=== PATIENT | male | born 1950 | race Caucasian/White ===

== ENCOUNTER 2017-07-02 19:41 | Observation (INO) | payer MEDICARE, BC ==
[~2017-07-02] VITALS: Ht 175.3 cm; Wt 80.0 kg
[~2017-07-02 19:41] MED LIST: ASPI81TA82 PO; METO25 PO; NITR.4 SL; Z.0.WALKERFRONT
[2017-07-02] MEDS ORDERED: SODIUM CHLORIDE 0.9% FLUSH 10 ML FLUSH IVF PRN (20:00)
[2017-07-02 20:12] VITALS: BP 132/70; PULSE 70; RESP 20; TEMP 97.7; O2SAT 97
[2017-07-02 20:20] LABS: AUTOMATED NEUTROPHIL # 3.3 TH/MM3 (1.8-7.7); BASOPHIL # 0.1 TH/MM3 (0-0.2); BASOPHIL % 1.2 % (0.0-2.0); EOSINOPHIL # 0.4 TH/MM3 (0-0.4); EOSINOPHIL % 4.2 % (0.0-4.0); HEMATOCRIT 36.1 % (39.0-51.0); HEMO FLAGS DIFF FINAL; LYMPH % 48.5 % (9.0-44.0); LYMPHOCYTE # 4.1 TH/MM3 (1.0-4.8); MEAN CELL VOLUME 64.1 FL (80.0-100.0); MEAN CORPUSCULAR HEMOGLOBIN 20.7 PG (27.0-34.0); MEAN CORPUSCULAR HGB CONC 32.3 % (32.0-36.0); MONO % 6.8 % (0.0-8.0); NEUT % 39.3 % (16.0-70.0); PLATELET COUNT 135 TH/MM3 (150-450); RED BLOOD COUNT 5.63 MIL/MM3 (4.50-5.90); RED CELL DISTRIBUTION WIDTH 15.5 % (11.6-17.2); WHITE BLOOD COUNT 8.5 TH/MM3 (4.0-11.0)
[2017-07-02 20:35] LABS: APTT (PATIENT) 27.4 SEC (24.3-30.1); INTERNATIONAL NORMALIZED RATIO 0.9 RATIO
[2017-07-02 20:39] LABS: ANION GAP 9 MEQ/L (5-15); BICARBONATE 26.1 MEQ/L (21.0-32.0); BLOOD UREA NITROGEN 13 MG/DL (7-18); CHLORIDE 104 MEQ/L (98-107); GLOMERULAR FILTRATION RATE 56 ML/MIN (>89); MAGNESIUM 2.1 MG/DL (1.5-2.5); SODIUM (NA) 139 MEQ/L (136-145)
[2017-07-02 20:40] LABS: CREATINE KINASE 74 U/L (39-308); POTASSIUM 4.1 MEQ/L (3.5-5.1)
[2017-07-02] MEDS ORDERED: METO50TA PO (20:49)
[2017-07-02] MEDS ORDERED: NITR1SUB3 SL (20:49)
[2017-07-02] MEDS ORDERED: ASPI-516 CHEW (20:49)
[2017-07-02] MEDS ORDERED: PRAV20TA2 PO (20:49)
[2017-07-02] MEDS ORDERED: AMLO5TAB2 PO (20:49)
[2017-07-02 21:00] VITALS: BP 134/66; PULSE 66; RESP 20; O2SAT 99
[2017-07-02 21:02] VITALS: PULSE 66; RESP 20; O2SAT 99
[2017-07-02] MEDS ORDERED: NITROGLYCERIN 0.4 MG SL 25 TABS/BTL SL PRN (21:15)
[2017-07-02] MEDS ORDERED: ONDANSETRON HCL 4 MG/2 ML VIAL IV PUSH PRN (21:15)
[2017-07-02] MEDS ORDERED: SODIUM CHLORIDE 0.9% FLUSH 10 ML FLUSH IV FLUSH PRN (21:15)
--- NOTE | 2017-07-02 21:18 | PD ---
HPI Chief Complaint: Chest Pain Time Seen by Provider: 19:56 Travel History International Travel<30 days: No Contact w/Intl Traveler<30days: No Traveled to known affect area: No History of Present Illness HPI 66-year-old male came to the emergency room brought by EMS with history of sudden onset chest pain to the left side of his chest while he was sitting waiting for his food. Patient took his nitroglycerin 2 which made the pain go away. However when he got up and started to walk the pain started to come back and his called 911. He was given 2 baby aspirin's. 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 He quit smoking one month ago. Patient has never had a stent or bypass surgery in the past. He is on medications for blood pressure. Vital signs were relatively stable. Patient says currently his pain is 1-2 out of 10. When he was having the chest pain he also felt some tingling down his left fingers. He has never had this kind of pain before. This happened at 7 PM today. No associated symptoms like shortness of breath, diaphoresis or syncopal episode. [facility] Past Medical History Narrative Medical List of his past medical, surgical, social and family history is reviewed from the nursing note. Anemia: Yes Heart Rhythm Problems: Yes (UNSURE WHICH, HAD RUN OF SVT IN ED) Cancer: No Cardiac Catheterization: No Cardiovascular Problems: Yes High Cholesterol: Yes Chest Pain: Yes Congestive Heart Failure: No COPD: Yes Diabetes: No Diminished Hearing: No Endocrine: No Gastrointestinal Disorders: Yes (GERD) Glaucoma: No Genitourinary: No Hepatitis: No Hiatal Hernia: No Hypertension: Yes Musculoskeletal: Yes Neurologic: Yes Psychiatric: No Respiratory: No Immunizations Current: Yes Thyroid Disease: No Tetanus Vaccination: < 5 Years Influenza Vaccination: Yes Past Surgical History Coronary Artery Bypass Graft: No Genitourinary Surgery: Yes (LEFT VARICOCELE EXCISION 1980) Other Surgery: Yes (VARIOCELE, BILAT HERNIA REPAIR) Family History Family Myocardial Infarction: Yes Social History Alcohol Use: Yes (2-3 beers week) Tobacco Use: No (quite 1 month ago) Substance Use: No Allergies-Medications (Allergen,Severity, Reaction): Coded Allergies: No Known Allergies (Verified Adverse Reaction, Unknown, 07/02/17) Comments No known drug allergies. Reported Meds & Prescriptions Reported Meds & Active Scripts Active Nitroglycerin Tab 0.4 Mg Sl (Nitroglycerin) 0.4 Mg Subl 0.4 Mg SL DIRECTED Walker Front Wheel (Z.0.walkerfront) Device 1 Unit Metoprolol Tartrate 25 mg (Metoprolol Tartrate) 25 Mg Tab 25 Mg PO BID Reported Nitroglycerin SL (Nitroglycerin) 0.4 Mg Subl 0.4 Mg SL DIRECTED PRN ONE TABLET UNDER THE TONGUE NEEDED FOR CHEST PAIN, MAY REPEAT EVERY FIVE MINUTES FOR A TOTAL OF 3 DOSES OR CALL 911 IF NO RELIEF Amlodipine (Amlodipine Besylate) 5 Mg Tab 5 Mg PO DAILY Pravastatin 20 Mg Tab 20 Mg PO DAILY Metoprolol Tartrate 50 Mg Tab 50 Mg PO BID Aspirin 81 Mg Chew 81 Mg CHEW DAILY Aspir-81 (Aspirin) 81 Mg Tab 81 Mg PO DAILY Narrative Medication List of his home medications reviewed from the nursing note. Review of Systems Except as stated in HPI: all other systems reviewed are Neg Cardiovascular: Positive: Chest Pain or Discomfort Physical Exam Narrative GENERAL: Awake, alert, anxious, no obvious distress SKIN: Focused skin assessment warm/dry. HEAD: Atraumatic. Normocephalic. EYES: Pupils equal and round. No scleral icterus. No injection or drainage. ENT: No nasal bleeding or discharge. Mucous membranes pink and moist. NECK: Trachea midline. No JVD. CARDIOVASCULAR: Regular rate and rhythm. No murmur appreciated. RESPIRATORY: No accessory muscle use. Clear to auscultation. Breath sounds equal bilaterally. GASTROINTESTINAL: Abdomen soft, non-tender, nondistended. Hepatic and splenic margins not palpable. MUSCULOSKELETAL: No obvious deformities. No clubbing. No cyanosis. No edema. NEUROLOGICAL: Awake and alert. No obvious cranial nerve deficits. Motor grossly within normal limits. Normal speech. PSYCHIATRIC: Appropriate mood and affect; insight and judgment normal. Data Data Last Documented VS Vital Signs Date Time Temp Pulse Resp B/P (MAP) Pulse Ox O2 Delivery O2 Flow Rate FiO2 07/02/17 21:02 66 20 99 Nasal Cannula 2.00 07/02/17 20:12 97.7 Orders Orders Electrocardiogram (07/02/17 19:57) Basic Metabolic Panel (Bmp) (07/02/17 19:57) Ckmb (Isoenzyme) Profile (07/02/17 19:57) Complete Blood Count With Diff (07/02/17 19:57) Magnesium (Mg) (07/02/17 19:57) Prothrombin Time / Inr (Pt) (07/02/17 19:57) Act Partial Throm Time (Ptt) (07/02/17 19:57) Troponin I (07/02/17 19:57) Chest, Single Ap (07/02/17 19:57) Ecg Monitoring (07/02/17 19:57) Bilateral Bp Monitoring (07/02/17 19:57) Iv Access Insert/Monitor (07/02/17 19:57) Oximetry (07/02/17 19:57) Oxygen Administration (07/02/17 19:57) Sodium Chloride 0.9% Flush (Ns Flush) (07/02/17 20:00) Admit Order (Ed Use Only) (07/02/17 21:04) Place In Observation (07/02/17 21:04) Activity Bed Rest With Brp (07/02/17 21:04) Vital Signs (Adult) Q4H (07/02/17 21:04) Cardiac Rhythm .As Directed (07/02/17 21:04) Notify Dr: Other .PRN (07/02/17 21:04) Notify Dr. Parameters (07/02/17 21:04) Resp Oxygen Nasal Cannula (07/02/17 ) Diet Heart Healthy (07/03/17 Breakfast) Ckmb (Isoenzyme) Profile (07/02/17 21:04) Ckmb (Isoenzyme) Profile (07/03/17 00:04) Troponin I (07/02/17 21:04) Troponin I (07/03/17 00:04) Electrocardiogram (07/02/17 21:04) Electrocardiogram (07/03/17 00:04) ^ Obtain (07/02/17 21:04) Sodium Chloride 0.9% Flush (Ns Flush) (07/02/17 21:15) Sodium Chloride 0.9% Flush (Ns Flush) (07/03/17 09:00) Acetaminophen (Tylenol) (07/02/17 21:15) Ondansetron Inj (Zofran Inj) (07/02/17 21:15) Nitroglycerin Sl (Nitrostat Sl) (07/02/17 21:15) Cattle Feeder / Telemetry KUSUM.Q8H (07/02/17 21:04) Labs Laboratory Tests Test 07/02/17 20:00 White Blood Count 8.5 TH/MM3 Red Blood Count 5.63 MIL/MM3 Hemoglobin 11.6 GM/DL Hematocrit 36.1 % Mean Corpuscular Volume 64.1 FL Mean Corpuscular Hemoglobin 20.7 PG Mean Corpuscular Hemoglobin Concent 32.3 % Red Cell Distribution Width 15.5 % Platelet Count 135 TH/MM3 Mean Platelet Volume 9.5 FL Neutrophils (%) (Auto) 39.3 % Lymphocytes (%) (Auto) 48.5 % Monocytes (%) (Auto) 6.8 % Eosinophils (%) (Auto) 4.2 % Basophils (%) (Auto) 1.2 % Neutrophils # (Auto) 3.3 TH/MM3 Lymphocytes # (Auto) 4.1 TH/MM3 Monocytes # (Auto) 0.6 TH/MM3 Eosinophils # (Auto) 0.4 TH/MM3 Basophils # (Auto) 0.1 TH/MM3 CBC Comment DIFF FINAL Differential Comment Prothrombin Time 10.0 SEC Prothromb Time International Ratio 0.9 RATIO Activated Partial Thromboplast Time 27.4 SEC Blood Urea Nitrogen 13 MG/DL Creatinine 1.28 MG/DL Random Glucose 121 MG/DL Calcium Level 8.5 MG/DL Magnesium Level 2.1 MG/DL Sodium Level 139 MEQ/L Potassium Level 4.1 MEQ/L Chloride Level 104 MEQ/L Carbon Dioxide Level 26.1 MEQ/L Anion Gap 9 MEQ/L Estimat Glomerular Filtration Rate 56 ML/MIN Total Creatine Kinase 74 U/L Troponin I LESS THAN 0.02 NG/ML MDM Medical Decision Making Medical Screen Exam Complete: Yes Emergency Medical Condition: Yes Medical Record Reviewed: Yes Interpretation(s) Twelve-lead EKG was reviewed by me. Normal sinus rhythm, normal axis, nonspecific ST-T wave changes. Heart rate of 67 bpm. Differential Diagnosis ACS, non-STEMI Narrative Course 9:17 PM blood test results are back and within acceptable limits. My concern is high for acute coronary syndrome given his history and risk factors including smoking although he quit one month ago. I would admit him to the chest pain center. Patient was informed about this plan along with his family. They understand and patient has agreed. Procedures EKG Prior to Arrival: No Diagnosis Primary Impression: chest pain Admitting Information Admitting Physician Requests: Observation Nelly Harper MD Jul 02, 2017 21:18
--- NOTE | 2017-07-02 21:19 | RADRPT ---
EXAM DATE/TIME: 07/02/2017 20:03 [facility] COMPARISON: CHEST SINGLE AP, August 02, 2015, 2:52. INDICATIONS : Chest pain and short of breath. MEDICAL HISTORY : Chronic obstructive pulmonary disease. SURGICAL HISTORY : None. ENCOUNTER: Initial ACUITY: 1 day PAIN SCORE: 8/10 LOCATION: Bilateral chest FINDINGS: A single view of the chest demonstrates the lungs to be symmetrically aerated without evidence of mas s, infiltrate or effusion. The cardiomediastinal contours are unremarkable. Osseous structures are intact. CONCLUSION: Normal examination. Ramiro Hunter MD on July 02, 2017 at 21:18 Board Certified Radiologist. This report was verified electronically.
[2017-07-02 22:29] VITALS: BP 141/65; PULSE 60; RESP 16; TEMP 97.3; O2SAT 97
[2017-07-02 22:32] LABS: CREATINE KINASE 60 U/L (39-308)
[2017-07-02] MEDS: ACETAMINOPHEN 500 MG CPLT PO PRN (23:07)
[2017-07-03 00:47] VITALS: BP 119/57; PULSE 67; RESP 15; TEMP 96.9; O2SAT 97
[2017-07-03 02:59] LABS: CREATINE KINASE 54 U/L (39-308)
[2017-07-03 03:55] VITALS: BP 117/58; PULSE 82; RESP 15; TEMP 96.1; O2SAT 98
[2017-07-03 04:31] VITALS: PULSE 68
[2017-07-03 07:52] VITALS: BP 121/58; PULSE 74; RESP 18; TEMP 97.4; O2SAT 97
[2017-07-03] MEDS ORDERED: RESP: ALBUTEROL 2.5 MG/IPRATROPIUM 0.5 MG NEB (SCH) INH ONE (08:00)
[2017-07-03] MEDS ORDERED: RESP: ALBUTEROL 2.5 MG/IPRATROPIUM 0.5 MG NEB (PRN) INH (08:00)
--- NOTE | 2017-07-03 08:03 | HHI.HP ---
[facility] Primary Care Physician Alfa Garcia MD Chief Complaint Chest pain History of Present Illness This is a 66-year-old male with history of hypertension hyperlipidemia tobacco abuse, reported history of mild CAD via catheter in 2005 while in [place] that presents to ED with complaint of 2 episodes of chest discomfort. Patient states he was walking to the kitchen last evening when he developed a sharp left -sided chest discomfort. Within 1 minute he took a sublingual nitroglycerin which resolve the first episode with then another minute. He sat down. When feeling better he decided to walk back to the kitchen. While walking back to the kitchen the same pain occurred. He took another nitroglycerin but it lasted little longer. Dates it to 2-3 minutes for to go away. Rates as 7 out of 10 pain level. He is chronically short of breath with his COPD but states he felt a little more short of breath. No nausea or diaphoresis. Follows Dr. Fairchild cardiology and believes he has a follow-up appointment recent. Believes his last visit was a year ago. Upon reviewing records he had a Narciso protocol ETT July 2015 that was nonischemic however suboptimal with a 81% achieved rate that was stopped secondary to shortness of breath. No chest pain. He had a Lexiscan in 2013 is nonischemic. Review of Systems General: Patient denies fevers, chills recent, and recent travel HEENT: Patient denies headache, sore throat, difficulty swallowing. Cardiovascular: Has the chest discomfort as mentioned above. Denies sensation of heart beating rapidly or irregularly. No syncope. Denies diaphoresis. Respiratory: He was short of breath. Denies inspirational chest discomfort. Denies coughing wheezing or hemoptysis. GI: Patient denies nausea, vomiting, diarrhea, abdominal pain, bloody stools. Musculoskeletal: Patient denies joint pain or edema. Denies calf pain or edema. Neurovascular: Patient denies numbness, tingling, weakness in extremities. Denies headache. Endocrine: Denies polyuria and polydipsia. Hematologic: Denies easy bruising. Skin: Denies rash or itching. Past Family Social History Allergies: Coded Allergies: No Known Allergies (Verified Adverse Reaction, Unknown, 07/02/17) Past Medical History COPD, hypertension, hyperlipidemia, tobacco abuse but states he quit one month ago. Also states he has mild CAD, states he had a heart catheterization in 2005 revealing some disease but not needing interventions. Episode of SVT in 2014. Denies diabetes. Past Surgical History Inguinal hernia repair. Reported Medications Reported Meds & Active Scripts Active Metoprolol Tartrate 25 mg (Metoprolol Tartrate) 25 Mg Tab 25 Mg PO BID Reported Nitroglycerin SL (Nitroglycerin) 0.4 Mg Subl 0.4 Mg SL DIRECTED PRN ONE TABLET UNDER THE TONGUE NEEDED FOR CHEST PAIN, MAY REPEAT EVERY FIVE MINUTES FOR A TOTAL OF 3 DOSES OR CALL 911 IF NO RELIEF Amlodipine (Amlodipine Besylate) 5 Mg Tab 5 Mg PO DAILY Pravastatin 20 Mg Tab 20 Mg PO DAILY Aspir-81 (Aspirin) 81 Mg Tab 81 Mg PO DAILY Active Ordered Medications Current Medications Medications (Trade) Dose Ordered Sig/Abel Route Start Time Stop Time Status Last Admin (NS Flush) 2 ml UNSCH PRN IVF 07/02/17 20:00 (NS Flush) 2 ml UNSCH PRN IV FLUSH 07/02/17 21:15 (NS Flush) 2 ml BID IV FLUSH 07/03/17 09:00 (Tylenol) 500 mg Q4H PRN PO 07/02/17 21:15 07/02/17 23:07 (Zofran Inj) 4 mg Q6H PRN IV PUSH 07/02/17 21:15 (Nitrostat Sl) 0.4 mg Q5M PRN SL 07/02/17 21:15 (Norvasc) 5 mg DAILY PO 07/03/17 09:00 UNV (Lopressor) 25 mg BID PO 07/03/17 09:00 UNV (Pravachol) 20 mg DAILY PO 07/03/17 09:00 UNV Family History His father late onset CAD. States his father at age 81 of a myocardial infarction. Social History Was smoking 1 pack a day for 50 years but states he quit one month ago. Has on average couple beers per weekend. Denies illicit drugs. 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 Physical Exam Vital Signs Vital Signs Date Time Temp Pulse Resp B/P (MAP) Pulse Ox O2 Delivery O2 Flow Rate FiO2 07/03/17 07:52 97.4 74 18 121/58 (79) 97 07/03/17 04:31 68 07/03/17 03:55 96.1 82 15 117/58 (77) 98 07/03/17 00:47 96.9 67 15 119/57 (77) 97 07/03/17 00:07 18 07/02/17 22:29 97.3 60 16 141/65 (90) 97 07/02/17 21:02 66 20 99 Nasal Cannula 2.00 07/02/17 21:00 66 20 134/66 (88) 99 Nasal Cannula 2.00 07/02/17 20:12 97.7 70 20 132/70 (90) 97 07/02/17 20:11 97 Nasal Cannula 2.00 Physical Exam GENERAL: This is a well-nourished, well-developed patient, in no apparent distress. Patient speaks in clear complete sentences. Patient is pleasant. HEENT: Right carotid bruit. Head is atraumatic and normocephalic. Neck is supple without lymphadenopathy and trachea is midline. No JVD. CARDIOVASCULAR: Regular rate and rhythm without murmurs, gallops, or rubs. RESPIRATORY: Scattered wheezing bilaterally more so in the bases. Breath sounds equal bilaterally. No rales, or rhonchi. Chest wall is nontender. No use of accessory muscles. GASTROINTESTINAL: Abdomen is nontender, nondistended. Abdomen soft. No obvious pulsatile mass or bruit. No CVA tenderness. Strong femoral pulses bilaterally. Normal bowel sounds in all quadrants. MUSCULOSKELETAL: Patient is moving upper and lower extremities freely. No calf tenderness or edema, no Homans sign. Strong pulses in upper and lower extremities. NEUROLOGICAL: Patient is alert and oriented. Cranial nerves 2-12 are grossly intact. No focal deficits and speech is clear. SKIN: No rash and turgor is normal. Laboratory Laboratory Tests Test 07/02/17 20:00 07/02/17 21:47 07/03/17 01:45 White Blood Count 8.5 Red Blood Count 5.63 Hemoglobin 11.6 Hematocrit 36.1 Mean Corpuscular Volume 64.1 Mean Corpuscular Hemoglobin 20.7 Mean Corpuscular Hemoglobin Concent 32.3 Red Cell Distribution Width 15.5 Platelet Count 135 Mean Platelet Volume 9.5 Neutrophils (%) (Auto) 39.3 Lymphocytes (%) (Auto) 48.5 Monocytes (%) (Auto) 6.8 Eosinophils (%) (Auto) 4.2 Basophils (%) (Auto) 1.2 Neutrophils # (Auto) 3.3 Lymphocytes # (Auto) 4.1 Monocytes # (Auto) 0.6 Eosinophils # (Auto) 0.4 Basophils # (Auto) 0.1 CBC Comment DIFF FINAL Differential Comment Prothrombin Time 10.0 Prothromb Time International Ratio 0.9 Activated Partial Thromboplast Time 27.4 Blood Urea Nitrogen 13 Creatinine 1.28 Random Glucose 121 Calcium Level 8.5 Magnesium Level 2.1 Sodium Level 139 Potassium Level 4.1 Chloride Level 104 Carbon Dioxide Level 26.1 Anion Gap 9 Estimat Glomerular Filtration Rate 56 Total Creatine Kinase 74 60 54 Troponin I LESS THAN 0.02 LESS THAN 0.02 LESS THAN 0.02 Result Diagram: 07/02/17199907/02/171999 Imaging Last 24 hours Impressions Chest X-Ray 07/02/171956 Signed Impressions: Service Date/Time: Friday, July 02, 2017 20:03 - CONCLUSION: Normal examination. Ramiro Hunter MD Course EKGs have sinus rhythm without significant ST segment depressions or elevations. Caprini VTE Risk Assessment Caprini VTE Risk Assessment: Mod/High Risk (score >= 2) Caprini Risk Assessment Model Point Value = 1 Point Value = 2 Point Value = 3 Point Value = 5 Age 41-60 Minor surgery BMI > 25 kg/m2 Swollen legs Varicose veins or History of unexplained or recurrent spontaneous Oral contraceptives or hormone replacement Sepsis (< 1 month) Serious lung disease, including pneumonia (< 1 month) Abnormal pulmonary function Acute myocardial infarction Congestive heart failure (< 1 month) History of inflammatory bowel disease Medical patient at bed rest Age 61-74 Arthroscopic surgery Major open surgery (> 45 min) Laparoscopic surgery (> 45 min) Malignancy Confined to bed (> 72 hours) Immobilizing plaster cast Central venous access Age >= 75 History of VTE Family history of VTE Factor V Leiden Prothrombin [id number] Lupus anticoagulant Anticardiolipin antibodies Elevated serum homocysteine Heparin-induced thrombocytopenia Other congenital or acquired thrombophilia Stroke (< 1 month) Elective arthroplasty Hip, pelvis, or leg fracture Acute spinal cord injury (< 1 month) Prophylaxis Regimen Total Risk Factor Score Risk Level Prophylaxis Regimen 0-1 Low Early ambulation 2 Moderate Order ONE of the following: *Sequential Compression Device (SCD) *Heparin 5000 units SQ BID 3-4 Higher Order ONE of the following medications: *Heparin 5000 units SQ TID *Enoxaparin/Lovenox 40 mg SQ daily (WT < 150 kg, CrCl > 30 mL/min) *Enoxaparin/Lovenox 30 mg SQ daily (WT < 150 kg, CrCl > 10-29 mL/min) *Enoxaparin/Lovenox 30 mg SQ BID (WT < 150 kg, CrCl > 30 mL/min) AND/OR *Sequential Compression Device (SCD) 5 or more Highest Order ONE of the following medications: *Heparin 5000 units SQ TID (Preferred with Epidurals) *Enoxaparin/Lovenox 40 mg SQ daily (WT < 150 kg, CrCl > 30 mL/min) *Enoxaparin/Lovenox 30 mg SQ daily (WT < 150 kg, CrCl > 10-29 mL/min) *Enoxaparin/Lovenox 30 mg SQ BID (WT < 150 kg, CrCl > 30 mL/min) AND *Sequential Compression Device (SCD) Assessment and Plan Assessment and Plan * Chest pain: Patient has had serial cardiac enzymes and EKGs for ruling out purposes. He will be seen by Dr. Barahona of cardiology and the chest pain center. I discussed this patient with his plant operations coordinator Dr. Fairchild. At this time he'll have a Lexiscan, he would be discharged if nonischemic with instructions to follow-up with PCP and plant operations coordinator. We will notify Dr. Fairchild the stress test is abnormal. Return to ED for interval issues. * Reported CAD: We'll reassess with stress testing. * Hypertension: Continue current medication. * Hyperlipidemia: Continue current medication. * COPD: We'll have DuoNeb's. Patient is stable at this time. He is agreeable to this plan. Alfa Serrano Jul 03, 2017 08:03
[2017-07-03 08:35] VITALS: O2SAT 98
[2017-07-03] MEDS ORDERED: amLODIPine BESYLATE 5 MG TAB PO SCH (09:00)
[2017-07-03] MEDS ORDERED: METOPROLOL TARTRATE 25 MG TAB PO SCH (09:00)
[2017-07-03] MEDS ORDERED: SODIUM CHLORIDE 0.9% FLUSH 10 ML FLUSH IV FLUSH SCH (09:00)
[2017-07-03] MEDS ORDERED: PRAVASTATIN SOD 20 MG TAB PO SCH (09:00)
[2017-07-03] MEDS ORDERED: REGADENOSON INJ 0.4 MG/5 ML SYR ONE (10:49)
[2017-07-03 11:39] VITALS: BP 121/62; PULSE 67; RESP 21; TEMP 97.7; O2SAT 100
--- NOTE | 2017-07-03 11:56 | RADRPT ---
EXAM DATE/TIME: 07/03/2017 10:12 [facility] COMPARISON: MYOCARDIAL PERF PHARM SPECT, GATED W/EF, June 09, 2014, 9:21. INDICATIONS : Left sided chest pain. Angina. DOSE: 25.7 mCi Tc99m Myoview at stress. 8.1 mCi Tc99m Myoview at rest. 0.4 mg Lexiscan STRESS SYMPTOMS: Chest pressure, shortness of breath, stomach pain. EJECTION FRACTION: 58% MEDICAL HISTORY : Hypertension. Smoking history. SURGICAL HISTORY : None. ENCOUNTER: Initial ACUITY: 1 day PAIN SCALE: 2/10 LOCATION: Left chest TECHNIQUE: The patient underwent pharmacologic stress with infusion of prescribed dose. Continuous ECG tracing was monitored during stress. Gated SPECT imaging was performed after stress and conventional SPECT i maging was performed at rest. The examination was performed on a SPECT/CT scanner, both attenuation and non-corrected datasets were reviewed. FINDINGS: DISTRIBUTION: The maximum perfused segment at stress is in the anterolateral wall. PERFUSION STUDY: The pattern of perfusion at stress shows about 10% redistribution in a very focal area of the inferos eptal wall which would not be considered statistically significant. Some diminished perfusion to the apex is fixed and may represent some apical thinning. GATED STUDY: There is intact wall motion and thickening without hypokinetic or dyskinetic segments. CONCLUSION: 1. No scintigraphic findings of ischemia. Mild apical thinning. 2. Adequate wall motion throughout with estimated ejection fraction of 58%. RISK CATEGORY: Low (<1% Annual Mortality Rate) Kimo Esteban MD on July 03, 2017 at 11:49 Board Certified Radiologist. This report was verified electronically.
[2017-07-03] MEDS: ACETAMINOPHEN 500 MG CPLT PO PRN (12:18)
--- NOTE | 2017-07-03 12:54 | HHI.DCPOC ---
Discharge Care Plan Diagnosis: (1) Chest pain (2) Hypertension (3) Hyperlipidemia (4) GERD (gastroesophageal reflux disease) (5) COPD (chronic obstructive pulmonary disease) Goals to Promote Your Health * To prevent worsening of your condition and complications * To maintain your health at the optimal level Directions to Meet Your Goals Take your medications as prescribed Follow your dietary instruction Follow activity as directed Keep your appointments as scheduled Take your immunizations and boosters as scheduled If your symptoms worsen call your PCP, if no PCP go to Urgent Care Center or Emergency Room Smoking is Dangerous to Your Health. Avoid second hand smoke Call the 24-hour hour crisis hotline for domestic abuse at Alfa Serrano Jul 03, 2017 12:54
--- NOTE | 2017-07-03 13:42 | TR ---
Date Performed: 07/03/2017 Time Performed: 10:42:42 DOCTOR: Vishnu Barahona DRUG LIST: CLINICAL HISTORY: REASON FOR TEST: Angina REASON FOR ENDING: OBSERVATION: CONCLUSION: Lexiscan stress test was performed under standard four minute protocol. Radionuclid e was injected one minute prior to ending the test. No electrocardiographic abormalities were present to suggest ischemia. Nuclear imaging and interpretation are pending. COMMENTS:
--- NOTE | 2017-07-03 14:26 | EKG ---
Date Performed: 07/03/2017 Time Performed: 01:54:53 PTAGE: 66 years EKG: Sinus rhythm WITH FIRST DEGREE AV BLOCK ABNORMAL ECG PREVIOUS TRACING : 07/02/2017 21.52 Since previous tracing, no significant change noted DOCTOR: Vishnu Barahona Interpretating Date/Time 07/03/2017 14:24:30
--- NOTE | 2017-07-03 14:38 | EKG ---
Date Performed: 07/02/2017 Time Performed: 21:52:06 PTAGE: 66 years EKG: Sinus rhythm NORMAL ECG PREVIOUS TRACING : 07/02/2017 19.54 Since previous tracing, no significant change noted DOCTOR: Vishnu Barahona Interpretating Date/Time 07/03/2017 14:37:13
--- NOTE | 2017-07-03 14:41 | EKG ---
Date Performed: 07/02/2017 Time Performed: 19:54:30 PTAGE: 66 years EKG: Sinus rhythm NORMAL ECG NO PREVIOUS TRACING Since previous tracing, no significant change noted DOCTOR: Vishnu Barahona Interpretating Date/Time 07/03/2017 14:39:19
== END 2017-07-03 15:21 | disposition home or self-care (01) ==
LOC: NEPE 19:41 → NEDA 21:06 → NEPHCDU 22:23
PROVIDERS: ADMIT Internal Medicine Interventional Cardiology; ATTEND Internal Medicine Interventional Cardiology
DX: R07.89 Other chest pain (principal); I10 Essential (primary) hypertension; E78.5 Hyperlipidemia, unspecified; J44.9 Chronic obstructive pulmonary disease, unspecified; I20.9 Angina pectoris, unspecified; R20.2 Paresthesia of skin; I44.0 Atrioventricular block, first degree; I25.10 Atherosclerotic heart disease of native coronary artery without angina pectoris; E78.00 Pure hypercholesterolemia, unspecified; K21.9 Gastro-esophageal reflux disease without esophagitis; Z79.899 Other long term (current) drug therapy; Z79.82 Long term (current) use of aspirin; Z87.891 Personal history of nicotine dependence
CPT/HCPCS: 71010; 78452; 80048; 82550; 83735; 84484; 85025; 85610; 85730; 93005; 93017; 94664; 99285; A9502; G0378; J2785

== ENCOUNTER 2018-01-19 17:48 | Inpatient (IN) | payer MEDICARE, BC ==
[2018-01-19] VITALS (10 sets, daily range): BP systolic 142–214; BP diastolic 64–95; PULSE 78–95; RESP 16–18; TEMP 98.4–98.6; O2SAT 98–100
[~2018-01-19] VITALS: Ht 172.7 cm; Wt 92.9 kg
[~2018-01-19 17:48] MED LIST changes: +AMLO5TAB2 PO; -NITR.4 SL; +NITR1SUB3 SL; +PRAV20TA2 PO; -Z.0.WALKERFRONT
[2018-01-19] MEDS ORDERED: SODIUM CHLOR 0.9% 1000 ML INJ 1,000 ML IV ONE (18:02)
[2018-01-19 18:22] LABS: AUTOMATED NEUTROPHIL # 3.6 TH/MM3 (1.8-7.7); BASOPHIL # 0.1 TH/MM3 (0-0.2); BASOPHIL % 1.1 % (0.0-2.0); EOSINOPHIL # 0.4 TH/MM3 (0-0.4); EOSINOPHIL % 3.9 % (0.0-4.0); HEMATOCRIT 34.5 % (39.0-51.0); LYMPH % 49.9 % (9.0-44.0); LYMPHOCYTE # 5.2 TH/MM3 (1.0-4.8); MEAN CELL VOLUME 63.2 FL (80.0-100.0); MEAN CORPUSCULAR HEMOGLOBIN 20.2 PG (27.0-34.0); MEAN CORPUSCULAR HGB CONC 31.9 % (32.0-36.0); MEAN PLATELET VOLUME 10.5 FL (7.0-11.0); MONO % 10.9 % (0.0-8.0); MONOCYTE # 1.1 TH/MM3 (0-0.9); NEUT % 34.2 % (16.0-70.0); PLATELET COUNT 138 TH/MM3 (150-450); RED BLOOD COUNT 5.46 MIL/MM3 (4.50-5.90); RED CELL DISTRIBUTION WIDTH 15.7 % (11.6-17.2); WHITE BLOOD COUNT 10.5 TH/MM3 (4.0-11.0)
--- NOTE | 2018-01-19 18:25 | RADRPT ---
EXAM DATE: 01/19/2018 6:12 PM EDT AGE/SEX: 67 years / Male INDICATIONS: Stroke alert, left sided weakness, slurred speech. CLINICAL DATA: This is the patient's initial encounter. Patient reports that signs and symptoms have been present for 1 day and indicates a pain score of Nonresponsive. MEDICAL/SURGICAL HISTORY: Non-responsive. Non-responsive. RADIATION DOSE: 30.60 CTDI (mGy) COMPARISON: No prior [facility] exams available for comparison. Report was called by [ ] TECHNIQUE: CT of the head without contrast. Using automated exposure control and adjustment of the mA and/or kV according to patient size, radiation dose was kept as low as reasonably achievable to ob tain optimal diagnostic quality images. FINDINGS: There is a 1.1 cm acute hemorrhage in the right terrance. There is no significant mass effect. Supratento rial brain is unremarkable. CONCLUSION: 1. 1.1 cm acute hemorrhage in the right terrance. No acute findings in the supratentorial brain. Electronically signed by: Christiano Duran MD 01/19/2018 6:24 PM EDT
[2018-01-19 18:32] LABS: INTERNATIONAL NORMALIZED RATIO 2.8 RATIO
--- NOTE | 2018-01-19 18:34 | PD ---
HPI Chief Complaint: Stroke Alert Time Seen by Provider: 18:02 Travel History International Travel<30 days: No Contact w/Intl Traveler<30days: No Traveled to known affect area: No History of Present Illness HPI Patient brought in by EMS secondary to acute onset of headache and left extremity weakness. Patient was watching TV when he suddenly developed a headache and left arm and left leg weakness, slurred speech approximately 1 hour prior to ER arrival. Patient is on Coumadin for the past 2 months secondary to A. fib, last dose was last night. Accu-Check by EMS was 102. PFSH Past Medical History Anemia: Yes Heart Rhythm Problems: Yes (atrial fib ) Cancer: No Cardiac Catheterization: Yes (2005) Cardiovascular Problems: Yes High Cholesterol: Yes Chest Pain: Yes Congestive Heart Failure: No COPD: Yes Diabetes: Yes (diet controlled) Diminished Hearing: No Endocrine: No Gastrointestinal Disorders: Yes (GERD) Glaucoma: No Genitourinary: No Hepatitis: No Hiatal Hernia: No Hypertension: Yes Musculoskeletal: Yes Neurologic: Yes Psychiatric: No Respiratory: No Immunizations Current: Yes Thyroid Disease: No Past Surgical History Coronary Artery Bypass Graft: No Genitourinary Surgery: Yes (LEFT VARICOCELE EXCISION 1980) Other Surgery: Yes (VARIOCELE, BILAT HERNIA REPAIR) Social History Alcohol Use: Yes (2-3 beers week) Tobacco Use: No (quite 1 month ago) Substance Use: No Allergies-Medications (Allergen,Severity, Reaction): Coded Allergies: No Known Allergies (Verified Allergy, Unknown, 07/03/17) Reported Meds & Prescriptions Reported Meds & Active Scripts Active Reported Chantix (Varenicline) 1 Mg Tab 1 Mg PO BIDPC Omeprazole 20 Mg Tab 20 Mg PO DAILY Metoprolol Tartrate 50 Mg Tab 50 Mg PO BID Jantoven (Warfarin) 6 Mg Tab 6 Mg PO SUTUWETHSA Take 1 tablet (6mg) daily on Friday,Friday,Friday, and Friday Jantoven (Warfarin) 6 Mg Tab 9 Mg PO MOFR Take 1&1/2 tablets (9mg) daily on Friday and Friday Spectravite Senior (Multivit with Iron-Minerals) 1 Each Tablet 1 Tab PO DAILY Ferrous Sulfate 325 Mg (65 Mg Iron) Tablet 325 Mg PO DAILY Pravastatin 40 Mg Tab 40 Mg PO DAILY Nitroglycerin SL (Nitroglycerin) 0.4 Mg Subl 0.4 Mg SL DIRECTED PRN ONE TABLET UNDER THE TONGUE NEEDED FOR CHEST PAIN, MAY REPEAT EVERY FIVE MINUTES FOR A TOTAL OF 3 DOSES OR CALL 911 IF NO RELIEF Amlodipine (Amlodipine Besylate) 5 Mg Tab 5 Mg PO DAILY Review of Systems Except as stated in HPI: all other systems reviewed are Neg Physical Exam Narrative GENERAL: No acute distress. SKIN: Focused skin assessment warm/dry. HEAD: Atraumatic. Normocephalic. EYES: Pupils equal and round. No scleral icterus. No injection or drainage. ENT: No nasal bleeding or discharge. Mucous membranes pink and moist. Poor assisted. NECK: Trachea midline. No JVD. CARDIOVASCULAR: Regular rate and rhythm. No murmur appreciated. RESPIRATORY: No accessory muscle use. Clear to auscultation. Breath sounds equal bilaterally. GASTROINTESTINAL: Abdomen soft, non-tender, nondistended. Hepatic and splenic margins not palpable. MUSCULOSKELETAL: No obvious deformities. No clubbing. No cyanosis. No edema. NEUROLOGICAL: Awake and alert. Slurred speech. 3 out of 5 strength left upper extremity and left lower extremity. NIH stroke scale score 14. PSYCHIATRIC: Appropriate mood and affect; insight and judgment normal. Data Data Last Documented VS Vital Signs Date Time Temp Pulse Resp B/P (MAP) Pulse Ox O2 Delivery O2 Flow Rate FiO2 01/19/18 18:55 83 16 214/95 (134) 100 01/19/18 18:55 100 01/19/18 18:37 Nasal Cannula 2.00 01/19/18 17:50 98.6 Orders Orders Activity Bed Rest (01/19/18 ) Electrocardiogram (01/19/18 ) I-Stat Profile (01/19/18 18:02) Prothrombin Time / Inr (Pt) (01/19/18 18:02) Act Partial Throm Time (Ptt) (01/19/18 18:02) Complete Blood Count With Diff (01/19/18 18:02) Fibrinogen (01/19/18 18:02) Creatine Kinase (Cpk) (01/19/18 18:02) Troponin I (01/19/18 18:02) Ua Includes Microscopic (01/19/18 18:02) Drug Screen, Random Urine (01/19/18 18:02) Type And Screen (01/19/18 18:02) Ct Brain W/O Iv Contrast(Rout) (01/19/18 ) Consult Neurology (01/19/18 ) Blood Glucose (01/19/18 18:02) Ecg Monitoring (01/19/18 18:02) Neuro Checks Q2HX12,Q4H (01/19/18 18:02) Nursing Bedside Swallow Assess .ONCE (01/19/18 18:02) Iv Access Insert/Monitor (01/19/18 18:02) NPO (01/19/18 18:02) Oximetry (01/19/18 18:02) Resp Oxygen Nc Stroke (01/19/18 ) Sodium Chlor 0.9% 1000 Ml Inj (Ns 1000 M (01/19/18 18:02) Cath For Specimen (01/19/18 18:02) ^ Lab Follow Up (01/19/18 18:34) Prothrombin Complex Conc Inj (Kcentra In (01/19/18 19:15) ^ Lab Follow Up (01/19/18 18:34) Nicardipine Inj (Cardene Inj) (01/19/18 18:45) (Hub Use Only)Inp Phy Cons/Ref (01/19/18 ) Etomidate Inj (Amidate Inj) (01/19/18 18:42) Succinylcholine Inj (Quelicin Inj) (01/19/18 18:43) Midazolam Inj (Versed Inj) (01/19/18 18:44) Phytonadione Inj (Vitamin K Inj) (01/19/18 18:44) Prothrombin Time / Inr (Pt) (01/19/18 20:45) Propofol 500 Mg/50 Ml Inj (Diprivan 500 (01/19/18 18:55) Chest, Single Ap (01/19/18 ) Propofol 1000 Mg/100 Ml Inj (Diprivan 10 (01/19/18 18:45) Admit Order (Ed Use Only) (01/19/18 19:10) Labs Laboratory Tests Test 01/19/18 18:00 White Blood Count 10.5 TH/MM3 Red Blood Count 5.46 MIL/MM3 Hemoglobin 11.0 GM/DL Bedside Hemoglobin 11.9 G/DL Hematocrit 34.5 % Bedside Hematocrit 35.0 % Mean Corpuscular Volume 63.2 FL Mean Corpuscular Hemoglobin 20.2 PG Mean Corpuscular Hemoglobin Concent 31.9 % Red Cell Distribution Width 15.7 % Platelet Count 138 TH/MM3 Mean Platelet Volume 10.5 FL Neutrophils (%) (Auto) 34.2 % Lymphocytes (%) (Auto) 49.9 % Monocytes (%) (Auto) 10.9 % Eosinophils (%) (Auto) 3.9 % Basophils (%) (Auto) 1.1 % Neutrophils # (Auto) 3.6 TH/MM3 Lymphocytes # (Auto) 5.2 TH/MM3 Monocytes # (Auto) 1.1 TH/MM3 Eosinophils # (Auto) 0.4 TH/MM3 Basophils # (Auto) 0.1 TH/MM3 CBC Comment AUTO DIFF Prothrombin Time 28.0 SEC Prothromb Time International Ratio 2.8 RATIO Activated Partial Thromboplast Time 41.9 SEC Fibrinogen 360 mg/dL Bedside Sodium 141 MMOL/L Bedside Potassium 4.0 MMOL/L Bedside Chloride 104 MMOL/L Bedside Blood Urea Nitrogen 16 MG/DL Bedside Creatinine 1.2 MG/DL Bedside Glucose 111 MG/DL Total Creatine Kinase 72 U/L Troponin I LESS THAN 0.02 NG/ML MDM Medical Screen Exam Complete: Yes Emergency Medical Condition: Yes Differential Diagnosis CVA, TIA, intracranial hemorrhage, intracerebral hemorrhage Narrative Course Patient was a stroke alert with acute onset of headache and left upper extremity and left lower extremity weakness with slurred speech. Stroke alert was called. Patient is on Coumadin and last dose of Coumadin was last night. He is afebrile slightly hypertensive at 168/83 remaining vital signs stable. Accu-Check was 115. NIH stroke scale was done, after which patient was sent straight to CT. Spoke to neurology on-call, who advised if the patient's INR is okay to get CTA head and neck. Called by radiology secondary to there being intracranial hemorrhage. CTA head and neck was canceled, patient was returned to the emergency department and neurosurgery was consulted. Labs and x-ray pending. 1830: Neurology attending at bedside. Awaiting neurosurgery call back. 184: Neurosurgery: Keep sys BP <150, reverse coumadin CT head result-> There is a 1.1 cm acute hemorrhage in the right terrance. There is no significant mass effect. Supratentorial brain is unremarkable. CONCLUSION: 1. 1.1 cm acute hemorrhage in the right terrance. No acute findings in the supratentorial brain. ECG: Sinus rhythm, rate 77, normal axis, labs: PLT, Hgb, HCT slightly decreased; basic chem and troponin wnl CXR pending at time of admission, admit team to follow. 1846: Patient became acutely unresponsive in the emergency department. He was subsequently intubated with 20mg of etomidate and 100mg of succinylcholine IV. Tube placement was confirmed with ET CO2 detector and auscultation and CXR. The latter of which is pending at time of admission. Propofol gtt started for postintubation sedation. Patient has been admitted to the ICU. 10 mg IV vitamin K, Cardene drip, and KCentra 25 u/kg. ordered. 1904: Cardene gtt, k centra, vit K, and propofol gtt started. Critical Care Narrative Please see full note. Approximately 30 minutes of critical care time was spent. Stroke Alert NIHSS NIH Stroke Scale Result: 14 NIHSS Time Completed: 17:50 Thrombolytic Contraindications Contraindications: CT Intracranial Bleed Contraindications Comment: Patient is on Coumadin and CT scan showed hemorrhage in the right terrance approximately 1.1 cm Physician Communication Physician Communication Spoke to neurology on-call, who advised to get a CTA head and neck if creatinine is okay. However CT scan shows a bleed in R terrance. Neurosurgery was consulted and CTA head and neck were canceled.Per NSY, keep sys BP <150 and reverse coumadin, admit to surgical ICU. Diagnosis Diagnosis: Primary Impression: Intracerebral hemorrhage Qualified Codes: I61.8 - Other nontraumatic intracerebral hemorrhage Admitting Physician Requests: Admit Condition: Critical Trudy Metzger MD Jan 19, 2018 18:34
--- NOTE | 2018-01-19 18:41 | PD.CONS ---
HPI Service Neurosurgery Consult Requested By Dr Malin Reason for Consult Pontine hemorrhage Primary Care Physician Alfa Garcia MD History of Present Illness This is a 67-year-old man who has a history of atrial fibrillation, anticoagulated on Coumadin. Approximately an hour before admission developed acute onset of left-sided weakness. He states he woke up with this symptom. The patient presented as a stroke-alert when he developed acute onset of headache and left extremity weakness. REPORTDLY he was watching TV when he suddenly developed a headache and left arm and left leg weakness, slurred speech approximately 1 hour prior to ER arrival. The CT of the brain shows 1.1 cm acute hemorrhage in the right terrance. The patient was immediately given KCentra and vitamin K. He was intubated in the emergency department by ED attending for an airway protection, Neurosurgical consultation was requested Review of Systems Unobtainable patient sedated and intubated ROS Limitations: Clinical Condition, Intoxication, Altered Mental Status, Unresponsive Past Family Social History Allergies: Coded Allergies: No Known Allergies (Verified Allergy, Unknown, 07/03/17) Past Medical History COPD, hypertension, hyperlipidemia, tobacco abuse but per chart review he quit one year ago. CAD - he had a heart catheterization in 2005 revealing some disease but not needing interventions. Atrial fibrillation on Coumadin Past Surgical History Unobtainable Reported Medications Chantix (Varenicline) 1 Mg Tab 1 Mg PO BIDPC Omeprazole 20 Mg Tab 20 Mg PO DAILY Metoprolol Tartrate 50 Mg Tab 50 Mg PO BID Jantoven (Warfarin) 6 Mg Tab 6 Mg PO SUTUWETHSA Take 1 tablet (6mg) daily on Friday,Friday,Friday, and Friday Jantoven (Warfarin) 6 Mg Tab 9 Mg PO MOFR Take 1&1/2 tablets (9mg) daily on Friday and Friday Spectravite Senior (Multivit with Iron-Minerals) 1 Each Tablet 1 Tab PO DAILY Ferrous Sulfate 325 Mg (65 Mg Iron) Tablet 325 Mg PO DAILY Pravastatin 40 Mg Tab 40 Mg PO DAILY Nitroglycerin SL (Nitroglycerin) 0.4 Mg Subl 0.4 Mg SL DIRECTED PRN ONE TABLET UNDER THE TONGUE NEEDED FOR CHEST PAIN, MAY REPEAT EVERY FIVE MINUTES FOR A TOTAL OF 3 DOSES OR CALL 911 IF NO RELIEF Amlodipine (Amlodipine Besylate) 5 Mg Tab 5 Mg PO DAILY Active Ordered Medications Current Medications Medications (Trade) Dose Ordered Sig/Abel Route PRN Reason Start Time Stop Time Status Last Admin Dose Admin Sodium Chloride 1,000 ml @ 70 mls/hr [id number] ONCE IV 01/19/18 18:02 01/20/18 08:19 01/19/18 18:02 Nicardipine HCl 25 mg/Sodium Chloride 260 ml @ 52 mls/hr TITRATE PRN IV Blood pressure management 01/19/18 18:45 01/19/18 22:27 Amlodipine Besylate (Norvasc) 5 mg DAILY PO 01/20/18 09:00 Metoprolol Tartrate (Lopressor) 50 mg BID PO 01/19/18 21:00 Pravastatin Sodium (Pravachol) 40 mg DAILY PO 01/20/18 09:00 Sodium Chloride 1,000 ml @ 84 mls/hr [id number] IV 01/19/18 21:00 01/19/18 20:34 Sodium Chloride (NS Flush) 2 ml UNSCH PRN IV FLUSH FLUSH AFTER USING IV ACCESS 01/19/18 20:15 Sodium Chloride (NS Flush) 2 ml BID IV FLUSH 01/19/18 21:00 Acetaminophen (Tylenol) 650 mg Q6H PRN PO PAIN 1-10 AND/OR FEVER >101F 01/19/18 20:15 Famotidine (Pepcid Inj) 20 mg Q12HR IV PUSH 01/19/18 21:00 01/19/18 21:25 Midazolam HCl (Versed Inj) 2 mg Q1H PRN IV PUSH SEDATION 01/19/18 20:15 Albuterol/ Ipratropium (Duoneb Neb) 1 ampule Q2HR NEB PRN INH WHEEZING 01/19/18 20:15 Miscellaneous Information ([facility] Information) 1 [id number] XX 01/19/18 20:15 Chlorhexidine Gluconate (Chlorhexidine 2% Cloth) 3 pack Taper DAILY@04 TOP 01/20/18 04:00 01/16/19 03:59 Chlorhexidine Gluconate (Chlorhexidine 2% Cloth) 3 pack UNSCH PRN TOP HYGIENIC CARE 01/19/18 20:15 Senna/Docusate Sodium (Fadumo-Colace) 1 tab BID PO 01/19/18 21:00 Magnesium Hydroxide (Milk Of Magnesia Liq) 30 ml Q12H PRN PO Mild constipation 01/19/18 20:15 Sennosides (Senokot) 17.2 mg Q12H PRN PO Moderate constipation 01/19/18 20:15 Bisacodyl (Dulcolax Supp) 10 mg DAILY PRN RECTAL SEVERE CONSITIPATION 01/19/18 20:15 Lactulose (Lactulose Liq) 30 ml DAILY PRN PO SEVERE CONSITIPATION 01/19/18 20:15 Chlorhexidine Gluconate (Peridex 0.12% Liq) 15 ml BID@08,20 MT 01/20/18 08:00 Propofol 100 ml @ 2.493 mls/ hr TITRATE PRN IV SEDATION 01/19/18 20:15 01/19/18 22:27 Family History His father late onset CAD. States his father at age 81 of a myocardial infarction. Social History He was smoking 1 pack a day for 50 years but quit one year ago. Has on average couple beers per weekend. Denies illicit drugs. 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 Physical Exam Vital Signs Vital Signs Date Time Temp Pulse Resp B/P (MAP) Pulse Ox O2 Delivery O2 Flow Rate FiO2 01/19/18 18:20 100 Room Air 01/19/18 18:17 98 Room Air 01/19/18 17:50 98.6 84 18 163/80 (107) 100 Physical Exam GENERAL: Well-nourished, well-developed patient. Sedated and intubated SKIN: Warm and dry. HEAD: Normocephalic. EYES: No scleral icterus. No injection or drainage. NECK: Supple, trachea midline. No JVD or lymphadenopathy. CARDIOVASCULAR: Regular rate and rhythm without murmurs, gallops, or rubs. RESPIRATORY: Breath sounds equal bilaterally. No accessory muscle use. GASTROINTESTINAL: Abdomen soft, non-tender, nondistended. MUSCULOSKELETAL: No cyanosis, or edema. BACK: Nontender without obvious deformity. NEURO EXAM: The patient is sedated and intubated. Pupils are equal and reactive. On motor exam, he is weak in the left arm and left leg, rated 3/5, with normal strength on the right.He intermittently decerebrates to pain. Babinsky sign Laboratory Laboratory Tests Test 01/19/18 18:00 White Blood Count 10.5 Red Blood Count 5.46 Hemoglobin 11.0 Bedside Hemoglobin 11.9 Hematocrit 34.5 Bedside Hematocrit 35.0 Mean Corpuscular Volume 63.2 Mean Corpuscular Hemoglobin 20.2 Mean Corpuscular Hemoglobin Concent 31.9 Red Cell Distribution Width 15.7 Platelet Count 138 Mean Platelet Volume 10.5 Neutrophils (%) (Auto) 34.2 Lymphocytes (%) (Auto) 49.9 Monocytes (%) (Auto) 10.9 Eosinophils (%) (Auto) 3.9 Basophils (%) (Auto) 1.1 Neutrophils # (Auto) 3.6 Lymphocytes # (Auto) 5.2 Monocytes # (Auto) 1.1 Eosinophils # (Auto) 0.4 Basophils # (Auto) 0.1 CBC Comment AUTO DIFF Prothrombin Time 28.0 Prothromb Time International Ratio 2.8 Activated Partial Thromboplast Time 41.9 Fibrinogen 360 Bedside Sodium 141 Bedside Potassium 4.0 Bedside Chloride 104 Bedside Blood Urea Nitrogen 16 Bedside Creatinine 1.2 Bedside Glucose 111 Result Diagram: 01/19/18 1800 Attending Statement I reviewed his radiological studies Head CT 01/19/18 0000 Signed Impressions: CONCLUSION: 1. 1.1 cm acute hemorrhage in the right terrance. No acute findings in the suprate ntorial brain. Chest X-Ray 01/19/18 0000 Signed Impressions: CONCLUSION: Endotracheal tube and nasogastric tube in good position. Pontine hemorrhage. This is an acute hemorrhage related to hypertension. Recommend nonoperative treatment. This patient needs to be emergently endotracheally intubated and mechanically ventilated for airway protection. Consultation to critical care intensive disease require. Neuro checks in a serial fashion every 1 hour. Follow-up MRI of the brain is recommended Hypertensive crisis the patient is to be started on Cardene drip Anticoagulation. Related to Coumadin administration. This is critical. Recommend immediate reversal of anticoagulation with K Centra, followed by administration of fresh frozen plasma neuro checks in a serial fashion. Pulmonary. aggressive pulmonary toilette, nasotracheal suction, and breathing treatments with nebulizers. Daily PT and OT Renal. Continue to monitor closely urine output, BUN and creatinine Endocrine. Continue to Monitor serial Acu checks and SSI as needed in detail ID continue to monitor for signs of infection Continue Protonix for stress ulcer prophylaxis Continue Yaw hose and SCD's for DVT prophylaxis Further recommendations will be provided depending on the patient's clinical evaluation and follow up studies. Discussed with Dr Malin in detail Francois Alvarez MD Jan 19, 2018 18:40
[2018-01-19] MEDS ORDERED: ETOMIDATE 40 MG/20 ML VIAL ONE (18:42)
[2018-01-19] MEDS ORDERED: SUCCINYLCHOLINE CHLORIDE 200 MG/10 ML VIAL ONE (18:43)
[2018-01-19] MEDS ORDERED: VARE1 PO (18:44)
[2018-01-19] MEDS ORDERED: PHYTONADIONE INJ 10 MG in DEXTROSE 5% IN WATER INJ 50 ML IV STA ×2 (18:44)
[2018-01-19] MEDS ORDERED: MIDAZOLAM HCL 5 MG/ML VIAL (1 ML) ONE (18:44)
[2018-01-19] MEDS ORDERED: PRAV40TA2 PO (18:44)
[2018-01-19] MEDS ORDERED: FERR325T18 PO (18:44)
[2018-01-19] MEDS ORDERED: METO50TA PO (18:44)
[2018-01-19] MEDS ORDERED: OMEP20TA93 PO (18:44)
[2018-01-19] MEDS ORDERED: JANT6TAB PO ×2 (18:44)
[2018-01-19] MEDS ORDERED: MULT-244 PO (18:44)
[2018-01-19] MEDS ORDERED: PROPOFOL 1000 MG/100 ML INJ 100 ML IV PRN (18:45)
[2018-01-19 18:47] LABS: TROPONIN I LESS THAN 0.02 NG/ML (0.02-0.05)
[2018-01-19] MEDS ORDERED: PROPOFOL 500 MG/50 ML INJ 50 ML ONE (18:55)
[2018-01-19] MEDS ORDERED: PROTHROMBIN COMPLEX CONC INJ 2,000 UNITS in SYRINGE/BAG 1 EA IV ONE (19:15)
[2018-01-19 19:35] LABS: BASOPHILS 2 % (0-2); LYMPHOCYTES 44 % (9-44); MONOCYTES 7 % (0-8); NEUTROPHIL # MANUAL DIFF 4.6 TH/MM3 (1.8-7.7); POLYS (SEG NEUTROPHILS) 44 % (16-70)
[2018-01-19 19:36] LABS: OVALOCYTES 1+ (NORMAL)
[2018-01-19 19:37] LABS: TOXIC GRANULATION 1+ (NORMAL)
--- NOTE | 2018-01-19 19:40 | RADRPT ---
EXAM DATE: 01/19/2018 7:16 PM EDT AGE/SEX: 67 years / Male INDICATIONS: Post intubation. CLINICAL DATA: This is the patient's initial encounter. Patient reports that signs and symptoms have been present for 1 day and indicates a pain score of Nonresponsive. MEDICAL/SURGICAL HISTORY: Non-responsive. Non-responsive. COMPARISON: [facility] [place], 07/02/2017. . FINDINGS: Endotracheal tube in good position. Nasogastric tube in stomach. Mild basilar airspace disease bilate rally. No significant effusion. No pneumothorax. CONCLUSION: Endotracheal tube and nasogastric tube in good position. Electronically signed by: Christiano Duran MD 01/19/2018 7:38 PM EDT
[2018-01-19] MEDS: niCARdipine INJ 25 MG in SODIUM CHLOR 0.9% 250 ML INJ 250 ML IV PRN ×2 (20:04→22:27)
[2018-01-19] MEDS ORDERED: CHLORHEXIDINE GLUCONATE 2 % 1 PACK (2 CLOTHS) TOP PRN (20:15)
[2018-01-19] MEDS ORDERED: SENNOSIDES 8.6 MG TAB PO PRN (20:15)
[2018-01-19] MEDS ORDERED: LACTULOSE SYRUP 20 GM/30 ML CUP PO PRN (20:15)
[2018-01-19] MEDS ORDERED: BISACODYL 10 MG SUPP RECTAL PRN (20:15)
[2018-01-19] MEDS ORDERED: MAGNESIUM HYDROXIDE SUSP 30 ML CUP PO PRN (20:15)
[2018-01-19] MEDS ORDERED: SODIUM CHLORIDE 0.9% FLUSH 10 ML FLUSH IV FLUSH PRN (20:15)
[2018-01-19] MEDS ORDERED: NURSING INFORMATION XX SCH (20:15)
[2018-01-19] MEDS ORDERED: MIDAZOLAM HCL 2 MG/2 ML VIAL IV PUSH PRN (20:15)
--- NOTE | 2018-01-19 20:17 | HHI.HP ---
HPI Service Critical Care Medicine Primary Care Physician Alfa Garcia MD Admission Diagnosis intracerebral bleed-R terrance Diagnosis: Travel History International Travel<30 Days: No Contact w/Intl Traveler <30 Da: No Traveled to Known Affected Are: No History of Present Illness 57-year-old gentleman with a history of hypertension, atrial fibrillation on Coumadin, is admitted secondary to acute onset of headache and left extremity weakness. Patient was watching TV when he suddenly developed a headache and left arm and left leg weakness, slurred speech approximately 1 hour prior to ER arrival. The CT of the brain shows 1.1 cm acute hemorrhage in the right terrance. No acute findings in the supratentorial brain. The patient was immediately intubated in the emergency department by ED attending for an airway protection, received K Centra and vitamin K, and is now admitted to ICU. Review of Systems ROS Unobtainable patient sedated and intubated Past Family Social History Allergies: Coded Allergies: No Known Allergies (Verified Allergy, Unknown, 07/03/17) Past Medical History COPD, hypertension, hyperlipidemia, tobacco abuse but per chart review he quit one year ago. CAD - he had a heart catheterization in 2005 revealing some disease but not needing interventions. Atrial fibrillation on Coumadin Past Surgical History Unobtainable Reported Medications Reported Meds & Active Scripts Active Reported Chantix (Varenicline) 1 Mg Tab 1 Mg PO BIDPC Omeprazole 20 Mg Tab 20 Mg PO DAILY Metoprolol Tartrate 50 Mg Tab 50 Mg PO BID Augtoven (Warfarin) 6 Mg Tab 6 Mg PO SUTUWETHSA Take 1 tablet (6mg) daily on Friday,Friday,Friday, and Fridaytoven (Warfarin) 6 Mg Tab 9 Mg PO MOFR Take 1&1/2 tablets (9mg) daily on Friday and Friday Spectravite Senior (Multivit with Iron-Minerals) 1 Each Tablet 1 Tab PO DAILY Ferrous Sulfate 325 Mg (65 Mg Iron) Tablet 325 Mg PO DAILY Pravastatin 40 Mg Tab 40 Mg PO DAILY Nitroglycerin SL (Nitroglycerin) 0.4 Mg Subl 0.4 Mg SL DIRECTED PRN ONE TABLET UNDER THE TONGUE NEEDED FOR CHEST PAIN, MAY REPEAT EVERY FIVE MINUTES FOR A TOTAL OF 3 DOSES OR CALL 911 IF NO RELIEF Amlodipine (Amlodipine Besylate) 5 Mg Tab 5 Mg PO DAILY Active Ordered Medications Current Medications Medications (Trade) Dose Ordered Sig/Aebl Route PRN Reason Start Time Stop Time Status Last Admin Dose Admin Sodium Chloride 1,000 ml @ 70 mls/hr [id number] ONCE IV 01/19/18 18:02 01/20/18 08:19 01/19/18 18:02 Nicardipine HCl 25 mg/Sodium Chloride 260 ml @ 52 mls/hr TITRATE PRN IV Blood pressure management 01/19/18 18:45 01/19/18 22:27 Amlodipine Besylate (Norvasc) 5 mg DAILY PO 01/20/18 09:00 Metoprolol Tartrate (Lopressor) 50 mg BID PO 01/19/18 21:00 Pravastatin Sodium (Pravachol) 40 mg DAILY PO 01/20/18 09:00 Sodium Chloride 1,000 ml @ 84 mls/hr [id number] IV 01/19/18 21:00 01/19/18 20:34 Sodium Chloride (NS Flush) 2 ml UNSCH PRN IV FLUSH FLUSH AFTER USING IV ACCESS 01/19/18 20:15 Sodium Chloride (NS Flush) 2 ml BID IV FLUSH 01/19/18 21:00 Acetaminophen (Tylenol) 650 mg Q6H PRN PO PAIN 1-10 AND/OR FEVER >101F 01/19/18 20:15 Famotidine (Pepcid Inj) 20 mg Q12HR IV PUSH 01/19/18 21:00 01/19/18 21:25 Midazolam HCl (Versed Inj) 2 mg Q1H PRN IV PUSH SEDATION 01/19/18 20:15 Albuterol/ Ipratropium (Duoneb Neb) 1 ampule Q2HR NEB PRN INH WHEEZING 01/19/18 20:15 Miscellaneous Information ([facility] [place] [facility] Information) 1 [id number] XX 01/19/18 20:15 Chlorhexidine Gluconate (Chlorhexidine 2% Cloth) 3 pack Taper DAILY@04 TOP 01/20/18 04:00 01/16/19 03:59 Chlorhexidine Gluconate (Chlorhexidine 2% Cloth) 3 pack UNSCH PRN TOP HYGIENIC CARE 01/19/18 20:15 Senna/Docusate Sodium (Fadumo-Colace) 1 tab BID PO 01/19/18 21:00 Magnesium Hydroxide (Milk Of Magnesia Liq) 30 ml Q12H PRN PO Mild constipation 01/19/18 20:15 Sennosides (Senokot) 17.2 mg Q12H PRN PO Moderate constipation 01/19/18 20:15 Bisacodyl (Dulcolax Supp) 10 mg DAILY PRN RECTAL SEVERE CONSITIPATION 01/19/18 20:15 Lactulose (Lactulose Liq) 30 ml DAILY PRN PO SEVERE CONSITIPATION 01/19/18 20:15 Chlorhexidine Gluconate (Peridex 0.12% Liq) 15 ml BID@08,20 MT 01/20/18 08:00 Propofol 100 ml @ 2.493 mls/ hr TITRATE PRN IV SEDATION 01/19/18 20:15 01/19/18 22:27 Family History His father late onset CAD. States his father at age 81 of a myocardial infarction. Social History Was smoking 1 pack a day for 50 years but quit one year ago. Has on average couple beers per weekend. Denies illicit drugs. 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 Physical Exam Vital Signs Vital Signs Date Time Temp Pulse Resp B/P (MAP) Pulse Ox O2 Delivery O2 Flow Rate FiO2 01/19/18 20:14 159/70 (99) 01/19/18 20:04 79 170/71 01/19/18 19:33 100 01/19/18 19:32 78 16 180/86 (117) 100 Ventilator 100 01/19/18 18:55 83 16 214/95 (134) 100 01/19/18 18:55 100 100 01/19/18 18:37 80 18 100 Nasal Cannula 2.00 01/19/18 18:20 100 Room Air 01/19/18 18:17 98 Room Air 01/19/18 17:50 98.6 84 18 163/80 (107) 100 Physical Exam GENERAL: Well-nourished, well-developed patient. Sedated and intubated SKIN: Warm and dry. HEAD: Normocephalic. EYES: No scleral icterus. No injection or drainage. NECK: Supple, trachea midline. No JVD or lymphadenopathy. CARDIOVASCULAR: Regular rate and rhythm without murmurs, gallops, or rubs. RESPIRATORY: Breath sounds equal bilaterally. No accessory muscle use. GASTROINTESTINAL: Abdomen soft, non-tender, nondistended. MUSCULOSKELETAL: No cyanosis, or edema. BACK: Nontender without obvious deformity. NEURO EXAM: The patient is sedated and intubated. Pupils are equal and reactive. On motor exam, he is weak in the left arm and left leg, rated 3/5, with normal strength on the right. Laboratory Laboratory Tests Test 01/19/18 18:00 White Blood Count 10.5 Red Blood Count 5.46 Hemoglobin 11.0 Bedside Hemoglobin 11.9 Hematocrit 34.5 Bedside Hematocrit 35.0 Mean Corpuscular Volume 63.2 Mean Corpuscular Hemoglobin 20.2 Mean Corpuscular Hemoglobin Concent 31.9 Red Cell Distribution Width 15.7 Platelet Count 138 Mean Platelet Volume 10.5 Neutrophils (%) (Auto) 34.2 Lymphocytes (%) (Auto) 49.9 Monocytes (%) (Auto) 10.9 Eosinophils (%) (Auto) 3.9 Basophils (%) (Auto) 1.1 Neutrophils # (Auto) 3.6 Lymphocytes # (Auto) 5.2 Monocytes # (Auto) 1.1 Eosinophils # (Auto) 0.4 Basophils # (Auto) 0.1 CBC Comment AUTO DIFF Differential Total Cells Counted 100 Neutrophils % (Manual) 44 Lymphocytes % 44 Monocytes % 7 Eosinophils % 3 Basophils % 2 Neutrophils # (Manual) 4.6 Differential Comment FINAL DIFF MANUAL Toxic Granulation 1+ Platelet Estimate LOW Platelet Morphology Comment NORMAL Basophilic Stippling FAINT Ovalocytes 1+ Prothrombin Time 28.0 Prothromb Time International Ratio 2.8 Activated Partial Thromboplast Time 41.9 Fibrinogen 360 Bedside Sodium 141 Bedside Potassium 4.0 Bedside Chloride 104 Bedside Blood Urea Nitrogen 16 Bedside Creatinine 1.2 Bedside Glucose 111 Total Creatine Kinase 72 Troponin I LESS THAN 0.02 Result Diagram: 01/19/18 1800 Caprini VTE Risk Assessment Caprini VTE Risk Assessment: Mod/High Risk (score >= 2) VTE Pharm Contraindication: Intracranial lesions Caprini Risk Assessment Model Point Value = 1 Point Value = 2 Point Value = 3 Point Value = 5 Age 41-60 Minor surgery BMI > 25 kg/m2 Swollen legs Varicose veins or History of unexplained or recurrent spontaneous Oral contraceptives or hormone replacement Sepsis (< 1 month) Serious lung disease, including pneumonia (< 1 month) Abnormal pulmonary function Acute myocardial infarction Congestive heart failure (< 1 month) History of inflammatory bowel disease Medical patient at bed rest Age 61-74 Arthroscopic surgery Major open surgery (> 45 min) Laparoscopic surgery (> 45 min) Malignancy Confined to bed (> 72 hours) Immobilizing plaster cast Central venous access Age >= 75 History of VTE Family history of VTE Factor V Leiden Prothrombin [id number] Lupus anticoagulant Anticardiolipin antibodies Elevated serum homocysteine Heparin-induced thrombocytopenia Other congenital or acquired thrombophilia Stroke (< 1 month) Elective arthroplasty Hip, pelvis, or leg fracture Acute spinal cord injury (< 1 month) Prophylaxis Regimen Total Risk Factor Score Risk Level Prophylaxis Regimen 0-1 Low Early ambulation 2 Moderate Order ONE of the following: *Sequential Compression Device (SCD) *Heparin 5000 units SQ BID 3-4 Higher Order ONE of the following medications: *Heparin 5000 units SQ TID *Enoxaparin/Lovenox 40 mg SQ daily (WT < 150 kg, CrCl > 30 mL/min) *Enoxaparin/Lovenox 30 mg SQ daily (WT < 150 kg, CrCl > 10-29 mL/min) *Enoxaparin/Lovenox 30 mg SQ BID (WT < 150 kg, CrCl > 30 mL/min) AND/OR *Sequential Compression Device (SCD) 5 or more Highest Order ONE of the following medications: *Heparin 5000 units SQ TID (Preferred with Epidurals) *Enoxaparin/Lovenox 40 mg SQ daily (WT < 150 kg, CrCl > 30 mL/min) *Enoxaparin/Lovenox 30 mg SQ daily (WT < 150 kg, CrCl > 10-29 mL/min) *Enoxaparin/Lovenox 30 mg SQ BID (WT < 150 kg, CrCl > 30 mL/min) AND *Sequential Compression Device (SCD) Assessment and Plan Assessment and Plan Respiratory failure -Intubated for airway protection -DuoNeb scheduled and as needed -Vent bundle -Weaning trials when neurologically improved Pontine hemorrhagic stroke -Reverse coagulopathy with K Centra and vitamin K -SBP goal less than 150 -Neurosurgery/neurology consultation appreciated -Repeat CT a.m. -PT and OT eval and treat as tolerated Hypertension -Nicardipine drip to keep SBP less than 150 -Resume Norvasc and metoprolol p.o. COPD -DuoNeb scheduled and as needed -No steroids indicated Atrial fibrillation -Rate control with metoprolol -No anticoagulation due to active ICH Coagulopathy -DC warfarin -Received K Centra and vitamin K in the ED -Repeat coags profile in a.m. DVT GI prophylaxis -Yaw's and SCDs -No pharmacological DVT prophylaxis due to acute ICH -IV Pepcid Critical Care: The total critical care time was 35 minutes. Time to perform other separately billable procedures was not included in the critical care time. Jose Smith MD Jan 19, 2018 20:17
[2018-01-19] MEDS: DOCUSATE SODIUM 50 MG/SENNA 8.6 MG TAB PO SCH (20:32)
[2018-01-19] MEDS: METOPROLOL TARTRATE 50 MG TAB PO SCH (20:32)
[2018-01-19] MEDS: SODIUM CHLOR 0.9% 1000 ML INJ 1,000 ML IV SCH (20:34)
--- NOTE | 2018-01-19 20:43 | MB ---
cc: Blake Malin MD, PhD DATE: 01/19/2018 REASON FOR CONSULTATION: Stroke-alert. HISTORY OF PRESENT ILLNESS: This is a 67-year-old man who has a history of atrial fibrillation and takes Coumadin, about an hour before admission developed acute onset of left-sided weakness. He states he woke up with this symptom. The patient presented as a stroke-alert. PHYSICAL EXAMINATION: VITAL SIGNS: Blood pressure 160/80, pulse 84, respirations 18, temperature 98 degrees. NEUROLOGIC: Higher cortical function. The patient was lethargic. Follows commands. Speech dysarthric. Cranial nerves, he has got extraocular movements are intact with nystagmus. Pupils are equal and reactive. On motor exam, he is weak in the left arm and left leg, rated 3/5, with normal strength on the right. IMAGING: CT of the brain shows a pontine hemorrhage in the right side of the terrance 1.1 cm in diameter. LABORATORY DATA: The white count is 10,500, hemoglobin 11, hematocrit 34.5%, platelets are 138,000. Sodium is 141, potassium is 4, chloride 104, BUN is 16, creatinine 1.2, glucose 111. PT 28, INR 2.8, APTT 41.9. IMPRESSION: Pontine hemorrhage. The patient is obviously not a candidate for tissue plasminogen activator because of the hemorrhage. RECOMMENDATIONS: Neurosurgical consultation. Would recommend Kcentra stat and vitamin K. Also, control blood pressure, keeping systolic under 150. Blake Malin MD, PhD CLAUDIA/MARISOL , 06:43 PM , 08:42 PM
[2018-01-19] MEDS: SODIUM CHLORIDE 0.9% FLUSH 10 ML FLUSH IV FLUSH SCH (21:00)
[2018-01-19] MEDS: FAMOTIDINE 20 MG/2 ML VIAL IV PUSH SCH (21:25)
[2018-01-19] MEDS: PROPOFOL 1000 MG/100 ML INJ 100 ML IV PRN (22:27)
[2018-01-20] VITALS (18 sets, daily range): BP systolic 120–159; BP diastolic 59–70; PULSE 68–92; RESP 18–19; TEMP 98.1–100.4; O2SAT 95–100
[2018-01-20] MEDS: niCARdipine INJ 25 MG in SODIUM CHLOR 0.9% 250 ML INJ 250 ML IV PRN ×9 (01:05→21:00)
[2018-01-20 02:22] LABS: BACTERIA, URINE RARE /hpf; BILIRUBIN, URINE NEG (NEG); BLOOD, URINE NEG (NEG); GLUCOSE,URINE NEG (NEG); HYALINE CAST, URINE 2 /lpf (RARE); KETONE, URINE NEG (NEG); MUCUS URINE FEW /lpf (OCC); NITRITE,URINE NEG (NEG); RENAL EPITHELIAL CELLS <1 /hpf; URINE COLOR YELLOW (YELLW/STRAW); URINE LEUKOCYTE ESTERASE NEG (NEG)
[2018-01-20] MEDS: CHLORHEXIDINE GLUCONATE 2 % 1 PACK (2 CLOTHS) TOP SCH (03:35)
[2018-01-20] MEDS: PROPOFOL 1000 MG/100 ML INJ 100 ML IV PRN (03:36)
[2018-01-20 03:44] LABS: AUTOMATED NEUTROPHIL # 7.5 TH/MM3 (1.8-7.7); BASOPHIL # 0.1 TH/MM3 (0-0.2); BASOPHIL % 0.6 % (0.0-2.0); EOSINOPHIL # 0.1 TH/MM3 (0-0.4); EOSINOPHIL % 0.8 % (0.0-4.0); HEMATOCRIT 32.3 % (39.0-51.0); HEMOGLOBIN 9.9 GM/DL (13.0-17.0); LYMPH % 36.7 % (9.0-44.0); LYMPHOCYTE # 5.1 TH/MM3 (1.0-4.8); MEAN CORPUSCULAR HEMOGLOBIN 19.7 PG (27.0-34.0); MEAN CORPUSCULAR HGB CONC 30.8 % (32.0-36.0); MONO % 8.3 % (0.0-8.0); MONOCYTE # 1.2 TH/MM3 (0-0.9); NEUT % 53.6 % (16.0-70.0); PLATELET COUNT 135 TH/MM3 (150-450); RED BLOOD COUNT 5.04 MIL/MM3 (4.50-5.90); RED CELL DISTRIBUTION WIDTH 15.3 % (11.6-17.2)
[2018-01-20 03:58] LABS: INTERNATIONAL NORMALIZED RATIO 1.2 RATIO
[2018-01-20 03:59] LABS: ALBUMIN 3.6 GM/DL (3.4-5.0); AST (GOT) 43 U/L (15-37); BICARBONATE 21.7 MEQ/L (21.0-32.0); BLOOD UREA NITROGEN 14 MG/DL (7-18); CALCIUM 8.7 MG/DL (8.5-10.1); CHLORIDE 109 MEQ/L (98-107); GLOMERULAR FILTRATION RATE 67 ML/MIN (>89); GLUCOSE,RANDOM 114 MG/DL (74-106); MAGNESIUM 1.8 MG/DL (1.5-2.5); SODIUM (NA) 141 MEQ/L (136-145)
[2018-01-20 04:00] LABS: ALT (GPT) 50 U/L (12-78)
--- NOTE | 2018-01-20 04:01 | RADRPT ---
EXAM DATE: 01/20/2018 3:49 AM EDT AGE/SEX: 67 years / Male INDICATIONS: Respiratory failure. CLINICAL DATA: This is the patient's subsequent encounter. Patient reports that signs and symptoms h ave been present for 2 days and indicates a pain score of Nonresponsive. MEDICAL/SURGICAL HISTORY: Non-responsive. Non-responsive. COMPARISON: [facility], CHEST SINGLE AP, 01/19/2018. . FINDINGS: The support devices remain in place. There is no pneumothorax. There is some bibasilar atelectasis wh ich is about the same or mildly increased compared to the prior study. No significant pleural effusio ns. Heart size is stable. Bony structures are stable. CONCLUSION: Mild bibasilar atelectasis. Electronically signed by: Nima Beebe MD 01/20/2018 4:00 AM EDT
[2018-01-20 04:03] LABS: ALKALINE PHOSPHATASE 188 U/L (45-117); PHOSPHORUS 2.4 MG/DL (2.5-4.9); TOTAL BILIRUBIN ADULT 0.8 MG/DL (0.2-1.0); TOTAL PROTEIN 7.6 GM/DL (6.4-8.2)
[2018-01-20] MEDS: SODIUM CHLOR 0.9% 1000 ML INJ 1,000 ML IV SCH ×2 (06:54→18:04)
[2018-01-20] MEDS: CHLORHEXIDINE 0.12% (ORAL KIT) 15 ML CUP MT SCH ×2 (08:00→20:07)
[2018-01-20] MEDS: DOCUSATE SODIUM 50 MG/SENNA 8.6 MG TAB PO SCH ×2 (08:51→20:06)
[2018-01-20] MEDS: SODIUM CHLORIDE 0.9% FLUSH 10 ML FLUSH IV FLUSH SCH ×2 (08:51→20:07)
[2018-01-20] MEDS: FAMOTIDINE 20 MG/2 ML VIAL IV PUSH SCH ×2 (08:51→20:06)
[2018-01-20] MEDS: PRAVASTATIN SOD 40 MG TAB PO SCH (08:51)
[2018-01-20] MEDS: METOPROLOL TARTRATE 50 MG TAB PO SCH ×2 (08:51→18:03)
[2018-01-20] MEDS ORDERED: amLODIPine BESYLATE 5 MG TAB PO SCH (09:00)
--- NOTE | 2018-01-20 09:29 | HHI.CCPN ---
Subjective Remarks/Hospital Course Hospital Course: 57-year-old gentleman with a history of hypertension, atrial fibrillation on Coumadin, is admitted secondary to acute onset of headache and left extremity weakness. Patient was watching TV when he suddenly developed a headache and left arm and left leg weakness, slurred speech approximately 1 hour prior to ER arrival. The CT of the brain shows 1.1 cm acute hemorrhage in the right terrance. No acute findings in the supratentorial brain. The patient was immediately intubated in the emergency department by ED attending for an airway protection, received K Centra and vitamin K, and is now admitted to ICU. Subjective: 01/20: persistently poor neurologic exam. extensor posturing in the upper extremities. triple flexion in the lowers. repeat CT brain with extension of the pontine hemorrhage into the brainstem. very grim prognosis. neurosurgery re- evaluated and agrees there is no neurosurgical intervention warranted at this point. Long and multiple discussions with the family regarding prognosis and minimal improvements over time. family is flying in from out of state. palliative met with family. neurology also agrees with grim prognosis. 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 Objective Vital Signs Date Time Temp Pulse Resp B/P (MAP) Pulse Ox O2 Delivery O2 Flow Rate FiO2 01/20/18 08:50 150/67 01/20/18 08:00 95 40 01/20/18 06:00 82 01/20/18 04:00 98.3 18 01/19/18 22:00 Mechanical Ventilator 01/19/18 18:37 2.00 Intake and Output 01/20/18 01/20/18 01/21/18 08:00 16:00 00:00 Intake Total 2065 ml 250 ml Output Total 1000 ml Balance 1065 ml 250 ml Result Diagram: 01/20/18 0230 01/20/18 0230 Other Results Laboratory Tests Test 01/19/18 20:37 Blood Gas Puncture Site RT RADIAL Blood Gas Patient Temperature 98.6 Blood Gas HCO3 24 mmol/L (22-26) Blood Gas Base Excess -0.6 mmol/L (-2-2) Blood Gas Oxygen Saturation 99 % (90-100) Arterial Blood pH 7.34 (7.380-7.420) Arterial Blood Partial Pressure CO2 47 mmHg (38-42) Arterial Blood Partial Pressure O2 373 mmHG (61-120) Arterial Blood Oxygen Content 15.7 Vol % (12.0-20.0) Arterial Blood Carboxyhemoglobin 0.6 % (0-4) Arterial Blood Methemoglobin 0.7 % (0-2) Blood Gas Hemoglobin 10.6 G/DL (12.0-16.0) Oxygen Delivery Device VENTILATOR Blood Gas Ventilator Setting AC/16/500+5 Blood Gas Inspired Oxygen 100 % Objective Remarks GENERAL: middle-aged appearing male, comatose, intubated. SKIN: Warm and dry. HEAD: Normocephalic. EYES: No scleral icterus. No injection or drainage. NECK: Supple, trachea midline. No JVD. CARDIOVASCULAR: normal rate, irregularly irregular rhythm. afib. RESPIRATORY: equal chest rise. prvc. fio2 40%. does breath over the vent intermittently. GASTROINTESTINAL: Abdomen soft, non-tender, nondistended. no guarding. MUSCULOSKELETAL: No cyanosis, or edema. NEURO EXAM: RASS -5. GCS 4. extensor postures in the upper extremities, triple flexion in the lowers. upgoing Babinski. +corneals, +cough. negative gag. intermittently breaths over the vent. pupils 1mm bilaterally equal, sluggishly reactive. 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 Now by repeat head CT is > 5mL total volume, which by multiple studies, this volume of pontine blood with this low GCS score has very poor overall survivability or neurologic improvement. unlikely to have any meaningful neurologic improvement. Family considering how aggressive they wish to be. If our goals remain aggressive, will need long-term trach/PEG and SNF placement. remains critically ill with devastating intracerebral hemorrhage. Pontine intracerebral hemorrhage - expanding - s/p reversal with KCentra and vit K - daily INR - very poor prognosis - neurology: Dr. Malin following - neurosurgery: Dr. 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 - EEG to evaluate for normal cortical sleep/wake pattern - avoid sedation - frequent neuro checks Hypertensive Emergency - cardene prn - restart home anti-hypertensives - prn labetalol, hydralazine - goal sbp < 150 Acute hypoxic and Hypercarbic respiratory failure - wean fio2 for goal spo2 > 90% - no SBT or weaning of mechanical ventilation until neuro exam improves - would be a candidate for early tracheostomy if family wishes to be aggressive - vent bundle - hob elevated - nebs COPD -DuoNeb scheduled and as needed -No steroids indicated Atrial fibrillation -Rate control with metoprolol -No anticoagulation due to active ICH Coagulopathy -DC warfarin -Received K Centra and vitamin K in the ED -Repeat coags profile in a.m. DVT GI prophylaxis -Yaw's and SCDs -No pharmacological DVT prophylaxis due to acute ICH -IV Pepcid will need PEG tube and tube feeds if our goals remain aggressive Appreciate palliative care following. Critical Care: The total critical care time was 77 minutes. Time to perform other separately billable procedures was not included in the critical care time. Tigre Bustamante MD Jan 20, 2018 09:29
[2018-01-20] MEDS ORDERED: GADODIAMIDE PF 287 MG/ML 20 ML VIAL (for RAD MRI) IV PUSH ONE (13:55)
--- NOTE | 2018-01-20 14:05 | PD.CONS ---
Consult Service Palliative Care Consult Requested By Dr. Smith . Primary Care Physician Alfa Garcia MD . Reason for Consultation a. To assist with evaluation and management of symptoms including: Pain, dyspnea b. To assist medical decision maker(s) with: better understanding of current medical conditions; weighing benefits/burdens of medical treatment options; making medical treatment decisions. . HPI History of Present Illness This 67-year-old male, with a past history of hypertension, CAD, COPD, and chronic back pain, presented to the emergency department on 01/19/18 with a 1 hour history of acute onset headache, left-sided weakness, and slurred speech. The patient had been on Coumadin for the past couple months because of atrial fibrillation. In the emergency department, findings included: * Initially alert * Temp 98.6, pulse 83, respirations 16, initial BP 214/95, O2 saturation 100% on 2 L * Sodium 141, creatinine 1.2, albumin 3.6 * White count 10.5, hemoglobin 11.0, platelets 138,000 * INR 2.8 * CT head revealed a 1.1 cm hemorrhage in the right terrance While in the emergency department, the patient became rather acutely unresponsive, and he was INTUBATED for airway protection. He was admitted to [facility], with a focus on blood pressure control; he has also been on propofol. Consultations by both neurosurgery and neurology have been completed, and I have reviewed those records. On 01/20/18, the INR was 1.2, and a repeat chest x-ray revealed basilar atelectasis. He is now taking occasional spontaneous breaths, and he does have some movement of his right side intermittently. He has been off sedation since this morning. A repeat CT of the head and MRI was completed today, revealing a considerable worsening in the size and volume of the hemorrhage. Palliative Care was consulted to assist with symptom management, and to enter into discussions with the patient's spouse/family regarding the extent of the current problems, the prognosis, and the benefits and burdens of the various treatment choices. . Function/Cognitive Trajectory The patient reportedly was functioning fairly independently prior to this hemorrhage. He did have some calf pain when he ambulated, but otherwise had no debilitating conditions. . Review of Systems ROS Limitations: Clinical Condition (Became unresponsive, now sedated; ROS per records and family), Intubated Constitutional: DENIES: Fever Endocrine: DENIES: Polyuria Eyes: DENIES: Eye inflammation Ears, nose, mouth, throat: DENIES: Epistaxis Respiratory: DENIES: Shortness of breath Cardiovascular: DENIES: Chest pain, Dyspnea on Exertion Gastrointestinal: DENIES: Bloody stools, Diarrhea, Vomiting, Vomiting blood Genitourinary: DENIES: Hematuria Musculoskeletal: COMPLAINS OF: Back pain (Chronic) Integumentary: DENIES: Rash Hematologic/Lymphatics: DENIES: Lymphadenopathy Immunologic/Allergic: DENIES: Urticaria Neurologic: COMPLAINS OF: Headache (Abrupt onset), Localized weakness (Left side) Psychiatric: DENIES: Agitation Past Family Social History Coded Allergies: No Known Allergies (Verified Allergy, Unknown, 07/03/17) Past Medical History * Hypertension * Atrial fibrillation, on Coumadin * COPD, long-term smoker * History of CAD on heart cath 2005 * Back pain, chronic * Hyperlipidemia * GERD * Records indicate history of thalassemia * Degenerative arthritis . Past Surgical History * Bilateral laparoscopic inguinal herniorrhaphies 05/11/08 * Left varicocele * Left knee arthroscopy . Reported Medications Reported Meds & Active Scripts Active Reported Chantix (Varenicline) 1 Mg Tab 1 Mg PO BIDPC Omeprazole 20 Mg Tab 20 Mg PO DAILY Metoprolol Tartrate 50 Mg Tab 50 Mg PO BID Augtoven (Warfarin) 6 Mg Tab 6 Mg PO SUTUWETHSA Take 1 tablet (6mg) daily on Friday,Friday,Friday, and Fridaytoven (Warfarin) 6 Mg Tab 9 Mg PO MOFR Take 1&1/2 tablets (9mg) daily on Friday and Friday Spectravite Senior (Multivit with Iron-Minerals) 1 Each Tablet 1 Tab PO DAILY Ferrous Sulfate 325 Mg (65 Mg Iron) Tablet 325 Mg PO DAILY Pravastatin 40 Mg Tab 40 Mg PO DAILY Nitroglycerin SL (Nitroglycerin) 0.4 Mg Subl 0.4 Mg SL DIRECTED PRN ONE TABLET UNDER THE TONGUE NEEDED FOR CHEST PAIN, MAY REPEAT EVERY FIVE MINUTES FOR A TOTAL OF 3 DOSES OR CALL 911 IF NO RELIEF Amlodipine (Amlodipine Besylate) 5 Mg Tab 5 Mg PO DAILY . Current Medications Medications (Trade) Dose Ordered Sig/Abel Route Start Time Stop Time Status Last Admin Nicardipine HCl 25 mg/Sodium Chloride 260 ml @ 52 mls/hr TITRATE PRN IV 01/19/18 18:45 01/20/18 11:35 (Norvasc) 5 mg DAILY PO 01/20/18 09:00 01/20/18 08:51 (Lopressor) 50 mg BID PO 01/19/18 21:00 01/20/18 08:51 (Pravachol) 40 mg DAILY PO 01/20/18 09:00 01/20/18 08:51 Sodium Chloride 1,000 ml @ 84 mls/hr [id number] IV 01/19/18 21:00 01/20/18 06:54 (NS Flush) 2 ml UNSCH PRN IV FLUSH 01/19/18 20:15 (NS Flush) 2 ml BID IV FLUSH 01/19/18 21:00 (Tylenol) 650 mg Q6H PRN PO 01/19/18 20:15 (Pepcid Inj) 20 mg Q12HR IV PUSH 01/19/18 21:00 01/20/18 08:51 (Versed Inj) 2 mg Q1H PRN IV PUSH 01/19/18 20:15 (Duoneb Neb) 1 ampule Q2HR NEB PRN INH 01/19/18 20:15 ([facility] 1 Q361D XX 01/19/18 20:15 (Chlorhexidine 2% Cloth) 3 pack Taper DAILY@04 TOP 01/20/18 04:00 01/16/19 03:59 01/20/18 03:35 (Chlorhexidine 2% Cloth) 3 pack UNSCH PRN TOP 01/19/18 20:15 (Fadumo-Colace) 1 tab BID PO 01/19/18 21:00 01/20/18 08:51 (Milk Of Magnesia Liq) 30 ml Q12H PRN PO 01/19/18 20:15 (Senokot) 17.2 mg Q12H PRN PO 01/19/18 20:15 (Dulcolax Supp) 10 mg DAILY PRN RECTAL 01/19/18 20:15 (Lactulose Liq) 30 ml DAILY PRN PO 01/19/18 20:15 (Peridex 0.12% Liq) 15 ml BID@08,20 MT 01/20/18 08:00 01/20/18 08:00 Propofol 100 ml @ 2.493 mls/ hr TITRATE PRN IV 01/19/18 20:15 01/20/18 03:36 Family History The patient's father of heart disease at age 81, and the patient's mother reportedly had cancer . Substance Use Tobacco: Smoked 1 pack per day for 50 years but quit about a year ago Alcohol: Reportedly 2 or 3 beers per week Prescription med abuse: None reported Illicits: None reported . Psychosocial History Originally from [place], moved to [place] about 10 years ago. Lives with . The patient was reportedly retired from the [employer] Second marriage, currently for 20 years. . Spiritual/Cultural Factors Spiritism background . Living Will: Never completed Health Care Surrogate: Never completed Durable Power of Snack Bar Cashier: Never completed Family/friends goals: The patient's and other family members want to continue the current level of aggressive care for now. Another son is flying into town this evening, and we will have further discussions in the upcoming days. . Ethical and Legal Issues The patient is unable to speak for himself. The patient lacks capacity for decision-making, and he will not regain that capacity. His is the proxy decision-maker. . Physical Exam Vital Signs Date Time Temp Pulse Resp B/P (MAP) Pulse Ox O2 Delivery O2 Flow Rate FiO2 01/20/18 13:43 100 01/20/18 13:41 100 40 01/20/18 12:00 99.1 88 19 151/65 (93) 100 01/20/18 12:00 88 01/20/18 11:35 156/68 01/20/18 10:46 166/70 01/20/18 10:00 68 01/20/18 10:00 139/63 01/20/18 08:50 150/67 01/20/18 08:00 98.5 85 18 159/70 (99) 100 01/20/18 08:00 82 01/20/18 08:00 95 40 01/20/18 06:00 82 01/20/18 05:57 83 134/61 01/20/18 04:00 98.3 77 18 135/62 (86) 100 01/20/18 04:00 81 01/20/18 03:46 100 40 01/20/18 03:36 80 135/60 01/20/18 02:00 85 01/20/18 01:05 79 124/58 01/20/18 00:12 100 40 01/20/18 00:00 98.1 85 18 120/59 (79) 100 01/20/18 00:00 85 01/20/18 00:00 40 01/19/18 22:27 88 142/64 01/19/18 22:00 100 Mechanical Ventilator 50 01/19/18 22:00 88 01/19/18 22:00 98.4 88 18 142/64 (90) 100 01/19/18 21:26 01/19/18 21:15 98.4 95 18 144/65 (91) 99 01/19/18 21:15 50 01/19/18 21:14 100 50 01/19/18 21:05 100 100 01/19/18 20:14 159/70 (99) 01/19/18 20:04 79 170/71 01/19/18 19:33 100 01/19/18 19:32 78 16 180/86 (117) 100 Ventilator 100 01/19/18 18:55 83 16 214/95 (134) 100 01/19/18 18:55 100 100 01/19/18 18:37 80 18 100 Nasal Cannula 2.00 01/19/18 18:20 100 Room Air 01/19/18 18:17 98 Room Air 01/19/18 17:50 98.6 84 18 163/80 (107) 100 01/20/18 01/21/18 19:00 07:00 Intake Total 500 ml Balance 500 ml Intake IV Total 500 ml Exam CONSTITUTIONAL/GENERAL: This is an adequately nourished patient, in no apparent distress. TUBES/LINES/DRAINS: ET tube, IV access, Leger SKIN: No jaundice, rashes, or lesions. Ecchymoses on upper extremities. No wounds seen anteriorly. Skin temperature appropriate. Not diaphoretic. HEAD: Atraumatic. Normocephalic. EYES: Pupils equal and round and reactive. Extraocular motions intact. No scleral icterus. No injection or drainage. Fundi not examined. ENT: Nose without bleeding or purulent drainage. Throat without visible erythema , exudates, masses, or lesions. NECK: Trachea midline. Supple, nontender. No palpable thyroid enlargement or nodularity. CARDIOVASCULAR: Irregular rhythm without murmurs, gallops, or rubs. No JVD. Peripheral pulses symmetric. RESPIRATORY/CHEST: Symmetric, unlabored respirations. Clear to auscultation. Breath sounds equal bilaterally. No wheezes, rales, or rhonchi. GASTROINTESTINAL: Abdomen soft, non-tender, nondistended. No hepato-splenomegaly , or palpable masses. No guarding. Bowel sounds present. GENITOURINARY: Without palpable bladder distension. Leger catheter in place. MUSCULOSKELETAL: Extremities without clubbing, cyanosis, or edema. No joint tenderness or effusion noted. No calf tenderness. No mottling or clubbing. LYMPHATICS: No palpable cervical or supraclavicular adenopathy. NEUROLOGICAL: Unresponsive to voice. He has a brisk withdrawal of the right leg to plantar stimulation. PSYCHIATRIC: Unable to evaluate due to clinical condition Diagnostic Tests Laboratory Laboratory Tests Test 01/19/18 18:00 01/19/18 20:37 01/19/18 20:55 01/20/18 02:30 White Blood Count 10.5 TH/MM3 (4.0-11.0) 14.0 TH/MM3 (4.0-11.0) Red Blood Count 5.46 MIL/MM3 (4.50-5.90) 5.04 MIL/MM3 (4.50-5.90) Hemoglobin 11.0 GM/DL (13.0-17.0) 9.9 GM/DL (13.0-17.0) Bedside Hemoglobin 11.9 G/DL (13.0-17.0) Hematocrit 34.5 % (39.0-51.0) 32.3 % (39.0-51.0) Bedside Hematocrit 35.0 % (39.0-51.0) Mean Corpuscular Volume 63.2 FL (80.0-100.0) 64.0 FL (80.0-100.0) Mean Corpuscular Hemoglobin 20.2 PG (27.0-34.0) 19.7 PG (27.0-34.0) Mean Corpuscular Hemoglobin Concent 31.9 % (32.0-36.0) 30.8 % (32.0-36.0) Red Cell Distribution Width 15.7 % (11.6-17.2) 15.3 % (11.6-17.2) Platelet Count 138 TH/MM3 (150-450) 135 TH/MM3 (150-450) Mean Platelet Volume 10.5 FL (7.0-11.0) 11.0 FL (7.0-11.0) Neutrophils (%) (Auto) 34.2 % (16.0-70.0) 53.6 % (16.0-70.0) Lymphocytes (%) (Auto) 49.9 % (9.0-44.0) 36.7 % (9.0-44.0) Monocytes (%) (Auto) 10.9 % (0.0-8.0) 8.3 % (0.0-8.0) Eosinophils (%) (Auto) 3.9 % (0.0-4.0) 0.8 % (0.0-4.0) Basophils (%) (Auto) 1.1 % (0.0-2.0) 0.6 % (0.0-2.0) Neutrophils # (Auto) 3.6 TH/MM3 (1.8-7.7) 7.5 TH/MM3 (1.8-7.7) Lymphocytes # (Auto) 5.2 TH/MM3 (1.0-4.8) 5.1 TH/MM3 (1.0-4.8) Monocytes # (Auto) 1.1 TH/MM3 (0-0.9) 1.2 TH/MM3 (0-0.9) Eosinophils # (Auto) 0.4 TH/MM3 (0-0.4) 0.1 TH/MM3 (0-0.4) Basophils # (Auto) 0.1 TH/MM3 (0-0.2) 0.1 TH/MM3 (0-0.2) CBC Comment AUTO DIFF DIFF FINAL Differential Total Cells Counted 100 Neutrophils % (Manual) 44 % (16-70) Lymphocytes % 44 % (9-44) Monocytes % 7 % (0-8) Eosinophils % 3 % (0-4) Basophils % 2 % (0-2) Neutrophils # (Manual) 4.6 TH/MM3 (1.8-7.7) Differential Comment FINAL DIFF MANUAL Toxic Granulation 1+ (NORMAL) Platelet Estimate LOW (NORMAL) Platelet Morphology Comment NORMAL (NORMAL) Basophilic Stippling FAINT (NORMAL) Ovalocytes 1+ (NORMAL) Prothrombin Time 28.0 SEC (9.8-11.6) 12.0 SEC (9.8-11.6) Prothromb Time International Ratio 2.8 RATIO 1.2 RATIO Activated Partial Thromboplast Time 41.9 SEC (24.3-30.1) 29.7 SEC (24.3-30.1) Fibrinogen 360 mg/dL (227-377) Bedside Sodium 141 MMOL/L (137-144) Bedside Potassium 4.0 MMOL/L (3.6-5.0) Bedside Chloride 104 MMOL/L (102-111) Bedside Blood Urea Nitrogen 16 MG/DL (5-21) Bedside Creatinine 1.2 MG/DL (0.6-1.3) Bedside Glucose 111 MG/DL (68-110) Total Creatine Kinase 72 U/L (39-308) Troponin I LESS THAN 0.02 NG/ML Blood Gas Puncture Site RT RADIAL Blood Gas Patient Temperature 98.6 Blood Gas HCO3 24 mmol/L (22-26) Blood Gas Base Excess -0.6 mmol/L (-2-2) Blood Gas Oxygen Saturation 99 % (90-100) Arterial Blood pH 7.34 (7.380-7.420) Arterial Blood Partial Pressure CO2 47 mmHg (38-42) Arterial Blood Partial Pressure O2 373 mmHG (61-120) Arterial Blood Oxygen Content 15.7 Vol % (12.0-20.0) Arterial Blood Carboxyhemoglobin 0.6 % (0-4) Arterial Blood Methemoglobin 0.7 % (0-2) Blood Gas Hemoglobin 10.6 G/DL (12.0-16.0) Oxygen Delivery Device VENTILATOR Blood Gas Ventilator Setting /16/500+5 Blood Gas Inspired Oxygen 100 % Urine Color YELLOW (YELLW/STRAW) Urine Turbidity CLEAR (CLEAR) Urine pH 6.0 (5.0-8.5) Urine Specific [place] 1.021 (1.002-1.035) Urine Protein TRACE mg/dL (NEG-TRACE) Urine Glucose (UA) NEG mg/dL (NEG) Urine Ketones NEG mg/dL (NEG) Urine Occult Blood NEG (NEG) Urine Nitrite NEG (NEG) Urine Bilirubin NEG (NEG) Urine Urobilinogen LESS THAN 2.0 MG/DL (LESS Urine Leukocyte Esterase NEG (NEG) Urine RBC 2 /hpf (0-3) Urine WBC LESS THAN 1 /hpf (0-5) Urine Renal Epithelial Cells <1 /hpf (NONE) Urine Bacteria RARE /hpf (NONE) Urine Hyaline Casts 2 /lpf (RARE) Urine Granular Casts 2 /lpf (NONE) Urine Mucus FEW /lpf (OCC) Urine Opiates Screen NEG (NEG) Urine Barbiturates Screen NEG (NEG) Urine Amphetamines Screen NEG (NEG) Urine Benzodiazepines Screen NEG (NEG) Urine Cocaine Screen NEG (NEG) Urine Cannabinoids Screen NEG (NEG) Blood Urea Nitrogen 14 MG/DL (7-18) Creatinine 1.10 MG/DL (0.60-1.30) Random Glucose 114 MG/DL (74-106) Total Protein 7.6 GM/DL (6.4-8.2) Albumin 3.6 GM/DL (3.4-5.0) Calcium Level 8.7 MG/DL (8.5-10.1) Phosphorus Level 2.4 MG/DL (2.5-4.9) Magnesium Level 1.8 MG/DL (1.5-2.5) Alkaline Phosphatase 188 U/L (45-117) Aspartate Amino Transf (AST/SGOT) 43 U/L (15-37) Alanine Aminotransferase (ALT/SGPT) 50 U/L (12-78) Total Bilirubin 0.8 MG/DL (0.2-1.0) Sodium Level 141 MEQ/L (136-145) Potassium Level 3.6 MEQ/L (3.5-5.1) Chloride Level 109 MEQ/L (98-107) Carbon Dioxide Level 21.7 MEQ/L (21.0-32.0) Anion Gap 10 MEQ/L (5-15) Estimat Glomerular Filtration Rate 67 ML/MIN (>89) Result Diagram: 01/20/18 0230 01/20/18 0230 Imaging Last Impressions Head CT 01/20/18 0000 Signed Impressions: CONCLUSION: 1. Significant brainstem hemorrhage, much larger than on the fourth Chest X-Ray 01/20/18 0000 Signed Impressions: CONCLUSION: Mild bibasilar atelectasis. Procedures INTUBATION 01/19/18 . Patient/Family Conference Present at Family Conference: Patient's Beatriz, son Alan, [id number] Chrissy Malloy and her BorisDr. Bustamante. . Family Conference Time (mins): 50 Family Conference Location: Bedside, Consult Room Issues Discussed: * Palliative care role, purpose, approach * Additional medical, psychosocial, and spiritual history * Patients general health, functional status, and cognitive changes in the months leading up to the current hospitalization * Patient/family understanding of the current medical problems * Patient/family understanding of prognosis * Patients goals of care as best understood from advance directives and/or conversations and/or values * Current medical treatment options and benefits/burdens of those options * Likely scenarios comparing ongoing aggressive care with a transition to comfort measures only * Questions answered to the best of my ability * Palliative care contact information provided . Assessment and Plan Disease Oriented Problem List: (1) Hemorrhage, right terrance (2) Respiratory failure, mechanical ventilation (3) Anticoagulation Via Coumadin for atrial fibrillation (4) Chronic atrial fib (5) Hypertension, not controlled at the time of admission (6) COPD, 50 pack years cigarettes (7) History of CAD (8) Chronic back pain (9) Hyperlipidemia (10) GERD (11) History of thalassemia and old records (12) Degenerative arthritis, history of chronic back pain Symptom Scale: (1) Dyspnea 0-10 Scale: Unable to quantify (2) Pain 0-10 Scale: Unable to quantify (He had chronic back pain and 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 now for 20 years, retired. Spiritual: Spiritism background, not spiritual or baptist Legal: Patient lacks capacity for decision-making and will not regain that capacity; his is the decision-making proxy. Ethical issues impacting care: Patient is unable to speak for himself. . Important Contacts : Beatriz Troncoso [phone] . Prognosis The patient's overall prognosis is poor. It is possible he could survive this episode, but his level of debility and disability would be substantial, and he would require 24/7 nursing care. . Code Status: Full Code Plan * CODE STATUS: FULL CODE * DECISION-MAKING: The patient lacks capacity for decision-making and will not regain that capacity. His is the decision-making proxy. * GOALS: Aggressive care until additional family arrives and then further discussions will take place. The and other family members understand the poor prognosis and acknowledge that they face the challenging questions regarding resuscitation status, as well as the choice of withdrawal of care to allow natural versus continued aggressive care. * SYMPTOMS: The patient has had chronic back pain, and now has had head pain with hemorrhage. He currently shows no obvious signs of pain, and is on propofol. I have no further medication recommendations at this time for pain. The patient's dyspnea is being managed by mechanical ventilation. * Palliative Care will continue to follow the patient during this hospitalization. . Time Spent Total Floor Time (mins): 89 Face to Face Time (mins): 19 >50% Counseling/Coord of Care: Yes (d/w RN and w Dr. Bustamante) Thank you for the opportunity to participate in the care of Mr. Troncoso. Attestation To help prompt me to consider important information that might be impacting today's encounter and assessment, information from prior notes written by myself or my colleagues may have been "brought forward" into today's note. My signature on this note, however, is an attestation that I personally performed the exam, history, and/or decision-making noted today, and, unless otherwise indicated, the interactions with patient, family, and staff as well as the review of records all occurred today. I also attest that the listed assessment and stated plan reflect my best clinical judgment today based on the combination of historical information, prior notes, and today's exam/ interactions. When time spent is documented, it refers only to time spent today by the signer, or if indicated, combined time spent today by collaborating physician/nurse practitioner. Renuka Vásquez MD Jan 20, 2018 14:05
--- NOTE | 2018-01-20 14:18 | RADRPT ---
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 CLINICAL DATA: This is the patient's subsequent encounter. Patient reports that signs and symptoms h ave been present for 2 days and indicates a pain score of Nonresponsive. MEDICAL/SURGICAL HISTORY: Cardiovascular disease. Hypertension. Chronic obstructive pulmonary dis ease. Diabetes. None. RADIATION DOSE: 37.31 CTDI (mGy) COMPARISON: [facility] – [place], CT BRAIN W/O CONTRAST, 01/19/2018. . TECHNIQUE: CT of the head without contrast. Using automated exposure control and adjustment of the mA and/or kV according to patient size, radiation dose was kept as low as reasonably achievable to ob tain optimal diagnostic quality images. FINDINGS: Cerebrum: The ventricles are normal for age. No evidence of midline shift, mass lesion, hemorrhage or acute infarction. No extraaxial fluid collections are seen. Posterior Fossa: There is a large area of more hemorrhage in the terrance and brainstem now measuring 3. 3 x 2.5 cm Extracranial: The visualized portion of the orbits is intact. Skull: The calvaria is intact. No evidence of skull fracture. CONCLUSION: 1. Significant brainstem hemorrhage, much larger than on the fourth Electronically signed by: Krystian Elizabeth MD 01/20/2018 2:16 PM EDT
--- NOTE | 2018-01-20 15:47 | HHI.NSPN ---
(Glenda Uribe) Note Status Status: Progress Note (Glenda Uribe) Status: Progress Note (Francois Alvarez MD) Interval History Interval History This is a 67-year-old man who has a history of atrial fibrillation, anticoagulated on Coumadin. Approximately an hour before admission developed acute onset of left-sided weakness. He states he woke up with this symptom. The patient presented as a stroke-alert when he developed acute onset of headache and left extremity weakness. REPORTDLY he was watching TV when he suddenly developed a headache and left arm and left leg weakness, slurred speech approximately 1 hour prior to ER arrival. The CT of the brain shows 1.1 cm acute hemorrhage in the right terrance. The patient was immediately given KCentra and vitamin K. He was intubated in the emergency department by ED attending for an airway protection, Neurosurgical consultation was requested 01/20: patient seen this morning during rounds, patient intubated due to decline in mental status (Glenda Uribe) Diagnosis Pontine hemorrhage Interval History This is a 67-year-old man who has a history of atrial fibrillation, anticoagulated on Coumadin. Approximately an hour before admission developed acute onset of left-sided weakness. He states he woke up with this symptom. The patient presented as a stroke-alert when he developed acute onset of headache and left extremity weakness. REPORTDLY he was watching TV when he suddenly developed a headache and left arm and left leg weakness, slurred speech approximately 1 hour prior to ER arrival. The CT of the brain shows 1.1 cm acute hemorrhage in the right terrance. The patient was immediately given KCentra and vitamin K. He was intubated in the emergency department by ED attending for an airway protection, Neurosurgical consultation was requested 01/20: patient seen this morning during rounds, patient intubated due to decline in mental status 01/21. No clinical improvement (Francois Alvarez MD) Labs, Micro, & Vital Signs Results Date Time Temp Pulse Resp B/P (MAP) Pulse Ox O2 Delivery O2 Flow Rate FiO2 6/5/18 14:00 92 01/20/18 14:00 166/74 01/20/18 13:43 100 01/20/18 13:41 100 40 01/20/18 12:00 99.1 88 19 151/65 (93) 100 01/20/18 12:00 88 01/20/18 11:35 156/68 01/20/18 10:46 166/70 01/20/18 10:00 68 01/20/18 10:00 139/63 01/20/18 08:50 150/67 01/20/18 08:00 98.5 85 18 159/70 (99) 100 01/20/18 08:00 82 01/20/18 08:00 95 40 01/20/18 06:00 82 01/20/18 05:57 83 134/61 01/20/18 04:00 98.3 77 18 135/62 (86) 100 01/20/18 04:00 81 01/20/18 03:46 100 40 01/20/18 03:36 80 135/60 01/20/18 02:00 85 01/20/18 01:05 79 124/58 01/20/18 00:12 100 40 01/20/18 00:00 98.1 85 18 120/59 (79) 100 01/20/18 00:00 85 01/20/18 00:00 40 01/19/18 22:27 88 142/64 01/19/18 22:00 100 Mechanical Ventilator 50 01/19/18 22:00 88 01/19/18 22:00 98.4 88 18 142/64 (90) 100 01/19/18 21:26 01/19/18 21:15 98.4 95 18 144/65 (91) 99 01/19/18 21:15 50 01/19/18 21:14 100 50 01/19/18 21:05 100 100 01/19/18 20:14 159/70 (99) 01/19/18 20:04 79 170/71 01/19/18 19:33 100 01/19/18 19:32 78 16 180/86 (117) 100 Ventilator 100 01/19/18 18:55 83 16 214/95 (134) 100 01/19/18 18:55 100 100 01/19/18 18:37 80 18 100 Nasal Cannula 2.00 01/19/18 18:20 100 Room Air 01/19/18 18:17 98 Room Air 01/19/18 17:50 98.6 84 18 163/80 (107) 100 01/21/18 07:00 Intake Total 830 ml Balance 830 ml Constitutional Vital Signs Date Time Temp Pulse Resp B/P (MAP) Pulse Ox O2 Delivery O2 Flow Rate FiO2 01/20/18 14:00 92 01/20/18 14:00 166/74 01/20/18 13:43 100 01/20/18 13:41 100 40 01/20/18 12:00 99.1 88 19 151/65 (93) 100 01/20/18 12:00 88 01/20/18 11:35 156/68 01/20/18 10:46 166/70 01/20/18 10:00 68 01/20/18 10:00 139/63 01/20/18 08:50 150/67 01/20/18 08:00 98.5 85 18 159/70 (99) 100 01/20/18 08:00 82 01/20/18 08:00 95 40 01/20/18 06:00 82 01/20/18 05:57 83 134/61 01/20/18 04:00 98.3 77 18 135/62 (86) 100 01/20/18 04:00 81 01/20/18 03:46 100 40 01/20/18 03:36 80 135/60 01/20/18 02:00 85 01/20/18 01:05 79 124/58 01/20/18 00:12 100 40 01/20/18 00:00 98.1 85 18 120/59 (79) 100 01/20/18 00:00 85 01/20/18 00:00 40 01/19/18 22:27 88 142/64 01/19/18 22:00 100 Mechanical Ventilator 50 01/19/18 22:00 88 01/19/18 22:00 98.4 88 18 142/64 (90) 100 01/19/18 21:26 01/19/18 21:15 98.4 95 18 144/65 (91) 99 01/19/18 21:15 50 01/19/18 21:14 100 50 01/19/18 21:05 100 100 01/19/18 20:14 159/70 (99) 01/19/18 20:04 79 170/71 01/19/18 19:33 100 01/19/18 19:32 78 16 180/86 (117) 100 Ventilator 100 01/19/18 18:55 83 16 214/95 (134) 100 01/19/18 18:55 100 100 01/19/18 18:37 80 18 100 Nasal Cannula 2.00 01/19/18 18:20 100 Room Air 01/19/18 18:17 98 Room Air 01/19/18 17:50 98.6 84 18 163/80 (107) 100 01/21/18 07:00 Intake Total 830 ml Balance 830 ml (Glenda Uribe) Review of Systems ROS Limitations: Intubated (Glenda Uribe) Physical Exam GENERAL: Sedated and intubated. Well nourished middle aged male. HEENT: Normocephalic. No scleral icterus. No injection or drainage. NECK: soft, supple. No JVD. HEART: Regular rate and rhythm RESPIRATORY: Mechanically ventilated, breath sounds equal ABDOMEN: Abdomen soft, MUSCULOSKELETAL: No deformities, no clubbing. NEURO: Sedated and intubated. No spontaneous eye opening. Pupils are equal. Not following commands for testing. SKIN: Warm and dry. (Glenda Uribe) GENERAL: middle-aged appearing male, comatose, intubated. SKIN: Warm and dry. HEAD: Normocephalic. EYES: No scleral icterus. No injection or drainage. NECK: Supple, trachea midline. No JVD. CARDIOVASCULAR: normal rate, irregularly irregular rhythm. afib. RESPIRATORY: equal chest rise. prvc. fio2 40%. does breath over the vent. GASTROINTESTINAL: Abdomen soft, non-tender, nondistended. no guarding. MUSCULOSKELETAL: No cyanosis, or edema. NEURO EXAM: RASS -5. GCS 4. extensor postures in the upper extremities, triple flexion in the lowers. upgoing Babinski. +corneals, +cough. + gag. breaths over the vent. pupils 1mm bilaterally equal, sluggishly reactive. did not follow any commands with vertical gaze. (Francois Alvarez MD) Medications Current Medications Current Medications Medications (Trade) Dose Ordered Sig/Abel Route PRN Reason Start Time Stop Time Status Last Admin Dose Admin Nicardipine HCl 25 mg/Sodium Chloride 260 ml @ 52 mls/hr TITRATE PRN IV Blood pressure management 01/19/18 18:45 01/20/18 14:00 Amlodipine Besylate (Norvasc) 5 mg DAILY PO 01/20/18 09:00 01/20/18 08:51 Metoprolol Tartrate (Lopressor) 50 mg BID PO 01/19/18 21:00 01/20/18 08:51 Pravastatin Sodium (Pravachol) 40 mg DAILY PO 01/20/18 09:00 01/20/18 08:51 Sodium Chloride 1,000 ml @ 84 mls/hr [id number] IV 01/19/18 21:00 01/20/18 06:54 Sodium Chloride (NS Flush) 2 ml UNSCH PRN IV FLUSH FLUSH AFTER USING IV ACCESS 01/19/18 20:15 Sodium Chloride (NS Flush) 2 ml BID IV FLUSH 01/19/18 21:00 Acetaminophen (Tylenol) 650 mg Q6H PRN PO PAIN 1-10 AND/OR FEVER >101F 01/19/18 20:15 Famotidine (Pepcid Inj) 20 mg Q12HR IV PUSH 01/19/18 21:00 01/20/18 08:51 Midazolam HCl (Versed Inj) 2 mg Q1H PRN IV PUSH SEDATION 01/19/18 20:15 Albuterol/ Ipratropium (Duoneb Neb) 1 ampule Q2HR NEB PRN INH WHEEZING 01/19/18 20:15 Miscellaneous Information ([facility] Information) 1 Q361D XX 01/19/18 20:15 Chlorhexidine Gluconate (Chlorhexidine 2% Cloth) 3 pack Taper DAILY@04 TOP 01/20/18 04:00 01/16/19 03:59 01/20/18 03:35 Chlorhexidine Gluconate (Chlorhexidine 2% Cloth) 3 pack UNSCH PRN TOP HYGIENIC CARE 01/19/18 20:15 Senna/Docusate Sodium (Fadumo-Colace) 1 tab BID PO 01/19/18 21:00 01/20/18 08:51 Magnesium Hydroxide (Milk Of Magnesia Liq) 30 ml Q12H PRN PO Mild constipation 01/19/18 20:15 Sennosides (Senokot) 17.2 mg Q12H PRN PO Moderate constipation 01/19/18 20:15 Bisacodyl (Dulcolax Supp) 10 mg DAILY PRN RECTAL SEVERE CONSITIPATION 01/19/18 20:15 Lactulose (Lactulose Liq) 30 ml DAILY PRN PO SEVERE CONSITIPATION 01/19/18 20:15 Chlorhexidine Gluconate (Peridex 0.12% Liq) 15 ml BID@08,20 MT 01/20/18 08:00 01/20/18 08:00 Propofol 100 ml @ 2.493 mls/ hr TITRATE PRN IV SEDATION 01/19/18 20:15 01/20/18 03:36 (Glenda Uribe) Current Medications Current Medications Sodium Chloride 1,000 ml @ 70 mls/hr [id number] ONCE IV Last administered on 18:02; Start 01/19/18 at 18:02; Stop 01/20/18 at 08:19; Status DC Prothrombin Complex Concent (Human) 2000 units/Syringe / Bag 0 ml @ 500 mls/hr ONCE ONCE IV Last administered on 01/19/18 19:25; Start 01/19/18 at 19:15; Stop 01/19/18 at 19:16; Status DC Nicardipine HCl 25 mg/Sodium Chloride 260 ml @ 52 mls/hr TITRATE PRN IV Blood pressure management Last administered on 01/21/18 13:33; Start 01/19/18 at 18:45 ; Stop 01/21/18 at 15:01; Status DC Etomidate (Amidate Inj) 40 mg STK-MED ONCE .ROUTE Last administered on 18:42; Start 01/19/18 at 18:42; Stop 01/19/18 at 18:43; Status DC Succinylcholine Chloride (Quelicin Inj) 200 mg STK-MED ONCE .ROUTE Last administered on 01/19/18 18:43; Start 01/19/18 at 18:43; Stop 01/19/18 at 18:44; Status DC Midazolam HCl (Versed Inj) 5 mg STK-MED ONCE .ROUTE ; Start 01/19/18 at 18:44; Stop 01/19/18 at 18:45; Status DC Phytonadione 10 mg/Dextrose 51 ml @ 102 mls/hr ONCE STAT IV Last administered on 01/19/18at 19:24; Start 01/19/18 at 18:44; Stop 01/19/18 at 19:13; Status DC Propofol 50 ml @ As Directed STK-MED ONCE .ROUTE Last administered on 01/19/18at 19:25; Start 01/19/18 at 18:55; Stop 01/19/18 at 18:56; Status DC Propofol 100 ml @ 0 mls/hr TITRATE PRN IV SEDATION; Start 01/19/18 at 18:45; Stop 01/19/18 at 20:27; Status DC Amlodipine Besylate (Norvasc) 5 mg DAILY PO Last administered on 01/20/18at 08:51 ; Start 01/20/18 at 09:00; Stop 01/20/18 at 16:45; Status DC Metoprolol Tartrate (Lopressor) 50 mg BID PO Last administered on 01/20/18at 08: 51; Start 01/19/18 at 21:00; Stop 01/20/18 at 16:45; Status DC Pravastatin Sodium (Pravachol) 40 mg DAILY PO Last administered on 01/21/18at 08: 02; Start 01/20/18 at 09:00 Sodium Chloride 1,000 ml @ 84 mls/hr [id number] IV Last administered on 01/21/18at 07:42; Start 01/19/18 at 21:00 Sodium Chloride (NS Flush) 2 ml UNSCH PRN IV FLUSH FLUSH AFTER USING IV ACCESS ; Start 01/19/18 at 20:15 Sodium Chloride (NS Flush) 2 ml BID IV FLUSH Last administered on 01/21/18at 07: 42; Start 01/19/18 at 21:00 Acetaminophen (Tylenol) 650 mg Q6H PRN PO PAIN 1-10 AND/OR FEVER >101F; Start 01/19/18 at 20:15 Famotidine (Pepcid Inj) 20 mg Q12HR IV PUSH Last administered on 01/21/18at 07:59 ; Start 01/19/18 at 21:00; Stop 01/21/18 at 13:58; Status DC Midazolam HCl (Versed Inj) 2 mg Q1H PRN IV PUSH SEDATION; Start 01/19/18 at 20: 15 Albuterol/ Ipratropium (Duoneb Neb) 1 ampule Q2HR NEB PRN INH WHEEZING; Start 01/19/18 at 20:15 Miscellaneous Information ([facility] Information) 1 Q361D XX ; Start 01/19/18 at 20:15 Chlorhexidine Gluconate (Chlorhexidine 2% Cloth) 3 pack Taper DAILY@04 TOP Last administered on 01/20/18at 03:35; Start 01/20/18 at 04:00; Stop 01/16/19 at 03: 59 Chlorhexidine Gluconate (Chlorhexidine 2% Cloth) 3 pack UNSCH PRN TOP HYGIENIC CARE; Start 01/19/18 at 20:15 Senna/Docusate Sodium (Fadumo-Colace) 1 tab BID PO Last administered on 01/21/18at 07:59; Start 01/19/18 at 21:00 Magnesium Hydroxide (Milk Of Magnesia Liq) 30 ml Q12H PRN PO Mild constipation ; Start 01/19/18 at 20:15 Sennosides (Senokot) 17.2 mg Q12H PRN PO Moderate constipation; Start 01/19/18 at 20:15 Bisacodyl (Dulcolax Supp) 10 mg DAILY PRN RECTAL SEVERE CONSITIPATION; Start at 20:15 Lactulose (Lactulose Liq) 30 ml DAILY PRN PO SEVERE CONSITIPATION; Start at 20:15 Chlorhexidine Gluconate (Peridex 0.12% Liq) 15 ml BID@08,20 MT Last administered on 01/21/18at 07:42; Start 01/20/18 at 08:00 Propofol 100 ml @ 2.493 mls/ hr TITRATE PRN IV SEDATION Last administered on at 03:36; Start 01/19/18 at 20:15; Stop 01/20/18 at 16:45; Status DC Gadodiamide (Omniscan Pf Inj) 16 ml STK-MED ONCE IV PUSH Last administered on at 13:55; Start 01/20/18 at 13:55; Stop 01/20/18 at 13:56; Status DC Metoprolol Tartrate (Lopressor) 50 mg Q6HR PO Last administered on 01/21/18at 10: 51; Start 01/20/18 at 18:00 Amlodipine Besylate (Norvasc) 5 mg Q12HR PO Last administered on 01/21/18at 07:59 ; Start 01/20/18 at 21:00 Hydralazine HCl (Apresoline) 100 mg Q8HR PO Last administered on 01/21/18at 13:05 ; Start 01/21/18 at 08:00 Labetalol HCl (Trandate Inj) 20 mg Q15M PRN IV PUSH sbp > 150 Last administered on 01/21/18at 10:51; Start 01/21/18 at 08:00 Hydralazine HCl (Apresoline Inj) 10 mg Q30M PRN IV PUSH sbp > 150; Start at 08:00 Miscellaneous Information ([facility] Information) D/C ICU ELECTROLYTE ORDERS... UNSCH PRN .XX SEE DOSE INSTRUCTIONS; Start 01/21/18 at 14:00 Miscellaneous Information ([facility] Information) ICU - CALL ORDERING PHYSIC... UNSCH PRN .XX SEE DOSE INSTRUCTIONS; Start 01/21/18 at 14:00 Potassium Chloride 100 ml @ 25 mls/hr UNSCH PRN IV ELECTROLYTE REPLACEMENT; Start 01/21/18 at 14:00 Potassium Bicarb/ Potassium Chloride (K-Lyte Cl Eff) 50 meq UNSCH PRN PO ELECTROLYTE REPLACEMENT; Start 01/21/18 at 14:00 Potassium Chloride 100 ml @ 50 mls/hr UNSCH PRN IV ELECTROLYTE REPLACEMENT; Start 01/21/18 at 14:00 Magnesium Sulfate 4 gm/Sodium Chloride 108 ml @ 54 mls/hr UNSCH PRN IV ELECTROLYTE REPLACEMENT; Start 01/21/18 at 14:00 Magnesium Sulfate 2 gm/Sodium Chloride 104 ml @ 52 mls/hr UNSCH PRN IV ELECTROLYTE REPLACEMENT; Start 01/21/18 at 14:00 Magnesium Oxide (Mag-Ox) 800 mg UNSCH PRN PO ELECTROLYTE REPLACEMENT; Start 01/21/18 at 14:00 Sodium Phosphate 30 mmol/Sodium Chloride 260 ml @ 43.333 mls/ hr UNSCH PRN IV ELECTROLYTE REPLACEMENT; Start 01/21/18 at 14:00 Potassium Phosphate (K-Phos) 2,000 mg UNSCH PRN PO ELECTROLYTE REPLACEMENT; Start 01/21/18 at 14:00 Potassium Phosphate 30 mmol/ Sodium Chloride 260 ml @ 43.333 mls/ hr UNSCH PRN IV ELECTROLYTE REPLACEMENT; Start 01/21/18 at 14:00 Famotidine (Pepcid) 20 mg BID PO ; Start 01/21/18 at 21:00 Nicardipine HCl 50 mg/Sodium Chloride 500 ml @ 52 mls/hr TITRATE PRN IV Blood pressure management Last administered on 01/21/18at 16:09; Start 01/21/18 at 15:15 (Francois Alvarez MD) Medical Decision Making MDM Remarks 67 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 Alvarez recommends nonsurgical management of pontine bleed, defer management to Critical Care and Neurologist nonchemical dvt prophylaxis with SCDs and TEDs in view of ICH Protonix for gi prophylaxis Dr. Alvarez dw at bedside and Dr. 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 Continue aggressive pulmonary toilette, nasotracheal suction, and breathing treatments with nebulizers. Nutrition. NPO Renal. monitor closely urine output, BUN and creatinine Endocrine. Monitor serial Acu checks and SSI as needed in detail ID monitor for signs of infection Protonix for stress ulcer prophylaxis Yaw hose and SCD's for DVT prophylaxis. nonchemical dvt prophylaxis Discussed with Dr Awad (Francois Alvarez MD) Glenda Uribe Jan 20, 2018 15:47 Francois Alvarez MD Jan 21, 2018 17:06
--- NOTE | 2018-01-20 16:53 | RADRPT ---
EXAM DATE: 01/20/2018 2:12 PM EDT AGE/SEX: 67 years / Male INDICATIONS: Hematoma. CLINICAL DATA: This is the patient's subsequent encounter. Patient reports that signs and symptoms h ave been present for 2 days and indicates a pain score of 0/10. MEDICAL/SURGICAL HISTORY: Hypertension. . Hernia, Lt knee surgery COMPARISON: [facility] [place], CT BRAIN W/O CONTRAST, 01/19/2018. . TECHNIQUE: Multiplanar, multisequence examination of the brain was performed without and with 16 ml O mniscan (gadodiamide) contrast as a single exam dose. FINDINGS: An evolving hematoma is present in the posterior terrance, slightly asymmetric to the right. Size and ass ociated mass effect have increased considerably since yesterday's CT examination with impending ventr icular obstruction to be of significant concern at this point. There is no significant associated abn ormal parenchymal enhancement to suggest an underlying vascular or neoplastic process. Ventricles are currently grossly stable and symmetric. The supratentorial brain is stable symmetric and benign. Ext racranial structures are stable and benign. CONCLUSION: Pontine hematoma with increasing size and mass effect. Electronically signed by: Ramiro Desouza MD 01/20/2018 4:51 PM EDT
--- NOTE | 2018-01-20 17:01 | EKG ---
Date Performed: 01/19/2018 Time Performed: 18:17:10 PTAGE: 67 years EKG: Sinus rhythm NORMAL ECG Since the PREVIOUS TRACING , no significant change noted PREVIOUS TRACIN07/03/2017@13.54 DOCTOR: Montserrat Burgos Interpretating Date/Time 01/20/2018 17:00:35
[2018-01-20] MEDS: amLODIPine BESYLATE 5 MG TAB PO SCH (20:06)
--- NOTE | 2018-01-20 21:13 | HHI.PR ---
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 Plan continue BP control with sbp<150 Diagnosis/Plan: Subjective Subjective Comments No acute events reported Active Medications Current Medications Medications (Trade) Dose Ordered Sig/Abel Route Start Time Stop Time Status Last Admin Nicardipine HCl 25 mg/Sodium Chloride 260 ml @ 52 mls/hr TITRATE PRN IV 01/19/18 18:45 01/20/18 18:04 (Pravachol) 40 mg DAILY PO 01/20/18 09:00 01/20/18 08:51 Sodium Chloride 1,000 ml @ 84 mls/hr [id number] IV 01/19/18 21:00 01/20/18 18:04 (NS Flush) 2 ml UNSCH PRN IV FLUSH 01/19/18 20:15 (NS Flush) 2 ml BID IV FLUSH 01/19/18 21:00 01/20/18 20:07 (Tylenol) 650 mg Q6H PRN PO 01/19/18 20:15 (Pepcid Inj) 20 mg Q12HR IV PUSH 01/19/18 21:00 01/20/18 20:06 (Versed Inj) 2 mg Q1H PRN IV PUSH 01/19/18 20:15 (Duoneb Neb) 1 ampule Q2HR NEB PRN INH 01/19/18 20:15 ([facility] Information) 1 Q361D XX 01/19/18 20:15 (Chlorhexidine 2% Cloth) 3 pack Taper DAILY@04 TOP 01/20/18 04:00 01/16/19 03:59 01/20/18 03:35 (Chlorhexidine 2% Cloth) 3 pack UNSCH PRN TOP 01/19/18 20:15 (Fadumo-Colace) 1 tab BID PO 01/19/18 21:00 01/20/18 20:06 (Milk Of Magnesia Liq) 30 ml Q12H PRN PO 01/19/18 20:15 (Senokot) 17.2 mg Q12H PRN PO 01/19/18 20:15 (Dulcolax Supp) 10 mg DAILY PRN RECTAL 01/19/18 20:15 (Lactulose Liq) 30 ml DAILY PRN PO 01/19/18 20:15 (Peridex 0.12% Liq) 15 ml BID@08,20 MT 01/20/18 08:00 01/20/18 20:07 (Lopressor) 50 mg Q6HR PO 01/20/18 18:00 01/20/18 18:03 (Norvasc) 5 mg Q12HR PO 01/20/18 21:00 01/20/18 20:06 Allergies Allergies Coded Allergies No Known Allergies (Verified Allergy, Unknown, 07/03/17) Exam I&O / VS 01/20/18 01/20/18 01/21/18 15:00 23:00 07:00 Intake Total 830 ml 1560 ml Output Total 2425 ml Balance 830 ml -865 ml Intake IV Total 830 ml 1500 ml Other 60 ml Output Urine Total 2125 ml Gastric Drainage Total 300 ml # Bowel Movements 0 Vital Signs Date Time Temp Pulse Resp B/P (MAP) Pulse Ox O2 Delivery O2 Flow Rate FiO2 01/20/18 18:40 133/62 01/20/18 18:04 149/66 01/20/18 18:00 87 01/20/18 16:30 152/67 01/20/18 16:21 100 40 01/20/18 16:16 152/67 01/20/18 16:00 100.3 87 18 153/65 (94) 100 01/20/18 16:00 87 01/20/18 14:00 100 100 01/20/18 14:00 92 01/20/18 14:00 166/74 01/20/18 13:43 100 01/20/18 13:41 100 40 01/20/18 12:00 99.1 88 19 151/65 (93) 100 01/20/18 12:00 88 01/20/18 11:35 156/68 01/20/18 10:46 166/70 01/20/18 10:00 68 01/20/18 10:00 139/63 01/20/18 08:50 150/67 01/20/18 08:00 98.5 85 18 159/70 (99) 100 01/20/18 08:00 82 01/20/18 08:00 95 40 01/20/18 06:00 82 01/20/18 05:57 83 134/61 01/20/18 04:00 98.3 77 18 135/62 (86) 100 01/20/18 04:00 81 01/20/18 03:46 100 40 01/20/18 03:36 80 135/60 01/20/18 02:00 85 01/20/18 01:05 79 124/58 01/20/18 00:12 100 40 01/20/18 00:00 98.1 85 18 120/59 (79) 100 01/20/18 00:00 85 01/20/18 00:00 40 01/19/18 22:27 88 142/64 01/19/18 22:00 100 Mechanical Ventilator 50 01/19/18 22:00 88 01/19/18 22:00 98.4 88 18 142/64 (90) 100 01/19/18 21:26 01/19/18 21:15 98.4 95 18 144/65 (91) 99 01/19/18 21:15 50 01/19/18 21:14 100 50 Exam Comments He can follow some verbal commands with vertical gaze CN-pupils 1 mm, He has no horizontal EOM to occulocephalics MOTOR--extensor posturing BUE and BLE, DTR--- 2+ BUE and BLE. Bilateral Babinskis Objective Radiology Results MRI brain--enlarged pontine hematoma. No hydrocephalus Micro and Labs Laboratory Tests Test 01/20/18 02:30 White Blood Count 14.0 Red Blood Count 5.04 Hemoglobin 9.9 Hematocrit 32.3 Mean Corpuscular Volume 64.0 Mean Corpuscular Hemoglobin 19.7 Mean Corpuscular Hemoglobin Concent 30.8 Red Cell Distribution Width 15.3 Platelet Count 135 Mean Platelet Volume 11.0 Neutrophils (%) (Auto) 53.6 Lymphocytes (%) (Auto) 36.7 Monocytes (%) (Auto) 8.3 Eosinophils (%) (Auto) 0.8 Basophils (%) (Auto) 0.6 Neutrophils # (Auto) 7.5 Lymphocytes # (Auto) 5.1 Monocytes # (Auto) 1.2 Eosinophils # (Auto) 0.1 Basophils # (Auto) 0.1 CBC Comment DIFF FINAL Differential Comment Prothrombin Time 12.0 Prothromb Time International Ratio 1.2 Activated Partial Thromboplast Time 29.7 Blood Urea Nitrogen 14 Creatinine 1.10 Random Glucose 114 Total Protein 7.6 Albumin 3.6 Calcium Level 8.7 Phosphorus Level 2.4 Magnesium Level 1.8 Alkaline Phosphatase 188 Aspartate Amino Transf (AST/SGOT) 43 Alanine Aminotransferase (ALT/SGPT) 50 Total Bilirubin 0.8 Sodium Level 141 Potassium Level 3.6 Chloride Level 109 Carbon Dioxide Level 21.7 Anion Gap 10 Estimat Glomerular Filtration Rate 67 Blake Malin MD PhD Jan 20, 2018 21:13
[2018-01-21] VITALS (18 sets, daily range): BP systolic 129–162; BP diastolic 59–70; PULSE 78–108; RESP 18–28; TEMP 98.3–102.7; O2SAT 91–100
[2018-01-21] MEDS: niCARdipine INJ 25 MG in SODIUM CHLOR 0.9% 250 ML INJ 250 ML IV PRN ×5 (00:12→13:33)
[2018-01-21] MEDS: METOPROLOL TARTRATE 50 MG TAB PO SCH ×3 (00:12→10:51)
[2018-01-21 03:46] LABS: HEMATOCRIT 31.6 % (39.0-51.0); HEMOGLOBIN 9.9 GM/DL (13.0-17.0); MEAN CELL VOLUME 63.6 FL (80.0-100.0); MEAN CORPUSCULAR HEMOGLOBIN 19.9 PG (27.0-34.0); MEAN CORPUSCULAR HGB CONC 31.3 % (32.0-36.0); PLATELET COUNT 126 TH/MM3 (150-450); RED BLOOD COUNT 4.96 MIL/MM3 (4.50-5.90); RED CELL DISTRIBUTION WIDTH 15.4 % (11.6-17.2); WHITE BLOOD COUNT 13.6 TH/MM3 (4.0-11.0)
[2018-01-21] MEDS: CHLORHEXIDINE GLUCONATE 2 % 1 PACK (2 CLOTHS) TOP SCH (03:48)
[2018-01-21 03:58] LABS: BICARBONATE 21.4 MEQ/L (21.0-32.0); CALCIUM 8.6 MG/DL (8.5-10.1); CREATININE 0.9 MG/DL (0.60-1.30); INTERNATIONAL NORMALIZED RATIO 1.1 RATIO; PROTHROMBIN TIME - PATIENT 10.7 SEC (9.8-11.6)
[2018-01-21] MEDS: SODIUM CHLOR 0.9% 1000 ML INJ 1,000 ML IV SCH ×2 (07:42→20:26)
[2018-01-21] MEDS: CHLORHEXIDINE 0.12% (ORAL KIT) 15 ML CUP MT SCH ×2 (07:42→19:05)
[2018-01-21] MEDS: SODIUM CHLORIDE 0.9% FLUSH 10 ML FLUSH IV FLUSH SCH ×2 (07:42→20:26)
--- NOTE | 2018-01-21 07:55 | HHI.CCPN ---
Subjective Remarks/Hospital Course Hospital Course: 57-year-old gentleman with a history of hypertension, atrial fibrillation on Coumadin, is admitted secondary to acute onset of headache and left extremity weakness. Patient was watching TV when he suddenly developed a headache and left arm and left leg weakness, slurred speech approximately 1 hour prior to ER arrival. The CT of the brain shows 1.1 cm acute hemorrhage in the right terrance. No acute findings in the supratentorial brain. The patient was immediately intubated in the emergency department by ED attending for an airway protection, received K Centra and vitamin K, and is now admitted to ICU. Subjective: 01/20: persistently poor neurologic exam. extensor posturing in the upper extremities. triple flexion in the lowers. repeat CT brain with extension of the pontine hemorrhage into the brainstem. very grim prognosis. neurosurgery re- evaluated and agrees there is no neurosurgical intervention warranted at this point. Long and multiple discussions with the family regarding prognosis and minimal improvements over time. family is flying in from out of state. palliative met with family. neurology also agrees with grim prognosis. 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 01/21: no changes in mental status. postures in the extremities. per Dr. Malin, patient can follow commands with vertical gaze deviation, increasing concern for locked-in syndrome. today on my evaluation, patient is not following commands with gaze and my exam is unchanged from yesterdays. Objective Vital Signs Date Time Temp Pulse Resp B/P (MAP) Pulse Ox O2 Delivery O2 Flow Rate FiO2 01/21/18 06:00 79 01/21/18 04:14 96 30 01/21/18 04:00 99.1 18 129/60 (83) 01/19/18 22:00 Mechanical Ventilator 01/19/18 18:37 2.00 Intake and Output 01/21/18 01/21/18 01/22/18 08:00 16:00 00:00 Intake Total 60 ml Output Total 2800 ml Balance -2740 ml Result Diagram: 01/21/18 0302 01/21/18 0302 Objective Remarks GENERAL: middle-aged appearing male, comatose, intubated. SKIN: Warm and dry. HEAD: Normocephalic. EYES: No scleral icterus. No injection or drainage. NECK: Supple, trachea midline. No JVD. CARDIOVASCULAR: normal rate, irregularly irregular rhythm. afib. RESPIRATORY: equal chest rise. prvc. fio2 40%. does breath over the vent. GASTROINTESTINAL: Abdomen soft, non-tender, nondistended. no guarding. MUSCULOSKELETAL: No cyanosis, or edema. NEURO EXAM: RASS -5. GCS 4. extensor postures in the upper extremities, triple flexion in the lowers. upgoing Babinski. +corneals, +cough. + gag. breaths over the vent. pupils 1mm bilaterally equal, sluggishly reactive. did not follow any commands for me with vertical gaze. 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 Now by repeat head CT is > 5mL total volume, which by multiple studies, this volume of pontine blood with this low GCS score has very poor overall survivability or neurologic improvement. unlikely to have any meaningful neurologic improvement. Family considering how aggressive they wish to be. If our goals remain aggressive, will need long-term trach/PEG and SNF placement. remains critically ill with devastating intracerebral hemorrhage. Pontine intracerebral hemorrhage - s/p reversal with KCentra and vit K 6/4 - daily INR - very poor prognosis - neurology: Dr. Malin following - neurosurgery: Dr. 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 - EEG to evaluate for normal cortical sleep/wake pattern - avoid sedation - frequent neuro checks Hypertensive Emergency - cardene prn - metoprolol 50mg po q6h - hydralazine 100mg po q8h - prn labetalol, hydralazine - goal sbp < 150 Acute hypoxic and Hypercarbic respiratory failure - wean fio2 for goal spo2 > 90% - no SBT or weaning of mechanical ventilation until neuro exam improves - would be a candidate for early tracheostomy if family wishes to be aggressive - vent bundle - hob elevated - nebs COPD -DuoNeb scheduled and as needed -No steroids indicated Atrial fibrillation -Rate control with metoprolol -No anticoagulation due to active ICH Coagulopathy -DC warfarin -Received K Centra and vitamin K in the ED -INR reversed DVT GI prophylaxis -Yaw's and SCDs -No pharmacological DVT prophylaxis due to acute ICH -IV Pepcid will need PEG tube and tube feeds if our goals remain aggressive Appreciate palliative care following. Critical Care: The total critical care time was 41 minutes. Time to perform other separately billable procedures was not included in the critical care time. Tigre Bustamante MD Jan 21, 2018 07:55
[2018-01-21] MEDS: FAMOTIDINE 20 MG/2 ML VIAL IV PUSH SCH (07:59)
[2018-01-21] MEDS: amLODIPine BESYLATE 5 MG TAB PO SCH ×2 (07:59→20:26)
[2018-01-21] MEDS: DOCUSATE SODIUM 50 MG/SENNA 8.6 MG TAB PO SCH ×2 (07:59→20:26)
[2018-01-21] MEDS ORDERED: hydrALAZINE HCL 20 MG/ML VIAL IV PUSH PRN (08:00)
[2018-01-21] MEDS: PRAVASTATIN SOD 40 MG TAB PO SCH (08:02)
[2018-01-21] MEDS: hydrALAZINE HCL 100 MG TAB PO SCH ×3 (08:05→20:26)
[2018-01-21] MEDS: LABETALOL HCL 100 MG/20 ML VIAL IV PUSH PRN (10:51)
[2018-01-21] MEDS ORDERED: ICU - D/C ICU ELECTROLYTE ORDERS PRN (14:00)
[2018-01-21] MEDS ORDERED: ICU - MAGNESIUM SULFATE 4 GM/NS 100 ML IV PRN ×2 (14:00)
[2018-01-21] MEDS ORDERED: ICU - POTASSIUM PHOSPHATE MONOBASIC 500 MG TAB PO PRN (14:00)
[2018-01-21] MEDS ORDERED: ICU - MAGNESIUM OXIDE 400 MG TAB PO PRN (14:00)
[2018-01-21] MEDS ORDERED: ICU - POTASSIUM CHLORIDE/AQUEOUS SOLN 40 MEQ/100 ML IVPB IV PRN (14:00)
[2018-01-21] MEDS ORDERED: ICU - CALL ORDERING PHYSICIAN PRN (14:00)
[2018-01-21] MEDS ORDERED: POTASSIUM CHLORIDE 25 MEQ EFFERVESCENT TAB PO PRN (14:00)
[2018-01-21] MEDS ORDERED: ICU - MAGNESIUM SULFATE 2 GM/NS 100 ML IV PRN ×2 (14:00)
[2018-01-21] MEDS ORDERED: ICU - POTASSIUM PHOSPHATE 30 MMOL/NS 250 ML IV PRN ×2 (14:00)
[2018-01-21] MEDS ORDERED: ICU - SODIUM PHOSPHATE 30 MMOL/NS 250 ML IV PRN ×2 (14:00)
--- NOTE | 2018-01-21 14:38 | MG ---
cc: Blake Malin MD, PhD TEST NUMBER: [id number]. TECHNIQUE: A 17-channel EEG. DESCRIPTION: The background rhythm reveals evidence of an alpha rhythm at frequency of 8-9 Hz. The amplitude is roughly 20 mV. Later in the tracing, there is mild slowing in the theta range at 6 Hz. No lateralizing features are identified and no epileptiform features are identified. Hyperventilation is not done. Photic stimulation does result in a normal driving response. INTERPRETATION: This is a mildly abnormal electroencephalogram. For the most part, there is a normal alpha rhythm; however, there is some slowing in the theta range, suggesting a mild degree of encephalopathy. Blake Malin MD, PhD CLAUDIA/SB , 02:25 PM , 02:37 PM
[2018-01-21] MEDS: niCARdipine INJ 50 MG in SODIUM CHLORID 0.9% 500 ML INJ 480 ML IV PRN ×2 (16:09→23:22)
--- NOTE | 2018-01-21 17:29 | HHI.HCPN ---
Reason for visit a. To assist with evaluation and management of symptoms including: Pain, dyspnea b. To assist medical decision maker(s) with: better understanding of current medical conditions; weighing benefits/burdens of medical treatment options; making medical treatment decisions. . Subjective/Interval History INTERVAL NOTE: The patient seems to be overall unchanged neurologically. Dr. Malin did report some eye movement on command last evening, but I am not able to see that today on 2 occasions. The patient has temp 102 this afternoon. The EEG is mildly abnormal but still consistent with some level of awakeness. . Family/friend interactions Dr. Bustamante and I met with the patient's , 2 sons, 2 daughters in law, the [id number] and her in the patient's room. We answered their questions. The patient's wants to know about the EEG but had no other questions and did not say anything else. The family is hoping to talk to Dr. Malin. They acknowledged that his long-term outlook remains very poor. They are now awaiting the arrival of other family members coming on Friday. . Advance Directives Living Will: Never completed Health Care Surrogate: Never completed Durable Power of Mounter Sousaphones: Never completed Objective Vital Signs Date Time Temp Pulse Resp B/P (MAP) Pulse Ox O2 Delivery O2 Flow Rate FiO2 01/21/18 16:09 102 138/60 01/21/18 16:06 99 30 01/21/18 16:00 102.7 98 27 138/60 (86) 91 01/21/18 16:00 97 01/21/18 14:24 98 01/21/18 13:33 92 136/63 01/21/18 12:09 99 146/63 01/21/18 12:00 97 01/21/18 12:00 99.8 97 26 146/63 (90) 98 01/21/18 11:42 94 30 01/21/18 10:08 106 152/68 01/21/18 10:00 108 01/21/18 08:56 98 153/65 01/21/18 08:21 98 30 01/21/18 08:00 103 01/21/18 08:00 99.2 103 25 162/70 (100) 100 01/21/18 06:00 79 01/21/18 04:14 96 30 01/21/18 04:00 87 01/21/18 04:00 99.1 81 18 129/60 (83) 100 01/21/18 02:00 79 01/21/18 00:12 74 136/63 01/21/18 00:00 100.7 78 18 136/63 (87) 100 01/21/18 00:00 87 01/20/18 23:46 100 30 01/20/18 22:00 79 01/20/18 21:00 78 136/63 01/20/18 20:00 100.4 69 18 128/68 (88) 100 01/20/18 20:00 87 01/20/18 18:40 133/62 01/20/18 18:04 149/66 01/20/18 18:00 87 Intake & Output 01/21/18 01/21/18 06:59 18:59 Intake Total 60 ml 970 ml Output Total 2800 ml Balance -2740 ml 970 ml Intake IV Total 970 ml Other 60 ml Output Urine Total 2500 ml Gastric Drainage Total 300 ml # Bowel Movements 0 Physical Exam CONSTITUTIONAL/GENERAL: This is an adequately nourished patient, in no apparent distress. EYES: Pupils equal and round and reactive. There is some spontaneous downward gaze, but it is not purposeful and there is no upward gaze at this time. ENT: Nose without bleeding or purulent drainage. NECK: Trachea midline. Supple, nontender. No palpable thyroid enlargement or nodularity. CARDIOVASCULAR: Irregular rhythm without murmurs, gallops, or rubs. No JVD. Peripheral pulses symmetric. RESPIRATORY/CHEST: Symmetric, unlabored respirations. Clear to auscultation. Breath sounds equal bilaterally. No wheezes, rales, or rhonchi. GASTROINTESTINAL: Abdomen soft, non-tender, nondistended. No hepato-splenomegaly , or palpable masses. No guarding. Bowel sounds present. GENITOURINARY: Without palpable bladder distension. Leger catheter in place. MUSCULOSKELETAL: Extremities without clubbing, cyanosis, or edema. No joint tenderness or effusion noted. No calf tenderness. No mottling or clubbing. NEUROLOGICAL: Unresponsive to voice. Does not follow command with eye movement. PSYCHIATRIC: Unable to evaluate due to clinical condition . Diagnostic Tests Laboratory Laboratory Tests Test 01/19/18 18:00 01/19/18 20:37 01/19/18 20:55 01/20/18 02:30 White Blood Count 10.5 TH/MM3 (4.0-11.0) 14.0 TH/MM3 (4.0-11.0) Red Blood Count 5.46 MIL/MM3 (4.50-5.90) 5.04 MIL/MM3 (4.50-5.90) Hemoglobin 11.0 GM/DL (13.0-17.0) 9.9 GM/DL (13.0-17.0) Bedside Hemoglobin 11.9 G/DL (13.0-17.0) Hematocrit 34.5 % (39.0-51.0) 32.3 % (39.0-51.0) Bedside Hematocrit 35.0 % (39.0-51.0) Mean Corpuscular Volume 63.2 FL (80.0-100.0) 64.0 FL (80.0-100.0) Mean Corpuscular Hemoglobin 20.2 PG (27.0-34.0) 19.7 PG (27.0-34.0) Mean Corpuscular Hemoglobin Concent 31.9 % (32.0-36.0) 30.8 % (32.0-36.0) Red Cell Distribution Width 15.7 % (11.6-17.2) 15.3 % (11.6-17.2) Platelet Count 138 TH/MM3 (150-450) 135 TH/MM3 (150-450) Mean Platelet Volume 10.5 FL (7.0-11.0) 11.0 FL (7.0-11.0) Neutrophils (%) (Auto) 34.2 % (16.0-70.0) 53.6 % (16.0-70.0) Lymphocytes (%) (Auto) 49.9 % (9.0-44.0) 36.7 % (9.0-44.0) Monocytes (%) (Auto) 10.9 % (0.0-8.0) 8.3 % (0.0-8.0) Eosinophils (%) (Auto) 3.9 % (0.0-4.0) 0.8 % (0.0-4.0) Basophils (%) (Auto) 1.1 % (0.0-2.0) 0.6 % (0.0-2.0) Neutrophils # (Auto) 3.6 TH/MM3 (1.8-7.7) 7.5 TH/MM3 (1.8-7.7) Lymphocytes # (Auto) 5.2 TH/MM3 (1.0-4.8) 5.1 TH/MM3 (1.0-4.8) Monocytes # (Auto) 1.1 TH/MM3 (0-0.9) 1.2 TH/MM3 (0-0.9) Eosinophils # (Auto) 0.4 TH/MM3 (0-0.4) 0.1 TH/MM3 (0-0.4) Basophils # (Auto) 0.1 TH/MM3 (0-0.2) 0.1 TH/MM3 (0-0.2) CBC Comment AUTO DIFF DIFF FINAL Differential Total Cells Counted 100 Neutrophils % (Manual) 44 % (16-70) Lymphocytes % 44 % (9-44) Monocytes % 7 % (0-8) Eosinophils % 3 % (0-4) Basophils % 2 % (0-2) Neutrophils # (Manual) 4.6 TH/MM3 (1.8-7.7) Differential Comment FINAL DIFF MANUAL Toxic Granulation 1+ (NORMAL) Platelet Estimate LOW (NORMAL) Platelet Morphology Comment NORMAL (NORMAL) Basophilic Stippling FAINT (NORMAL) Ovalocytes 1+ (NORMAL) Prothrombin Time 28.0 SEC (9.8-11.6) 12.0 SEC (9.8-11.6) Prothromb Time International Ratio 2.8 RATIO 1.2 RATIO Activated Partial Thromboplast Time 41.9 SEC (24.3-30.1) 29.7 SEC (24.3-30.1) Fibrinogen 360 mg/dL (227-377) Bedside Sodium 141 MMOL/L (137-144) Bedside Potassium 4.0 MMOL/L (3.6-5.0) Bedside Chloride 104 MMOL/L (102-111) Bedside Blood Urea Nitrogen 16 MG/DL (5-21) Bedside Creatinine 1.2 MG/DL (0.6-1.3) Bedside Glucose 111 MG/DL (68-110) Total Creatine Kinase 72 U/L (39-308) Troponin I LESS THAN 0.02 NG/ML Blood Gas Puncture Site RT RADIAL Blood Gas Patient Temperature 98.6 Blood Gas HCO3 24 mmol/L (22-26) Blood Gas Base Excess -0.6 mmol/L (-2-2) Blood Gas Oxygen Saturation 99 % (90-100) Arterial Blood pH 7.34 (7.380-7.420) Arterial Blood Partial Pressure CO2 47 mmHg (38-42) Arterial Blood Partial Pressure O2 373 mmHG (61-120) Arterial Blood Oxygen Content 15.7 Vol % (12.0-20.0) Arterial Blood Carboxyhemoglobin 0.6 % (0-4) Arterial Blood Methemoglobin 0.7 % (0-2) Blood Gas Hemoglobin 10.6 G/DL (12.0-16.0) Oxygen Delivery Device VENTILATOR Blood Gas Ventilator Setting //500+5 Blood Gas Inspired Oxygen 100 % Urine Color YELLOW (YELLW/STRAW) Urine Turbidity CLEAR (CLEAR) Urine pH 6.0 (5.0-8.5) Urine Specific [place] 1.021 (1.002-1.035) Urine Protein TRACE mg/dL (NEG-TRACE) Urine Glucose (UA) NEG mg/dL (NEG) Urine Ketones NEG mg/dL (NEG) Urine Occult Blood NEG (NEG) Urine Nitrite NEG (NEG) Urine Bilirubin NEG (NEG) Urine Urobilinogen LESS THAN 2.0 MG/DL (LESS Urine Leukocyte Esterase NEG (NEG) Urine RBC 2 /hpf (0-3) Urine WBC LESS THAN 1 /hpf (0-5) Urine Renal Epithelial Cells <1 /hpf (NONE) Urine Bacteria RARE /hpf (NONE) Urine Hyaline Casts 2 /lpf (RARE) Urine Granular Casts 2 /lpf (NONE) Urine Mucus FEW /lpf (OCC) Urine Opiates Screen NEG (NEG) Urine Barbiturates Screen NEG (NEG) Urine Amphetamines Screen NEG (NEG) Urine Benzodiazepines Screen NEG (NEG) Urine Cocaine Screen NEG (NEG) Urine Cannabinoids Screen NEG (NEG) Blood Urea Nitrogen 14 MG/DL (7-18) Creatinine 1.10 MG/DL (0.60-1.30) Random Glucose 114 MG/DL (74-106) Total Protein 7.6 GM/DL (6.4-8.2) Albumin 3.6 GM/DL (3.4-5.0) Calcium Level 8.7 MG/DL (8.5-10.1) Phosphorus Level 2.4 MG/DL (2.5-4.9) Magnesium Level 1.8 MG/DL (1.5-2.5) Alkaline Phosphatase 188 U/L (45-117) Aspartate Amino Transf (AST/SGOT) 43 U/L (15-37) Alanine Aminotransferase (ALT/SGPT) 50 U/L (12-78) Total Bilirubin 0.8 MG/DL (0.2-1.0) Sodium Level 141 MEQ/L (136-145) Potassium Level 3.6 MEQ/L (3.5-5.1) Chloride Level 109 MEQ/L (98-107) Carbon Dioxide Level 21.7 MEQ/L (21.0-32.0) Anion Gap 10 MEQ/L (5-15) Estimat Glomerular Filtration Rate 67 ML/MIN (>89) Test 01/21/18 03:02 01/21/18 08:25 White Blood Count 13.6 TH/MM3 (4.0-11.0) Red Blood Count 4.96 MIL/MM3 (4.50-5.90) Hemoglobin 9.9 GM/DL (13.0-17.0) Hematocrit 31.6 % (39.0-51.0) Mean Corpuscular Volume 63.6 FL (80.0-100.0) Mean Corpuscular Hemoglobin 19.9 PG (27.0-34.0) Mean Corpuscular Hemoglobin Concent 31.3 % (32.0-36.0) Red Cell Distribution Width 15.4 % (11.6-17.2) Platelet Count 126 TH/MM3 (150-450) Mean Platelet Volume 11.0 FL (7.0-11.0) Prothrombin Time 10.7 SEC (9.8-11.6) Prothromb Time International Ratio 1.1 RATIO Activated Partial Thromboplast Time 31.0 SEC (24.3-30.1) Blood Urea Nitrogen 10 MG/DL (7-18) Creatinine 0.90 MG/DL (0.60-1.30) Random Glucose 105 MG/DL (74-106) Calcium Level 8.6 MG/DL (8.5-10.1) Sodium Level 139 MEQ/L (136-145) Potassium Level 3.4 MEQ/L (3.5-5.1) Chloride Level 107 MEQ/L (98-107) Carbon Dioxide Level 21.4 MEQ/L (21.0-32.0) Anion Gap 11 MEQ/L (5-15) Estimat Glomerular Filtration Rate 84 ML/MIN (>89) Blood Gas Puncture Site RT RADIAL Blood Gas Patient Temperature 98.6 Blood Gas HCO3 22 mmol/L (22-26) Blood Gas Base Excess -2.6 mmol/L (-2-2) Blood Gas Oxygen Saturation 94 % (90-100) Arterial Blood pH 7.36 (7.380-7.420) Arterial Blood Partial Pressure CO2 40 mmHg (38-42) Arterial Blood Partial Pressure O2 91 mmHg (61-120) Arterial Blood Oxygen Content 13.0 Vol % (12.0-20.0) Arterial Blood Carboxyhemoglobin 1.3 % (0-4) Arterial Blood Methemoglobin 1.3 % (0-2) Blood Gas Hemoglobin 9.8 G/DL (12.0-16.0) Oxygen Delivery Device VENTILATOR Blood Gas Ventilator Setting PRVC18/500/1.0/+5 Blood Gas Inspired Oxygen 30 % Result Diagram: 01/21/18 0302 01/21/18 0302 Procedures INTUBATION 01/19/18 . Assessment and Plan Disease Oriented Problem List: (1) Hemorrhage, right terrance (2) Respiratory failure, mechanical ventilation (3) Anticoagulation Via Coumadin for atrial fibrillation (4) Chronic atrial fib (5) Hypertension, not controlled at the time of admission (6) COPD, 50 pack years cigarettes (7) History of CAD (8) Chronic back pain (9) Hyperlipidemia (10) GERD (11) History of thalassemia and old records (12) Degenerative arthritis, history of chronic back pain Symptom Scale: (1) Dyspnea 0-10 Scale: Unable to quantify (2) Pain 0-10 Scale: Unable to quantify (He had chronic back pain and now the pontine hemorrhage that was first noted as a headache) Pertinent Non-Medical Issues Psychosocial: Originally from [place], in [place] for 10 years. now for 20 years, retired. Spiritual: Rastafarian background, not spiritual or anglican Legal: Patient lacks capacity for decision-making and will not regain that capacity; his is the decision-making proxy. Ethical issues impacting care: Patient is unable to speak for himself. . Important Contacts : Beatriz Troncoso [phone] . Prognosis The patient's overall prognosis is poor. It is possible he could survive this episode, but his level of debility and disability would be substantial, and he would require 24/7 nursing care. . Code Status: Full Code Plan * CODE STATUS: FULL CODE * DECISION-MAKING: The patient lacks capacity for decision-making and will not regain that capacity. His is the decision-making proxy. * GOALS: Aggressive care for now; they are expecting additional family members to arrive on Friday. The and other family members understand the poor prognosis and acknowledge that they face the challenging questions regarding resuscitation status, as well as the choice of withdrawal of care to allow natural versus continued aggressive care. * SYMPTOMS: The patient has had chronic back pain, and now has had head pain with hemorrhage. He currently shows no obvious signs of pain, and is on propofol. I have no further medication recommendations at this time for pain. The patient's dyspnea is being managed by mechanical ventilation. * Palliative Care will continue to follow the patient during this hospitalization. . Time Spent Total Floor Time (mins): 42 Face to Face Time (mins): 29 >50% Counseling/Coord of Care: Yes (d/w Dr. Bustamante and w RN) Attestation To help prompt me to consider important information that might be impacting today's encounter and assessment, information from prior notes written by myself or my colleagues may have been "brought forward" into today's note. My signature on this note, however, is an attestation that I personally performed the exam, history, and/or decision-making noted today, and, unless otherwise indicated, the interactions with patient, family, and staff as well as the review of records all occurred today. I also attest that the listed assessment and stated plan reflect my best clinical judgment today based on the combination of historical information, prior notes, and today's exam/ interactions. When time spent is documented, it refers only to time spent today by the signer, or if indicated, combined time spent today by collaborating physician/nurse practitioner. Renuka Vásquez MD Jan 21, 2018 17:29
[2018-01-21] MEDS: PROPRANOLOL HCL 20 MG TAB PO SCH ×3 (17:58→23:21)
--- NOTE | 2018-01-21 19:20 | HHI.PR ---
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 Prognosis poor Diagnosis/Plan: Subjective Subjective Comments No acute events reported Active Medications Current Medications Medications (Trade) Dose Ordered Sig/Abel Route Start Time Stop Time Status Last Admin (Pravachol) 40 mg DAILY PO 01/20/18 09:00 01/21/18 08:02 Sodium Chloride 1,000 ml @ 84 mls/hr [id number] IV 01/19/18 21:00 01/21/18 07:42 (NS Flush) 2 ml UNSCH PRN IV FLUSH 01/19/18 20:15 (NS Flush) 2 ml BID IV FLUSH 01/19/18 21:00 01/21/18 07:42 (Tylenol) 650 mg Q6H PRN PO 01/19/18 20:15 (Duoneb Neb) 1 ampule Q2HR NEB PRN INH 01/19/18 20:15 ([facility] Nursing Information) 1 [id number] XX 01/19/18 20:15 (Chlorhexidine 2% Cloth) 3 pack Taper DAILY@04 TOP 01/20/18 04:00 01/16/19 03:59 01/20/18 03:35 (Chlorhexidine 2% Cloth) 3 pack UNSCH PRN TOP 01/19/18 20:15 (Fadumo-Colace) 1 tab BID PO 01/19/18 21:00 01/21/18 07:59 (Milk Of Magnesia Liq) 30 ml Q12H PRN PO 01/19/18 20:15 (Senokot) 17.2 mg Q12H PRN PO 01/19/18 20:15 (Dulcolax Supp) 10 mg DAILY PRN RECTAL 01/19/18 20:15 (Lactulose Liq) 30 ml DAILY PRN PO 01/19/18 20:15 (Peridex 0.12% Liq) 15 ml BID@08,20 MT 01/20/18 08:00 01/21/18 19:05 (Norvasc) 5 mg Q12HR PO 01/20/18 21:00 01/21/18 07:59 (Apresoline) 100 mg Q8HR PO 01/21/18 08:00 01/21/18 13:05 (Trandate Inj) 20 mg Q15M PRN IV PUSH 01/21/18 08:00 01/21/18 10:51 (Apresoline Inj) 10 mg Q30M PRN IV PUSH 01/21/18 08:00 ([facility] Nursing Information) D/C ICU ELECTROLYTE ORDERS... UNSCH PRN .XX 01/21/18 14:00 ([facility] Nursing Information) ICU - CALL ORDERING PHYSIC... UNSCH PRN .XX 01/21/18 14:00 Potassium Chloride 100 ml @ 25 mls/hr UNSCH PRN IV 01/21/18 14:00 (K-Lyte Cl Eff) 50 meq UNSCH PRN PO 01/21/18 14:00 Potassium Chloride 100 ml @ 50 mls/hr UNSCH PRN IV 01/21/18 14:00 Magnesium Sulfate 4 gm/Sodium Chloride 108 ml @ 54 mls/hr UNSCH PRN IV 01/21/18 14:00 Magnesium Sulfate 2 gm/Sodium Chloride 104 ml @ 52 mls/hr UNSCH PRN IV 01/21/18 14:00 (Mag-Ox) 800 mg UNSCH PRN PO 01/21/18 14:00 Sodium Phosphate 30 mmol/Sodium Chloride 260 ml @ 43.333 mls/ hr UNSCH PRN IV 01/21/18 14:00 (K-Phos) 2,000 mg UNSCH PRN PO 01/21/18 14:00 Potassium Phosphate 30 mmol/ Sodium Chloride 260 ml @ 43.333 mls/ hr UNSCH PRN IV 01/21/18 14:00 (Pepcid) 20 mg BID PO 01/21/18 21:00 Nicardipine HCl 50 mg/Sodium Chloride 500 ml @ 52 mls/hr TITRATE PRN IV 01/21/18 15:15 01/21/18 16:09 (Inderal) 40 mg Q6HR PO 01/21/18 17:15 01/21/18 17:58 Allergies Allergies Coded Allergies No Known Allergies (Verified Allergy, Unknown, 07/03/17) Exam I&O / VS 01/21/18 01/21/18 01/22/18 15:00 23:00 07:00 Intake Total 970 ml 200 ml Output Total 925 ml Balance 970 ml -725 ml Intake IV Total 970 ml Other 200 ml Output Urine Total 925 ml # Bowel Movements 0 Vital Signs Date Time Temp Pulse Resp B/P (MAP) Pulse Ox O2 Delivery O2 Flow Rate FiO2 01/21/18 18:00 95 01/21/18 16:09 102 138/60 01/21/18 16:06 99 30 01/21/18 16:00 102.7 98 27 138/60 (86) 91 01/21/18 16:00 97 01/21/18 14:24 98 01/21/18 13:33 92 136/63 01/21/18 12:09 99 146/63 01/21/18 12:00 97 01/21/18 12:00 99.8 97 26 146/63 (90) 98 01/21/18 11:42 94 30 01/21/18 10:08 106 152/68 01/21/18 10:00 108 01/21/18 08:56 98 153/65 01/21/18 08:21 98 30 01/21/18 08:00 103 01/21/18 08:00 99.2 103 25 162/70 (100) 100 01/21/18 06:00 79 01/21/18 04:14 96 30 01/21/18 04:00 87 01/21/18 04:00 99.1 81 18 129/60 (83) 100 01/21/18 02:00 79 01/21/18 00:12 74 136/63 01/21/18 00:00 100.7 78 18 136/63 (87) 100 01/21/18 00:00 87 01/20/18 23:46 100 30 01/20/18 22:00 79 01/20/18 21:00 78 136/63 01/20/18 20:00 100.4 69 18 128/68 (88) 100 01/20/18 20:00 87 Exam Comments does not follow vertical gaze commands today CN-pupils 1 mm, He has no horizontal EOM to occulocephalics MOTOR--extensor posturing BUE and BLE, DTR--- 2+ BUE and BLE. Bilateral Babinskis Objective Micro and Labs Laboratory Tests Test 01/21/18 03:02 01/21/18 08:25 White Blood Count 13.6 Red Blood Count 4.96 Hemoglobin 9.9 Hematocrit 31.6 Mean Corpuscular Volume 63.6 Mean Corpuscular Hemoglobin 19.9 Mean Corpuscular Hemoglobin Concent 31.3 Red Cell Distribution Width 15.4 Platelet Count 126 Mean Platelet Volume 11.0 Prothrombin Time 10.7 Prothromb Time International Ratio 1.1 Activated Partial Thromboplast Time 31.0 Blood Urea Nitrogen 10 Creatinine 0.90 Random Glucose 105 Calcium Level 8.6 Sodium Level 139 Potassium Level 3.4 Chloride Level 107 Carbon Dioxide Level 21.4 Anion Gap 11 Estimat Glomerular Filtration Rate 84 Blood Gas Puncture Site RT RADIAL Blood Gas Patient Temperature 98.6 Blood Gas HCO3 22 Blood Gas Base Excess -2.6 Blood Gas Oxygen Saturation 94 Arterial Blood pH 7.36 Arterial Blood Partial Pressure CO2 40 Arterial Blood Partial Pressure O2 91 Arterial Blood Oxygen Content 13.0 Arterial Blood Carboxyhemoglobin 1.3 Arterial Blood Methemoglobin 1.3 Blood Gas Hemoglobin 9.8 Oxygen Delivery Device VENTILATOR Blood Gas Ventilator Setting PRVC18/500/1.0/+5 Blood Gas Inspired Oxygen 30 Blake Malin MD PhD Jan 21, 2018 19:20
[2018-01-21] MEDS: FAMOTIDINE 20 MG TAB PO SCH (20:26)
[2018-01-22] VITALS (18 sets, daily range): BP systolic 132–142; BP diastolic 60–65; PULSE 72–95; RESP 18–28; TEMP 98.7–100.7; O2SAT 93–100
[2018-01-22] MEDS: RESP: ALBUTEROL 2.5 MG/IPRATROPIUM 0.5 MG NEB (PRN) INH (03:12)
[2018-01-22 03:52] LABS: HEMATOCRIT 29.8 % (39.0-51.0); HEMOGLOBIN 9.6 GM/DL (13.0-17.0); MEAN CELL VOLUME 63.3 FL (80.0-100.0); MEAN CORPUSCULAR HEMOGLOBIN 20.4 PG (27.0-34.0); MEAN CORPUSCULAR HGB CONC 32.3 % (32.0-36.0); MEAN PLATELET VOLUME 10.9 FL (7.0-11.0); PLATELET COUNT 127 TH/MM3 (150-450); RED CELL DISTRIBUTION WIDTH 15.5 % (11.6-17.2); WHITE BLOOD COUNT 15.2 TH/MM3 (4.0-11.0)
[2018-01-22 03:56] LABS: PROTHROMBIN TIME - PATIENT 10.5 SEC (9.8-11.6)
[2018-01-22] MEDS: CHLORHEXIDINE GLUCONATE 2 % 1 PACK (2 CLOTHS) TOP SCH (03:58)
[2018-01-22 04:36] LABS: BICARBONATE 19.3 MEQ/L (21.0-32.0); CREATININE 1.11 MG/DL (0.60-1.30)
[2018-01-22] MEDS: PROPRANOLOL HCL 20 MG TAB PO SCH ×3 (05:12→17:33)
[2018-01-22] MEDS: hydrALAZINE HCL 100 MG TAB PO SCH ×3 (05:12→21:08)
[2018-01-22] MEDS: CHLORHEXIDINE 0.12% (ORAL KIT) 15 ML CUP MT SCH ×2 (08:00→21:10)
[2018-01-22] MEDS: SODIUM CHLOR 0.9% 1000 ML INJ 1,000 ML IV SCH (08:35)
[2018-01-22] MEDS: SODIUM CHLORIDE 0.9% FLUSH 10 ML FLUSH IV FLUSH SCH ×2 (09:00→21:09)
[2018-01-22] MEDS: FAMOTIDINE 20 MG TAB PO SCH ×2 (09:28→21:08)
[2018-01-22] MEDS: amLODIPine BESYLATE 5 MG TAB PO SCH ×2 (09:28→21:08)
[2018-01-22] MEDS: DOCUSATE SODIUM 50 MG/SENNA 8.6 MG TAB PO SCH ×2 (09:28→21:00)
[2018-01-22] MEDS: PRAVASTATIN SOD 40 MG TAB PO SCH (09:28)
[2018-01-22] MEDS: niCARdipine INJ 50 MG in SODIUM CHLORID 0.9% 500 ML INJ 480 ML IV PRN (11:01)
--- NOTE | 2018-01-22 11:44 | HHI.CCPN ---
Subjective Remarks/Hospital Course Hospital Course: 57-year-old gentleman with a history of hypertension, atrial fibrillation on Coumadin, is admitted secondary to acute onset of headache and left extremity weakness. Patient was watching TV when he suddenly developed a headache and left arm and left leg weakness, slurred speech approximately 1 hour prior to ER arrival. The CT of the brain shows 1.1 cm acute hemorrhage in the right terrance. No acute findings in the supratentorial brain. The patient was immediately intubated in the emergency department by ED attending for an airway protection, received K Centra and vitamin K, and is now admitted to ICU. Subjective: 01/20: persistently poor neurologic exam. extensor posturing in the upper extremities. triple flexion in the lowers. repeat CT brain with extension of the pontine hemorrhage into the brainstem. very grim prognosis. neurosurgery re- evaluated and agrees there is no neurosurgical intervention warranted at this point. Long and multiple discussions with the family regarding prognosis and minimal improvements over time. family is flying in from out of state. palliative met with family. neurology also agrees with grim prognosis. 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 01/21: no changes in mental status. postures in the extremities. per Dr. Malin, patient can follow commands with vertical gaze deviation, increasing concern for locked-in syndrome. today on my evaluation, patient is not following commands with gaze and my exam is unchanged from yesterdays. 01/22: no improvements in mental status. not following commands with vertical gaze. still vigorously posturing. more family arriving on friday. Objective Vital Signs Date Time Temp Pulse Resp B/P (MAP) Pulse Ox O2 Delivery O2 Flow Rate FiO2 01/22/18 11:01 78 138/63 01/22/18 08:05 93 50 01/22/18 08:00 98.9 24 01/19/18 22:00 Mechanical Ventilator 01/19/18 18:37 2.00 Intake and Output 01/22/18 01/22/18 01/23/18 08:00 16:00 00:00 Intake Total 225 ml Output Total 950 ml Balance -725 ml Result Diagram: 01/22/1831001/22/18310 Objective Remarks GENERAL: middle-aged appearing male, comatose, intubated. SKIN: Warm and dry. HEAD: Normocephalic. EYES: No scleral icterus. No injection or drainage. NECK: Supple, trachea midline. No JVD. CARDIOVASCULAR: normal rate, irregularly irregular rhythm. afib. RESPIRATORY: equal chest rise. prvc. fio2 40%. does breath over the vent. GASTROINTESTINAL: Abdomen soft, non-tender, nondistended. no guarding. MUSCULOSKELETAL: No cyanosis, or edema. NEURO EXAM: RASS -5. GCS 4. extensor postures in the upper extremities, triple flexion in the lowers. upgoing Babinski. +corneals, +cough. + gag. breaths over the vent. pupils 1mm bilaterally equal, sluggishly reactive. did not follow any commands with vertical gaze. 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 Now by repeat head CT is > 5mL total volume, which by multiple studies, this volume of pontine blood with this low GCS score has very poor overall survivability or neurologic improvement. unlikely to have any meaningful neurologic improvement. Family considering how aggressive they wish to be. If our goals remain aggressive, will need long-term trach/PEG and SNF placement. remains critically ill with devastating intracerebral hemorrhage. Pontine intracerebral hemorrhage - s/p reversal with KCentra and vit K 6/ - daily INR - very poor prognosis - neurology: Dr. Malin following - neurosurgery: Dr. Alvarez following - Per Dr. Malin, repeat MRI next week. 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 alpha and theta waves which could be consistent with a diagnosis of LIS. - avoid sedation - frequent neuro checks Hypertensive Emergency - cardene prn - change metoprolol to propranolol 40mg po q6h. - hydralazine 100mg po q8h - prn labetalol, hydralazine - goal sbp < 150 Acute hypoxic and Hypercarbic respiratory failure - wean fio2 for goal spo2 > 90% - no SBT or weaning of mechanical ventilation until neuro exam improves - would be a candidate for early tracheostomy if family wishes to be aggressive - vent bundle - hob elevated - nebs COPD -DuoNeb scheduled and as needed -No steroids indicated Atrial fibrillation -Rate control with beta blockade -No anticoagulation due to active ICH Coagulopathy -DC warfarin -Received K Centra and vitamin K in the ED -INR reversed DVT GI prophylaxis -Yaw's and SCDs -No pharmacological DVT prophylaxis due to acute ICH -IV Pepcid tube feeds at goal. Appreciate palliative care following. Critical Care: The total critical care time was 36 minutes. Time to perform other separately billable procedures was not included in the critical care time. Tigre Bustamante MD Jan 22, 2018 11:44
--- NOTE | 2018-01-22 14:49 | HHI.NSPN ---
(Glenda Uribe) Note Status Status: Progress Note (Glenda Uribe) Status: Progress Note (Francois Alvarez MD) Interval History Interval History This is a 67-year-old man who has a history of atrial fibrillation, anticoagulated on Coumadin. Approximately an hour before admission developed acute onset of left-sided weakness. He states he woke up with this symptom. The patient presented as a stroke-alert when he developed acute onset of headache and left extremity weakness. REPORTDLY he was watching TV when he suddenly developed a headache and left arm and left leg weakness, slurred speech approximately 1 hour prior to ER arrival. The CT of the brain shows 1.1 cm acute hemorrhage in the right terrance. The patient was immediately given KCentra and vitamin K. He was intubated in the emergency department by ED attending for an airway protection, Neurosurgical consultation was requested 01/20: patient seen this morning during rounds, patient intubated due to decline in mental status 01/22: comatose, no sedation currently, decerebrating. (Glenda Uribe) Diagnosis THIS NOTE REPRESENTS MY ENCOUNTER ON 01/21/18 DURING ROUNDS Interval History THIS NOTE REPRESENTS MY ENCOUNTER ON 01/21/18 DURING ROUNDS (Francois Alvarez MD) Labs, Micro, & Vital Signs Results Date Time Temp Pulse Resp B/P (MAP) Pulse Ox O2 Delivery O2 Flow Rate FiO2 01/22/18 14:00 77 01/22/18 12:00 80 01/22/18 12:00 99.5 80 23 138/65 (89) 96 01/22/18 11:37 95 50 01/22/18 11:01 78 138/63 01/22/18 10:00 83 01/22/18 08:05 93 50 01/22/18 08:00 98.9 74 24 136/63 (87) 94 01/22/18 08:00 74 01/22/18 06:00 95 01/22/18 05:06 96 50 01/22/18 04:00 99.3 83 28 141/65 (90) 100 01/22/18 04:00 87 01/22/18 02:00 95 01/22/18 01:11 98 60 01/22/18 00:00 99.1 81 28 139/62 (87) 100 01/22/18 00:00 83 01/21/18 23:22 92 146/67 01/21/18 22:00 95 01/21/18 20:19 93 50 01/21/18 20:00 98.3 78 28 132/59 (83) 100 01/21/18 20:00 83 01/21/18 18:00 95 01/21/18 16:09 102 138/60 01/21/18 16:06 99 30 01/21/18 16:00 102.7 98 27 138/60 (86) 91 01/21/18 16:00 97 Constitutional Vital Signs Date Time Temp Pulse Resp B/P (MAP) Pulse Ox O2 Delivery O2 Flow Rate FiO2 01/22/18 14:00 77 01/22/18 12:00 80 01/22/18 12:00 99.5 80 23 138/65 (89) 96 01/22/18 11:37 95 50 01/22/18 11:01 78 138/63 01/22/18 10:00 83 01/22/18 08:05 93 50 01/22/18 08:00 98.9 74 24 136/63 (87) 94 01/22/18 08:00 74 01/22/18 06:00 95 01/22/18 05:06 96 50 01/22/18 04:00 99.3 83 28 141/65 (90) 100 01/22/18 04:00 87 01/22/18 02:00 95 01/22/18 01:11 98 60 01/22/18 00:00 99.1 81 28 139/62 (87) 100 01/22/18 00:00 83 01/21/18 23:22 92 146/67 01/21/18 22:00 95 01/21/18 20:19 93 50 01/21/18 20:00 98.3 78 28 132/59 (83) 100 01/21/18 20:00 83 01/21/18 18:00 95 01/21/18 16:09 102 138/60 01/21/18 16:06 99 30 01/21/18 16:00 102.7 98 27 138/60 (86) 91 01/21/18 16:00 97 (Glenda Uribe) Results THIS NOTE REPRESENTS MY ENCOUNTER ON 01/21/18 DURING ROUNDS (Francois Alvarez MD) Review of Systems ROS Limitations: Clinical Condition (Glenda Uribe) Physical Exam GENERAL: Well nourished middle aged male, in no apparent distress or discomfort. HEENT: Normocephalic. No scleral icterus. No injection or drainage. NECK: soft, supple. No JVD. HEART: Regular rate and rhythm RESPIRATORY: breath sounds equal ABDOMEN: Abdomen soft, MUSCULOSKELETAL: No deformities, no clubbing. NEURO: Comatose, no sedation currently. No spontaneous eye opening. Does not follow commands. Pupils are equal. Decerebrate to pain stimuli. Plantars flexor bilaterally. SKIN: Warm and dry. (Glenda Uribe) THIS NOTE REPRESENTS MY ENCOUNTER ON 01/21/18 DURING ROUNDS GENERAL: middle-aged appearing male, comatose, intubated. SKIN: Warm and dry. HEAD: Normocephalic. EYES: No scleral icterus. No injection or drainage. NECK: Supple, trachea midline. No JVD. CARDIOVASCULAR: normal rate, irregularly irregular rhythm. afib. RESPIRATORY: equal chest rise. prvc. fio2 40%. does breath over the vent. GASTROINTESTINAL: Abdomen soft, non-tender, nondistended. no guarding. MUSCULOSKELETAL: No cyanosis, or edema. NEURO EXAM: RASS -5. GCS 4. extensor postures in the upper extremities, triple flexion in the lowers. upgoing Babinski. +corneals, +cough. + gag. breaths over the vent. pupils 1mm bilaterally equal, sluggishly reactive. did not follow any commands with vertical gaze. (Francois Alvarez MD) Medications Current Medications Current Medications Medications (Trade) Dose Ordered Sig/Abel Route PRN Reason Start Time Stop Time Status Last Admin Dose Admin Pravastatin Sodium (Pravachol) 40 mg DAILY PO 01/20/18 09:00 01/22/18 09:28 Sodium Chloride 1,000 ml @ 84 mls/hr [id number] IV 01/19/18 21:00 01/22/18 08:35 Sodium Chloride (NS Flush) 2 ml UNSCH PRN IV FLUSH FLUSH AFTER USING IV ACCESS 01/19/18 20:15 Sodium Chloride (NS Flush) 2 ml BID IV FLUSH 01/19/18 21:00 01/22/18 09:00 Acetaminophen (Tylenol) 650 mg Q6H PRN PO PAIN 1-10 AND/OR FEVER >101F 01/19/18 20:15 Albuterol/ Ipratropium (Duoneb Neb) 1 ampule Q2HR NEB PRN INH WHEEZING 01/19/18 20:15 01/22/18 03:12 Miscellaneous Information ([facility] [place] [facility]) 1 Q361D XX 01/19/18 20:15 Chlorhexidine Gluconate (Chlorhexidine 2% Cloth) 3 pack Taper DAILY@04 TOP 01/20/18 04:00 01/16/19 03:59 01/20/18 03:35 Chlorhexidine Gluconate (Chlorhexidine 2% Cloth) 3 pack UNSCH PRN TOP HYGIENIC CARE 01/19/18 20:15 Senna/Docusate Sodium (Fadumo-Colace) 1 tab BID PO 01/19/18 21:00 01/22/18 09:28 Magnesium Hydroxide (Milk Of Magnesia Liq) 30 ml Q12H PRN PO Mild constipation 01/19/18 20:15 01/22/18 09:28 Sennosides (Senokot) 17.2 mg Q12H PRN PO Moderate constipation 01/19/18 20:15 Bisacodyl (Dulcolax Supp) 10 mg DAILY PRN RECTAL SEVERE CONSITIPATION 01/19/18 20:15 Lactulose (Lactulose Liq) 30 ml DAILY PRN PO SEVERE CONSITIPATION 01/19/18 20:15 01/22/18 09:28 Chlorhexidine Gluconate (Peridex 0.12% Liq) 15 ml BID@08,20 MT 01/20/18 08:00 01/22/18 08:00 Amlodipine Besylate (Norvasc) 5 mg Q12HR PO 01/20/18 21:00 01/22/18 09:28 Hydralazine HCl (Apresoline) 100 mg Q8HR PO 01/21/18 08:00 01/22/18 13:31 Labetalol HCl (Trandate Inj) 20 mg Q15M PRN IV PUSH sbp > 150 01/21/18 08:00 01/21/18 10:51 Hydralazine HCl (Apresoline Inj) 10 mg Q30M PRN IV PUSH sbp > 150 01/21/18 08:00 Miscellaneous Information ([facility] [place] [facility]) D/C ICU ELECTROLYTE ORDERS... UNSCH PRN .XX SEE DOSE INSTRUCTIONS 01/21/18 14:00 Miscellaneous Information ([facility] [place] [facility]) ICU - CALL ORDERING PHYSIC... UNSCH PRN .XX SEE DOSE INSTRUCTIONS 01/21/18 14:00 Potassium Chloride 100 ml @ 25 mls/hr UNSCH PRN IV ELECTROLYTE REPLACEMENT 01/21/18 14:00 Potassium Bicarb/ Potassium Chloride (K-Lyte Cl Eff) 50 meq UNSCH PRN PO ELECTROLYTE REPLACEMENT 01/21/18 14:00 Potassium Chloride 100 ml @ 50 mls/hr UNSCH PRN IV ELECTROLYTE REPLACEMENT 01/21/18 14:00 Magnesium Sulfate 4 gm/Sodium Chloride 108 ml @ 54 mls/hr UNSCH PRN IV ELECTROLYTE REPLACEMENT 01/21/18 14:00 Magnesium Sulfate 2 gm/Sodium Chloride 104 ml @ 52 mls/hr UNSCH PRN IV ELECTROLYTE REPLACEMENT 01/21/18 14:00 Magnesium Oxide (Mag-Ox) 800 mg UNSCH PRN PO ELECTROLYTE REPLACEMENT 01/21/18 14:00 Sodium Phosphate 30 mmol/Sodium Chloride 260 ml @ 43.333 mls/ hr UNSCH PRN IV ELECTROLYTE REPLACEMENT 01/21/18 14:00 Potassium Phosphate (K-Phos) 2,000 mg UNSCH PRN PO ELECTROLYTE REPLACEMENT 01/21/18 14:00 Potassium Phosphate 30 mmol/ Sodium Chloride 260 ml @ 43.333 mls/ hr UNSCH PRN IV ELECTROLYTE REPLACEMENT 01/21/18 14:00 Famotidine (Pepcid) 20 mg BID PO 01/21/18 21:00 01/22/18 09:28 Nicardipine HCl 50 mg/Sodium Chloride 500 ml @ 52 mls/hr TITRATE PRN IV Blood pressure management 01/21/18 15:15 01/22/18 11:01 Propranolol HCl (Inderal) 60 mg Q6HR PO 01/22/18 13:00 01/22/18 13:31 (Glenda Uribe) Current Medications THIS NOTE REPRESENTS MY ENCOUNTER ON 01/21/18 DURING ROUNDS Current Medications Sodium Chloride 1,000 ml @ 70 mls/hr [id number] ONCE IV Last administered on 18:02; Start 01/19/18 at 18:02; Stop 01/20/18 at 08:19; Status DC Prothrombin Complex Concent (Human) 2000 units/Syringe / Bag 0 ml @ 500 mls/hr ONCE ONCE IV Last administered on 01/19/18 19:25; Start 01/19/18 at 19:15; Stop 01/19/18 at 19:16; Status DC Nicardipine HCl 25 mg/Sodium Chloride 260 ml @ 52 mls/hr TITRATE PRN IV Blood pressure management Last administered on 01/21/18 13:33; Start 01/19/18 at 18:45 ; Stop 01/21/18 at 15:01; Status DC Etomidate (Amidate Inj) 40 mg STK-MED ONCE .ROUTE Last administered on 18:42; Start 01/19/18 at 18:42; Stop 01/19/18 at 18:43; Status DC Succinylcholine Chloride (Quelicin Inj) 200 mg STK-MED ONCE .ROUTE Last administered on 01/19/18 18:43; Start 01/19/18 at 18:43; Stop 01/19/18 at 18:44; Status DC Midazolam HCl (Versed Inj) 5 mg STK-MED ONCE .ROUTE ; Start 01/19/18 at 18:44; Stop 01/19/18 at 18:45; Status DC Phytonadione 10 mg/Dextrose 51 ml @ 102 mls/hr ONCE STAT IV Last administered on 01/19/18 19:24; Start 01/19/18 at 18:44; Stop 01/19/18 at 19:13; Status DC Propofol 50 ml @ As Directed STK-MED ONCE .ROUTE Last administered on 01/19/18 19:25; Start 01/19/18 at 18:55; Stop 01/19/18 at 18:56; Status DC Propofol 100 ml @ 0 mls/hr TITRATE PRN IV SEDATION; Start 01/19/18 at 18:45; Stop 01/19/18 at 20:27; Status DC Amlodipine Besylate (Norvasc) 5 mg DAILY PO Last administered on 01/20/18 08:51 ; Start 01/20/18 at 09:00; Stop 01/20/18 at 16:45; Status DC Metoprolol Tartrate (Lopressor) 50 mg BID PO Last administered on 01/20/18 08: 51; Start 01/19/18 at 21:00; Stop 01/20/18 at 16:45; Status DC Pravastatin Sodium (Pravachol) 40 mg DAILY PO Last administered on 01/22/18 09: 28; Start 01/20/18 at 09:00 Sodium Chloride 1,000 ml @ 84 mls/hr [id number] IV Last administered on 01/22/18 08:35; Start 01/19/18 at 21:00; Stop 01/22/18 at 15:54; Status DC Sodium Chloride (NS Flush) 2 ml UNSCH PRN IV FLUSH FLUSH AFTER USING IV ACCESS ; Start 01/19/18 at 20:15 Sodium Chloride (NS Flush) 2 ml BID IV FLUSH Last administered on 01/22/18at 09: 00; Start 01/19/18 at 21:00 Acetaminophen (Tylenol) 650 mg Q6H PRN PO PAIN 1-10 AND/OR FEVER >101F Last administered on 01/22/18at 17:33; Start 01/19/18 at 20:15 Famotidine (Pepcid Inj) 20 mg Q12HR IV PUSH Last administered on 01/21/18 07:59 ; Start 01/19/18 at 21:00; Stop 01/21/18 at 13:58; Status DC Midazolam HCl (Versed Inj) 2 mg Q1H PRN IV PUSH SEDATION; Start 01/19/18 at 20: 15; Stop 01/21/18 at 17:11; Status DC Albuterol/ Ipratropium (Duoneb Neb) 1 ampule Q2HR NEB PRN INH WHEEZING Last administered on 01/22/18 03:12; Start 01/19/18 at 20:15 Miscellaneous Information ([facility] [place] [facility]) 1 Q361D XX ; Start 01/19/18 at 20:15 Chlorhexidine Gluconate (Chlorhexidine 2% Cloth) 3 pack Taper DAILY@04 TOP Last administered on 01/20/18 03:35; Start 01/20/18 at 04:00; Stop 01/16/19 at 03: 59 Chlorhexidine Gluconate (Chlorhexidine 2% Cloth) 3 pack UNSCH PRN TOP HYGIENIC CARE; Start 01/19/18 at 20:15 Senna/Docusate Sodium (Fadumo-Colace) 1 tab BID PO Last administered on 01/22/18 09:28; Start 01/19/18 at 21:00; Stop 01/22/18 at 15:54; Status DC Magnesium Hydroxide (Milk Of Magnesia Liq) 30 ml Q12H PRN PO Mild constipation Last administered on 01/22/18 09:28; Start 01/19/18 at 20:15; Stop 01/22/18 at 15: 54; Status DC Sennosides (Senokot) 17.2 mg Q12H PRN PO Moderate constipation; Start 01/19/18 at 20:15 Bisacodyl (Dulcolax Supp) 10 mg DAILY PRN RECTAL SEVERE CONSITIPATION; Start at 20:15; Stop 01/22/18 at 15:54; Status DC Lactulose (Lactulose Liq) 30 ml DAILY PRN PO SEVERE CONSITIPATION Last administered on 01/22/18 09:28; Start 01/19/18 at 20:15; Stop 01/22/18 at 15:54; Status DC Chlorhexidine Gluconate (Peridex 0.12% Liq) 15 ml BID@08,20 MT Last administered on 01/22/18at 08:00; Start 01/20/18 at 08:00 Propofol 100 ml @ 2.493 mls/ hr TITRATE PRN IV SEDATION Last administered on at 03:36; Start 01/19/18 at 20:15; Stop 01/20/18 at 16:45; Status DC Gadodiamide (Omniscan Pf Inj) 16 ml STK-MED ONCE IV PUSH Last administered on at 13:55; Start 01/20/18 at 13:55; Stop 01/20/18 at 13:56; Status DC Metoprolol Tartrate (Lopressor) 50 mg Q6HR PO Last administered on 01/21/18at 10: 51; Start 01/20/18 at 18:00; Stop 01/21/18 at 17:11; Status DC Amlodipine Besylate (Norvasc) 5 mg Q12HR PO Last administered on 01/22/18at 09:28 ; Start 01/20/18 at 21:00 Hydralazine HCl (Apresoline) 100 mg Q8HR PO Last administered on 01/22/18at 13:31 ; Start 01/21/18 at 08:00 Labetalol HCl (Trandate Inj) 20 mg Q15M PRN IV PUSH sbp > 150 Last administered on 01/21/18at 10:51; Start 01/21/18 at 08:00 Hydralazine HCl (Apresoline Inj) 10 mg Q30M PRN IV PUSH sbp > 150; Start at 08:00 Miscellaneous Information ([facility] [place] [facility]) D/C ICU ELECTROLYTE ORDERS... UNSCH PRN .XX SEE DOSE INSTRUCTIONS; Start 01/21/18 at 14:00 Miscellaneous Information ([facility] [place] [facility]) ICU - CALL ORDERING PHYSIC... UNSCH PRN .XX SEE DOSE INSTRUCTIONS; Start 01/21/18 at 14:00 Potassium Chloride 100 ml @ 25 mls/hr UNSCH PRN IV ELECTROLYTE REPLACEMENT; Start 01/21/18 at 14:00 Potassium Bicarb/ Potassium Chloride (K-Lyte Cl Eff) 50 meq UNSCH PRN PO ELECTROLYTE REPLACEMENT; Start 01/21/18 at 14:00 Potassium Chloride 100 ml @ 50 mls/hr UNSCH PRN IV ELECTROLYTE REPLACEMENT; Start 01/21/18 at 14:00 Magnesium Sulfate 4 gm/Sodium Chloride 108 ml @ 54 mls/hr UNSCH PRN IV ELECTROLYTE REPLACEMENT; Start 01/21/18 at 14:00 Magnesium Sulfate 2 gm/Sodium Chloride 104 ml @ 52 mls/hr UNSCH PRN IV ELECTROLYTE REPLACEMENT; Start 01/21/18 at 14:00 Magnesium Oxide (Mag-Ox) 800 mg UNSCH PRN PO ELECTROLYTE REPLACEMENT; Start 01/21/18 at 14:00 Sodium Phosphate 30 mmol/Sodium Chloride 260 ml @ 43.333 mls/ hr UNSCH PRN IV ELECTROLYTE REPLACEMENT; Start 01/21/18 at 14:00 Potassium Phosphate (K-Phos) 2,000 mg UNSCH PRN PO ELECTROLYTE REPLACEMENT; Start 01/21/18 at 14:00 Potassium Phosphate 30 mmol/ Sodium Chloride 260 ml @ 43.333 mls/ hr UNSCH PRN IV ELECTROLYTE REPLACEMENT; Start 01/21/18 at 14:00 Famotidine (Pepcid) 20 mg BID PO Last administered on 01/22/18at 09:28; Start 01/21/18 at 21:00 Nicardipine HCl 50 mg/Sodium Chloride 500 ml @ 52 mls/hr TITRATE PRN IV Blood pressure management Last administered on 01/22/18at 11:01; Start 01/21/18 at 15:15 Propranolol HCl (Inderal) 40 mg Q6HR PO Last administered on 01/22/18at 05:12; Start 01/21/18 at 17:15; Stop 01/22/18 at 11:44; Status DC Propranolol HCl (Inderal) 60 mg Q6HR PO Last administered on 01/22/18at 17:33; Start 01/22/18 at 13:00 Bisacodyl (Dulcolax Supp) 10 mg DAILY RECTAL ; Start 01/23/18 at 09:00 Polyethylene Glycol (Miralax) 17 gm BID PO ; Start 01/22/18 at 21:00 Lactulose (Lactulose Liq) 30 ml BID PO ; Start 01/22/18 at 21:00 Senna/Docusate Sodium (Fadumo-Colace) 1 tab BID PO ; Start 01/22/18 at 21:00 Magnesium Citrate (Citroma Liq) 300 ml ONCE ONCE PO Last administered on at 16:00; Start 01/22/18 at 16:00; Stop 01/22/18 at 16:21; Status DC (Francois Alvarez MD) Medical Decision Making MDM Remarks 67 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 (Glenda Uribe) Plan Plan Remarks cont nonsurgical management of pontine bleed, defer management to Critical Care and Neurologist nonchemical dvt prophylaxis with SCDs and TEDs in view of ICH Protonix for gi prophylaxis (Glenda Uribe) Attending Statement THIS NOTE REPRESENTS MY ENCOUNTER ON 01/21/18 DURING ROUNDS 67 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 Continue aggressive pulmonary toilette, nasotracheal suction, and breathing treatments with nebulizers. Nutrition. NPO Renal. monitor closely urine output, BUN and creatinine Endocrine. Monitor serial Acu checks and SSI as needed in detail ID monitor for signs of infection Protonix for stress ulcer prophylaxis Yaw hose and SCD's for DVT prophylaxis. nonchemical dvt prophylaxis Discussed with Dr Awad The exam, history, and the medical decision-making described in the above note were completed with the assistance of the mid-level provider. I reviewed and agree with the findings presented. I attest that I had a [id number] encounter with the patient on the same day, and personally performed and documented my assessment and findings in the medical record. (Francois Alvarez MD) Glenda Uribe Jan 22, 2018 14:49 Francois Alvarez MD Jan 22, 2018 20:38
[2018-01-22] MEDS ORDERED: MAGNESIUM CITRATE SOLN 300 ML BTL PO ONE (16:00)
[2018-01-22] MEDS: ACETAMINOPHEN 325 MG TAB PO PRN (17:33)
--- NOTE | 2018-01-22 20:37 | HHI.NSPN ---
Note Status Status: Progress Note Interval History Diagnosis Pontine hemorrhage Interval History This is a 67-year-old man who has a history of atrial fibrillation, anticoagulated on Coumadin. Approximately an hour before admission developed acute onset of left-sided weakness. He states he woke up with this symptom. The patient presented as a stroke-alert when he developed acute onset of headache and left extremity weakness. REPORTDLY he was watching TV when he suddenly developed a headache and left arm and left leg weakness, slurred speech approximately 1 hour prior to ER arrival. The CT of the brain shows 1.1 cm acute hemorrhage in the right terrance. The patient was immediately given KCentra and vitamin K. He was intubated in the emergency department by ED attending for an airway protection, Neurosurgical consultation was requested 01/20: patient seen this morning during rounds, patient intubated due to decline in mental status 01/22. remains intubated and sedated. No much response to pain Labs, Micro, & Vital Signs Results Date Time Temp Pulse Resp B/P (MAP) Pulse Ox O2 Delivery O2 Flow Rate FiO2 01/22/18 18:00 80 01/22/18 16:00 81 01/22/18 16:00 100.7 84 20 132/60 (84) 94 01/22/18 15:46 95 50 01/22/18 14:00 77 01/22/18 12:00 80 01/22/18 12:00 99.5 80 23 138/65 (89) 96 01/22/18 11:37 95 50 01/22/18 11:01 78 138/63 01/22/18 10:00 83 01/22/18 08:05 93 50 01/22/18 08:00 98.9 74 24 136/63 (87) 94 01/22/18 08:00 74 01/22/18 06:00 95 01/22/18 05:06 96 50 01/22/18 04:00 99.3 83 28 141/65 (90) 100 01/22/18 04:00 87 01/22/18 02:00 95 01/22/18 01:11 98 60 01/22/18 00:00 99.1 81 28 139/62 (87) 100 01/22/18 00:00 83 01/21/18 23:22 92 146/67 01/21/18 22:00 95 01/23/18 07:00 Intake Total 1525 ml Output Total 750 ml Balance 775 ml Constitutional Vital Signs Date Time Temp Pulse Resp B/P (MAP) Pulse Ox O2 Delivery O2 Flow Rate FiO2 01/22/18 18:00 80 01/22/18 16:00 81 01/22/18 16:00 100.7 84 20 132/60 (84) 94 01/22/18 15:46 95 50 01/22/18 14:00 77 01/22/18 12:00 80 01/22/18 12:00 99.5 80 23 138/65 (89) 96 01/22/18 11:37 95 50 01/22/18 11:01 78 138/63 01/22/18 10:00 83 01/22/18 08:05 93 50 01/22/18 08:00 98.9 74 24 136/63 (87) 94 01/22/18 08:00 74 01/22/18 06:00 95 01/22/18 05:06 96 50 01/22/18 04:00 99.3 83 28 141/65 (90) 100 01/22/18 04:00 87 01/22/18 02:00 95 01/22/18 01:11 98 60 01/22/18 00:00 99.1 81 28 139/62 (87) 100 01/22/18 00:00 83 01/21/18 23:22 92 146/67 01/21/18 22:00 95 01/23/18 07:00 Intake Total 1525 ml Output Total 750 ml Balance 775 ml Physical Exam GENERAL: middle-aged appearing male, comatose, intubated. SKIN: Warm and dry. HEAD: Normocephalic. EYES: No scleral icterus. No injection or drainage. NECK: Supple, trachea midline. No JVD. CARDIOVASCULAR: normal rate, irregularly irregular rhythm. afib. RESPIRATORY: equal chest rise. prvc. fio2 40%. does breath over the vent. GASTROINTESTINAL: Abdomen soft, non-tender, nondistended. no guarding. MUSCULOSKELETAL: No cyanosis, or edema. NEURO EXAM: RASS -5. GCS 4. extensor postures in the upper extremities, triple flexion in the lowers. upgoing Babinski. +corneals, +cough. + gag. breaths over the vent. pupils 1mm bilaterally equal, sluggishly reactive. did not follow any commands with vertical gaze. Medications Current Medications Current Medications Sodium Chloride 1,000 ml @ 70 mls/hr [id number] ONCE IV Last administered on 18:02; Start 01/19/18 at 18:02; Stop 01/20/18 at 08:19; Status DC Prothrombin Complex Concent (Human) 2000 units/Syringe / Bag 0 ml @ 500 mls/hr ONCE ONCE IV Last administered on 01/19/18 19:25; Start 01/19/18 at 19:15; Stop 01/19/18 at 19:16; Status DC Nicardipine HCl 25 mg/Sodium Chloride 260 ml @ 52 mls/hr TITRATE PRN IV Blood pressure management Last administered on 01/21/18 13:33; Start 01/19/18 at 18:45 ; Stop 01/21/18 at 15:01; Status DC Etomidate (Amidate Inj) 40 mg STK-MED ONCE .ROUTE Last administered on 18:42; Start 01/19/18 at 18:42; Stop 01/19/18 at 18:43; Status DC Succinylcholine Chloride (Quelicin Inj) 200 mg STK-MED ONCE .ROUTE Last administered on 01/19/18 18:43; Start 01/19/18 at 18:43; Stop 01/19/18 at 18:44; Status DC Midazolam HCl (Versed Inj) 5 mg STK-MED ONCE .ROUTE ; Start 01/19/18 at 18:44; Stop 01/19/18 at 18:45; Status DC Phytonadione 10 mg/Dextrose 51 ml @ 102 mls/hr ONCE STAT IV Last administered on 01/19/18 19:24; Start 01/19/18 at 18:44; Stop 01/19/18 at 19:13; Status DC Propofol 50 ml @ As Directed STK-MED ONCE .ROUTE Last administered on 01/19/18 19:25; Start 01/19/18 at 18:55; Stop 01/19/18 at 18:56; Status DC Propofol 100 ml @ 0 mls/hr TITRATE PRN IV SEDATION; Start 01/19/18 at 18:45; Stop 01/19/18 at 20:27; Status DC Amlodipine Besylate (Norvasc) 5 mg DAILY PO Last administered on 01/20/18at 08:51 ; Start 01/20/18 at 09:00; Stop 01/20/18 at 16:45; Status DC Metoprolol Tartrate (Lopressor) 50 mg BID PO Last administered on 01/20/18at 08: 51; Start 01/19/18 at 21:00; Stop 01/20/18 at 16:45; Status DC Pravastatin Sodium (Pravachol) 40 mg DAILY PO Last administered on 01/22/18at 09: 28; Start 01/20/18 at 09:00 Sodium Chloride 1,000 ml @ 84 mls/hr [id number] IV Last administered on 01/22/18at 08:35; Start 01/19/18 at 21:00; Stop 01/22/18 at 15:54; Status DC Sodium Chloride (NS Flush) 2 ml UNSCH PRN IV FLUSH FLUSH AFTER USING IV ACCESS ; Start 01/19/18 at 20:15 Sodium Chloride (NS Flush) 2 ml BID IV FLUSH Last administered on 01/22/18at 09: 00; Start 01/19/18 at 21:00 Acetaminophen (Tylenol) 650 mg Q6H PRN PO PAIN 1-10 AND/OR FEVER >101F Last administered on 01/22/18at 17:33; Start 01/19/18 at 20:15 Famotidine (Pepcid Inj) 20 mg Q12HR IV PUSH Last administered on 01/21/18at 07:59 ; Start 01/19/18 at 21:00; Stop 01/21/18 at 13:58; Status DC Midazolam HCl (Versed Inj) 2 mg Q1H PRN IV PUSH SEDATION; Start 01/19/18 at 20: 15; Stop 01/21/18 at 17:11; Status DC Albuterol/ Ipratropium (Duoneb Neb) 1 ampule Q2HR NEB PRN INH WHEEZING Last administered on 01/22/18at 03:12; Start 01/19/18 at 20:15 Miscellaneous Information ([facility]) 1 Q361D XX ; Start 01/19/18 at 20:15 Chlorhexidine Gluconate (Chlorhexidine 2% Cloth) 3 pack Taper DAILY@04 TOP Last administered on 01/20/18at 03:35; Start 01/20/18 at 04:00; Stop 01/16/19 at 03: 59 Chlorhexidine Gluconate (Chlorhexidine 2% Cloth) 3 pack UNSCH PRN TOP HYGIENIC CARE; Start 01/19/18 at 20:15 Senna/Docusate Sodium (Fadumo-Colace) 1 tab BID PO Last administered on 01/22/18 09:28; Start 01/19/18 at 21:00; Stop 01/22/18 at 15:54; Status DC Magnesium Hydroxide (Milk Of Magnesia Liq) 30 ml Q12H PRN PO Mild constipation Last administered on 01/22/18at 09:28; Start 01/19/18 at 20:15; Stop 01/22/18 at 15: 54; Status DC Sennosides (Senokot) 17.2 mg Q12H PRN PO Moderate constipation; Start 01/19/18 at 20:15 Bisacodyl (Dulcolax Supp) 10 mg DAILY PRN RECTAL SEVERE CONSITIPATION; Start at 20:15; Stop 01/22/18 at 15:54; Status DC Lactulose (Lactulose Liq) 30 ml DAILY PRN PO SEVERE CONSITIPATION Last administered on 01/22/18at 09:28; Start 01/19/18 at 20:15; Stop 01/22/18 at 15:54; Status DC Chlorhexidine Gluconate (Peridex 0.12% Liq) 15 ml BID@08,20 MT Last administered on 01/22/18at 08:00; Start 01/20/18 at 08:00 Propofol 100 ml @ 2.493 mls/ hr TITRATE PRN IV SEDATION Last administered on at 03:36; Start 01/19/18 at 20:15; Stop 01/20/18 at 16:45; Status DC Gadodiamide (Omniscan Pf Inj) 16 ml STK-MED ONCE IV PUSH Last administered on at 13:55; Start 01/20/18 at 13:55; Stop 01/20/18 at 13:56; Status DC Metoprolol Tartrate (Lopressor) 50 mg Q6HR PO Last administered on 01/21/18at 10: 51; Start 01/20/18 at 18:00; Stop 01/21/18 at 17:11; Status DC Amlodipine Besylate (Norvasc) 5 mg Q12HR PO Last administered on 01/22/18at 09:28 ; Start 01/20/18 at 21:00 Hydralazine HCl (Apresoline) 100 mg Q8HR PO Last administered on 01/22/18at 13:31 ; Start 01/21/18 at 08:00 Labetalol HCl (Trandate Inj) 20 mg Q15M PRN IV PUSH sbp > 150 Last administered on 01/21/18at 10:51; Start 01/21/18 at 08:00 Hydralazine HCl (Apresoline Inj) 10 mg Q30M PRN IV PUSH sbp > 150; Start at 08:00 Miscellaneous Information ([facility]) D/C ICU ELECTROLYTE ORDERS... UNSCH PRN .XX SEE DOSE INSTRUCTIONS; Start 01/21/18 at 14:00 Miscellaneous Information ([facility]) ICU - CALL ORDERING PHYSIC... UNSCH PRN .XX SEE DOSE INSTRUCTIONS; Start 01/21/18 at 14:00 Potassium Chloride 100 ml @ 25 mls/hr UNSCH PRN IV ELECTROLYTE REPLACEMENT; Start 01/21/18 at 14:00 Potassium Bicarb/ Potassium Chloride (K-Lyte Cl Eff) 50 meq UNSCH PRN PO ELECTROLYTE REPLACEMENT; Start 01/21/18 at 14:00 Potassium Chloride 100 ml @ 50 mls/hr UNSCH PRN IV ELECTROLYTE REPLACEMENT; Start 01/21/18 at 14:00 Magnesium Sulfate 4 gm/Sodium Chloride 108 ml @ 54 mls/hr UNSCH PRN IV ELECTROLYTE REPLACEMENT; Start 01/21/18 at 14:00 Magnesium Sulfate 2 gm/Sodium Chloride 104 ml @ 52 mls/hr UNSCH PRN IV ELECTROLYTE REPLACEMENT; Start 01/21/18 at 14:00 Magnesium Oxide (Mag-Ox) 800 mg UNSCH PRN PO ELECTROLYTE REPLACEMENT; Start 01/21/18 at 14:00 Sodium Phosphate 30 mmol/Sodium Chloride 260 ml @ 43.333 mls/ hr UNSCH PRN IV ELECTROLYTE REPLACEMENT; Start 01/21/18 at 14:00 Potassium Phosphate (K-Phos) 2,000 mg UNSCH PRN PO ELECTROLYTE REPLACEMENT; Start 01/21/18 at 14:00 Potassium Phosphate 30 mmol/ Sodium Chloride 260 ml @ 43.333 mls/ hr UNSCH PRN IV ELECTROLYTE REPLACEMENT; Start 01/21/18 at 14:00 Famotidine (Pepcid) 20 mg BID PO Last administered on 01/22/18at 09:28; Start 01/21/18 at 21:00 Nicardipine HCl 50 mg/Sodium Chloride 500 ml @ 52 mls/hr TITRATE PRN IV Blood pressure management Last administered on 01/22/18at 11:01; Start 01/21/18 at 15:15 Propranolol HCl (Inderal) 40 mg Q6HR PO Last administered on 01/22/18at 05:12; Start 01/21/18 at 17:15; Stop 01/22/18 at 11:44; Status DC Propranolol HCl (Inderal) 60 mg Q6HR PO Last administered on 01/22/18at 17:33; Start 01/22/18 at 13:00 Bisacodyl (Dulcolax Supp) 10 mg DAILY RECTAL ; Start 01/23/18 at 09:00 Polyethylene Glycol (Miralax) 17 gm BID PO ; Start 01/22/18 at 21:00 Lactulose (Lactulose Liq) 30 ml BID PO ; Start 01/22/18 at 21:00 Senna/Docusate Sodium (Fadumo-Colace) 1 tab BID PO ; Start 01/22/18 at 21:00 Magnesium Citrate (Citroma Liq) 300 ml ONCE ONCE PO Last administered on at 16:00; Start 01/22/18 at 16:00; Stop 01/22/18 at 16:21; Status DC Attending Statement 67 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 Continue aggressive pulmonary toilette, nasotracheal suction, and breathing treatments with nebulizers. Nutrition. NPO Renal. monitor closely urine output, BUN and creatinine Endocrine. Monitor serial Acu checks and SSI as needed in detail ID monitor for signs of infection Protonix for stress ulcer prophylaxis Yaw hose and SCD's for DVT prophylaxis. nonchemical dvt prophylaxis Discussed with Dr Awad The exam, history, and the medical decision-making described in the above note were completed with the assistance of the mid-level provider. I reviewed and agree with the findings presented. I attest that I had a [id number] encounter with the patient on the same day, and personally performed and documented my assessment and findings in the medical record. Francois Alvarez MD Jan 22, 2018 20:37
[2018-01-22] MEDS: LACTULOSE SYRUP 20 GM/30 ML CUP PO SCH (21:00)
[2018-01-22] MEDS: POLYETHYLENE GLYCOL 17 GM PKG PO SCH (21:00)
[2018-01-23] VITALS (19 sets, daily range): BP systolic 128–134; BP diastolic 50–62; PULSE 72–100; RESP 18–22; TEMP 97.6–101.6; O2SAT 95–100
[2018-01-23] MEDS: PROPRANOLOL HCL 20 MG TAB PO SCH ×4 (00:44→16:58)
[2018-01-23] MEDS: CHLORHEXIDINE GLUCONATE 2 % 1 PACK (2 CLOTHS) TOP SCH (04:00)
[2018-01-23] MEDS: hydrALAZINE HCL 100 MG TAB PO SCH ×3 (05:07→22:45)
[2018-01-23 05:25] LABS: HEMOGLOBIN 8.5 GM/DL (13.0-17.0); MEAN CELL VOLUME 64.1 FL (80.0-100.0); MEAN CORPUSCULAR HEMOGLOBIN 20.2 PG (27.0-34.0); MEAN CORPUSCULAR HGB CONC 31.6 % (32.0-36.0); MEAN PLATELET VOLUME 9.8 FL (7.0-11.0); PLATELET COUNT 99 TH/MM3 (150-450); RED BLOOD COUNT 4.21 MIL/MM3 (4.50-5.90); RED CELL DISTRIBUTION WIDTH 15.4 % (11.6-17.2); WHITE BLOOD COUNT 14.1 TH/MM3 (4.0-11.0)
[2018-01-23 05:33] LABS: INTERNATIONAL NORMALIZED RATIO 1.1 RATIO; PROTHROMBIN TIME - PATIENT 10.8 SEC (9.8-11.6)
[2018-01-23 05:54] LABS: BICARBONATE 20.2 MEQ/L (21.0-32.0); CALCIUM 8.7 MG/DL (8.5-10.1); CREATININE 1.12 MG/DL (0.60-1.30)
[2018-01-23] MEDS: ICU - POTASSIUM CHLORIDE/AQUEOUS SOLN 20 MEQ/100 ML IVPB IV PRN ×2 (06:14→09:00)
--- NOTE | 2018-01-23 07:06 | HHI.CCPN ---
Subjective Remarks/Hospital Course Hospital Course: 57-year-old gentleman with a history of hypertension, atrial fibrillation on Coumadin, is admitted secondary to acute onset of headache and left extremity weakness. Patient was watching TV when he suddenly developed a headache and left arm and left leg weakness, slurred speech approximately 1 hour prior to ER arrival. The CT of the brain shows 1.1 cm acute hemorrhage in the right terrance. No acute findings in the supratentorial brain. The patient was immediately intubated in the emergency department by ED attending for an airway protection, received K Centra and vitamin K, and is now admitted to ICU. Subjective: 01/20: persistently poor neurologic exam. extensor posturing in the upper extremities. triple flexion in the lowers. repeat CT brain with extension of the pontine hemorrhage into the brainstem. very grim prognosis. neurosurgery re- evaluated and agrees there is no neurosurgical intervention warranted at this point. Long and multiple discussions with the family regarding prognosis and minimal improvements over time. family is [place] from out of state. palliative met with family. neurology also agrees with grim prognosis. 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 01/21: no changes in mental status. postures in the extremities. per Dr. Malin, patient can follow commands with vertical gaze deviation, increasing concern for locked-in syndrome. today on my evaluation, patient is not following commands with gaze and my exam is unchanged from yesterdays. 01/22: no improvements in mental status. not following commands with vertical gaze. still vigorously posturing. more family arriving on friday. 01/23: asystolic cardiac arrest this AM. pupils still equal, conjugate reactive. ROSC after 2 rounds of epi and compressions. STAT head CT ordered. I notified his who is on her way up. very poor prognosis. Objective Vital Signs Date Time Temp Pulse Resp B/P (MAP) Pulse Ox O2 Delivery O2 Flow Rate FiO2 01/23/18 04:15 95 50 01/23/18 04:00 99.5 78 19 128/60 (82) 01/19/18 22:00 Mechanical Ventilator 01/19/18 18:37 2.00 Result Diagram: 01/23/18 0432 01/23/18 043 Objective Remarks GENERAL: middle-aged appearing male, comatose, intubated. SKIN: Warm and dry. HEAD: Normocephalic. EYES: No scleral icterus. No injection or drainage. NECK: Supple, trachea midline. No JVD. CARDIOVASCULAR: normal rate, irregularly irregular rhythm. afib. RESPIRATORY: equal chest rise. prvc. fio2 40%. does breath over the vent. GASTROINTESTINAL: Abdomen soft, non-tender, nondistended. no guarding. MUSCULOSKELETAL: No cyanosis, or edema. NEURO EXAM: RASS -5. GCS 4. extensor postures in the upper extremities, triple flexion in the lowers. upgoing Babinski. +corneals, +cough. + gag. breaths over the vent. pupils 1mm bilaterally equal, sluggishly reactive. did not follow any commands with vertical gaze. 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 Now by repeat head CT is > 5mL total volume, which by multiple studies, this volume of pontine blood with this low GCS score has very poor overall survivability or neurologic improvement. unlikely to have any meaningful neurologic improvement. now s/p cardiac arrest. From retrospective data, patients who have cardiac arrest after devastating primary neurologic insult have almost a 100% in- hospital mortality. Certainly given the patient's already grim prognosis, at this point it is unlikely he will survive this hospitalization or make any meaningful neurologic recovery. Family still appears optimistic, although we will re-address overall goals of care. remains critically ill, and more critical today than yesterday. s/p PEA cardiac arrest - most likely secondary to ICH in the brainstem - repeat stat head CT - continue in ICU - updated . Pontine intracerebral hemorrhage - s/p reversal with KCentra and vit K 01/19 - daily INR - very poor prognosis - neurology: Dr. Malin following - neurosurgery: Dr. Alvarez following - Per Dr. Malin, repeat MRI next week. 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 alpha and theta waves which could be consistent with a diagnosis of LIS. - avoid sedation - frequent neuro checks Hypertensive Emergency - cardene prn - change metoprolol to propranolol 40mg po q6h: no other episodes of bradycardia. will re-evaluate before re-dosing, however his propranolol has helped with tachycardia, afib, and his thermoregulation over the last 48h, so would prefer to continue this therapy if at all possible. it does not appear by looking at telemetry strips that his PEA arrest was due to iatrogenic bradycardia. We may be forced to hold this therapy if bradycardia becomes a problem, but will cautiously continue for now. - hydralazine 100mg po q8h - prn labetalol, hydralazine - goal sbp < 150 Acute hypoxic and Hypercarbic respiratory failure - wean fio2 for goal spo2 > 90% - no SBT or weaning of mechanical ventilation until neuro exam improves - would be a candidate for early tracheostomy if family wishes to be aggressive - vent bundle - hob elevated - nebs COPD -DuoNeb scheduled and as needed -No steroids indicated Atrial fibrillation -Rate control with beta blockade -No anticoagulation due to active ICH Coagulopathy -DC warfarin -Received K Centra and vitamin K in the ED -INR reversed DVT GI prophylaxis -Yaw's and SCDs -No pharmacological DVT prophylaxis due to acute ICH -IV Pepcid tube feeds at goal. Appreciate palliative care following. Critical Care: The total critical care time was 67 minutes. Time to perform other separately billable procedures was not included in the critical care time. This time includes time during active resuscitation and that time was not billed separately. Tigre Bustamante MD Jan 23, 2018 07:06
[2018-01-23] MEDS: CHLORHEXIDINE 0.12% (ORAL KIT) 15 ML CUP MT SCH ×2 (08:00→20:49)
--- NOTE | 2018-01-23 08:02 | RADRPT ---
EXAM DATE: 01/23/2018 7:56 AM EDT AGE/SEX: 67 years / Male INDICATIONS: F/U intracerebral hemorrhage. CLINICAL DATA: This is the patient's subsequent encounter. Patient reports that signs and symptoms h ave been present for 4 - 6 days and indicates a pain score of Nonresponsive. MEDICAL/SURGICAL HISTORY: Cardiovascular disease. Hypertension. Diabetes mellitus type I. COPD . bilateral hernia repair RADIATION DOSE: 35.86 CTDI (mGy) COMPARISON: [facility] [place], CT BRAIN W/O CONTRAST, 01/20/2018. . TECHNIQUE: CT of the head without contrast. Using automated exposure control and adjustment of the mA and/or kV according to patient size, radiation dose was kept as low as reasonably achievable to ob tain optimal diagnostic quality images. FINDINGS: There is been slight interval resorption of pontine hemorrhage. No new acute findings identified. Sup ratentorial brain is stable and unremarkable. There is no evidence of mass or acute infarction. Extra cranial structures are stable and benign. CONCLUSION: Slight interval resorption of brainstem hemorrhage. Electronically signed by: Ramiro Desouza MD 01/23/2018 8:01 AM EDT
[2018-01-23] MEDS: RESP: ALBUTEROL 2.5 MG/IPRATROPIUM 0.5 MG NEB (PRN) INH (08:24)
[2018-01-23] MEDS: POLYETHYLENE GLYCOL 17 GM PKG PO SCH ×2 (09:00→20:50)
[2018-01-23] MEDS: DOCUSATE SODIUM 50 MG/SENNA 8.6 MG TAB PO SCH ×2 (09:00→20:51)
[2018-01-23] MEDS: LACTULOSE SYRUP 20 GM/30 ML CUP PO SCH ×2 (09:00→20:50)
[2018-01-23] MEDS: BISACODYL 10 MG SUPP RECTAL SCH (09:00)
[2018-01-23] MEDS: SODIUM CHLORIDE 0.9% FLUSH 10 ML FLUSH IV FLUSH SCH ×2 (09:27→20:50)
[2018-01-23] MEDS: FAMOTIDINE 20 MG TAB PO SCH ×2 (09:27→20:51)
[2018-01-23] MEDS: PRAVASTATIN SOD 40 MG TAB PO SCH (09:27)
[2018-01-23] MEDS: amLODIPine BESYLATE 5 MG TAB PO SCH ×2 (09:27→21:00)
--- NOTE | 2018-01-23 11:40 | HHI.HCPN ---
Reason for visit a. To assist with evaluation and management of symptoms including: Pain, dyspnea b. To assist medical decision maker(s) with: better understanding of current medical conditions; weighing benefits/burdens of medical treatment options; making medical treatment decisions. . Subjective/Interval History INTERVAL NOTE: The patient seems to be overall unchanged neurologically. He had an asystolic cardiac arrest this morning, and had ROSC after about 4 minutes of resuscitation. He is now on FiO2 80%. Repeat CT this morning is unchanged. Dr. Malin did report some eye movement on command one evening, but not since then, and I have been unable to get any response on command since then. The patient has temp 100.8 this morning; his temperature seems to be more normalized since the addition of propranolol. . Family/friend interactions Dr. Bustamante and I had discussion again in the room with the patient's , [id number], and cousin. They seem to understand the very poor prognosis. There is additional family arriving this morning and then more late afternoon, and the wants us to continue aggressive care including resuscitation "so they can all see him alive." . Advance Directives Living Will: Never completed Health Care Surrogate: Never completed Durable Power of Ship'S Electronic Warfare Officer: Never completed Objective Vital Signs Date Time Temp Pulse Resp B/P (MAP) Pulse Ox O2 Delivery O2 Flow Rate FiO2 01/23/18 10:00 81 01/23/18 08:19 100 80 01/23/18 08:00 100.8 100 20 134/50 (78) 100 01/23/18 08:00 91 01/23/18 07:40 100 100 01/23/18 06:00 75 01/23/18 04:15 95 50 01/23/18 04:00 99.5 78 19 128/60 (82) 96 01/23/18 04:00 80 01/23/18 02:00 80 01/23/18 01:40 97 50 01/23/18 00:00 97.6 80 20 130/59 (82) 97 01/23/18 00:00 86 01/22/18 22:00 82 01/22/18 20:35 97 50 01/22/18 20:00 98.7 76 18 142/64 (90) 95 01/22/18 20:00 72 01/22/18 18:00 80 01/22/18 16:00 81 01/22/18 16:00 100.7 84 20 132/60 (84) 94 01/22/18 15:46 95 50 01/22/18 14:00 77 01/22/18 12:00 80 01/22/18 12:00 99.5 80 23 138/65 (89) 96 01/22/18 11:37 95 50 Intake & Output 01/23/18 01/23/18 07:00 19:00 Intake Total 454 ml Output Total 635 ml Balance -181 ml Tube Feeding 454 ml Output Urine Total 635 ml Bladder Scan Volume Amount 300 ml # Bowel Movements 3 Physical Exam CONSTITUTIONAL/GENERAL: This is an adequately nourished patient, in no apparent distress. EYES: Pupils equal and round and reactive. There is some spontaneous downward gaze, but it is not purposeful and there is no upward gaze at this time. NECK: Trachea midline. Supple, nontender. No palpable thyroid enlargement or nodularity. CARDIOVASCULAR: regular rhythm without murmurs, gallops, or rubs. No JVD. Peripheral pulses symmetric. RESPIRATORY/CHEST: Symmetric, unlabored respirations. Clear to auscultation. Breath sounds equal bilaterally. No wheezes, rales, or rhonchi. GASTROINTESTINAL: Abdomen soft, non-tender, nondistended. No hepato-splenomegaly , or palpable masses. No guarding. Bowel sounds present. GENITOURINARY: Without palpable bladder distension. MUSCULOSKELETAL: Extremities without clubbing, cyanosis, or edema. No joint tenderness or effusion noted. No calf tenderness. No mottling or clubbing. NEUROLOGICAL: Unresponsive to voice. Does not follow command with eye movement. Decerebrates. PSYCHIATRIC: Unable to evaluate due to clinical condition . Diagnostic Tests Laboratory Laboratory Tests Test 01/21/18 03:02 01/21/18 08:25 01/22/18 03:11 01/23/18 04:32 White Blood Count 13.6 TH/MM3 (4.0-11.0) 15.2 TH/MM3 (4.0-11.0) 14.1 TH/MM3 (4.0-11.0) Red Blood Count 4.96 MIL/MM3 (4.50-5.90) 4.70 MIL/MM3 (4.50-5.90) 4.21 MIL/MM3 (4.50-5.90) Hemoglobin 9.9 GM/DL (13.0-17.0) 9.6 GM/DL (13.0-17.0) 8.5 GM/DL (13.0-17.0) Hematocrit 31.6 % (39.0-51.0) 29.8 % (39.0-51.0) 27.0 % (39.0-51.0) Mean Corpuscular Volume 63.6 FL (80.0-100.0) 63.3 FL (80.0-100.0) 64.1 FL (80.0-100.0) Mean Corpuscular Hemoglobin 19.9 PG (27.0-34.0) 20.4 PG (27.0-34.0) 20.2 PG (27.0-34.0) Mean Corpuscular Hemoglobin Concent 31.3 % (32.0-36.0) 32.3 % (32.0-36.0) 31.6 % (32.0-36.0) Red Cell Distribution Width 15.4 % (11.6-17.2) 15.5 % (11.6-17.2) 15.4 % (11.6-17.2) Platelet Count 126 TH/MM3 (150-450) 127 TH/MM3 (150-450) 99 TH/MM3 (150-450) Mean Platelet Volume 11.0 FL (7.0-11.0) 10.9 FL (7.0-11.0) 9.8 FL (7.0-11.0) Prothrombin Time 10.7 SEC (9.8-11.6) 10.5 SEC (9.8-11.6) 10.8 SEC (9.8-11.6) Prothromb Time International Ratio 1.1 RATIO 1.0 RATIO 1.1 RATIO Activated Partial Thromboplast Time 31.0 SEC (24.3-30.1) 29.9 SEC (24.3-30.1) 29.7 SEC (24.3-30.1) Blood Urea Nitrogen 10 MG/DL (7-18) 21 MG/DL (7-18) 27 MG/DL (7-18) Creatinine 0.90 MG/DL (0.60-1.30) 1.11 MG/DL (0.60-1.30) 1.12 MG/DL (0.60-1.30) Random Glucose 105 MG/DL (74-106) 133 MG/DL (74-106) 155 MG/DL (74-106) Calcium Level 8.6 MG/DL (8.5-10.1) 8.0 MG/DL (8.5-10.1) 8.7 MG/DL (8.5-10.1) Sodium Level 139 MEQ/L (136-145) 138 MEQ/L (136-145) 142 MEQ/L (136-145) Potassium Level 3.4 MEQ/L (3.5-5.1) 3.8 MEQ/L (3.5-5.1) 3.5 MEQ/L (3.5-5.1) Chloride Level 107 MEQ/L (98-107) 107 MEQ/L (98-107) 110 MEQ/L (98-107) Carbon Dioxide Level 21.4 MEQ/L (21.0-32.0) 19.3 MEQ/L (21.0-32.0) 20.2 MEQ/L (21.0-32.0) Anion Gap 11 MEQ/L (5-15) 12 MEQ/L (5-15) 12 MEQ/L (5-15) Estimat Glomerular Filtration Rate 84 ML/MIN (>89) 66 ML/MIN (>89) 66 ML/MIN (>89) Blood Gas Puncture Site RT RADIAL Blood Gas Patient Temperature 98.6 Blood Gas HCO3 22 mmol/L (22-26) Blood Gas Base Excess -2.6 mmol/L (-2-2) Blood Gas Oxygen Saturation 94 % (90-100) Arterial Blood pH 7.36 (7.380-7.420) Arterial Blood Partial Pressure CO2 40 mmHg (38-42) Arterial Blood Partial Pressure O2 91 mmHg (61-120) Arterial Blood Oxygen Content 13.0 Vol % (12.0-20.0) Arterial Blood Carboxyhemoglobin 1.3 % (0-4) Arterial Blood Methemoglobin 1.3 % (0-2) Blood Gas Hemoglobin 9.8 G/DL (12.0-16.0) Oxygen Delivery Device VENTILATOR Blood Gas Ventilator Setting PRVC18/500/1.0/+5 Blood Gas Inspired Oxygen 30 % Result Diagram: 01/23/1843101/23/18431 Imaging Last Impressions Head CT 01/23/18 0000 Signed Impressions: CONCLUSION: Slight interval resorption of brainstem hemorrhage. Chest X-Ray 01/20/18 0000 Signed Impressions: CONCLUSION: Mild bibasilar atelectasis. 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 Procedures INTUBATION 01/19/18 Resuscitation /cardiac arrest 01/23/18 . 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 (2) Asystolic cardiac arrest 01/23/18 (3) Respiratory failure, mechanical ventilation (4) Anticoagulation Via Coumadin for atrial fibrillation (5) Chronic atrial fib (6) Hypertension, not controlled at the time of admission (7) COPD, 50 pack years cigarettes (8) History of CAD (9) Chronic back pain (10) Hyperlipidemia (11) GERD (12) History of thalassemia and old records (13) Degenerative arthritis, history of chronic back pain Symptom Scale: (1) Dyspnea 0-10 Scale: Unable to quantify (2) Pain 0-10 Scale: Unable to quantify (He had chronic back pain and now the pontine hemorrhage that was first noted as a headache) Pertinent Non-Medical Issues Psychosocial: Originally from [place], in [place] for 10 years. now for 20 years, retired. Spiritual: Nondenominational background, not spiritual or jewish Legal: Patient lacks capacity for decision-making and will not regain that capacity; his is the decision-making proxy. Ethical issues impacting care: Patient is unable to speak for himself. . Important Contacts : Beatriz Troncoso [phone] . Prognosis The patient's overall prognosis is poor. It is possible he could survive this episode, but his level of debility and disability would be substantial, and he would require 24/7 nursing care. . Code Status: Full Code Plan * CODE STATUS: FULL CODE * DECISION-MAKING: The patient lacks capacity for decision-making and will not regain that capacity. His is the decision-making proxy. * GOALS: Aggressive care for now; they are expecting additional family members to arrive this afternoon. The and other family members understand the poor prognosis and acknowledge that they still face the challenging questions regarding resuscitation status, as well as the choice of withdrawal of care to allow natural versus continued aggressive care (which would be trach/PEG and long-term facility). * SYMPTOMS: The patient has had chronic back pain, and now has had head pain with hemorrhage. He currently shows no obvious signs of pain. I have no further medication recommendations at this time for pain. The patient's dyspnea is being managed by mechanical ventilation. * Palliative Care will continue to follow the patient during this hospitalization. . Time Spent Total Floor Time (mins): 39 Face to Face Time (mins): 18 >50% Counseling/Coord of Care: Yes Attestation To help prompt me to consider important information that might be impacting today's encounter and assessment, information from prior notes written by myself or my colleagues may have been "brought forward" into today's note. My signature on this note, however, is an attestation that I personally performed the exam, history, and/or decision-making noted today, and, unless otherwise indicated, the interactions with patient, family, and staff as well as the review of records all occurred today. I also attest that the listed assessment and stated plan reflect my best clinical judgment today based on the combination of historical information, prior notes, and today's exam/ interactions. When time spent is documented, it refers only to time spent today by the signer, or if indicated, combined time spent today by collaborating physician/nurse practitioner. Renuka Vásquez MD Jan 23, 2018 11:40
--- NOTE | 2018-01-23 15:53 | HHI.NSPN ---
Note Status Status: Progress Note Interval History Diagnosis pontine hemorrhage Interval History This is a 67-year-old man who has a history of atrial fibrillation, anticoagulated on Coumadin. Approximately an hour before admission developed acute onset of left-sided weakness. He states he woke up with this symptom. The patient presented as a stroke-alert when he developed acute onset of headache and left extremity weakness. REPORTDLY he was watching TV when he suddenly developed a headache and left arm and left leg weakness, slurred speech approximately 1 hour prior to ER arrival. The CT of the brain shows 1.1 cm acute hemorrhage in the right terrance. The patient was immediately given KCentra and vitamin K. He was intubated in the emergency department by ED attending for an airway protection, Neurosurgical consultation was requested 01/20: patient seen this morning during rounds, patient intubated due to decline in mental status 01/22. remains intubated and sedated. No much response to pain 01/23. Suffered a cardiac arrest this morning. Regained BP after ACLS. Remains comatose Labs, Micro, & Vital Signs Results Date Time Temp Pulse Resp B/P (MAP) Pulse Ox O2 Delivery O2 Flow Rate FiO2 01/23/18 14:00 73 01/23/18 12:00 76 01/23/18 12:00 100.8 77 18 131/60 (83) 100 01/23/18 11:49 98 50 01/23/18 10:00 81 01/23/18 08:19 100 80 01/23/18 08:00 100.8 100 20 134/50 (78) 100 01/23/18 08:00 91 01/23/18 07:40 100 100 01/23/18 06:00 75 01/23/18 04:15 95 50 01/23/18 04:00 99.5 78 19 128/60 (82) 96 01/23/18 04:00 80 01/23/18 02:00 80 01/23/18 01:40 97 50 01/23/18 00:00 97.6 80 20 130/59 (82) 97 01/23/18 00:00 86 01/22/18 22:00 82 01/22/18 20:35 97 50 01/22/18 20:00 98.7 76 18 142/64 (90) 95 01/22/18 20:00 72 01/22/18 18:00 80 01/22/18 16:00 81 01/22/18 16:00 100.7 84 20 132/60 (84) 94 01/24/18 06:59 Output Total 660 ml Balance -660 ml Constitutional Vital Signs Date Time Temp Pulse Resp B/P (MAP) Pulse Ox O2 Delivery O2 Flow Rate FiO2 01/23/18 14:00 73 01/23/18 12:00 76 01/23/18 12:00 100.8 77 18 131/60 (83) 100 01/23/18 11:49 98 50 01/23/18 10:00 81 01/23/18 08:19 100 80 01/23/18 08:00 100.8 100 20 134/50 (78) 100 01/23/18 08:00 91 01/23/18 07:40 100 100 01/23/18 06:00 75 01/23/18 04:15 95 50 01/23/18 04:00 99.5 78 19 128/60 (82) 96 01/23/18 04:00 80 01/23/18 02:00 80 01/23/18 01:40 97 50 01/23/18 00:00 97.6 80 20 130/59 (82) 97 01/23/18 00:00 86 01/22/18 22:00 82 01/22/18 20:35 97 50 01/22/18 20:00 98.7 76 18 142/64 (90) 95 01/22/18 20:00 72 01/22/18 18:00 80 01/22/18 16:00 81 01/22/18 16:00 100.7 84 20 132/60 (84) 94 01/24/18 06:59 Output Total 660 ml Balance -660 ml Physical Exam GENERAL: middle-aged appearing male, comatose, intubated. SKIN: Warm and dry. HEAD: Normocephalic. EYES: No scleral icterus. No injection or drainage. NECK: Supple, trachea midline. No JVD. CARDIOVASCULAR: normal rate, irregularly irregular rhythm. afib. RESPIRATORY: equal chest rise. prvc. fio2 40%. does breath over the vent. GASTROINTESTINAL: Abdomen soft, non-tender, nondistended. no guarding. MUSCULOSKELETAL: No cyanosis, or edema. NEURO EXAM: RASS -5. GCS 4. extensor postures in the upper extremities, triple flexion in the lowers. upgoing Babinski. +corneals, +cough. + gag. breaths over the vent. pupils 1mm bilaterally equal, sluggishly reactive. did not follow any commands with vertical gaze. Medications Current Medications Current Medications Sodium Chloride 1,000 ml @ 70 mls/hr [id number] ONCE IV Last administered on 18:02; Start 01/19/18 at 18:02; Stop 01/20/18 at 08:19; Status DC Prothrombin Complex Concent (Human) 2000 units/Syringe / Bag 0 ml @ 500 mls/hr ONCE ONCE IV Last administered on 01/19/18 19:25; Start 01/19/18 at 19:15; Stop 01/19/18 at 19:16; Status DC Nicardipine HCl 25 mg/Sodium Chloride 260 ml @ 52 mls/hr TITRATE PRN IV Blood pressure management Last administered on 01/21/18at 13:33; Start 01/19/18 at 18:45 ; Stop 01/21/18 at 15:01; Status DC Etomidate (Amidate Inj) 40 mg STK-MED ONCE .ROUTE Last administered on 18:42; Start 01/19/18 at 18:42; Stop 01/19/18 at 18:43; Status DC Succinylcholine Chloride (Quelicin Inj) 200 mg STK-MED ONCE .ROUTE Last administered on 01/19/18at 18:43; Start 01/19/18 at 18:43; Stop 01/19/18 at 18:44; Status DC Midazolam HCl (Versed Inj) 5 mg STK-MED ONCE .ROUTE ; Start 01/19/18 at 18:44; Stop 01/19/18 at 18:45; Status DC Phytonadione 10 mg/Dextrose 51 ml @ 102 mls/hr ONCE STAT IV Last administered on 01/19/18 19:24; Start 01/19/18 at 18:44; Stop 01/19/18 at 19:13; Status DC Propofol 50 ml @ As Directed STK-MED ONCE .ROUTE Last administered on 01/19/18at 19:25; Start 01/19/18 at 18:55; Stop 01/19/18 at 18:56; Status DC Propofol 100 ml @ 0 mls/hr TITRATE PRN IV SEDATION; Start 01/19/18 at 18:45; Stop 01/19/18 at 20:27; Status DC Amlodipine Besylate (Norvasc) 5 mg DAILY PO Last administered on 01/20/18at 08:51 ; Start 01/20/18 at 09:00; Stop 01/20/18 at 16:45; Status DC Metoprolol Tartrate (Lopressor) 50 mg BID PO Last administered on 01/20/18at 08: 51; Start 01/19/18 at 21:00; Stop 01/20/18 at 16:45; Status DC Pravastatin Sodium (Pravachol) 40 mg DAILY PO Last administered on 01/23/18at 09: 27; Start 01/20/18 at 09:00 Sodium Chloride 1,000 ml @ 84 mls/hr [id number] IV Last administered on 01/22/18at 08:35; Start 01/19/18 at 21:00; Stop 01/22/18 at 15:54; Status DC Sodium Chloride (NS Flush) 2 ml UNSCH PRN IV FLUSH FLUSH AFTER USING IV ACCESS ; Start 01/19/18 at 20:15 Sodium Chloride (NS Flush) 2 ml BID IV FLUSH Last administered on 01/23/18at 09: 27; Start 01/19/18 at 21:00 Acetaminophen (Tylenol) 650 mg Q6H PRN PO PAIN 1-10 AND/OR FEVER >101F Last administered on 01/22/18at 17:33; Start 01/19/18 at 20:15 Famotidine (Pepcid Inj) 20 mg Q12HR IV PUSH Last administered on 01/21/18at 07:59 ; Start 01/19/18 at 21:00; Stop 01/21/18 at 13:58; Status DC Midazolam HCl (Versed Inj) 2 mg Q1H PRN IV PUSH SEDATION; Start 01/19/18 at 20: 15; Stop 01/21/18 at 17:11; Status DC Albuterol/ Ipratropium (Duoneb Neb) 1 ampule Q2HR NEB PRN INH WHEEZING Last administered on 01/23/18 08:24; Start 01/19/18 at 20:15 Miscellaneous Information ([facility] Nursing Information) 1 [id number] XX ; Start 01/19/18 at 20:15 Chlorhexidine Gluconate (Chlorhexidine 2% Cloth) 3 pack Taper DAILY@04 TOP Last administered on 01/20/18at 03:35; Start 01/20/18 at 04:00; Stop 01/16/19 at 03: 59 Chlorhexidine Gluconate (Chlorhexidine 2% Cloth) 3 pack UNSCH PRN TOP HYGIENIC CARE; Start 01/19/18 at 20:15 Senna/Docusate Sodium (Fadumo-Colace) 1 tab BID PO Last administered on 01/22/18 09:28; Start 01/19/18 at 21:00; Stop 01/22/18 at 15:54; Status DC Magnesium Hydroxide (Milk Of Magnesia Liq) 30 ml Q12H PRN PO Mild constipation Last administered on 01/22/18 09:28; Start 01/19/18 at 20:15; Stop 01/22/18 at 15: 54; Status DC Sennosides (Senokot) 17.2 mg Q12H PRN PO Moderate constipation; Start 01/19/18 at 20:15 Bisacodyl (Dulcolax Supp) 10 mg DAILY PRN RECTAL SEVERE CONSITIPATION; Start at 20:15; Stop 01/22/18 at 15:54; Status DC Lactulose (Lactulose Liq) 30 ml DAILY PRN PO SEVERE CONSITIPATION Last administered on 01/22/18at 09:28; Start 01/19/18 at 20:15; Stop 01/22/18 at 15:54; Status DC Chlorhexidine Gluconate (Peridex 0.12% Liq) 15 ml BID@08,20 MT Last administered on 01/23/18at 08:00; Start 01/20/18 at 08:00 Propofol 100 ml @ 2.493 mls/ hr TITRATE PRN IV SEDATION Last administered on at 03:36; Start 01/19/18 at 20:15; Stop 01/20/18 at 16:45; Status DC Gadodiamide (Omniscan Pf Inj) 16 ml STK-MED ONCE IV PUSH Last administered on at 13:55; Start 01/20/18 at 13:55; Stop 01/20/18 at 13:56; Status DC Metoprolol Tartrate (Lopressor) 50 mg Q6HR PO Last administered on 01/21/18at 10: 51; Start 01/20/18 at 18:00; Stop 01/21/18 at 17:11; Status DC Amlodipine Besylate (Norvasc) 5 mg Q12HR PO Last administered on 01/23/18at 09:27 ; Start 01/20/18 at 21:00 Hydralazine HCl (Apresoline) 100 mg Q8HR PO Last administered on 01/23/18at 05:07 ; Start 01/21/18 at 08:00 Labetalol HCl (Trandate Inj) 20 mg Q15M PRN IV PUSH sbp > 150 Last administered on 01/21/18at 10:51; Start 01/21/18 at 08:00 Hydralazine HCl (Apresoline Inj) 10 mg Q30M PRN IV PUSH sbp > 150; Start at 08:00 Miscellaneous Information ([facility] Nursing Information) D/C ICU ELECTROLYTE ORDERS... UNSCH PRN .XX SEE DOSE INSTRUCTIONS; Start 01/21/18 at 14:00 Miscellaneous Information ([facility] Nursing Information) ICU - CALL ORDERING PHYSIC... UNSCH PRN .XX SEE DOSE INSTRUCTIONS; Start 01/21/18 at 14:00 Potassium Chloride 100 ml @ 25 mls/hr UNSCH PRN IV ELECTROLYTE REPLACEMENT; Start 01/21/18 at 14:00 Potassium Bicarb/ Potassium Chloride (K-Lyte Cl Eff) 50 meq UNSCH PRN PO ELECTROLYTE REPLACEMENT; Start 01/21/18 at 14:00 Potassium Chloride 100 ml @ 50 mls/hr UNSCH PRN IV ELECTROLYTE REPLACEMENT Last administered on 01/23/18at 09:00; Start 01/21/18 at 14:00 Magnesium Sulfate 4 gm/Sodium Chloride 108 ml @ 54 mls/hr UNSCH PRN IV ELECTROLYTE REPLACEMENT; Start 01/21/18 at 14:00 Magnesium Sulfate 2 gm/Sodium Chloride 104 ml @ 52 mls/hr UNSCH PRN IV ELECTROLYTE REPLACEMENT; Start 01/21/18 at 14:00 Magnesium Oxide (Mag-Ox) 800 mg UNSCH PRN PO ELECTROLYTE REPLACEMENT; Start 01/21/18 at 14:00 Sodium Phosphate 30 mmol/Sodium Chloride 260 ml @ 43.333 mls/ hr UNSCH PRN IV ELECTROLYTE REPLACEMENT; Start 01/21/18 at 14:00 Potassium Phosphate (K-Phos) 2,000 mg UNSCH PRN PO ELECTROLYTE REPLACEMENT; Start 01/21/18 at 14:00 Potassium Phosphate 30 mmol/ Sodium Chloride 260 ml @ 43.333 mls/ hr UNSCH PRN IV ELECTROLYTE REPLACEMENT; Start 01/21/18 at 14:00 Famotidine (Pepcid) 20 mg BID PO Last administered on 01/23/18at 09:27; Start 01/21/18 at 21:00 Nicardipine HCl 50 mg/Sodium Chloride 500 ml @ 52 mls/hr TITRATE PRN IV Blood pressure management Last administered on 01/22/18at 11:01; Start 01/21/18 at 15:15 Propranolol HCl (Inderal) 40 mg Q6HR PO Last administered on 01/22/18at 05:12; Start 01/21/18 at 17:15; Stop 01/22/18 at 11:44; Status DC Propranolol HCl (Inderal) 60 mg Q6HR PO Last administered on 01/23/18at 05:08; Start 01/22/18 at 13:00 Bisacodyl (Dulcolax Supp) 10 mg DAILY RECTAL ; Start 01/23/18 at 09:00 Polyethylene Glycol (Miralax) 17 gm BID PO ; Start 01/22/18 at 21:00 Lactulose (Lactulose Liq) 30 ml BID PO ; Start 01/22/18 at 21:00 Senna/Docusate Sodium (Fadumo-Colace) 1 tab BID PO ; Start 01/22/18 at 21:00 Magnesium Citrate (Citroma Liq) 300 ml ONCE ONCE PO Last administered on at 16:00; Start 01/22/18 at 16:00; Stop 01/22/18 at 16:21; Status DC Attending Statement 67 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 Continue nonsurgical management of pontine hemorrhage. Status post cardiac arrest. Poor prognosis I will defer further management to Critical Care and Neurologist Pulmonary.. Continue aggressive pulmonary toilette, nasotracheal suction, and breathing treatments with nebulizers. Nutrition. Tube feedings Renal. monitor closely urine output, BUN and creatinine Endocrine. Monitor serial Acu checks and SSI as needed in detail ID monitor for signs of infection Protonix for stress ulcer prophylaxis Yaw hose and SCD's for DVT prophylaxis. nonchemical dvt prophylaxis Francois Alvarez MD Jan 23, 2018 15:53
--- NOTE | 2018-01-23 16:13 | HHI.PR ---
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 Diagnosis/Plan: Subjective Subjective Comments No acute events reported Active Medications Current Medications Medications (Trade) Dose Ordered Sig/Abel Route Start Time Stop Time Status Last Admin (Pravachol) 40 mg DAILY PO 01/20/18 09:00 01/23/18 09:27 (NS Flush) 2 ml UNSCH PRN IV FLUSH 01/19/18 20:15 (NS Flush) 2 ml BID IV FLUSH 01/19/18 21:00 01/23/18 09:27 (Tylenol) 650 mg Q6H PRN PO 01/19/18 20:15 01/22/18 17:33 (Duoneb Neb) 1 ampule Q2HR NEB PRN INH 01/19/18 20:15 01/23/18 08:24 ([facility] [place] [facility] Information) 1 Q361D XX 01/19/18 20:15 (Chlorhexidine 2% Cloth) 3 pack Taper DAILY@04 TOP 01/20/18 04:00 01/16/19 03:59 01/20/18 03:35 (Chlorhexidine 2% Cloth) 3 pack UNSCH PRN TOP 01/19/18 20:15 (Senokot) 17.2 mg Q12H PRN PO 01/19/18 20:15 (Peridex 0.12% Liq) 15 ml BID@08,20 MT 01/20/18 08:00 01/23/18 08:00 (Norvasc) 5 mg Q12HR PO 01/20/18 21:00 01/23/18 09:27 (Apresoline) 100 mg Q8HR PO 01/21/18 08:00 01/23/18 05:07 (Trandate Inj) 20 mg Q15M PRN IV PUSH 01/21/18 08:00 01/21/18 10:51 (Apresoline Inj) 10 mg Q30M PRN IV PUSH 01/21/18 08:00 ([facility] [place] Nursing Information) D/C ICU ELECTROLYTE ORDERS... UNSCH PRN .XX 01/21/18 14:00 ([facility] [place] Nursing Information) ICU - CALL ORDERING PHYSIC... UNSCH PRN .XX 01/21/18 14:00 Potassium Chloride 100 ml @ 25 mls/hr UNSCH PRN IV 01/21/18 14:00 (K-Lyte Cl Eff) 50 meq UNSCH PRN PO 01/21/18 14:00 Potassium Chloride 100 ml @ 50 mls/hr UNSCH PRN IV 01/21/18 14:00 01/23/18 09:00 Magnesium Sulfate 4 gm/Sodium Chloride 108 ml @ 54 mls/hr UNSCH PRN IV 01/21/18 14:00 Magnesium Sulfate 2 gm/Sodium Chloride 104 ml @ 52 mls/hr UNSCH PRN IV 01/21/18 14:00 (Mag-Ox) 800 mg UNSCH PRN PO 01/21/18 14:00 Sodium Phosphate 30 mmol/Sodium Chloride 260 ml @ 43.333 mls/ hr UNSCH PRN IV 01/21/18 14:00 (K-Phos) 2,000 mg UNSCH PRN PO 01/21/18 14:00 Potassium Phosphate 30 mmol/ Sodium Chloride 260 ml @ 43.333 mls/ hr UNSCH PRN IV 01/21/18 14:00 (Pepcid) 20 mg BID PO 01/21/18 21:00 01/23/18 09:27 Nicardipine HCl 50 mg/Sodium Chloride 500 ml @ 52 mls/hr TITRATE PRN IV 01/21/18 15:15 01/22/18 11:01 (Inderal) 60 mg Q6HR PO 01/22/18 13:00 01/23/18 05:08 (Dulcolax Supp) 10 mg DAILY RECTAL 01/23/18 09:00 (Miralax) 17 gm BID PO 01/22/18 21:00 (Lactulose Liq) 30 ml BID PO 01/22/18 21:00 (Fadumo-Colace) 1 tab BID PO 01/22/18 21:00 Allergies Allergies Coded Allergies No Known Allergies (Verified Allergy, Unknown, 07/03/17) Exam I&O / VS 01/23/18 01/23/18 01/24/18 15:00 23:00 07:00 Output Total 660 ml Balance -660 ml Output Urine Total 660 ml Bladder Scan Volume Amount 416 ml 416 ml Vital Signs Date Time Temp Pulse Resp B/P (MAP) Pulse Ox O2 Delivery O2 Flow Rate FiO2 01/23/18 14:00 73 01/23/18 12:00 76 01/23/18 12:00 100.8 77 18 131/60 (83) 100 01/23/18 11:49 98 50 01/23/18 10:00 81 01/23/18 08:19 100 80 01/23/18 08:00 100.8 100 20 134/50 (78) 100 01/23/18 08:00 91 01/23/18 07:40 100 100 01/23/18 06:00 75 01/23/18 04:15 95 50 01/23/18 04:00 99.5 78 19 128/60 (82) 96 01/23/18 04:00 80 01/23/18 02:00 80 01/23/18 01:40 97 50 01/23/18 00:00 97.6 80 20 130/59 (82) 97 01/23/18 00:00 86 01/22/18 22:00 82 01/22/18 20:35 97 50 01/22/18 20:00 98.7 76 18 142/64 (90) 95 01/22/18 20:00 72 01/22/18 18:00 80 Exam Comments He does follow commands today with vertical eye movements CN-pupils 1 mm, He has no horizontal EOM to occulocephalics MOTOR--extensor posturing BUE and BLE, DTR--- 2+ BUE and BLE. Bilateral Babinskis Objective Micro and Labs Laboratory Tests Test 01/23/18 04:32 White Blood Count 14.1 Red Blood Count 4.21 Hemoglobin 8.5 Hematocrit 27.0 Mean Corpuscular Volume 64.1 Mean Corpuscular Hemoglobin 20.2 Mean Corpuscular Hemoglobin Concent 31.6 Red Cell Distribution Width 15.4 Platelet Count 99 Mean Platelet Volume 9.8 Prothrombin Time 10.8 Prothromb Time International Ratio 1.1 Activated Partial Thromboplast Time 29.7 Blood Urea Nitrogen 27 Creatinine 1.12 Random Glucose 155 Calcium Level 8.7 Sodium Level 142 Potassium Level 3.5 Chloride Level 110 Carbon Dioxide Level 20.2 Anion Gap 12 Estimat Glomerular Filtration Rate 66 Blake Malin MD PhD Jan 23, 2018 16:13
[2018-01-23] MEDS: ACETAMINOPHEN 325 MG TAB PO PRN (17:24)
[2018-01-24] VITALS (19 sets, daily range): BP systolic 142–162; BP diastolic 63–72; PULSE 75–92; RESP 18–22; TEMP 99–103.4; O2SAT 93–100
[2018-01-24] MEDS: LABETALOL HCL 100 MG/20 ML VIAL IV PUSH PRN ×2 (03:07→04:15)
[2018-01-24 03:56] LABS: HEMATOCRIT 27.8 % (39.0-51.0); HEMOGLOBIN 8.9 GM/DL (13.0-17.0); MEAN CELL VOLUME 63.1 FL (80.0-100.0); MEAN CORPUSCULAR HEMOGLOBIN 20.2 PG (27.0-34.0); MEAN PLATELET VOLUME 11.1 FL (7.0-11.0); PLATELET COUNT 126 TH/MM3 (150-450); RED BLOOD COUNT 4.41 MIL/MM3 (4.50-5.90); RED CELL DISTRIBUTION WIDTH 15.2 % (11.6-17.2)
[2018-01-24] MEDS: CHLORHEXIDINE GLUCONATE 2 % 1 PACK (2 CLOTHS) TOP SCH (04:00)
[2018-01-24 04:05] LABS: PROTHROMBIN TIME - PATIENT 10.2 SEC (9.8-11.6)
[2018-01-24 04:18] LABS: BICARBONATE 20.6 MEQ/L (21.0-32.0); CALCIUM 8.6 MG/DL (8.5-10.1); CREATININE 1.03 MG/DL (0.60-1.30)
[2018-01-24] MEDS: PROPRANOLOL HCL 20 MG TAB PO SCH ×4 (05:29→18:26)
[2018-01-24] MEDS: hydrALAZINE HCL 100 MG TAB PO SCH ×3 (06:55→22:40)
[2018-01-24] MEDS: LACTULOSE SYRUP 20 GM/30 ML CUP PO SCH ×2 (09:00→21:00)
[2018-01-24] MEDS: POLYETHYLENE GLYCOL 17 GM PKG PO SCH ×2 (09:00→21:00)
[2018-01-24] MEDS: BISACODYL 10 MG SUPP RECTAL SCH (09:00)
[2018-01-24] MEDS: FAMOTIDINE 20 MG TAB PO SCH ×2 (09:17→22:46)
[2018-01-24] MEDS: SODIUM CHLORIDE 0.9% FLUSH 10 ML FLUSH IV FLUSH SCH ×2 (09:17→21:00)
[2018-01-24] MEDS: CHLORHEXIDINE 0.12% (ORAL KIT) 15 ML CUP MT SCH ×2 (09:17→22:38)
[2018-01-24] MEDS: amLODIPine BESYLATE 5 MG TAB PO SCH ×2 (09:17→22:39)
[2018-01-24] MEDS: PRAVASTATIN SOD 40 MG TAB PO SCH (09:17)
[2018-01-24] MEDS: DOCUSATE SODIUM 50 MG/SENNA 8.6 MG TAB PO SCH ×2 (09:17→22:39)
[2018-01-24] MEDS: ACETAMINOPHEN 325 MG TAB PO PRN (15:42)
[2018-01-24] MEDS: RESP: ALBUTEROL 2.5 MG/IPRATROPIUM 0.5 MG NEB (PRN) INH (16:55)
[2018-01-24] MEDS ORDERED: VANCOMYCIN INJ 1,250 MG in SODIUM CHLOR 0.9% 250 ML INJ 250 ML IV ONE (21:15)
[2018-01-24] MEDS ORDERED: Vancomycin Consult Pharmacy 1 EA OTHER SCH (21:15)
--- NOTE | 2018-01-24 21:18 | HHI.CCPN ---
Subjective Remarks/Hospital Course Hospital Course: 57-year-old gentleman with a history of hypertension, atrial fibrillation on Coumadin, is admitted secondary to acute onset of headache and left extremity weakness. Patient was watching TV when he suddenly developed a headache and left arm and left leg weakness, slurred speech approximately 1 hour prior to ER arrival. The CT of the brain shows 1.1 cm acute hemorrhage in the right terrance. No acute findings in the supratentorial brain. The patient was immediately intubated in the emergency department by ED attending for an airway protection, received K Centra and vitamin K, and is now admitted to ICU. Subjective: 01/20: persistently poor neurologic exam. extensor posturing in the upper extremities. triple flexion in the lowers. repeat CT brain with extension of the pontine hemorrhage into the brainstem. very grim prognosis. neurosurgery re- evaluated and agrees there is no neurosurgical intervention warranted at this point. Long and multiple discussions with the family regarding prognosis and minimal improvements over time. family is [place] in from out of state. palliative met with family. neurology also agrees with grim prognosis. 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 01/21: no changes in mental status. postures in the extremities. per Dr. Malin, patient can follow commands with vertical gaze deviation, increasing concern for locked-in syndrome. today on my evaluation, patient is not following commands with gaze and my exam is unchanged from yesterdays. 01/22: no improvements in mental status. not following commands with vertical gaze. still vigorously posturing. more family arriving on friday. 01/23: asystolic cardiac arrest this AM. pupils still equal, conjugate reactive. ROSC after 2 rounds of epi and compressions. STAT head CT ordered. I notified his who is on her way up. very poor prognosis. 01/24: febrile to 103 despite tylenol. sputum with significant secretions. no change in poor mental status. fio2 increasing and more hypoxic today. Objective Vital Signs Date Time Temp Pulse Resp B/P (MAP) Pulse Ox O2 Delivery O2 Flow Rate FiO2 01/24/18 18:00 84 01/24/18 18:00 102.4 21 150/65 (93) 100 01/24/18 16:58 90 Intake and Output 6/9/18 6/9/18 6/10/18 08:00 16:00 00:00 Intake Total 636 ml 525 ml Output Total 1400 ml 1075 ml Balance -764 ml -550 ml Result Diagram: 01/24/18 0333 01/24/18 033 Objective Remarks GENERAL: middle-aged appearing male, comatose, intubated. SKIN: Warm and dry. HEAD: Normocephalic. EYES: No scleral icterus. No injection or drainage. NECK: Supple, trachea midline. No JVD. CARDIOVASCULAR: normal rate, irregularly irregular rhythm. afib. RESPIRATORY: equal chest rise. prvc. fio2 90%. does breath over the vent. coarse breath sounds. thick tenacious secretions. GASTROINTESTINAL: Abdomen soft, non-tender, nondistended. no guarding. MUSCULOSKELETAL: No cyanosis, or edema. NEURO EXAM: RASS -5. GCS 4. extensor postures in the upper extremities, triple flexion in the lowers. upgoing Babinski. +corneals, +cough. + gag. breaths over the vent. pupils 1mm bilaterally equal, sluggishly reactive. did not follow any commands with vertical gaze. 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 Now by repeat head CT is > 5mL total volume, which by multiple studies, this volume of pontine blood with this low GCS score has very poor overall survivability or neurologic improvement. unlikely to have any meaningful neurologic improvement. now s/p cardiac arrest. From retrospective data, patients who have cardiac arrest after devastating primary neurologic insult have almost a 100% in- hospital mortality. Certainly given the patient's already grim prognosis, at this point it is unlikely he will survive this hospitalization or make any meaningful neurologic recovery. Family still appears optimistic, although we will re-address overall goals of care. remains critically ill, and more critical today than yesterday. new hypoxia and fever concerning for aspiration vs. VAP. will culture and start empiric antibiotics. no improvements over days and continues to worsen with new hypoxemia. s/p PEA cardiac arrest 01/23 - most likely secondary to ICH in the brainstem - continue in ICU Pontine intracerebral hemorrhage - s/p reversal with KCentra and vit K 6/4 - daily INR - very poor prognosis - neurology: Dr. Malin following - neurosurgery: Dr. Alvarez following - Per Dr. Malin, repeat MRI next week. 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 alpha and theta waves which could be consistent with a diagnosis of LIS. - avoid sedation - frequent neuro checks Hypertensive Emergency - propranolol 40mg po q6h - hydralazine 100mg po q8h - prn labetalol, hydralazine - goal sbp < 150 Acute hypoxic and Hypercarbic respiratory failure - wean fio2 for goal spo2 > 90% - no SBT or weaning of mechanical ventilation until neuro exam improves - would be a candidate for early tracheostomy if family wishes to be aggressive - vent bundle - hob elevated - nebs Fever, Leukocytosis Possible HCAP pneumonia - buck culture - start vancomycin - start zosyn - tylenol for fever - cooling blanket COPD -DuoNeb scheduled and as needed -No steroids indicated Atrial fibrillation -Rate control with beta blockade -No anticoagulation due to active ICH Coagulopathy -DC warfarin -Received K Centra and vitamin K in the ED -INR reversed DVT GI prophylaxis -Yaw's and SCDs -No pharmacological DVT prophylaxis due to acute ICH -IV Pepcid tube feeds at goal. Appreciate palliative care following. Critical Care: The total critical care time was 34 minutes. Time to perform other separately billable procedures was not included in the critical care time. This time includes time during active resuscitation and that time was not billed separately. Tigre Bustamante MD Jan 24, 2018 21:18
[2018-01-24] MEDS ORDERED: FUROSEMIDE 40 MG/4 ML VIAL IV PUSH ONE (21:30)
[2018-01-24] MEDS: PIPERACIL-TAZO 4.5 GM PREMIX 100 ML IV SCH (22:47)
[2018-01-24] MEDS ORDERED: VANCOMYCIN INJ 2,000 MG in SODIUM CHLORID 0.9% 500 ML INJ 500 ML IV ONE (23:00)
[2018-01-25] VITALS (20 sets, daily range): BP systolic 113–159; BP diastolic 57–72; PULSE 70–86; RESP 20–23; TEMP 98.9–103; O2SAT 97–100
[2018-01-25 00:30] LABS: AMORPHOUS SEDIMENT, URINE RARE; BACTERIA, URINE FEW /hpf; BILIRUBIN, URINE NEG (NEG); BLOOD, URINE NEG (NEG); GLUCOSE,URINE NEG (NEG); KETONE, URINE NEG (NEG); MUCUS URINE FEW /lpf (OCC); NITRITE,URINE NEG (NEG); PH, URINE 6.5 (5.0-8.5); URINE COLOR YELLOW (YELLW/STRAW); URINE LEUKOCYTE ESTERASE LARGE (NEG)
[2018-01-25] MEDS: PROPRANOLOL HCL 20 MG TAB PO SCH ×4 (01:08→17:50)
[2018-01-25] MEDS: ACETAMINOPHEN 325 MG TAB PO PRN ×2 (03:13→16:04)
[2018-01-25] MEDS: PIPERACIL-TAZO 4.5 GM PREMIX 100 ML IV SCH (03:13)
[2018-01-25] MEDS: CHLORHEXIDINE GLUCONATE 2 % 1 PACK (2 CLOTHS) TOP SCH (03:15)
[2018-01-25 05:06] LABS: HEMATOCRIT 28.9 % (39.0-51.0); HEMOGLOBIN 9.2 GM/DL (13.0-17.0); INTERNATIONAL NORMALIZED RATIO 1.1 RATIO; MEAN CORPUSCULAR HGB CONC 31.8 % (32.0-36.0); PLATELET COUNT 144 TH/MM3 (150-450); PROTHROMBIN TIME - PATIENT 10.9 SEC (9.8-11.6); RED BLOOD COUNT 4.59 MIL/MM3 (4.50-5.90); RED CELL DISTRIBUTION WIDTH 14.6 % (11.6-17.2); WHITE BLOOD COUNT 14.6 TH/MM3 (4.0-11.0)
[2018-01-25 05:29] LABS: BICARBONATE 21.2 MEQ/L (21.0-32.0); CALCIUM 8.8 MG/DL (8.5-10.1); CREATININE 1.88 MG/DL (0.60-1.30)
[2018-01-25] MEDS: hydrALAZINE HCL 100 MG TAB PO SCH ×3 (06:36→20:23)
--- NOTE | 2018-01-25 07:22 | RADRPT ---
EXAM DATE: 01/25/2018 7:18 AM EDT AGE/SEX: 67 years / Male INDICATIONS: Respiratory failure CLINICAL DATA: This is the patient's subsequent encounter. Patient reports that signs and symptoms h ave been present for 4 - 6 days and indicates a pain score of Nonresponsive. MEDICAL/SURGICAL HISTORY: . Cardiovascular disease. Hypertension. Diabetes mellitus type I. 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 . bilateral hernia repair [place] [facility] [place]. . FINDINGS: The right lung is clear. Endotracheal tube tip at the inferior margin of the clavicles. Enteric tube courses beneath the diaphragm. EKG leads overlie the chest. There is patchy airspace disease suspecte d at the left lung base versus mild atelectasis. Degenerative changes of the spine are noted. CONCLUSION: Right lung is now clear. Electronically signed by: Pollo Bass MD 01/25/2018 7:21 AM EDT
[2018-01-25] MEDS: CHLORHEXIDINE 0.12% (ORAL KIT) 15 ML CUP MT SCH ×2 (08:00→20:24)
[2018-01-25] MEDS: FAMOTIDINE 20 MG TAB PO SCH (09:20)
[2018-01-25] MEDS: POLYETHYLENE GLYCOL 17 GM PKG PO SCH ×2 (09:20→20:24)
[2018-01-25] MEDS: amLODIPine BESYLATE 5 MG TAB PO SCH ×2 (09:20→20:23)
[2018-01-25] MEDS: BISACODYL 10 MG SUPP RECTAL SCH (09:20)
[2018-01-25] MEDS: PRAVASTATIN SOD 40 MG TAB PO SCH (09:20)
[2018-01-25] MEDS: LACTULOSE SYRUP 20 GM/30 ML CUP PO SCH ×2 (09:20→20:23)
[2018-01-25] MEDS: DOCUSATE SODIUM 50 MG/SENNA 8.6 MG TAB PO SCH ×2 (09:20→20:25)
[2018-01-25] MEDS: SODIUM CHLORIDE 0.9% FLUSH 10 ML FLUSH IV FLUSH SCH ×2 (09:21→20:24)
[2018-01-25] MEDS: PIPERACIL-TAZO 3.375 GM PREMIX 50 ML IV SCH ×3 (09:31→20:24)
[2018-01-25] MEDS ORDERED: VANCOMYCIN 1,000 MG/NS 250 ML IV SCH ×2 (11:00)
--- NOTE | 2018-01-25 12:52 | HHI.CCPN ---
Subjective Remarks/Hospital Course Hospital Course: 57-year-old gentleman with a history of hypertension, atrial fibrillation on Coumadin, is admitted secondary to acute onset of headache and left extremity weakness. Patient was watching TV when he suddenly developed a headache and left arm and left leg weakness, slurred speech approximately 1 hour prior to ER arrival. The CT of the brain shows 1.1 cm acute hemorrhage in the right terrance. No acute findings in the supratentorial brain. The patient was immediately intubated in the emergency department by ED attending for an airway protection, received K Centra and vitamin K, and is now admitted to ICU. Subjective: 01/20: persistently poor neurologic exam. extensor posturing in the upper extremities. triple flexion in the lowers. repeat CT brain with extension of the pontine hemorrhage into the brainstem. very grim prognosis. neurosurgery re- evaluated and agrees there is no neurosurgical intervention warranted at this point. Long and multiple discussions with the family regarding prognosis and minimal improvements over time. family is flying in from out of state. palliative met with family. neurology also agrees with grim prognosis. 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 01/21: no changes in mental status. postures in the extremities. per Dr. Malin, patient can follow commands with vertical gaze deviation, increasing concern for locked-in syndrome. today on my evaluation, patient is not following commands with gaze and my exam is unchanged from yesterdays. 01/22: no improvements in mental status. not following commands with vertical gaze. still vigorously posturing. more family arriving on friday. 01/23: asystolic cardiac arrest this AM. pupils still equal, conjugate reactive. ROSC after 2 rounds of epi and compressions. STAT head CT ordered. I notified his who is on her way up. very poor prognosis. 01/24: febrile to 103 despite tylenol. sputum with significant secretions. no change in poor mental status. fio2 increasing and more hypoxic today. 01/25: fever persists, although somewhat lower. wbc remains elevated. fio2 down to 40%. no changes at all in poor neurologic exam. Objective Vital Signs Date Time Temp Pulse Resp B/P (MAP) Pulse Ox O2 Delivery O2 Flow Rate FiO2 01/25/18 11:18 99 40 01/25/18 06:00 75 01/25/18 04:00 103.0 21 153/67 (95) Intake and Output 01/25/18 01/25/18 01/26/18 08:00 16:00 00:00 Intake Total 976 ml Output Total 1250 ml Balance -274 ml Result Diagram: 01/25/1842201/25/18422 Objective Remarks GENERAL: middle-aged appearing male, comatose, intubated. SKIN: Warm and dry. HEAD: Normocephalic. EYES: No scleral icterus. No injection or drainage. NECK: Supple, trachea midline. No JVD. CARDIOVASCULAR: normal rate, irregularly irregular rhythm. afib. RESPIRATORY: equal chest rise. prvc. fio2 40% PEEP 12. does breath over the vent. coarse breath sounds. thick tenacious secretions. GASTROINTESTINAL: Abdomen soft, non-tender, nondistended. no guarding. MUSCULOSKELETAL: No cyanosis, or edema. NEURO EXAM: RASS -5. GCS 4. extensor postures in the upper extremities, triple flexion in the lowers. upgoing Babinski. +corneals, +cough. + gag. breaths over the vent. pupils 1mm bilaterally equal, sluggishly reactive. did not follow any commands with vertical gaze. 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 Now by repeat head CT is > 5mL total volume, which by multiple studies, this volume of pontine blood with this low GCS score has very poor overall survivability or neurologic improvement. unlikely to have any meaningful neurologic improvement. now s/p cardiac arrest. From retrospective data, patients who have cardiac arrest after devastating primary neurologic insult have almost a 100% in- hospital mortality. Certainly given the patient's already grim prognosis, at this point it is unlikely he will survive this hospitalization or make any meaningful neurologic recovery. Family still appears optimistic, although we will re-address overall goals of care. no improvements over days. unlikely to survive and no real hope for meaningful neurologic recovery. Will again discuss overall goals with family, although they have been resistant to any long-term discussions at this time. s/p PEA cardiac arrest 01/23 - most likely secondary to ICH in the brainstem - continue in ICU Pontine intracerebral hemorrhage - s/p reversal with KCentra and vit K /4 - daily INR - very poor prognosis - neurology: Dr. Malin following - neurosurgery: Dr. Alvarez following - Per Dr. Malin, repeat MRI next week. 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 alpha and theta waves which could be consistent with a diagnosis of LIS. - avoid sedation - frequent neuro checks Hypertensive Emergency - propranolol 60mg po q6h - hydralazine 100mg po q8h - prn labetalol, hydralazine - goal sbp < 150 Acute hypoxic and Hypercarbic respiratory failure - wean fio2 for goal spo2 > 90% - no SBT or weaning of mechanical ventilation until neuro exam improves - would be a candidate for early tracheostomy if family wishes to be aggressive - vent bundle - hob elevated - nebs Fever, Leukocytosis Possible HCAP pneumonia - buck cultures: pending. - vancomycin - zosyn - tylenol for fever - cooling blanket COPD -DuoNeb scheduled and as needed -No steroids indicated Atrial fibrillation -Rate control with beta blockade -No anticoagulation due to active ICH Coagulopathy -DC warfarin -Received K Centra and vitamin K in the ED -INR reversed DVT GI prophylaxis -Yaw's and SCDs -No pharmacological DVT prophylaxis due to acute ICH -IV Pepcid tube feeds at goal. Appreciate palliative care following. Critical Care: The total critical care time was 32 minutes. Time to perform other separately billable procedures was not included in the critical care time. This time includes time during active resuscitation and that time was not billed separately. Tigre Bustamante MD Jan 25, 2018 12:52
[2018-01-25] MEDS: SODIUM CHLOR 0.9% 1000 ML INJ 1,000 ML IV SCH ×2 (17:03→18:55)
[2018-01-26] VITALS (18 sets, daily range): BP systolic 113–149; BP diastolic 53–73; PULSE 68–86; RESP 20–23; TEMP 99.3–100.9; O2SAT 99–100
[2018-01-26] MEDS: ACETAMINOPHEN 325 MG TAB PO PRN ×2 (03:04→21:28)
[2018-01-26] MEDS: PIPERACIL-TAZO 3.375 GM PREMIX 50 ML IV SCH ×2 (03:04→08:09)
[2018-01-26] MEDS: CHLORHEXIDINE GLUCONATE 2 % 1 PACK (2 CLOTHS) TOP SCH (04:00)
[2018-01-26 05:26] LABS: HEMATOCRIT 25.9 % (39.0-51.0); HEMOGLOBIN 8.2 GM/DL (13.0-17.0); MEAN CELL VOLUME 62.9 FL (80.0-100.0); MEAN CORPUSCULAR HEMOGLOBIN 19.8 PG (27.0-34.0); MEAN CORPUSCULAR HGB CONC 31.5 % (32.0-36.0); PLATELET COUNT 130 TH/MM3 (150-450); RED BLOOD COUNT 4.12 MIL/MM3 (4.50-5.90); RED CELL DISTRIBUTION WIDTH 14.9 % (11.6-17.2); WHITE BLOOD COUNT 12.9 TH/MM3 (4.0-11.0)
[2018-01-26 05:59] LABS: BICARBONATE 18.9 MEQ/L (21.0-32.0); CALCIUM 8.5 MG/DL (8.5-10.1); CREATININE 1.9 MG/DL (0.60-1.30)
[2018-01-26] MEDS: hydrALAZINE HCL 100 MG TAB PO SCH ×3 (06:03→20:57)
[2018-01-26] MEDS: PROPRANOLOL HCL 20 MG TAB PO SCH ×4 (06:03→18:06)
[2018-01-26] MEDS: SODIUM CHLOR 0.9% 1000 ML INJ 1,000 ML IV SCH ×2 (06:15→20:57)
[2018-01-26] MEDS: PRAVASTATIN SOD 40 MG TAB PO SCH (08:09)
[2018-01-26] MEDS: SODIUM CHLORIDE 0.9% FLUSH 10 ML FLUSH IV FLUSH SCH ×2 (08:09→20:58)
[2018-01-26] MEDS: amLODIPine BESYLATE 5 MG TAB PO SCH ×2 (08:09→20:57)
[2018-01-26] MEDS: LACTULOSE SYRUP 20 GM/30 ML CUP PO SCH ×2 (08:09→20:57)
[2018-01-26] MEDS: FAMOTIDINE 20 MG TAB PO SCH ×2 (08:09→20:57)
[2018-01-26] MEDS: BISACODYL 10 MG SUPP RECTAL SCH (08:10)
[2018-01-26] MEDS: DOCUSATE SODIUM 50 MG/SENNA 8.6 MG TAB PO SCH ×2 (08:10→20:56)
[2018-01-26] MEDS: POLYETHYLENE GLYCOL 17 GM PKG PO SCH ×2 (08:10→20:58)
[2018-01-26] MEDS: CHLORHEXIDINE 0.12% (ORAL KIT) 15 ML CUP MT SCH ×2 (08:11→20:57)
[2018-01-26] MEDS ORDERED: POTASSIUM CHLORIDE 20 MEQ PWD PACKET PO ONE (09:45)
[2018-01-26] MEDS: POTASSIUM CHLOR 10 MEQ PREMIX 100 ML IV SCH ×3 (09:45→11:45)
[2018-01-26] MEDS ORDERED: PHARMACY ORDERED LAB ONE (10:45)
[2018-01-26] MEDS ORDERED: VANCOMYCIN INJ 1,500 MG in SODIUM CHLORID 0.9% 500 ML INJ 500 ML IV ONE (13:00)
[2018-01-26] MEDS: guaiFENesin SOLUTION 200 MG/10 ML CUP NG SCH ×2 (14:05→20:56)
[2018-01-26] MEDS: PIPERACIL-TAZO 2.25 GM PREMIX 50 ML IV SCH ×2 (14:09→20:58)
[2018-01-26] MEDS: RESP: ALBUTEROL 2.5 MG/IPRATROPIUM 0.5 MG NEB (SCH) NEB ×3 (16:00→20:33)
[2018-01-26] MEDS: RESP: SODIUM CHLORIDE 3% 4 ML NEB NEB SCH ×2 (16:11→20:32)
--- NOTE | 2018-01-26 17:45 | HHI.CCPN ---
Subjective Remarks/Hospital Course 57-year-old gentleman with a history of hypertension, atrial fibrillation on Coumadin, is admitted secondary to acute onset of headache and left extremity weakness. Patient was watching TV when he suddenly developed a headache and left arm and left leg weakness, slurred speech approximately 1 hour prior to ER arrival. The CT of the brain shows 1.1 cm acute hemorrhage in the right terrance. No acute findings in the supratentorial brain. The patient was immediately intubated in the emergency department by ED attending for an airway protection, received K Centra and vitamin K, and is now admitted to ICU. 01/20: persistently poor neurologic exam. extensor posturing in the upper extremities. triple flexion in the lowers. repeat CT brain with extension of the pontine hemorrhage into the brainstem. very grim prognosis. neurosurgery re- evaluated and agrees there is no neurosurgical intervention warranted at this point. Long and multiple discussions with the family regarding prognosis and minimal improvements over time. family is flying in from out of state. palliative met with family. neurology also agrees with grim prognosis. 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 01/21: no changes in mental status. postures in the extremities. per Dr. Malin, patient can follow commands with vertical gaze deviation, increasing concern for locked-in syndrome. today on my evaluation, patient is not following commands with gaze and my exam is unchanged from yesterdays. 01/22: no improvements in mental status. not following commands with vertical gaze. still vigorously posturing. more family arriving on friday. 01/23: asystolic cardiac arrest this AM. pupils still equal, conjugate reactive. ROSC after 2 rounds of epi and compressions. STAT head CT ordered. I notified his who is on her way up. very poor prognosis. 01/24: febrile to 103 despite tylenol. sputum with significant secretions. no change in poor mental status. fio2 increasing and more hypoxic today. 01/25: fever persists, although somewhat lower. wbc remains elevated. fio2 down to 40%. no changes at all in poor neurologic exam. Subjective: 01/26: T-max 100.6. Currently 99.5. Very poor neurological examination. Continues with leukocytosis. Objective Vital Signs Date Time Temp Pulse Resp B/P (MAP) Pulse Ox O2 Delivery O2 Flow Rate FiO2 01/26/18 16:09 100 40 6/11/18 16:00 99.5 79 23 148/73 (98) Intake and Output 01/26/18 01/26/18 01/27/18 08:00 16:00 00:00 Output Total 650 ml Balance -650 ml Result Diagram: 01/26/18 0511 01/26/18 0511 Other Results Microbiology Date/Time Source Procedure Growth Status 01/24/18 22:10 Blood Peripheral Aerobic Blood Culture - Preliminary NO GROWTH IN 2 DAYS Resulted 01/24/18 22:10 Blood Peripheral Anaerobic Blood Culture - Preliminary NO GROWTH IN 2 DAYS Resulted 01/24/18 23:59 Sputum Endotracheal Gram Stain - Final Resulted 01/24/18 23:59 Sputum Endotracheal Sputum Culture - Preliminary HEAVY GROWTH NORMAL RESPIRATORY KIAN... Resulted 01/24/18 23:59 Urine Catheterized Urine Urine Culture - Preliminary Staph Sp Coagulase Negative Resulted Imaging Last Impressions Chest X-Ray 01/25/18 0000 Signed Impressions: CONCLUSION: Right lung is now clear. Head CT 01/23/18 0000 Signed Impressions: CONCLUSION: Slight interval resorption of brainstem hemorrhage. 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 Objective Remarks GENERAL: 67-year-old middle-aged appearing male, comatose, intubated. SKIN: Warm and dry. Large tattoo in left upper extremity HEAD: Normocephalic. EYES: No scleral icterus. No injection or drainage. NECK: Supple, trachea midline. No JVD. CARDIOVASCULAR: Irregularly irregular. S1, S2 no S4 RESPIRATORY: equal chest rise. prvc. fio2 40% PEEP 12. does breath over the vent. coarse breath sounds. thick tenacious secretions. GASTROINTESTINAL: Abdomen soft, non-tender, nondistended. no guarding. MUSCULOSKELETAL: No cyanosis, or edema. NEURO EXAM: RASS -5. GCS 4. extensor postures in the upper extremities, pgoing Babinski. +corneal, +cough. + gag. breaths over the vent. pupils 1mm bilaterally equal, sluggishly reactive. did not follow any commands with vertical gaze. Vascular Central Line Catheter: No Assessment to: Continue A/P Assessment and Plan Assessment: 67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 Now by repeat head CT is > 5mL total volume, which by multiple studies, this volume of pontine blood with this low GCS score has very poor overall survivability or neurologic improvement. unlikely to have any meaningful neurologic improvement. now s/p cardiac arrest. From retrospective data, patients who have cardiac arrest after devastating primary neurologic insult have almost a 100% in- hospital mortality. Certainly given the patient's already grim prognosis, at this point it is unlikely he will survive this hospitalization or make any meaningful neurologic recovery. Family still appears optimistic, although we will re-address overall goals of care. no improvements over days. unlikely to survive and no real hope for meaningful neurologic recovery. Will again discuss overall goals with family, although they have been resistant to any long-term discussions at this time. s/p PEA cardiac arrest 01/23 - most likely secondary to ICH in the brainstem - continue in ICU Pontine intracerebral hemorrhage - s/p reversal with KCentra and vit K 01/19 - daily INR - very poor prognosis - neurology: Dr. Malin following - neurosurgery: Dr. Alvarez following - Per Dr. Malin, repeat MRI next week. 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 alpha and theta waves which could be consistent with a diagnosis of LIS. - avoid sedation - frequent neuro checks Hypertensive Emergency - propranolol 60mg po q6h -Amlodipine 5 mg twice daily - hydralazine 100mg po q8h - prn labetalol, hydralazine - goal sbp < 150 Acute hypoxic and Hypercarbic respiratory failure - wean fio2 for goal spo2 > 90% - no SBT or weaning of mechanical ventilation until neuro exam improves - would be a candidate for early tracheostomy if family wishes to be aggressive - vent bundle - hob elevated - nebs Fever, Leukocytosis Possible HCAP pneumonia - buck cultures: pending. - vancomycin - tylenol for fever - cooling blanket COPD -Albuterol/ipratropium aerosols every 6 hours with albuterol aerosols every 2 hours as needed dyspnea -No steroids indicated Atrial fibrillation -Rate control with beta blockade -No anticoagulation due to active ICH Coagulopathy/chronic warfarin use secondary to atrial fibrillation -DC warfarin -Received K Centra and vitamin K in the ED -INR reversed Microcytic anemia/thrombocytopenia Monitor CBC daily. Follow trends Dyslipidemia Currently on pravastatin 40 mg daily DVT GI prophylaxis -Yaw's and SCDs -No pharmacological DVT prophylaxis due to acute ICH -Famotidine tube feeds on hold Jevity 1.5 at 60 cc an hour. Check KUB. NS 84 cc/hr currently. Appreciate palliative care following. Critical Care: The total critical care time was 32 minutes. Time to perform other separately billable procedures was not included in the critical care time. This time includes time during active resuscitation and that time was not billed separately. Jacob Winter MD Jan 26, 2018 17:45
--- NOTE | 2018-01-26 20:54 | RADRPT ---
EXAM DATE: 01/26/2018 8:27 PM EDT AGE/SEX: 67 years / Male INDICATIONS: Abdominal distention. CLINICAL DATA: This is the patient's subsequent encounter. Patient reports that signs and symptoms h ave been present for 1 week and indicates a pain score of Nonresponsive. MEDICAL/SURGICAL HISTORY: . Cardiovascular disease. Hypertension. Diabetes mellitus type I. 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 . bilateral hernia repair. COMPARISON: No prior exams available for comparison. FINDINGS: The bowel gas is nonspecific. There are no signs of obstruction or free air for technique. No defin ite calcified stones are identified for technique. NG tube is present with tip in the stomach. CONCLUSION: Unremarkable study. Electronically signed by: Gaston Jacob MD 01/26/2018 8:53 PM EDT
[2018-01-26] MEDS: ARTIFICIAL TEARS OPTH OINT 3.5 APPLIC/3.5 GM TUBO EACH EYE SCH (20:57)
[2018-01-26] MEDS: PROPOFOL 1000 MG/100 ML INJ 100 ML IV PRN (22:13)
[2018-01-27] VITALS (18 sets, daily range): BP systolic 113–130; BP diastolic 56–61; PULSE 57–72; RESP 19–28; TEMP 97.5–99.9; O2SAT 98–99
[2018-01-27] MEDS: PIPERACIL-TAZO 2.25 GM PREMIX 50 ML IV SCH ×4 (02:18→22:39)
[2018-01-27] MEDS: RESP: ALBUTEROL 2.5 MG/IPRATROPIUM 0.5 MG NEB (SCH) NEB ×4 (03:17→20:19)
[2018-01-27] MEDS: RESP: SODIUM CHLORIDE 3% 4 ML NEB NEB SCH ×3 (03:17→16:00)
[2018-01-27] MEDS: CHLORHEXIDINE GLUCONATE 2 % 1 PACK (2 CLOTHS) TOP SCH ×2 (03:23→20:46)
[2018-01-27] MEDS: PROPOFOL 1000 MG/100 ML INJ 100 ML IV PRN (04:25)
[2018-01-27 05:45] LABS: BICARBONATE 14.9 MEQ/L (21.0-32.0); CALCIUM 8.5 MG/DL (8.5-10.1); CREATININE 2.84 MG/DL (0.60-1.30)
[2018-01-27 05:47] LABS: RANDOM VANCOMYCIN 22.6 COMMENT
[2018-01-27] MEDS: guaiFENesin SOLUTION 200 MG/10 ML CUP NG SCH ×3 (05:54→22:42)
[2018-01-27] MEDS: PROPRANOLOL HCL 20 MG TAB PO SCH ×4 (05:54→17:33)
[2018-01-27] MEDS: hydrALAZINE HCL 100 MG TAB PO SCH ×4 (05:54→22:42)
[2018-01-27 07:07] LABS: HEMATOCRIT 23.5 % (39.0-51.0); HEMOGLOBIN 7.9 GM/DL (13.0-17.0); MEAN CELL VOLUME 62.9 FL (80.0-100.0); MEAN CORPUSCULAR HEMOGLOBIN 21.3 PG (27.0-34.0); MEAN CORPUSCULAR HGB CONC 33.8 % (32.0-36.0); MEAN PLATELET VOLUME 11.3 FL (7.0-11.0); PLATELET COUNT 129 TH/MM3 (150-450); RED BLOOD COUNT 3.73 MIL/MM3 (4.50-5.90); RED CELL DISTRIBUTION WIDTH 14.8 % (11.6-17.2); WHITE BLOOD COUNT 9.2 TH/MM3 (4.0-11.0)
[2018-01-27] MEDS: CHLORHEXIDINE 0.12% (ORAL KIT) 15 ML CUP MT SCH ×2 (08:17→20:00)
[2018-01-27] MEDS: SODIUM CHLOR 0.9% 1000 ML INJ 1,000 ML IV SCH ×2 (08:31→17:32)
--- NOTE | 2018-01-27 08:31 | HHI.PR ---
Review/Management Diagnosis Pontine hemorrhage prognosis poor Diagnosis/Plan: Subjective Subjective Comments No acute events reported Active Medications Current Medications Medications (Trade) Dose Ordered Sig/Abel Route Start Time Stop Time Status Last Admin (Pravachol) 40 mg DAILY PO 01/20/18 09:00 01/26/18 08:09 (NS Flush) 2 ml UNSCH PRN IV FLUSH 01/19/18 20:15 (NS Flush) 2 ml BID IV FLUSH 01/19/18 21:00 01/26/18 20:58 (Tylenol) 650 mg Q6H PRN PO 01/19/18 20:15 01/26/18 21:28 ([facility]) 1 [id number] XX 01/19/18 20:15 (Chlorhexidine 2% Cloth) Taper DAILY@04 TOP 01/20/18 04:00 01/16/19 03:59 01/27/18 03:23 (Chlorhexidine 2% Cloth) 3 pack UNSCH PRN TOP 01/19/18 20:15 (Senokot) 17.2 mg Q12H PRN PO 01/19/18 20:15 (Peridex 0.12% Liq) 15 ml BID@08,20 MT 01/20/18 08:00 01/27/18 08:17 (Norvasc) 5 mg Q12HR PO 01/20/18 21:00 01/26/18 20:57 (Apresoline) 100 mg Q8HR PO 01/21/18 08:00 01/27/18 05:54 (Trandate Inj) 20 mg Q15M PRN IV PUSH 01/21/18 08:00 01/24/18 04:15 (Apresoline Inj) 10 mg Q30M PRN IV PUSH 01/21/18 08:00 ([facility]) D/C ICU ELECTROLYTE ORDERS... UNSCH PRN .XX 01/21/18 14:00 ([facility]) ICU - CALL ORDERING PHYSIC... UNSCH PRN .XX 01/21/18 14:00 Potassium Chloride 100 ml @ 25 mls/hr UNSCH PRN IV 01/21/18 14:00 (K-Lyte Cl Eff) 50 meq UNSCH PRN PO 01/21/18 14:00 01/26/18 06:15 Potassium Chloride 100 ml @ 50 mls/hr UNSCH PRN IV 01/21/18 14:00 01/23/18 09:00 Magnesium Sulfate 4 gm/Sodium Chloride 108 ml @ 54 mls/hr UNSCH PRN IV 01/21/18 14:00 Magnesium Sulfate 2 gm/Sodium Chloride 104 ml @ 52 mls/hr UNSCH PRN IV 01/21/18 14:00 (Mag-Ox) 800 mg UNSCH PRN PO 01/21/18 14:00 Sodium Phosphate 30 mmol/Sodium Chloride 260 ml @ 43.333 mls/ hr UNSCH PRN IV 01/21/18 14:00 (K-Phos) 2,000 mg UNSCH PRN PO 01/21/18 14:00 Potassium Phosphate 30 mmol/ Sodium Chloride 260 ml @ 43.333 mls/ hr UNSCH PRN IV 01/21/18 14:00 (Inderal) 60 mg Q6HR PO 01/22/18 13:00 01/27/18 05:54 (Dulcolax Supp) 10 mg DAILY RECTAL 01/23/18 09:00 01/25/18 09:20 (Miralax) 17 gm BID PO 01/22/18 21:00 01/25/18 20:24 (Lactulose Liq) 30 ml BID PO 01/22/18 21:00 01/25/18 20:23 (Fadumo-Colace) 1 tab BID PO 01/22/18 21:00 01/25/18 20:25 Pharmacy Profile Note 0 ml @ 0 mls/hr UNSCH OTHER 01/24/18 21:15 Sodium Chloride 1,000 ml @ 84 mls/hr [id number] IV 01/25/18 07:00 01/26/18 20:57 (Pepcid) 10 mg BID PO 01/25/18 21:00 01/26/18 20:57 Piperacillin Sod/ Tazobactam Sod 50 ml @ 100 mls/hr Q6H IV 01/26/18 14:00 01/27/18 08:16 (Duoneb Neb) 1 ampule Q6HR NEB NEB 01/26/18 10:00 01/27/18 08:15 (Albuterol Neb) 2.5 mg Q2HR NEB PRN NEB 01/26/18 09:45 (Sodium Chloride 3% Neb) 2 ml Q6HR NEB NEB 01/26/18 10:00 01/31/18 09:59 01/27/18 08:15 (Robitussin Liq) 400 mg Q8HR NG 01/26/18 14:00 01/27/18 05:54 (Lacrilube Opht Oint) 1 applic Q12HR EACH EYE 01/26/18 21:00 01/26/18 20:57 Propofol 100 ml @ 2.529 mls/ hr TITRATE PRN IV 01/26/18 22:15 01/27/18 04:25 Allergies Allergies Coded Allergies No Known Allergies (Verified Allergy, Unknown, 07/03/17) Exam I&O / VS Vital Signs Date Time Temp Pulse Resp B/P (MAP) Pulse Ox O2 Delivery O2 Flow Rate FiO2 01/27/18 08:18 99 30 01/27/18 06:00 57 01/27/18 04:00 63 01/27/18 04:00 55 01/27/18 04:00 99.7 58 28 116/56 (76) 99 01/27/18 03:17 98 30 01/27/18 02:00 60 01/27/18 00:14 99 30 01/27/18 00:00 99.9 60 22 130/58 (82) 99 01/27/18 00:00 55 01/27/18 00:00 60 01/26/18 22:00 72 01/26/18 20:33 100 30 01/26/18 20:00 100.9 68 20 149/66 (93) 100 01/26/18 20:00 55 01/26/18 20:00 70 01/26/18 18:00 72 01/26/18 16:09 100 40 01/26/18 16:00 55 01/26/18 16:00 99.5 79 23 148/73 (98) 100 01/26/18 16:00 79 01/26/18 14:00 74 01/26/18 12:00 100.6 77 21 113/55 (74) 99 01/26/18 12:00 55 01/26/18 12:00 77 01/26/18 11:25 100 40 01/26/18 10:00 80 01/26/18 09:00 100 40 Exam Comments not following commands CN-pupils 1 mm, He has no horizontal EOM to occulocephalics MOTOR--extensor posturing BUE and BLE, DTR--- 2+ BUE and BLE. Bilateral Babinskis Objective Micro and Labs Laboratory Tests Test 01/27/18 05:16 01/27/18 06:19 Blood Urea Nitrogen 53 Creatinine 2.84 Random Glucose 98 Calcium Level 8.5 Sodium Level 144 Potassium Level 3.3 Chloride Level 113 Carbon Dioxide Level 14.9 Anion Gap 16 Estimat Glomerular Filtration Rate 22 Random Vancomycin Level 22.6 White Blood Count 9.2 Red Blood Count 3.73 Hemoglobin 7.9 Hematocrit 23.5 Mean Corpuscular Volume 62.9 Mean Corpuscular Hemoglobin 21.3 Mean Corpuscular Hemoglobin Concent 33.8 Red Cell Distribution Width 14.8 Platelet Count 129 Mean Platelet Volume 11.3 Date/Time Source Procedure Growth Status 01/24/18 22:10 Blood Peripheral Aerobic Blood Culture - Preliminary NO GROWTH IN 2 DAYS Resulted 01/24/18 22:10 Blood Peripheral Anaerobic Blood Culture - Preliminary NO GROWTH IN 2 DAYS Resulted 01/24/18 23:59 Sputum Endotracheal Gram Stain - Final Resulted 01/24/18 23:59 Sputum Endotracheal Sputum Culture - Preliminary HEAVY GROWTH NORMAL RESPIRATORY KIAN... Resulted 01/24/18 23:59 Urine Catheterized Urine Urine Culture - Preliminary Staph Sp Coagulase Negative Resulted Blake Malin MD PhD Jan 27, 2018 08:31
[2018-01-27] MEDS: SODIUM CHLORIDE 0.9% FLUSH 10 ML FLUSH IV FLUSH SCH ×2 (08:51→21:00)
[2018-01-27] MEDS: FAMOTIDINE 20 MG TAB PO SCH ×2 (08:51→22:41)
[2018-01-27] MEDS: DOCUSATE SODIUM 50 MG/SENNA 8.6 MG TAB PO SCH ×2 (08:51→22:41)
[2018-01-27] MEDS: amLODIPine BESYLATE 5 MG TAB PO SCH ×2 (08:51→22:41)
[2018-01-27] MEDS: POLYETHYLENE GLYCOL 17 GM PKG PO SCH ×2 (08:51→22:40)
[2018-01-27] MEDS: PRAVASTATIN SOD 40 MG TAB PO SCH (08:52)
[2018-01-27] MEDS: ARTIFICIAL TEARS OPTH OINT 3.5 APPLIC/3.5 GM TUBO EACH EYE SCH ×2 (08:52→21:00)
[2018-01-27] MEDS: LACTULOSE SYRUP 20 GM/30 ML CUP PO SCH ×2 (08:52→22:40)
[2018-01-27] MEDS: BISACODYL 10 MG SUPP RECTAL SCH (08:53)
--- NOTE | 2018-01-27 10:34 | HHI.CCPN ---
Subjective Remarks/Hospital Course 57-year-old gentleman with a history of hypertension, atrial fibrillation on Coumadin, is admitted secondary to acute onset of headache and left extremity weakness. Patient was watching TV when he suddenly developed a headache and left arm and left leg weakness, slurred speech approximately 1 hour prior to ER arrival. The CT of the brain shows 1.1 cm acute hemorrhage in the right terrance. No acute findings in the supratentorial brain. The patient was immediately intubated in the emergency department by ED attending for an airway protection, received K Centra and vitamin K, and is now admitted to ICU. 01/20: persistently poor neurologic exam. extensor posturing in the upper extremities. triple flexion in the lowers. repeat CT brain with extension of the pontine hemorrhage into the brainstem. very grim prognosis. neurosurgery re- evaluated and agrees there is no neurosurgical intervention warranted at this point. Long and multiple discussions with the family regarding prognosis and minimal improvements over time. family is flying in from out of state. palliative met with family. neurology also agrees with grim prognosis. 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 01/21: no changes in mental status. postures in the extremities. per Dr. Malin, patient can follow commands with vertical gaze deviation, increasing concern for locked-in syndrome. today on my evaluation, patient is not following commands with gaze and my exam is unchanged from yesterdays. 01/22: no improvements in mental status. not following commands with vertical gaze. still vigorously posturing. more family arriving on friday. 01/23: asystolic cardiac arrest this AM. pupils still equal, conjugate reactive. ROSC after 2 rounds of epi and compressions. STAT head CT ordered. I notified his who is on her way up. very poor prognosis. 01/24: febrile to 103 despite tylenol. sputum with significant secretions. no change in poor mental status. fio2 increasing and more hypoxic today. 01/25: fever persists, although somewhat lower. wbc remains elevated. fio2 down to 40%. no changes at all in poor neurologic exam. Subjective: 01/26: T-max 100.6. Currently 99.5. Very poor neurological examination. Continues with leukocytosis. 01/27: Afebrile today. Renal function deteriorating. We will stop vancomycin. Chest x-ray remains clear. Urine is probably contaminant. Pontine hemorrhage involves wide area and significant neurologic recovery is highly unlikely. Objective Vital Signs Date Time Temp Pulse Resp B/P (MAP) Pulse Ox O2 Delivery O2 Flow Rate FiO2 01/27/18 08:18 99 30 01/27/18 08:00 97.5 63 22 118/56 (76) Intake and Output 01/27/18 01/27/18 01/27/18 07:59 15:59 23:59 Intake Total 1213 ml Output Total 200 ml Balance 1013 ml Result Diagram: 01/27/18 0619 01/27/18 0516 Imaging Last Impressions Chest X-Ray 01/25/18 0000 Signed Impressions: CONCLUSION: Right lung is now clear. Head CT 01/23/18 0000 Signed Impressions: CONCLUSION: Slight interval resorption of brainstem hemorrhage. 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 Objective Remarks GENERAL: 67-year-old middle-aged appearing male, comatose, intubated. SKIN: Warm and dry. Large tattoo in left upper extremity HEAD: Normocephalic. EYES: No scleral icterus. No injection or drainage. NECK: Supple, trachea midline. Orally intubated. CARDIOVASCULAR: Irregularly irregular. S1, S2 no S4, neck veins flat. RESPIRATORY: equal chest rise. prvc. fio2 40% PEEP 12. does breath over the vent but hiccups persist. Coarse breath sounds. thick tenacious secretions. GASTROINTESTINAL: Abdomen soft, non-tender, nondistended. no guarding. Bowel sounds active. MUSCULOSKELETAL: No cyanosis, or edema. Warm well perfused. NEURO EXAM: RASS -5. GCS 4. extensor postures in the upper extremities, upgoing Babinski. +corneal, +cough. + gag. breaths over the vent. pupils 1mm bilaterally equal, sluggishly reactive. did not follow any commands with vertical gaze. 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 Now by repeat head CT is > 5mL total volume, which by multiple studies, this volume of pontine blood with this low GCS score has very poor overall survivability or neurologic improvement. unlikely to have any meaningful neurologic improvement. now s/p cardiac arrest. From retrospective data, patients who have cardiac arrest after devastating primary neurologic insult have almost a 100% in- hospital mortality. Certainly given the patient's already grim prognosis, at this point it is unlikely he will survive this hospitalization or make any meaningful neurologic recovery. Family still appears optimistic, although we will re-address overall goals of care. no improvements over days. unlikely to survive and no real hope for meaningful neurologic recovery. Will again discuss overall goals with family, although they have been resistant to any long-term discussions at this time. s/p PEA cardiac arrest 01/23 - most likely secondary to ICH in the brainstem - continue in ICU Pontine intracerebral hemorrhage - s/p reversal with KCentra and vit K 01/19 - daily INR - very poor prognosis - neurology: Dr. Malin following - neurosurgery: Dr. Alvarez following - Per Dr. Malin, repeat MRI next week. 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 alpha and theta waves which could be consistent with a diagnosis of LIS. - avoid sedation - frequent neuro checks Hypertensive Emergency - propranolol 60mg po q6h -Amlodipine 5 mg twice daily - hydralazine 100mg po q8h - prn labetalol, hydralazine - goal sbp < 150 Acute hypoxic and Hypercarbic respiratory failure - wean fio2 for goal spo2 > 90% - no SBT or weaning of mechanical ventilation until neuro exam improves - would be a candidate for early tracheostomy if family wishes to be aggressive - vent bundle - hob elevated - nebs Fever, Leukocytosis Possible HCAP pneumonia - buck cultures: pending. - vancomycin - tylenol for fever - cooling blanket COPD -Albuterol/ipratropium aerosols every 6 hours with albuterol aerosols every 2 hours as needed dyspnea -No steroids indicated Atrial fibrillation -Rate control with beta blockade -No anticoagulation due to active ICH Coagulopathy/chronic warfarin use secondary to atrial fibrillation -DC warfarin -Received K Centra and vitamin K in the ED -INR reversed Microcytic anemia/thrombocytopenia Monitor CBC daily. Follow trends Dyslipidemia Currently on pravastatin 40 mg daily DVT GI prophylaxis -Yaw's and SCDs -No pharmacological DVT prophylaxis due to acute ICH -Famotidine tube feeds on hold Jevity 1.5 at 60 cc an hour. Check KUB. NS 84 cc/hr currently. Appreciate palliative care following. Overall impression: Patient remains critically ill with a devastating neurologic injury. Location and size of pontine bleed make significant recovery unlikely. Patient is potentially locked in. Presently ventilator dependent and we are unable to wean. Critical care time 45 minutes aside from procedures. Nick Leggett MD Jan 27, 2018 10:34
--- NOTE | 2018-01-27 15:44 | HHI.NSPN ---
(Glenda Uribe) Note Status Status: Progress Note (Glenda Uribe) Interval History Interval History THIS NOTE IS FOR 01/26/18 WHEN PATIENT WAS SEEN AND EXAMINED This is a 67-year-old man who has a history of atrial fibrillation, anticoagulated on Coumadin. Approximately an hour before admission developed acute onset of left-sided weakness. He states he woke up with this symptom. The patient presented as a stroke-alert when he developed acute onset of headache and left extremity weakness. REPORTDLY he was watching TV when he suddenly developed a headache and left arm and left leg weakness, slurred speech approximately 1 hour prior to ER arrival. The CT of the brain shows 1.1 cm acute hemorrhage in the right terrance. The patient was immediately given KCentra and vitamin K. He was intubated in the emergency department by ED attending for an airway protection, Neurosurgical consultation was requested 01/20: patient seen this morning during rounds, patient intubated due to decline in mental status 01/22: comatose, no sedation currently, decerebrating. 01/26: no changes to exam. (Glenda Uribe) Labs, Micro, & Vital Signs Results Date Time Temp Pulse Resp B/P (MAP) Pulse Ox O2 Delivery O2 Flow Rate FiO2 01/27/18 12:05 98 30 01/27/18 12:00 98.1 61 21 113/57 (75) 98 01/27/18 12:00 30 01/27/18 10:00 30 01/27/18 10:00 61 01/27/18 08:18 99 30 01/27/18 08:00 30 01/27/18 08:00 63 01/27/18 08:00 97.5 63 22 118/56 (76) 99 01/27/18 06:00 57 01/27/18 04:00 63 01/27/18 04:00 55 01/27/18 04:00 99.7 58 28 116/56 (76) 99 01/27/18 03:17 98 30 01/27/18 02:00 60 01/27/18 00:14 99 30 01/27/18 00:00 99.9 60 22 130/58 (82) 99 01/27/18 00:00 55 01/27/18 00:00 60 01/26/18 22:00 72 01/26/18 20:33 100 30 01/26/18 20:00 100.9 68 20 149/66 (93) 100 01/26/18 20:00 55 01/26/18 20:00 70 01/26/18 18:00 72 01/26/18 16:09 100 40 01/26/18 16:00 55 01/26/18 16:00 99.5 79 23 148/73 (98) 100 01/26/18 16:00 79 01/28/18 06:59 Intake Total 450 ml Balance 450 ml Constitutional Vital Signs Date Time Temp Pulse Resp B/P (MAP) Pulse Ox O2 Delivery O2 Flow Rate FiO2 01/27/18 12:05 98 30 01/27/18 12:00 98.1 61 21 113/57 (75) 98 01/27/18 12:00 30 01/27/18 10:00 30 01/27/18 10:00 61 01/27/18 08:18 99 30 01/27/18 08:00 30 01/27/18 08:00 63 01/27/18 08:00 97.5 63 22 118/56 (76) 99 01/27/18 06:00 57 01/27/18 04:00 63 01/27/18 04:00 55 01/27/18 04:00 99.7 58 28 116/56 (76) 99 01/27/18 03:17 98 30 01/27/18 02:00 60 01/27/18 00:14 99 30 01/27/18 00:00 99.9 60 22 130/58 (82) 99 01/27/18 00:00 55 01/27/18 00:00 60 01/26/18 22:00 72 01/26/18 20:33 100 30 01/26/18 20:00 100.9 68 20 149/66 (93) 100 01/26/18 20:00 55 01/26/18 20:00 70 01/26/18 18:00 72 01/26/18 16:09 100 40 01/26/18 16:00 55 01/26/18 16:00 99.5 79 23 148/73 (98) 100 01/26/18 16:00 79 01/28/18 06:59 Intake Total 450 ml Balance 450 ml (Glenda Uribe) Review of Systems ROS Limitations: Intubated (Glenda Uribe) Physical Exam THIS NOTE IS FOR 01/26/18 WHEN PATIENT WAS SEEN AND EXAMINED GENERAL: middle-aged appearing male, comatose SKIN: Warm and dry. HEAD: Normocephalic. EYES: No scleral icterus. No injection or drainage. NECK: Supple, trachea midline. No JVD. CARDIOVASCULAR: irregularly irregular rhythm. afib. RESPIRATORY: intubated, mechanically ventilated GASTROINTESTINAL: Abdomen soft, non-tender MUSCULOSKELETAL: No deformities. No cyanosis, or edema. NEURO EXAM: Comatose, no eye opening, not following commands. extensor postures in the extremities. pupils 3 mm bilaterally equal, sluggishly reactive. did not follow any commands with downward gaze. (Glenda Uribe) GENERAL: middle-aged appearing male, comatose, intubated. SKIN: Warm and dry. HEAD: Normocephalic. EYES: No scleral icterus. No injection or drainage. NECK: Supple, trachea midline. No JVD. CARDIOVASCULAR: normal rate, irregularly irregular rhythm. afib. RESPIRATORY: equal chest rise. prvc. fio2 40%. does breath over the vent. GASTROINTESTINAL: Abdomen soft, non-tender, nondistended. no guarding. MUSCULOSKELETAL: No cyanosis, or edema. NEURO EXAM: RASS -5. GCS 4. extensor postures in the upper extremities, triple flexion in the lowers. upgoing Babinski. +corneals, +cough. + gag. breaths over the vent. pupils 1mm bilaterally equal, sluggishly reactive. did not follow any commands with vertical gaze. (Francois Alvarez MD) Medications Current Medications (Glenda Uribe) Current Medications Current Medications Sodium Chloride 1,000 ml @ 70 mls/hr [id number] ONCE IV Last administered on at 18:02; Start 01/19/18 at 18:02; Stop 01/20/18 at 08:19; Status DC Prothrombin Complex Concent (Human) 2000 units/Syringe / Bag 0 ml @ 500 mls/hr ONCE ONCE IV Last administered on 01/19/18 19:25; Start 01/19/18 at 19:15; Stop 01/19/18 at 19:16; Status DC Nicardipine HCl 25 mg/Sodium Chloride 260 ml @ 52 mls/hr TITRATE PRN IV Blood pressure management Last administered on 01/21/18 13:33; Start 01/19/18 at 18:45 ; Stop 01/21/18 at 15:01; Status DC Etomidate (Amidate Inj) 40 mg STK-MED ONCE .ROUTE Last administered on 18:42; Start 01/19/18 at 18:42; Stop 01/19/18 at 18:43; Status DC Succinylcholine Chloride (Quelicin Inj) 200 mg STK-MED ONCE .ROUTE Last administered on 01/19/18 18:43; Start 01/19/18 at 18:43; Stop 01/19/18 at 18:44; Status DC Midazolam HCl (Versed Inj) 5 mg STK-MED ONCE .ROUTE ; Start 01/19/18 at 18:44; Stop 01/19/18 at 18:45; Status DC Phytonadione 10 mg/Dextrose 51 ml @ 102 mls/hr ONCE STAT IV Last administered on 01/19/18 19:24; Start 01/19/18 at 18:44; Stop 01/19/18 at 19:13; Status DC Propofol 50 ml @ As Directed STK-MED ONCE .ROUTE Last administered on 01/19/18 19:25; Start 01/19/18 at 18:55; Stop 01/19/18 at 18:56; Status DC Propofol 100 ml @ 0 mls/hr TITRATE PRN IV SEDATION; Start 01/19/18 at 18:45; Stop 01/19/18 at 20:27; Status DC Amlodipine Besylate (Norvasc) 5 mg DAILY PO Last administered on 01/20/18 08:51 ; Start 01/20/18 at 09:00; Stop 01/20/18 at 16:45; Status DC Metoprolol Tartrate (Lopressor) 50 mg BID PO Last administered on 01/20/18 08: 51; Start 01/19/18 at 21:00; Stop 01/20/18 at 16:45; Status DC Pravastatin Sodium (Pravachol) 40 mg DAILY PO Last administered on 01/28/18 09 :34; Start 01/20/18 at 09:00 Sodium Chloride 1,000 ml @ 84 mls/hr [id number] IV Last administered on 01/22/18at 08:35; Start 01/19/18 at 21:00; Stop 01/22/18 at 15:54; Status DC Sodium Chloride (NS Flush) 2 ml UNSCH PRN IV FLUSH FLUSH AFTER USING IV ACCESS ; Start 01/19/18 at 20:15 Sodium Chloride (NS Flush) 2 ml BID IV FLUSH Last administered on 01/28/18at 09: 31; Start 01/19/18 at 21:00 Acetaminophen (Tylenol) 650 mg Q6H PRN PO PAIN 1-10 AND/OR FEVER >101F Last administered on 01/26/18 21:28; Start 01/19/18 at 20:15 Famotidine (Pepcid Inj) 20 mg Q12HR IV PUSH Last administered on 01/21/18at 07:59 ; Start 01/19/18 at 21:00; Stop 01/21/18 at 13:58; Status DC Midazolam HCl (Versed Inj) 2 mg Q1H PRN IV PUSH SEDATION; Start 01/19/18 at 20: 15; Stop 01/21/18 at 17:11; Status DC Albuterol/ Ipratropium (Duoneb Neb) 1 ampule Q2HR NEB PRN INH WHEEZING Last administered on 01/24/18 16:55; Start 01/19/18 at 20:15; Stop 01/26/18 at 09:35; Status DC Miscellaneous Information ([facility]) 1 [id number] XX ; Start 01/19/18 at 20:15 Chlorhexidine Gluconate (Chlorhexidine 2% Cloth) Taper DAILY@04 TOP Last administered on 01/27/18 03:23; Start 01/20/18 at 04:00; Stop 01/16/19 at 03:59 Chlorhexidine Gluconate (Chlorhexidine 2% Cloth) 3 pack UNSCH PRN TOP HYGIENIC CARE; Start 01/19/18 at 20:15 Senna/Docusate Sodium (Fadumo-Colace) 1 tab BID PO Last administered on 01/22/18 09:28; Start 01/19/18 at 21:00; Stop 01/22/18 at 15:54; Status DC Magnesium Hydroxide (Milk Of Magnesia Liq) 30 ml Q12H PRN PO Mild constipation Last administered on 01/22/18 09:28; Start 01/19/18 at 20:15; Stop 01/22/18 at 15: 54; Status DC Sennosides (Senokot) 17.2 mg Q12H PRN PO Moderate constipation; Start 01/19/18 at 20:15 Bisacodyl (Dulcolax Supp) 10 mg DAILY PRN RECTAL SEVERE CONSITIPATION; Start at 20:15; Stop 01/22/18 at 15:54; Status DC Lactulose (Lactulose Liq) 30 ml DAILY PRN PO SEVERE CONSITIPATION Last administered on 01/22/18 09:28; Start 01/19/18 at 20:15; Stop 01/22/18 at 15:54; Status DC Chlorhexidine Gluconate (Peridex 0.12% Liq) 15 ml BID@08,20 MT Last administered on 01/28/18 08:05; Start 01/20/18 at 08:00 Propofol 100 ml @ 2.493 mls/ hr TITRATE PRN IV SEDATION Last administered on 03:36; Start 01/19/18 at 20:15; Stop 01/20/18 at 16:45; Status DC Gadodiamide (Omniscan Pf Inj) 16 ml STK-MED ONCE IV PUSH Last administered on at 13:55; Start 01/20/18 at 13:55; Stop 01/20/18 at 13:56; Status DC Metoprolol Tartrate (Lopressor) 50 mg Q6HR PO Last administered on 01/21/18at 10: 51; Start 01/20/18 at 18:00; Stop 01/21/18 at 17:11; Status DC Amlodipine Besylate (Norvasc) 5 mg Q12HR PO Last administered on 01/28/18 09: 30; Start 01/20/18 at 21:00 Hydralazine HCl (Apresoline) 100 mg Q8HR PO Last administered on 01/28/18 06: 22; Start 01/21/18 at 08:00 Labetalol HCl (Trandate Inj) 20 mg Q15M PRN IV PUSH sbp > 150 Last administered on 01/24/18at 04:15; Start 01/21/18 at 08:00 Hydralazine HCl (Apresoline Inj) 10 mg Q30M PRN IV PUSH sbp > 150; Start at 08:00 Miscellaneous Information ([facility] [place] [facility]) D/C ICU ELECTROLYTE ORDERS... UNSCH PRN .XX SEE DOSE INSTRUCTIONS; Start 01/21/18 at 14:00; Stop 08/04 at 14:35; Status DC Miscellaneous Information ([facility]) ICU - CALL ORDERING PHYSIC... UNSCH PRN .XX SEE DOSE INSTRUCTIONS; Start 01/21/18 at 14:00; Stop 08/04 at 14:35; Status DC Potassium Chloride 100 ml @ 25 mls/hr UNSCH PRN IV ELECTROLYTE REPLACEMENT; Start 01/21/18 at 14:00; Stop 01/27/18 at 14:35; Status DC Potassium Bicarb/ Potassium Chloride (K-Lyte Cl Eff) 50 meq UNSCH PRN PO ELECTROLYTE REPLACEMENT Last administered on 01/26/18at 06:15; Start 01/21/18 at 14:00; Stop 01/27/18 at 14:35; Status DC Potassium Chloride 100 ml @ 50 mls/hr UNSCH PRN IV ELECTROLYTE REPLACEMENT Last administered on 01/23/18at 09:00; Start 01/21/18 at 14:00; Stop 01/27/18 at 14 :35; Status DC Magnesium Sulfate 4 gm/Sodium Chloride 108 ml @ 54 mls/hr UNSCH PRN IV ELECTROLYTE REPLACEMENT; Start 01/21/18 at 14:00; Stop 01/27/18 at 14:35; Status DC Magnesium Sulfate 2 gm/Sodium Chloride 104 ml @ 52 mls/hr UNSCH PRN IV ELECTROLYTE REPLACEMENT; Start 01/21/18 at 14:00; Stop 01/27/18 at 14:35; Status DC Magnesium Oxide (Mag-Ox) 800 mg UNSCH PRN PO ELECTROLYTE REPLACEMENT; Start 01/21/18 at 14:00; Stop 01/27/18 at 14:35; Status DC Sodium Phosphate 30 mmol/Sodium Chloride 260 ml @ 43.333 mls/ hr UNSCH PRN IV ELECTROLYTE REPLACEMENT; Start 01/21/18 at 14:00; Stop 01/27/18 at 14:35; Status DC Potassium Phosphate (K-Phos) 2,000 mg UNSCH PRN PO ELECTROLYTE REPLACEMENT; Start 01/21/18 at 14:00; Stop 01/27/18 at 14:35; Status DC Potassium Phosphate 30 mmol/ Sodium Chloride 260 ml @ 43.333 mls/ hr UNSCH PRN IV ELECTROLYTE REPLACEMENT; Start 01/21/18 at 14:00; Stop 01/27/18 at 14:35; Status DC Famotidine (Pepcid) 20 mg BID PO Last administered on 01/24/18at 22:46; Start 01/21/18 at 21:00; Stop 01/25/18 at 09:14; Status DC Nicardipine HCl 50 mg/Sodium Chloride 500 ml @ 52 mls/hr TITRATE PRN IV Blood pressure management Last administered on 01/22/18at 11:01; Start 01/21/18 at 15:15 ; Stop 01/24/18 at 21:13; Status DC Propranolol HCl (Inderal) 40 mg Q6HR PO Last administered on 01/22/18at 05:12; Start 01/21/18 at 17:15; Stop 01/22/18 at 11:44; Status DC Propranolol HCl (Inderal) 60 mg Q6HR PO Last administered on 01/28/18at 12:01; Start 01/22/18 at 13:00 Bisacodyl (Dulcolax Supp) 10 mg DAILY RECTAL Last administered on 01/25/18at 09: 20; Start 01/23/18 at 09:00 Polyethylene Glycol (Miralax) 17 gm BID PO Last administered on 01/27/18at 22:40 ; Start 01/22/18 at 21:00 Lactulose (Lactulose Liq) 30 ml BID PO Last administered on 01/28/18at 09:30; Start 01/22/18 at 21:00 Senna/Docusate Sodium (Fadumo-Colace) 1 tab BID PO Last administered on at 09:30; Start 01/22/18 at 21:00 Magnesium Citrate (Citroma Liq) 300 ml ONCE ONCE PO Last administered on at 16:00; Start 01/22/18 at 16:00; Stop 01/22/18 at 16:21; Status DC Pharmacy Profile Note 0 ml @ 0 mls/hr UNSCH OTHER ; Start 01/24/18 at 21:15; Stop 01/27/18 at 10:29; Status DC Vancomycin HCl 1250 mg/Sodium Chloride 262.5 ml @ 250 mls/hr ONCE ONCE IV ; Start 01/24/18 at 21:15; Stop 01/24/18 at 21:40; Status DC Piperacillin Sod/ Tazobactam Sod 100 ml @ 200 mls/hr Q6H IV Last administered on 01/25/18at 03:13; Start 01/24/18 at 22:00; Stop 01/25/18 at 08:53; Status DC Furosemide (Lasix Inj) 40 mg ONCE ONCE IV PUSH Last administered on 01/24/18at 22:40; Start 01/24/18 at 21:30; Stop 01/24/18 at 21:35; Status DC Vancomycin HCl 2000 mg/Sodium Chloride 520 ml @ 250 mls/hr ONCE ONCE IV Last administered on 01/24/18at 23:53; Start 01/24/18 at 23:00; Stop 01/25/18 at 01:04; Status DC Vancomycin HCl 1000 mg/Sodium Chloride 250 ml @ 250 mls/hr Q12H IV ; Start 06/04 at 11:00; Status Cancel Miscellaneous Information ([facility] Ordered Lab Info) SPECIFIC LAB TO BE DRAWN:VANCO TROUGH DATE TO BE DR... ONCE ONCE .XX ; Start 01/26/18 at 10:45; Stop 01/26/18 at 10:46; Status Cancel Sodium Chloride 1,000 ml @ 150 mls/hr Q6H40M IV Last administered on at 14:04; Start 01/25/18 at 07:00 Piperacillin Sod/ Tazobactam Sod 50 ml @ 200 mls/hr Q6H IV Last administered on 01/26/18at 08:09; Start 01/25/18 at 09:00; Stop 01/26/18 at 09:31; Status DC Famotidine (Pepcid) 10 mg BID PO Last administered on 01/28/18at 09:31; Start at 21:00 Piperacillin Sod/ Tazobactam Sod 50 ml @ 100 mls/hr Q6H IV Last administered on 01/28/18at 08:04; Start 01/26/18 at 14:00; Stop 01/28/18 at 13:35; Status DC Potassium Chloride 100 ml @ 100 mls/hr Q1H IV ; Start 01/26/18 at 09:45; Stop 01/26/18 at 12:44; Status DC Potassium Chloride (KCl Powder) 20 meq ONCE ONCE PO ; Start 01/26/18 at 09:45; Stop 01/26/18 at 09:47; Status DC Albuterol/ Ipratropium (Duoneb Neb) 1 ampule Q6HR NEB NEB Last administered on 01/28/18at 08:24; Start 01/26/18 at 10:00 Albuterol Sulfate (Albuterol Neb) 2.5 mg Q2HR NEB PRN NEB dyspnea; Start at 09:45 Sodium Chloride (Sodium Chloride 3% Neb) 2 ml Q6HR NEB NEB Last administered on 01/28/18at 08:24; Start 01/26/18 at 10:00; Stop 01/31/18 at 09:59 Guaifenesin (Robitussin Liq) 400 mg Q8HR NG Last administered on 01/27/18at 22: 42; Start 01/26/18 at 14:00 Vancomycin HCl 1500 mg/Sodium Chloride 515 ml @ 257.5 mls/ hr ONCE ONCE IV Last administered on 01/26/18at 12:41; Start 01/26/18 at 13:00; Stop 01/26/18 at 14:59; Status DC Artificial Tears (Lacrilube Opht Oint) 1 applic Q12HR EACH EYE Last administered on 01/28/18at 09:31; Start 01/26/18 at 21:00 Propofol 100 ml @ 2.529 mls/ hr TITRATE PRN IV SEDATION Last administered on at 04:25; Start 01/26/18 at 22:15 Vancomycin HCl 1000 mg/Sodium Chloride 250 ml @ 250 mls/hr Q24H IV ; Start at 13:45; Status UNV Sodium Chloride 1,000 ml @ 999 mls/hr BOLUS ONCE IV Last administered on 01/28at 14:04; Start 01/28/18 at 13:45; Stop 01/28/18 at 14:45 (Francois Alvarez MD) Medical Decision Making MDM Remarks THIS NOTE IS FOR 01/26/18 WHEN PATIENT WAS SEEN AND EXAMINED 67 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, poor examination (Glenda Uribe) Plan Plan Remarks THIS NOTE IS FOR 01/26/18 WHEN PATIENT WAS SEEN AND EXAMINED cont nonsurgical management of pontine bleed, cont management to Critical Care and Neurologist nonchemical dvt prophylaxis with SCDs and TEDs in view of ICH Protonix for gi prophylaxis (Glenda Uribe) Attending Statement Assessment: 67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 s/p PEA cardiac arrest 01/23 - most likely secondary to ICH in the brainstem - continue in ICU Pontine intracerebral hemorrhage - s/p reversal with KCentra and vit K 01/19 - daily INR - very poor prognosis - neurology: Dr. Malin following - neurosurgery: Dr. Alvarez following - Per Dr. Malin, repeat MRI next week. 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 alpha and theta waves which could be consistent with a diagnosis of LIS. - avoid sedation - frequent neuro checks Hypertensive Emergency - propranolol 60mg po q6h -Amlodipine 5 mg twice daily - hydralazine 100mg po q8h - prn labetalol, hydralazine - goal sbp < 150 Acute hypoxic and Hypercarbic respiratory failure - wean fio2 for goal spo2 > 90% - no SBT or weaning of mechanical ventilation until neuro exam improves - would be a candidate for early tracheostomy if family wishes to be aggressive - vent bundle - hob elevated - nebs Fever, Leukocytosis Possible HCAP pneumonia - buck cultures: pending. - vancomycin - tylenol for fever - cooling blanket COPD -Albuterol/ipratropium aerosols every 6 hours with albuterol aerosols every 2 hours as needed dyspnea -No steroids indicated Atrial fibrillation -Rate control with beta blockade -No anticoagulation due to active ICH Coagulopathy/chronic warfarin use secondary to atrial fibrillation -DC warfarin -Received K Centra and vitamin K in the ED -INR reversed Microcytic anemia/thrombocytopenia Monitor CBC daily. Follow trends Dyslipidemia Currently on pravastatin 40 mg daily DVT GI prophylaxis -Yaw's and SCDs -No pharmacological DVT prophylaxis due to acute ICH -Famotidine Continue tube feeds on hold Jevity 1.5 at 60 cc an hour. Check KUB. NS 84 cc/ hr currently. Palliative care following. Overall impression: Patient remains critically ill with a devastating neurologic injury. Location and size of pontine bleed make significant recovery unlikely. Patient is potentially locked in Syndrome The exam, history, and the medical decision-making described in the above note were completed with the assistance of the mid-level provider. I reviewed and agree with the findings presented. I attest that I had a [id number] encounter with the patient on the same day, and personally performed and documented my assessment and findings in the medical record.. (Francois Alvarez MD) Glenda Uribe Jan 27, 2018 15:44 Francois Alvarez MD Jan 28, 2018 14:44
--- NOTE | 2018-01-27 15:46 | HHI.NSPN ---
(Glenda Uribe) Note Status Status: Progress Note (Glenda Uribe) Interval History Interval History This is a 67-year-old man who has a history of atrial fibrillation, anticoagulated on Coumadin. Approximately an hour before admission developed acute onset of left-sided weakness. He states he woke up with this symptom. The patient presented as a stroke-alert when he developed acute onset of headache and left extremity weakness. REPORTDLY he was watching TV when he suddenly developed a headache and left arm and left leg weakness, slurred speech approximately 1 hour prior to ER arrival. The CT of the brain shows 1.1 cm acute hemorrhage in the right terrance. The patient was immediately given KCentra and vitamin K. He was intubated in the emergency department by ED attending for an airway protection, Neurosurgical consultation was requested 01/20: patient seen this morning during rounds, patient intubated due to decline in mental status 01/22: comatose, no sedation currently, decerebrating. 01/26: no changes to exam. 01/27: mildly sedated for vent synchrony, postures, patient made a DNR (Glenda Uribe) Labs, Micro, & Vital Signs Results Date Time Temp Pulse Resp B/P (MAP) Pulse Ox O2 Delivery O2 Flow Rate FiO2 01/27/18 12:05 98 30 01/27/18 12:00 98.1 61 21 113/57 (75) 98 01/27/18 12:00 30 01/27/18 10:00 30 01/27/18 10:00 61 01/27/18 08:18 99 30 01/27/18 08:00 30 01/27/18 08:00 63 01/27/18 08:00 97.5 63 22 118/56 (76) 99 01/27/18 06:00 57 01/27/18 04:00 63 01/27/18 04:00 55 01/27/18 04:00 99.7 58 28 116/56 (76) 99 01/27/18 03:17 98 30 01/27/18 02:00 60 01/27/18 00:14 99 30 01/27/18 00:00 99.9 60 22 130/58 (82) 99 01/27/18 00:00 55 01/27/18 00:00 60 01/26/18 22:00 72 01/26/18 20:33 100 30 01/26/18 20:00 100.9 68 20 149/66 (93) 100 01/26/18 20:00 55 01/26/18 20:00 70 01/26/18 18:00 72 01/26/18 16:09 100 40 01/26/18 16:00 55 01/26/18 16:00 99.5 79 23 148/73 (98) 100 01/26/18 16:00 79 01/28/18 06:59 Intake Total 450 ml Balance 450 ml Constitutional Vital Signs Date Time Temp Pulse Resp B/P (MAP) Pulse Ox O2 Delivery O2 Flow Rate FiO2 01/27/18 12:05 98 30 01/27/18 12:00 98.1 61 21 113/57 (75) 98 01/27/18 12:00 30 01/27/18 10:00 30 01/27/18 10:00 61 01/27/18 08:18 99 30 01/27/18 08:00 30 01/27/18 08:00 63 01/27/18 08:00 97.5 63 22 118/56 (76) 99 01/27/18 06:00 57 01/27/18 04:00 63 01/27/18 04:00 55 01/27/18 04:00 99.7 58 28 116/56 (76) 99 01/27/18 03:17 98 30 01/27/18 02:00 60 01/27/18 00:14 99 30 01/27/18 00:00 99.9 60 22 130/58 (82) 99 01/27/18 00:00 55 01/27/18 00:00 60 01/26/18 22:00 72 01/26/18 20:33 100 30 01/26/18 20:00 100.9 68 20 149/66 (93) 100 01/26/18 20:00 55 01/26/18 20:00 70 01/26/18 18:00 72 01/26/18 16:09 100 40 01/26/18 16:00 55 01/26/18 16:00 99.5 79 23 148/73 (98) 100 01/26/18 16:00 79 01/28/18 06:59 Intake Total 450 ml Balance 450 ml (Glenda Uribe) Review of Systems ROS Limitations: Intubated (Glenda Uribe) Physical Exam GENERAL: middle-aged appearing male, comatose SKIN: Warm and dry. HEAD: Normocephalic. EYES: No scleral icterus. No injection or drainage. NECK: Supple, trachea midline. No JVD. CARDIOVASCULAR: irregularly irregular rhythm. afib. RESPIRATORY: intubated, mechanically ventilated GASTROINTESTINAL: Abdomen soft, non-tender MUSCULOSKELETAL: No deformities. No cyanosis, or edema. NEURO EXAM: Comatose, extensor postures in the extremities. pupils 3 mm bilaterally equal, sluggishly reactive. did not follow any commands with downward gaze. (Glenda Uribe) GENERAL: middle-aged appearing male, comatose, intubated. SKIN: Warm and dry. HEAD: Normocephalic. EYES: No scleral icterus. No injection or drainage. NECK: Supple, trachea midline. No JVD. CARDIOVASCULAR: normal rate, irregularly irregular rhythm. afib. RESPIRATORY: equal chest rise. prvc. fio2 40%. does breath over the vent. GASTROINTESTINAL: Abdomen soft, non-tender, nondistended. no guarding. MUSCULOSKELETAL: No cyanosis, or edema. NEURO EXAM: RASS -5. GCS 4. extensor postures in the upper extremities, triple flexion in the lowers. upgoing Babinski. +corneals, +cough. + gag. breaths over the vent. pupils 1mm bilaterally equal, sluggishly reactive. did not follow any commands with vertical gaze. (Francois Alvarez MD) Medications Current Medications Current Medications Medications (Trade) Dose Ordered Sig/Abel Route PRN Reason Start Time Stop Time Status Last Admin Dose Admin Pravastatin Sodium (Pravachol) 40 mg DAILY PO 01/20/18 09:00 01/27/18 08:52 Sodium Chloride (NS Flush) 2 ml UNSCH PRN IV FLUSH FLUSH AFTER USING IV ACCESS 01/19/18 20:15 Sodium Chloride (NS Flush) 2 ml BID IV FLUSH 01/19/18 21:00 01/27/18 08:51 Acetaminophen (Tylenol) 650 mg Q6H PRN PO PAIN 1-10 AND/OR FEVER >101F 01/19/18 20:15 01/26/18 21:28 Miscellaneous Information ([facility] [place] Nursing Information) 1 Q361D XX 01/19/18 20:15 Chlorhexidine Gluconate (Chlorhexidine 2% Cloth) Taper DAILY@04 TOP 01/20/18 04:00 01/16/19 03:59 01/27/18 03:23 Chlorhexidine Gluconate (Chlorhexidine 2% Cloth) 3 pack UNSCH PRN TOP HYGIENIC CARE 01/19/18 20:15 Sennosides (Senokot) 17.2 mg Q12H PRN PO Moderate constipation 01/19/18 20:15 Chlorhexidine Gluconate (Peridex 0.12% Liq) 15 ml BID@08,20 MT 01/20/18 08:00 01/27/18 08:17 Amlodipine Besylate (Norvasc) 5 mg Q12HR PO 01/20/18 21:00 01/27/18 08:51 Hydralazine HCl (Apresoline) 100 mg Q8HR PO 01/21/18 08:00 01/27/18 05:54 Labetalol HCl (Trandate Inj) 20 mg Q15M PRN IV PUSH sbp > 150 01/21/18 08:00 01/24/18 04:15 Hydralazine HCl (Apresoline Inj) 10 mg Q30M PRN IV PUSH sbp > 150 01/21/18 08:00 Propranolol HCl (Inderal) 60 mg Q6HR PO 01/22/18 13:00 01/27/18 12:57 Bisacodyl (Dulcolax Supp) 10 mg DAILY RECTAL 01/23/18 09:00 01/25/18 09:20 Polyethylene Glycol (Miralax) 17 gm BID PO 01/22/18 21:00 01/25/18 20:24 Lactulose (Lactulose Liq) 30 ml BID PO 01/22/18 21:00 01/25/18 20:23 Senna/Docusate Sodium (Fadumo-Colace) 1 tab BID PO 01/22/18 21:00 01/27/18 08:51 Sodium Chloride 1,000 ml @ 100 mls/hr Q10H IV 01/25/18 07:00 01/27/18 08:31 Famotidine (Pepcid) 10 mg BID PO 01/25/18 21:00 01/27/18 08:51 Piperacillin Sod/ Tazobactam Sod 50 ml @ 100 mls/hr Q6H IV 01/26/18 14:00 01/27/18 15:01 Albuterol/ Ipratropium (Duoneb Neb) 1 ampule Q6HR NEB NEB 01/26/18 10:00 01/27/18 08:15 Albuterol Sulfate (Albuterol Neb) 2.5 mg Q2HR NEB PRN NEB dyspnea 01/26/18 09:45 Sodium Chloride (Sodium Chloride 3% Neb) 2 ml Q6HR NEB NEB 01/26/18 10:00 01/31/18 09:59 01/27/18 08:15 Guaifenesin (Robitussin Liq) 400 mg Q8HR NG 01/26/18 14:00 01/27/18 15:01 Artificial Tears (Lacrilube Opht Oint) 1 applic Q12HR EACH EYE 01/26/18 21:00 01/27/18 08:52 Propofol 100 ml @ 2.529 mls/ hr TITRATE PRN IV SEDATION 01/26/18 22:15 01/27/18 04:25 (Glenda Uribe) Current Medications Current Medications Sodium Chloride 1,000 ml @ 70 mls/hr [id number] ONCE IV Last administered on at 18:02; Start 01/19/18 at 18:02; Stop 01/20/18 at 08:19; Status DC Prothrombin Complex Concent (Human) 2000 units/Syringe / Bag 0 ml @ 500 mls/hr ONCE ONCE IV Last administered on 01/19/18at 19:25; Start 01/19/18 at 19:15; Stop 01/19/18 at 19:16; Status DC Nicardipine HCl 25 mg/Sodium Chloride 260 ml @ 52 mls/hr TITRATE PRN IV Blood pressure management Last administered on 01/21/18at 13:33; Start 01/19/18 at 18:45 ; Stop 01/21/18 at 15:01; Status DC Etomidate (Amidate Inj) 40 mg STK-MED ONCE .ROUTE Last administered on 18:42; Start 01/19/18 at 18:42; Stop 01/19/18 at 18:43; Status DC Succinylcholine Chloride (Quelicin Inj) 200 mg STK-MED ONCE .ROUTE Last administered on 01/19/18 18:43; Start 01/19/18 at 18:43; Stop 01/19/18 at 18:44; Status DC Midazolam HCl (Versed Inj) 5 mg STK-MED ONCE .ROUTE ; Start 01/19/18 at 18:44; Stop 01/19/18 at 18:45; Status DC Phytonadione 10 mg/Dextrose 51 ml @ 102 mls/hr ONCE STAT IV Last administered on 01/19/18 19:24; Start 01/19/18 at 18:44; Stop 01/19/18 at 19:13; Status DC Propofol 50 ml @ As Directed STK-MED ONCE .ROUTE Last administered on 01/19/18 19:25; Start 01/19/18 at 18:55; Stop 01/19/18 at 18:56; Status DC Propofol 100 ml @ 0 mls/hr TITRATE PRN IV SEDATION; Start 01/19/18 at 18:45; Stop 01/19/18 at 20:27; Status DC Amlodipine Besylate (Norvasc) 5 mg DAILY PO Last administered on 01/20/18 08:51 ; Start 01/20/18 at 09:00; Stop 01/20/18 at 16:45; Status DC Metoprolol Tartrate (Lopressor) 50 mg BID PO Last administered on 01/20/18 08: 51; Start 01/19/18 at 21:00; Stop 01/20/18 at 16:45; Status DC Pravastatin Sodium (Pravachol) 40 mg DAILY PO Last administered on 01/28/18at 09 :34; Start 01/20/18 at 09:00 Sodium Chloride 1,000 ml @ 84 mls/hr [id number] IV Last administered on 01/22/18at 08:35; Start 01/19/18 at 21:00; Stop 01/22/18 at 15:54; Status DC Sodium Chloride (NS Flush) 2 ml UNSCH PRN IV FLUSH FLUSH AFTER USING IV ACCESS ; Start 01/19/18 at 20:15 Sodium Chloride (NS Flush) 2 ml BID IV FLUSH Last administered on 01/28/18at 09: 31; Start 01/19/18 at 21:00 Acetaminophen (Tylenol) 650 mg Q6H PRN PO PAIN 1-10 AND/OR FEVER >101F Last administered on 01/26/18at 21:28; Start 01/19/18 at 20:15 Famotidine (Pepcid Inj) 20 mg Q12HR IV PUSH Last administered on 01/21/18at 07:59 ; Start 01/19/18 at 21:00; Stop 01/21/18 at 13:58; Status DC Midazolam HCl (Versed Inj) 2 mg Q1H PRN IV PUSH SEDATION; Start 01/19/18 at 20: 15; Stop 01/21/18 at 17:11; Status DC Albuterol/ Ipratropium (Duoneb Neb) 1 ampule Q2HR NEB PRN INH WHEEZING Last administered on 01/24/18at 16:55; Start 01/19/18 at 20:15; Stop 01/26/18 at 09:35; Status DC Miscellaneous Information ([facility] [place] Nursing Information) 1 Q361D XX ; Start 01/19/18 at 20:15 Chlorhexidine Gluconate (Chlorhexidine 2% Cloth) Taper DAILY@04 TOP Last administered on 01/27/18at 03:23; Start 01/20/18 at 04:00; Stop 01/16/19 at 03:59 Chlorhexidine Gluconate (Chlorhexidine 2% Cloth) 3 pack UNSCH PRN TOP HYGIENIC CARE; Start 01/19/18 at 20:15 Senna/Docusate Sodium (Fadumo-Colace) 1 tab BID PO Last administered on 01/22/18 09:28; Start 01/19/18 at 21:00; Stop 01/22/18 at 15:54; Status DC Magnesium Hydroxide (Milk Of Magnesia Liq) 30 ml Q12H PRN PO Mild constipation Last administered on 01/22/18 09:28; Start 01/19/18 at 20:15; Stop 01/22/18 at 15: 54; Status DC Sennosides (Senokot) 17.2 mg Q12H PRN PO Moderate constipation; Start 01/19/18 at 20:15 Bisacodyl (Dulcolax Supp) 10 mg DAILY PRN RECTAL SEVERE CONSITIPATION; Start at 20:15; Stop 01/22/18 at 15:54; Status DC Lactulose (Lactulose Liq) 30 ml DAILY PRN PO SEVERE CONSITIPATION Last administered on 01/22/18 09:28; Start 01/19/18 at 20:15; Stop 01/22/18 at 15:54; Status DC Chlorhexidine Gluconate (Peridex 0.12% Liq) 15 ml BID@08,20 MT Last administered on 01/28/18at 08:05; Start 01/20/18 at 08:00 Propofol 100 ml @ 2.493 mls/ hr TITRATE PRN IV SEDATION Last administered on at 03:36; Start 01/19/18 at 20:15; Stop 01/20/18 at 16:45; Status DC Gadodiamide (Omniscan Pf Inj) 16 ml STK-MED ONCE IV PUSH Last administered on at 13:55; Start 01/20/18 at 13:55; Stop 01/20/18 at 13:56; Status DC Metoprolol Tartrate (Lopressor) 50 mg Q6HR PO Last administered on 01/21/18at 10: 51; Start 01/20/18 at 18:00; Stop 01/21/18 at 17:11; Status DC Amlodipine Besylate (Norvasc) 5 mg Q12HR PO Last administered on 01/28/18at 09: 30; Start 01/20/18 at 21:00 Hydralazine HCl (Apresoline) 100 mg Q8HR PO Last administered on 01/28/18at 06: 22; Start 01/21/18 at 08:00 Labetalol HCl (Trandate Inj) 20 mg Q15M PRN IV PUSH sbp > 150 Last administered on 01/24/18at 04:15; Start 01/21/18 at 08:00 Hydralazine HCl (Apresoline Inj) 10 mg Q30M PRN IV PUSH sbp > 150; Start at 08:00 Miscellaneous Information ([facility] [place] Nursing Information) D/C ICU ELECTROLYTE ORDERS... UNSCH PRN .XX SEE DOSE INSTRUCTIONS; Start 01/21/18 at 14:00; Stop 08/04 at 14:35; Status DC Miscellaneous Information ([facility] [place] Nursing Information) ICU - CALL ORDERING PHYSIC... UNSCH PRN .XX SEE DOSE INSTRUCTIONS; Start 01/21/18 at 14:00; Stop 08/04 at 14:35; Status DC Potassium Chloride 100 ml @ 25 mls/hr UNSCH PRN IV ELECTROLYTE REPLACEMENT; Start 01/21/18 at 14:00; Stop 01/27/18 at 14:35; Status DC Potassium Bicarb/ Potassium Chloride (K-Lyte Cl Eff) 50 meq UNSCH PRN PO ELECTROLYTE REPLACEMENT Last administered on 01/26/18at 06:15; Start 01/21/18 at 14:00; Stop 01/27/18 at 14:35; Status DC Potassium Chloride 100 ml @ 50 mls/hr UNSCH PRN IV ELECTROLYTE REPLACEMENT Last administered on 01/23/18at 09:00; Start 01/21/18 at 14:00; Stop 01/27/18 at 14 :35; Status DC Magnesium Sulfate 4 gm/Sodium Chloride 108 ml @ 54 mls/hr UNSCH PRN IV ELECTROLYTE REPLACEMENT; Start 01/21/18 at 14:00; Stop 01/27/18 at 14:35; Status DC Magnesium Sulfate 2 gm/Sodium Chloride 104 ml @ 52 mls/hr UNSCH PRN IV ELECTROLYTE REPLACEMENT; Start 01/21/18 at 14:00; Stop 01/27/18 at 14:35; Status DC Magnesium Oxide (Mag-Ox) 800 mg UNSCH PRN PO ELECTROLYTE REPLACEMENT; Start 01/21/18 at 14:00; Stop 01/27/18 at 14:35; Status DC Sodium Phosphate 30 mmol/Sodium Chloride 260 ml @ 43.333 mls/ hr UNSCH PRN IV ELECTROLYTE REPLACEMENT; Start 01/21/18 at 14:00; Stop 01/27/18 at 14:35; Status DC Potassium Phosphate (K-Phos) 2,000 mg UNSCH PRN PO ELECTROLYTE REPLACEMENT; Start 01/21/18 at 14:00; Stop 01/27/18 at 14:35; Status DC Potassium Phosphate 30 mmol/ Sodium Chloride 260 ml @ 43.333 mls/ hr UNSCH PRN IV ELECTROLYTE REPLACEMENT; Start 01/21/18 at 14:00; Stop 01/27/18 at 14:35; Status DC Famotidine (Pepcid) 20 mg BID PO Last administered on 01/24/18at 22:46; Start 01/21/18 at 21:00; Stop 01/25/18 at 09:14; Status DC Nicardipine HCl 50 mg/Sodium Chloride 500 ml @ 52 mls/hr TITRATE PRN IV Blood pressure management Last administered on 01/22/18at 11:01; Start 01/21/18 at 15:15 ; Stop 01/24/18 at 21:13; Status DC Propranolol HCl (Inderal) 40 mg Q6HR PO Last administered on 01/22/18at 05:12; Start 01/21/18 at 17:15; Stop 01/22/18 at 11:44; Status DC Propranolol HCl (Inderal) 60 mg Q6HR PO Last administered on 01/28/18at 12:01; Start 01/22/18 at 13:00 Bisacodyl (Dulcolax Supp) 10 mg DAILY RECTAL Last administered on 01/25/18at 09: 20; Start 01/23/18 at 09:00 Polyethylene Glycol (Miralax) 17 gm BID PO Last administered on 01/27/18at 22:40 ; Start 01/22/18 at 21:00 Lactulose (Lactulose Liq) 30 ml BID PO Last administered on 01/28/18at 09:30; Start 01/22/18 at 21:00 Senna/Docusate Sodium (Fadumo-Colace) 1 tab BID PO Last administered on at 09:30; Start 01/22/18 at 21:00 Magnesium Citrate (Citroma Liq) 300 ml ONCE ONCE PO Last administered on at 16:00; Start 01/22/18 at 16:00; Stop 01/22/18 at 16:21; Status DC Pharmacy Profile Note 0 ml @ 0 mls/hr UNSCH OTHER ; Start 01/24/18 at 21:15; Stop 01/27/18 at 10:29; Status DC Vancomycin HCl 1250 mg/Sodium Chloride 262.5 ml @ 250 mls/hr ONCE ONCE IV ; Start 01/24/18 at 21:15; Stop 01/24/18 at 21:40; Status DC Piperacillin Sod/ Tazobactam Sod 100 ml @ 200 mls/hr Q6H IV Last administered on 01/25/18at 03:13; Start 01/24/18 at 22:00; Stop 01/25/18 at 08:53; Status DC Furosemide (Lasix Inj) 40 mg ONCE ONCE IV PUSH Last administered on 01/24/18at 22:40; Start 01/24/18 at 21:30; Stop 01/24/18 at 21:35; Status DC Vancomycin HCl 2000 mg/Sodium Chloride 520 ml @ 250 mls/hr ONCE ONCE IV Last administered on 01/24/18at 23:53; Start 01/24/18 at 23:00; Stop 01/25/18 at 01:04; Status DC Vancomycin HCl 1000 mg/Sodium Chloride 250 ml @ 250 mls/hr Q12H IV ; Start 06/04 at 11:00; Status Cancel Miscellaneous Information ([facility] [place] [facility] Ordered Lab Info) SPECIFIC LAB TO BE DRAWN:VANCO TROUGH DATE TO BE DR... ONCE ONCE .XX ; Start 01/26/18 at 10:45; Stop 01/26/18 at 10:46; Status Cancel Sodium Chloride 1,000 ml @ 150 mls/hr Q6H40M IV Last administered on at 14:04; Start 01/25/18 at 07:00 Piperacillin Sod/ Tazobactam Sod 50 ml @ 200 mls/hr Q6H IV Last administered on 01/26/18at 08:09; Start 01/25/18 at 09:00; Stop 01/26/18 at 09:31; Status DC Famotidine (Pepcid) 10 mg BID PO Last administered on 01/28/18at 09:31; Start at 21:00 Piperacillin Sod/ Tazobactam Sod 50 ml @ 100 mls/hr Q6H IV Last administered on 01/28/18at 08:04; Start 01/26/18 at 14:00; Stop 01/28/18 at 13:35; Status DC Potassium Chloride 100 ml @ 100 mls/hr Q1H IV ; Start 01/26/18 at 09:45; Stop 01/26/18 at 12:44; Status DC Potassium Chloride (KCl Powder) 20 meq ONCE ONCE PO ; Start 01/26/18 at 09:45; Stop 01/26/18 at 09:47; Status DC Albuterol/ Ipratropium (Duoneb Neb) 1 ampule Q6HR NEB NEB Last administered on 01/28/18at 08:24; Start 01/26/18 at 10:00 Albuterol Sulfate (Albuterol Neb) 2.5 mg Q2HR NEB PRN NEB dyspnea; Start at 09:45 Sodium Chloride (Sodium Chloride 3% Neb) 2 ml Q6HR NEB NEB Last administered on 01/28/18at 08:24; Start 01/26/18 at 10:00; Stop 01/31/18 at 09:59 Guaifenesin (Robitussin Liq) 400 mg Q8HR NG Last administered on 01/27/18at 22: 42; Start 01/26/18 at 14:00 Vancomycin HCl 1500 mg/Sodium Chloride 515 ml @ 257.5 mls/ hr ONCE ONCE IV Last administered on 01/26/18at 12:41; Start 01/26/18 at 13:00; Stop 01/26/18 at 14:59; Status DC Artificial Tears (Lacrilube Opht Oint) 1 applic Q12HR EACH EYE Last administered on 01/28/18at 09:31; Start 01/26/18 at 21:00 Propofol 100 ml @ 2.529 mls/ hr TITRATE PRN IV SEDATION Last administered on at 04:25; Start 01/26/18 at 22:15 Vancomycin HCl 1000 mg/Sodium Chloride 250 ml @ 250 mls/hr Q24H IV ; Start at 13:45; Status UNV Sodium Chloride 1,000 ml @ 999 mls/hr BOLUS ONCE IV Last administered on 01/28at 14:04; Start 01/28/18 at 13:45; Stop 01/28/18 at 14:45 (Francois Alvarez MD) Medical Decision Making MDM Remarks 67 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, poor examination (Glenda Uribe) Plan Plan Remarks cont nonsurgical management of pontine bleed, cont management to Critical Care and Neurologist palliative care following (Glenda Uribe) Attending Statement Assessment: 67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 s/p PEA cardiac arrest 01/23 - most likely secondary to ICH in the brainstem - continue in ICU Pontine intracerebral hemorrhage - s/p reversal with KCentra and vit K 01/19 - daily INR - very poor prognosis - neurology: Dr. Malin following - neurosurgery: Dr. Alvarez following - Per Dr. Malin, repeat MRI next week. 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 alpha and theta waves which could be consistent with a diagnosis of LIS. - avoid sedation - frequent neuro checks Hypertensive Emergency - propranolol 60mg po q6h -Amlodipine 5 mg twice daily - hydralazine 100mg po q8h - prn labetalol, hydralazine - goal sbp < 150 Acute hypoxic and Hypercarbic respiratory failure - wean fio2 for goal spo2 > 90% - no SBT or weaning of mechanical ventilation until neuro exam improves - would be a candidate for early tracheostomy if family wishes to be aggressive - vent bundle - hob elevated - nebs Fever, Leukocytosis Possible HCAP pneumonia - buck cultures: pending. - vancomycin - tylenol for fever - cooling blanket COPD -Albuterol/ipratropium aerosols every 6 hours with albuterol aerosols every 2 hours as needed dyspnea -No steroids indicated Atrial fibrillation -Rate control with beta blockade -No anticoagulation due to active ICH Coagulopathy/chronic warfarin use secondary to atrial fibrillation -DC warfarin -Received K Centra and vitamin K in the ED -INR reversed Microcytic anemia/thrombocytopenia Monitor CBC daily. Follow trends Dyslipidemia Currently on pravastatin 40 mg daily DVT GI prophylaxis -Yaw's and SCDs -No pharmacological DVT prophylaxis due to acute ICH -Famotidine Continue tube feeds on hold Jevity 1.5 at 60 cc an hour. Check KUB. NS 84 cc/ hr currently. Palliative care following. Overall impression: Patient remains critically ill with a devastating neurologic injury. Location and size of pontine bleed make significant recovery unlikely. Patient is potentially locked in Syndrome The exam, history, and the medical decision-making described in the above note were completed with the assistance of the mid-level provider. I reviewed and agree with the findings presented. I attest that I had a [id number] encounter with the patient on the same day, and personally performed (Francois Alvarez MD) Glenda Uribe Jan 27, 2018 15:46 Francois Alvarez MD Jan 28, 2018 14:45
[2018-01-28] VITALS (18 sets, daily range): BP systolic 123–141; BP diastolic 59–65; PULSE 57–76; RESP 18–24; TEMP 98.3–100.5; O2SAT 97–99
[2018-01-28] MEDS: PROPRANOLOL HCL 20 MG TAB PO SCH ×5 (00:24→23:06)
[2018-01-28] MEDS: RESP: ALBUTEROL 2.5 MG/IPRATROPIUM 0.5 MG NEB (SCH) NEB ×4 (03:40→20:07)
[2018-01-28] MEDS: RESP: SODIUM CHLORIDE 3% 4 ML NEB NEB SCH ×5 (03:40→20:07)
[2018-01-28] MEDS: PIPERACIL-TAZO 2.25 GM PREMIX 50 ML IV SCH ×2 (05:02→08:04)
[2018-01-28] MEDS: SODIUM CHLOR 0.9% 1000 ML INJ 1,000 ML IV SCH ×4 (05:03→21:34)
[2018-01-28] MEDS: guaiFENesin SOLUTION 200 MG/10 ML CUP NG SCH ×3 (06:00→21:38)
[2018-01-28] MEDS: hydrALAZINE HCL 100 MG TAB PO SCH ×3 (06:22→21:38)
[2018-01-28] MEDS: CHLORHEXIDINE 0.12% (ORAL KIT) 15 ML CUP MT SCH ×2 (08:05→19:39)
[2018-01-28] MEDS: BISACODYL 10 MG SUPP RECTAL SCH (09:00)
[2018-01-28] MEDS: POLYETHYLENE GLYCOL 17 GM PKG PO SCH ×2 (09:00→21:00)
[2018-01-28] MEDS: LACTULOSE SYRUP 20 GM/30 ML CUP PO SCH ×2 (09:30→21:00)
[2018-01-28] MEDS: amLODIPine BESYLATE 5 MG TAB PO SCH ×2 (09:30→21:38)
[2018-01-28] MEDS: DOCUSATE SODIUM 50 MG/SENNA 8.6 MG TAB PO SCH ×2 (09:30→21:00)
[2018-01-28] MEDS: ARTIFICIAL TEARS OPTH OINT 3.5 APPLIC/3.5 GM TUBO EACH EYE SCH ×2 (09:31→21:39)
[2018-01-28] MEDS: FAMOTIDINE 20 MG TAB PO SCH ×2 (09:31→21:39)
[2018-01-28] MEDS: SODIUM CHLORIDE 0.9% FLUSH 10 ML FLUSH IV FLUSH SCH ×2 (09:31→21:39)
[2018-01-28] MEDS: PRAVASTATIN SOD 40 MG TAB PO SCH (09:34)
--- NOTE | 2018-01-28 13:40 | HHI.CCPN ---
Subjective Remarks/Hospital Course 57-year-old gentleman with a history of hypertension, atrial fibrillation on Coumadin, is admitted secondary to acute onset of headache and left extremity weakness. Patient was watching TV when he suddenly developed a headache and left arm and left leg weakness, slurred speech approximately 1 hour prior to ER arrival. The CT of the brain shows 1.1 cm acute hemorrhage in the right terrance. No acute findings in the supratentorial brain. The patient was immediately intubated in the emergency department by ED attending for an airway protection, received K Centra and vitamin K, and is now admitted to ICU. 01/20: persistently poor neurologic exam. extensor posturing in the upper extremities. triple flexion in the lowers. repeat CT brain with extension of the pontine hemorrhage into the brainstem. very grim prognosis. neurosurgery re- evaluated and agrees there is no neurosurgical intervention warranted at this point. Long and multiple discussions with the family regarding prognosis and minimal improvements over time. family is flying in from out of state. palliative met with family. neurology also agrees with grim prognosis. 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 01/21: no changes in mental status. postures in the extremities. per Dr. Malin, patient can follow commands with vertical gaze deviation, increasing concern for locked-in syndrome. today on my evaluation, patient is not following commands with gaze and my exam is unchanged from yesterdays. 01/22: no improvements in mental status. not following commands with vertical gaze. still vigorously posturing. more family arriving on friday. 01/23: asystolic cardiac arrest this AM. pupils still equal, conjugate reactive. ROSC after 2 rounds of epi and compressions. STAT head CT ordered. I notified his who is on her way up. very poor prognosis. 01/24: febrile to 103 despite tylenol. sputum with significant secretions. no change in poor mental status. fio2 increasing and more hypoxic today. 01/25: fever persists, although somewhat lower. wbc remains elevated. fio2 down to 40%. no changes at all in poor neurologic exam. Subjective: 01/26: T-max 100.6. Currently 99.5. Very poor neurological examination. Continues with leukocytosis. 01/27: Afebrile today. Renal function deteriorating. We will stop vancomycin. Chest x-ray remains clear. Urine is probably contaminant. Pontine hemorrhage involves wide area and significant neurologic recovery is highly unlikely. 01/28: Unable to perform sustained ventilatory effort. No change in neuro status. Pre-renal azotemia is worsening. Objective Vital Signs Date Time Temp Pulse Resp B/P (MAP) Pulse Ox O2 Delivery O2 Flow Rate FiO2 01/28/18 12:00 30 01/28/18 12:00 74 01/28/18 12:00 100.5 24 135/63 (87) 98 Intake and Output 01/28/18 01/28/18 01/29/18 08:00 16:00 00:00 Intake Total 750 ml 50 ml Output Total 101 ml Balance 649 ml 50 ml Result Diagram: 01/27/18 0619 01/27/18 0516 Imaging Last Impressions Chest X-Ray 01/25/18 0000 Signed Impressions: CONCLUSION: Right lung is now clear. Head CT 01/23/18 0000 Signed Impressions: CONCLUSION: Slight interval resorption of brainstem hemorrhage. 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 Objective Remarks GENERAL: 67-year-old middle-aged appearing male, comatose, intubated. SKIN: Warm and dry. Large tattoo in left upper extremity HEAD: Normocephalic. EYES: No scleral icterus. No injection or drainage. NECK: Supple, trachea midline. Orally intubated. CARDIOVASCULAR: Irregularly irregular. S1, S2 no S4, neck veins flat. RESPIRATORY: equal chest rise. prvc. fio2 40% PEEP 12. does breath over the vent but hiccups persist. Coarse breath sounds. thick tenacious secretions. GASTROINTESTINAL: Abdomen soft, non-tender, nondistended. no guarding. Bowel sounds active. MUSCULOSKELETAL: No cyanosis, or edema. Warm well perfused. NEURO EXAM: RASS -5. GCS 4. extensor postures in the upper extremities, upgoing Babinski. +corneal, +cough. + gag. breaths over the vent. pupils 1mm bilaterally equal, sluggishly reactive. did not follow any commands with vertical gaze. 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 Now by repeat head CT is > 5mL total volume, which by multiple studies, this volume of pontine blood with this low GCS score has very poor overall survivability or neurologic improvement. unlikely to have any meaningful neurologic improvement. now s/p cardiac arrest. From retrospective data, patients who have cardiac arrest after devastating primary neurologic insult have almost a 100% in- hospital mortality. Certainly given the patient's already grim prognosis, at this point it is unlikely he will survive this hospitalization or make any meaningful neurologic recovery. Family still appears optimistic, although we will re-address overall goals of care. no improvements over days. unlikely to survive and no real hope for meaningful neurologic recovery. Will again discuss overall goals with family, although they have been resistant to any long-term discussions at this time. s/p PEA cardiac arrest 01/23 - most likely secondary to ICH in the brainstem - continue in ICU Pontine intracerebral hemorrhage - s/p reversal with KCentra and vit K 01/19 - daily INR - very poor prognosis - neurology: Dr. Malin following - neurosurgery: Dr. Alvarez following - Per Dr. Malin, repeat MRI next week. 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 alpha and theta waves which could be consistent with a diagnosis of LIS. - avoid sedation - frequent neuro checks Hypertensive Emergency - propranolol 60mg po q6h -Amlodipine 5 mg twice daily - hydralazine 100mg po q8h - prn labetalol, hydralazine - goal sbp < 150 Acute hypoxic and Hypercarbic respiratory failure - wean fio2 for goal spo2 > 90% - no SBT or weaning of mechanical ventilation until neuro exam improves - would be a candidate for early tracheostomy if family wishes to be aggressive - vent bundle - hob elevated - nebs Fever, Leukocytosis Possible HCAP pneumonia - buck cultures: pending. - vancomycin - tylenol for fever - cooling blanket COPD -Albuterol/ipratropium aerosols every 6 hours with albuterol aerosols every 2 hours as needed dyspnea -No steroids indicated Atrial fibrillation -Rate control with beta blockade -No anticoagulation due to active ICH Coagulopathy/chronic warfarin use secondary to atrial fibrillation -DC warfarin -Received K Centra and vitamin K in the ED -INR reversed Microcytic anemia/thrombocytopenia Monitor CBC daily. Follow trends Dyslipidemia Currently on pravastatin 40 mg daily DVT GI prophylaxis -Yaw's and SCDs -No pharmacological DVT prophylaxis due to acute ICH -Famotidine tube feeds on hold Jevity 1.5 at 60 cc an hour. Check KUB. NS 84 cc/hr currently. Appreciate palliative care following. Overall impression: Patient remains critically ill with a devastating neurologic injury. Location and size of pontine bleed make significant recovery unlikely. Patient is potentially locked in but sympathetic responses are not typical of that. Presently ventilator dependent and we are unable to wean. Critical care time 40 mins Nick Leggett MD Jan 28, 2018 13:40
[2018-01-28] MEDS ORDERED: SODIUM CHLOR 0.9% 1000 ML INJ 1,000 ML IV ONE ×2 (13:45→19:00)
[2018-01-28] MEDS ORDERED: VANCOMYCIN INJ 1,000 MG in SODIUM CHLOR 0.9% 250 ML INJ 250 ML IV SCH (13:45)
[2018-01-28] MEDS ORDERED: Vancomycin Consult Pharmacy 1 EA OTHER SCH (16:30)
[2018-01-28] MEDS ORDERED: VANCOMYCIN 1,500 MG/NS 500 ML IV ONE ×2 (18:00)
[2018-01-28] MEDS ORDERED: VANCOMYCIN 1,000 MG/NS 250 ML IV ONE ×2 (18:00)
[2018-01-29] VITALS (18 sets, daily range): BP systolic 129–157; BP diastolic 61–70; PULSE 64–73; RESP 18–19; TEMP 98.8–99.5; O2SAT 95–100
[2018-01-29] MEDS: RESP: SODIUM CHLORIDE 3% 4 ML NEB NEB SCH ×4 (03:28→20:21)
[2018-01-29] MEDS: RESP: ALBUTEROL 2.5 MG/IPRATROPIUM 0.5 MG NEB (SCH) NEB ×4 (03:28→20:21)
[2018-01-29] MEDS: CHLORHEXIDINE GLUCONATE 2 % 1 PACK (2 CLOTHS) TOP SCH (04:00)
[2018-01-29] MEDS: SODIUM CHLOR 0.9% 1000 ML INJ 1,000 ML IV SCH ×4 (04:12→18:48)
[2018-01-29 05:26] LABS: BICARBONATE 13.4 MEQ/L (21.0-32.0); CALCIUM 8.1 MG/DL (8.5-10.1); CREATININE 7.13 MG/DL (0.60-1.30)
[2018-01-29 05:27] LABS: RANDOM VANCOMYCIN 31.8 COMMENT
[2018-01-29] MEDS: PROPRANOLOL HCL 20 MG TAB PO SCH ×4 (05:53→23:21)
[2018-01-29] MEDS: guaiFENesin SOLUTION 200 MG/10 ML CUP NG SCH ×3 (05:53→20:50)
[2018-01-29] MEDS: hydrALAZINE HCL 100 MG TAB PO SCH ×3 (05:53→20:49)
[2018-01-29] MEDS: CHLORHEXIDINE 0.12% (ORAL KIT) 15 ML CUP MT SCH ×2 (08:00→19:43)
[2018-01-29] MEDS: LACTULOSE SYRUP 20 GM/30 ML CUP PO SCH ×2 (08:33→20:40)
[2018-01-29] MEDS: POLYETHYLENE GLYCOL 17 GM PKG PO SCH ×2 (08:33→20:40)
[2018-01-29] MEDS: ARTIFICIAL TEARS OPTH OINT 3.5 APPLIC/3.5 GM TUBO EACH EYE SCH ×2 (08:33→20:49)
[2018-01-29] MEDS: BISACODYL 10 MG SUPP RECTAL SCH (08:33)
[2018-01-29] MEDS: SODIUM CHLORIDE 0.9% FLUSH 10 ML FLUSH IV FLUSH SCH ×2 (08:33→20:49)
[2018-01-29] MEDS: PRAVASTATIN SOD 40 MG TAB PO SCH (09:10)
[2018-01-29] MEDS: DOCUSATE SODIUM 50 MG/SENNA 8.6 MG TAB PO SCH ×2 (09:10→20:41)
[2018-01-29] MEDS: amLODIPine BESYLATE 5 MG TAB PO SCH ×2 (09:10→20:49)
[2018-01-29] MEDS: FAMOTIDINE 20 MG TAB PO SCH ×2 (09:10→20:49)
--- NOTE | 2018-01-29 10:21 | HHI.HCPN ---
Attempted to see for emotional support and palliative care follow-up. and family has not been receptive to palliative care visits. Spoke with RN, no family present so far today. Left contact information with RN to contact palliative care when family arrives. Palliative care will continue to follow throughout hospitalization. Naomy Riggs, EXPLORATION MANAGER Jan 29, 2018 10:21
--- NOTE | 2018-01-29 11:16 | HHI.CCPN ---
Subjective Remarks/Hospital Course 57-year-old gentleman with a history of hypertension, atrial fibrillation on Coumadin, is admitted secondary to acute onset of headache and left extremity weakness. Patient was watching TV when he suddenly developed a headache and left arm and left leg weakness, slurred speech approximately 1 hour prior to ER arrival. The CT of the brain shows 1.1 cm acute hemorrhage in the right terrance. No acute findings in the supratentorial brain. The patient was immediately intubated in the emergency department by ED attending for an airway protection, received K Centra and vitamin K, and is now admitted to ICU. 01/20: persistently poor neurologic exam. extensor posturing in the upper extremities. triple flexion in the lowers. repeat CT brain with extension of the pontine hemorrhage into the brainstem. very grim prognosis. neurosurgery re- evaluated and agrees there is no neurosurgical intervention warranted at this point. Long and multiple discussions with the family regarding prognosis and minimal improvements over time. family is flying in from out of state. palliative met with family. neurology also agrees with grim prognosis. 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 01/21: no changes in mental status. postures in the extremities. per Dr. Mlain, patient can follow commands with vertical gaze deviation, increasing concern for locked-in syndrome. today on my evaluation, patient is not following commands with gaze and my exam is unchanged from yesterdays. 01/22: no improvements in mental status. not following commands with vertical gaze. still vigorously posturing. more family arriving on friday. 01/23: asystolic cardiac arrest this AM. pupils still equal, conjugate reactive. ROSC after 2 rounds of epi and compressions. STAT head CT ordered. I notified his who is on her way up. very poor prognosis. 01/24: febrile to 103 despite tylenol. sputum with significant secretions. no change in poor mental status. fio2 increasing and more hypoxic today. 01/25: fever persists, although somewhat lower. wbc remains elevated. fio2 down to 40%. no changes at all in poor neurologic exam. Subjective: 01/26: T-max 100.6. Currently 99.5. Very poor neurological examination. Continues with leukocytosis. 01/27: Afebrile today. Renal function deteriorating. We will stop vancomycin. Chest x-ray remains clear. Urine is probably contaminant. Pontine hemorrhage involves wide area and significant neurologic recovery is highly unlikely. 01/28: Unable to perform sustained ventilatory effort. No change in neuro status. Pre-renal azotemia is worsening. 01/29: Patient has developed ATN and is oliguric. He now has a spontaneous tachypnea with acceptable air movement. No change in neurologic function. Objective Vital Signs Date Time Temp Pulse Resp B/P (MAP) Pulse Ox O2 Delivery O2 Flow Rate FiO2 01/29/18 10:00 68 01/29/18 08:15 30 01/29/18 08:15 95 01/29/18 08:00 99.2 18 129/62 (84) Intake and Output 01/29/18 01/29/18 01/30/18 08:00 16:00 00:00 Intake Total 970 ml Output Total 150 ml Balance 820 ml Result Diagram: 01/27/18 0619 01/29/18 0419 Imaging Last Impressions Chest X-Ray 01/25/18 0000 Signed Impressions: CONCLUSION: Right lung is now clear. Head CT 01/23/18 0000 Signed Impressions: CONCLUSION: Slight interval resorption of brainstem hemorrhage. 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 Objective Remarks GENERAL: 67-year-old middle-aged appearing male, comatose, intubated. SKIN: Warm and dry. Large tattoo in left upper extremity. HEAD: Normocephalic. EYES: No scleral icterus. No injection or drainage. NECK: Supple, trachea midline. Orally intubated. CARDIOVASCULAR: Irregularly irregular. S1, S2 no S4, neck veins flat. RESPIRATORY: equal chest rise. prvc. fio2 40% PEEP 12. does breath over the vent but hiccups persist. Coarse breath sounds. thick tenacious secretions. GASTROINTESTINAL: Abdomen soft, non-tender, nondistended. no guarding. Bowel sounds active. MUSCULOSKELETAL: No cyanosis, or edema. Warm well perfused. NEURO EXAM: RASS -4. GCS 4. To stimulation extensor postures in the upper extremities, upgoing Babinski. Tachypnea breaths. pupils 1mm bilaterally equal , sluggishly reactive. did not follow any commands with vertical gaze. 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 Now by repeat head CT is > 5mL total volume, which by multiple studies, this volume of pontine blood with this low GCS score has very poor overall survivability or neurologic improvement. unlikely to have any meaningful neurologic improvement. now s/p cardiac arrest. From retrospective data, patients who have cardiac arrest after devastating primary neurologic insult have almost a 100% in- hospital mortality. Certainly given the patient's already grim prognosis, at this point it is unlikely he will survive this hospitalization or make any meaningful neurologic recovery. . Will again discuss overall goals with family, although they have been resistant to any long-term discussions at this time. s/p PEA cardiac arrest 01/23 - most likely secondary to ICH in the brainstem - continue in ICU Pontine intracerebral hemorrhage - s/p reversal with KCentra and vit K 01/19 - daily INR - very poor prognosis - neurology: Dr. Malin following - neurosurgery: Dr. Alvarez following - Per Dr. Malin, repeat MRI next week. 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 alpha and theta waves which could be consistent with a diagnosis of LIS. - avoid sedation - frequent neuro checks Hypertensive Emergency - propranolol 60mg po q6h -Amlodipine 5 mg twice daily - hydralazine 100mg po q8h - prn labetalol, hydralazine - goal sbp < 150 Acute hypoxic and Hypercarbic respiratory failure - wean fio2 for goal spo2 > 90% - no SBT or weaning of mechanical ventilation until neuro exam improves - would be a candidate for early tracheostomy if family wishes to be aggressive - vent bundle - hob elevated - nebs Fever, Leukocytosis Possible HCAP pneumonia - buck cultures: pending. - vancomycin - tylenol for fever - cooling blanket COPD -Albuterol/ipratropium aerosols every 6 hours with albuterol aerosols every 2 hours as needed dyspnea -No steroids indicated Atrial fibrillation -Rate control with beta blockade -No anticoagulation due to active ICH Coagulopathy/chronic warfarin use secondary to atrial fibrillation -DC warfarin -Received K Centra and vitamin K in the ED -INR reversed Microcytic anemia/thrombocytopenia Monitor CBC daily. Follow trends Dyslipidemia Currently on pravastatin 40 mg daily DVT GI prophylaxis -Ywa's and SCDs -No pharmacological DVT prophylaxis due to acute ICH -Famotidine tube feeds on hold Jevity 1.5 at 60 cc an hour. Check KUB. NS 84 cc/hr currently. Appreciate palliative care following. Overall impression: Patient remains critically ill with a devastating neurologic injury. Location and size of pontine bleed make significant recovery unlikely. Remains ventilator dependent and we are unable to wean. Serum levels of vancomycin will suffice for urine coverage. ATN has developed despite aggressive hydration, likely owing to inadequate perfusion during the time of his cardiac arrest. Prognosis is poor and he continues to deteriorate. Critical care time 45 mins Nick Leggett MD Jan 29, 2018 11:16
--- NOTE | 2018-01-29 14:35 | HHI.HCPN ---
Reason for visit a. To assist with evaluation and management of symptoms including: Pain, dyspnea b. To assist medical decision maker(s) with: better understanding of current medical conditions; weighing benefits/burdens of medical treatment options; making medical treatment decisions. . Subjective/Interval History Discussed with Dr. Leggett. Patient seen and examined in ICU. No family at bedside. No evidence of neurologic recovery. Vital signs stable. Remains on mech vent, FiO2 30%. Renal function has worsened with increase creatinine from 7.13 to 7.67. Renal ultrasound ordered and pending. . Family/friend interactions Called to speak with , Beatriz via telephone to provide medical update including renal changes. She becomes appropriately tearful. She asks questions about what would happen if she decided to take him off machines. I provided anticipatory guidance regarding withdrawal of life support. She does not indicate if she is considering this as an option or when. Offered support. Questions answered. Exhibits B & C placed on chart in case she elects to proceed with withdrawal of life support after hours or over the weekend. . Advance Directives Living Will: Never completed Health Care Surrogate: Never completed Durable Power of Plate Shop Helper: Never completed Advance Directive Specifics Health Care Surrogate(s): The patient lacks capacity for decision-making and will not regain that capacity. No written advanced directives per according to [place] statutes, healthcare proxy decision making would fall to his , Beatriz Troncoso. . Significant change in goals: NO CODE. is asking questions about comfort measures and taking patient " off of machines." Objective Vital Signs Date Time Temp Pulse Resp B/P (MAP) Pulse Ox O2 Delivery O2 Flow Rate FiO2 01/29/18 14:00 65 01/29/18 12:00 30 01/29/18 12:00 98.9 64 18 135/63 (87) 98 01/29/18 12:00 65 01/29/18 11:56 97 30 01/29/18 10:00 68 01/29/18 08:15 30 01/29/18 08:15 95 30 01/29/18 08:15 30 01/29/18 08:00 99.2 72 18 129/62 (84) 97 01/29/18 08:00 30 01/29/18 08:00 73 01/29/18 06:00 65 01/29/18 04:00 99.1 69 18 157/70 (99) 98 6/14/18 04:00 69 01/29/18 04:00 30 01/29/18 03:28 98 30 01/29/18 02:00 69 01/29/18 00:18 97 30 01/29/18 00:00 30 01/29/18 00:00 99.5 72 19 133/61 (85) 97 01/29/18 00:00 72 01/28/18 22:00 68 01/28/18 20:07 99 30 01/28/18 20:00 99.0 70 22 141/65 (90) 98 01/28/18 20:00 30 01/28/18 20:00 70 01/28/18 18:00 71 01/28/18 16:50 97 30 01/28/18 16:00 30 01/28/18 16:00 99.5 72 18 123/59 (80) 97 01/28/18 16:00 70 Intake & Output 01/29/18 01/29/18 07:00 19:00 Intake Total 3220 ml 1000 ml Output Total 150 ml Balance 3070 ml 1000 ml Intake Oral 0 ml IV Total 2535 ml 1000 ml Tube Feeding 445 ml Tube Irrigant 240 ml Output Urine Total 150 ml # Bowel Movements 2 Physical Exam CONSTITUTIONAL/GENERAL: This is an adequately nourished comatose patient, in no apparent distress. EYES: Pupils sluggish. No scleral icterus. CARDIOVASCULAR: Irregularly irregular. RESPIRATORY/CHEST: Orotracheally intubated on mechanical vent, coarse breath sounds bilaterally. GASTROINTESTINAL: Abdomen soft, non-tender, nondistended. bowel sounds present. GENITOURINARY: Without palpable bladder distension. MUSCULOSKELETAL: Extremities without clubbing, cyanosis, or edema. No mottling or clubbing. NEUROLOGICAL: Unresponsive to voice. Does not follow command with eye movement. PSYCHIATRIC: Unable to evaluate due to clinical condition . Diagnostic Tests Laboratory Laboratory Tests Test 01/27/18 05:16 01/27/18 06:19 01/29/18 04:19 Blood Urea Nitrogen 53 MG/DL (7-18) 79 MG/DL (7-18) Creatinine 2.84 MG/DL (0.60-1.30) 7.13 MG/DL (0.60-1.30) Random Glucose 98 MG/DL (74-106) 130 MG/DL (74-106) Calcium Level 8.5 MG/DL (8.5-10.1) 8.1 MG/DL (8.5-10.1) Sodium Level 144 MEQ/L (136-145) 147 MEQ/L (136-145) Potassium Level 3.3 MEQ/L (3.5-5.1) 4.0 MEQ/L (3.5-5.1) Chloride Level 113 MEQ/L (98-107) 118 MEQ/L (98-107) Carbon Dioxide Level 14.9 MEQ/L (21.0-32.0) 13.4 MEQ/L (21.0-32.0) Anion Gap 16 MEQ/L (5-15) 16 MEQ/L (5-15) Estimat Glomerular Filtration Rate 22 ML/MIN (>89) 8 ML/MIN (>89) Random Vancomycin Level 22.6 COMMENT 31.8 COMMENT White Blood Count 9.2 TH/MM3 (4.0-11.0) Red Blood Count 3.73 MIL/MM3 (4.50-5.90) Hemoglobin 7.9 GM/DL (13.0-17.0) Hematocrit 23.5 % (39.0-51.0) Mean Corpuscular Volume 62.9 FL (80.0-100.0) Mean Corpuscular Hemoglobin 21.3 PG (27.0-34.0) Mean Corpuscular Hemoglobin Concent 33.8 % (32.0-36.0) Red Cell Distribution Width 14.8 % (11.6-17.2) Platelet Count 129 TH/MM3 (150-450) Mean Platelet Volume 11.3 FL (7.0-11.0) Result Diagram: 01/27/18 0619 01/29/18 0419 Microbiology Microbiology Date/Time Source Procedure Growth Status 01/24/18 22:10 Blood Peripheral Aerobic Blood Culture - Final NO GROWTH IN 5 DAYS Complete 01/24/18 22:10 Blood Peripheral Anaerobic Blood Culture - Final NO GROWTH IN 5 DAYS Complete 01/24/18 23:59 Sputum Endotracheal Gram Stain - Final Resulted 01/24/18 23:59 Sputum Culture - Preliminary Haemophilus Influenzae Resulted 01/24/18 23:59 Urine Catheterized Urine Urine Culture - Final Staphylococcus Epidermidis Complete Imaging Last Impressions Renal Ultrasound 01/29/18 0000 Signed Impressions: CONCLUSION: 1. No hydronephrosis identified. 2. Distended bladder. Abdomen X-Ray 01/26/18 0000 Signed Impressions: CONCLUSION: Unremarkable study. Chest X-Ray 01/25/18 0000 Signed Impressions: CONCLUSION: Right lung is now clear. Head CT 01/23/18 0000 Signed Impressions: CONCLUSION: Slight interval resorption of brainstem hemorrhage. 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 Procedures INTUBATION 01/19/18 Resuscitation /cardiac arrest 01/23/18 . 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 (2) Asystolic cardiac arrest 01/23/18 (3) Respiratory failure, mechanical ventilation (4) Anticoagulation Via Coumadin for atrial fibrillation (5) Chronic atrial fib (6) Hypertension, not controlled at the time of admission (7) COPD, 50 pack years cigarettes (8) History of CAD (9) Chronic back pain (10) Hyperlipidemia (11) GERD (12) History of thalassemia and old records (13) Degenerative arthritis, history of chronic back pain (14) Acute renal failure Symptom Scale: (1) Dyspnea 0-10 Scale: Unable to quantify (2) Pain 0-10 Scale: Unable to quantify (He had chronic back pain and now the pontine hemorrhage that was first noted as a headache) Pertinent Non-Medical Issues Psychosocial: Originally from [place], in [place] for 10 years. now for 20 years, retired. Spiritual: Taoist background, not spiritual or yarsanism. Legal: The patient lacks capacity for decision-making and will not regain that capacity. No written advanced directives per according to [place] statutes, healthcare proxy decision making would fall to his , Beatriz Troncoso. Ethical issues impacting care: Patient is unable to speak for himself. . Important Contacts : Beatriz Troncoso [phone] . Prognosis The patient's overall prognosis is poor. It is possible he could survive this episode, but his level of debility and disability would be substantial, and he would require 24/7 nursing care. . Code Status: No Code Plan * DECISION-MAKING: The patient lacks capacity for decision-making and will not regain that capacity. No written advanced directives per according to [place] statutes, healthcare proxy decision making would fall to his , Beatriz Troncoso. * NO CODE. * GOALS: Called to speak with , Beatriz via telephone to provide medical update including renal changes. She becomes appropriately tearful. She asks questions about what would happen if she decided to take him off machines. I provided anticipatory guidance regarding withdrawal of life support. She does not indicate if she is considering this as an option or when. Offered support. Questions answered. * Exhibits B and C placed on chart, signed by Dr. Bustamante and Dr. Myers should patient's elect to transition to comfort overnight. * Naomy Riggs LCSW spoke with patient's to provide support, meeting arranged with on 01/30/18 at 4:45 PM for additional support. * Discussed with Dr. Bustamante and nursing staff. * SYMPTOMS: The patient has had chronic back pain, and now has had head pain with hemorrhage. He currently shows no obvious signs of pain. I have no further medication recommendations at this time for pain. The patient's dyspnea is being managed by mechanical ventilation. . Attestation To help prompt me to consider important information that might be impacting today's encounter and assessment, information from prior notes written by myself or my colleagues may have been "brought forward" into today's note. My signature on this note, however, is an attestation that I personally performed the exam, history, and/or decision-making noted today, and, unless otherwise indicated, the interactions with patient, family, and staff as well as the review of records all occurred today. I also attest that the listed assessment and stated plan reflect my best clinical judgment today based on the combination of historical information, prior notes, and today's exam/ interactions. When time spent is documented, it refers only to time spent today by the signer, or if indicated, combined time spent today by collaborating physician/nurse practitioner. Marimar Meza Jan 29, 2018 14:35
--- NOTE | 2018-01-29 15:19 | RADRPT ---
EXAM DATE: 01/29/2018 3:01 PM EDT AGE/SEX: 67 years / Male INDICATIONS: Increased BUN/Creatinine. CLINICAL DATA: This is the patient's initial encounter. Patient reports that signs and symptoms have been present for 1 day and indicates a pain score of Nonresponsive. MEDICAL/SURGICAL HISTORY: Hypertension. Chronic obstructive pulmonary disease. Hypercholester olemia. Patient intubated. Atrial fibrillation. Anticoagulation therapy. Coronary artery disease. H yperlipidemia. Diabetes. . Cardiac catheterization. Hernia repair. COMPARISON: No prior exams available for comparison. MEASUREMENTS: Right Kidney:__11.4 x 5.8 x 5.9 cm Left Kidney:__11.3 x 5.6 x 6.1 cm FINDINGS: Right Kidney: The echotexture is within normal limits. There is no hydronephrosis. Left Kidney: The echotexture is within normal limits. There is no hydronephrosis. Bladder: The bladder is moderately distended. It is otherwise unremarkable. CONCLUSION: 1. No hydronephrosis identified. 2. Distended bladder. Electronically signed by: Sae Quinones MD 01/29/2018 3:18 PM EDT
--- NOTE | 2018-01-29 16:37 | HHI.NSPN ---
(Glenda Uribe) Note Status Status: Progress Note (Glenda Uribe) Interval History Interval History This is a 67-year-old man who has a history of atrial fibrillation, anticoagulated on Coumadin. Approximately an hour before admission developed acute onset of left-sided weakness. He states he woke up with this symptom. The patient presented as a stroke-alert when he developed acute onset of headache and left extremity weakness. REPORTDLY he was watching TV when he suddenly developed a headache and left arm and left leg weakness, slurred speech approximately 1 hour prior to ER arrival. The CT of the brain shows 1.1 cm acute hemorrhage in the right terrance. The patient was immediately given KCentra and vitamin K. He was intubated in the emergency department by ED attending for an airway protection, Neurosurgical consultation was requested 01/20: patient seen this morning during rounds, patient intubated due to decline in mental status 01/22: comatose, no sedation currently, decerebrating. 01/26: no changes to exam. 01/27: mildly sedated for vent synchrony, postures, patient made a DNR 01/29: renal function worsening. no improvements neurologically. (Glenda Uribe) Labs, Micro, & Vital Signs Results Date Time Temp Pulse Resp B/P (MAP) Pulse Ox O2 Delivery O2 Flow Rate FiO2 01/29/18 15:17 100 30 01/29/18 14:00 65 01/29/18 12:00 30 01/29/18 12:00 98.9 64 18 135/63 (87) 98 01/29/18 12:00 65 01/29/18 11:56 97 30 01/29/18 10:00 68 01/29/18 08:15 30 01/29/18 08:15 95 30 01/29/18 08:15 30 01/29/18 08:00 99.2 72 18 129/62 (84) 97 01/29/18 08:00 30 01/29/18 08:00 73 01/29/18 06:00 65 01/29/18 04:00 99.1 69 18 157/70 (99) 98 01/29/18 04:00 69 01/29/18 04:00 30 01/29/18 03:28 98 30 01/29/18 02:00 69 01/29/18 00:18 97 30 01/29/18 00:00 30 01/29/18 00:00 99.5 72 19 133/61 (85) 97 01/29/18 00:00 72 01/28/18 22:00 68 01/28/18 20:07 99 30 01/28/18 20:00 99.0 70 22 141/65 (90) 98 01/28/18 20:00 30 01/28/18 20:00 70 01/28/18 18:00 71 01/28/18 16:50 97 30 01/30/18 06:59 Intake Total 1000 ml Balance 1000 ml Constitutional Vital Signs Date Time Temp Pulse Resp B/P (MAP) Pulse Ox O2 Delivery O2 Flow Rate FiO2 01/29/18 15:17 100 30 01/29/18 14:00 65 01/29/18 12:00 30 01/29/18 12:00 98.9 64 18 135/63 (87) 98 01/29/18 12:00 65 01/29/18 11:56 97 30 01/29/18 10:00 68 01/29/18 08:15 30 01/29/18 08:15 95 30 01/29/18 08:15 30 01/29/18 08:00 99.2 72 18 129/62 (84) 97 01/29/18 08:00 30 01/29/18 08:00 73 01/29/18 06:00 65 01/29/18 04:00 99.1 69 18 157/70 (99) 98 01/29/18 04:00 69 01/29/18 04:00 30 01/29/18 03:28 98 30 01/29/18 02:00 69 01/29/18 00:18 97 30 01/29/18 00:00 30 01/29/18 00:00 99.5 72 19 133/61 (85) 97 01/29/18 00:00 72 01/28/18 22:00 68 01/28/18 20:07 99 30 01/28/18 20:00 99.0 70 22 141/65 (90) 98 01/28/18 20:00 30 01/28/18 20:00 70 01/28/18 18:00 71 01/28/18 16:50 97 30 01/30/18 06:59 Intake Total 1000 ml Balance 1000 ml (Glenda Uribe) Review of Systems ROS Limitations: Unresponsive (Glenda Uribe) Physical Exam GENERAL: middle-aged appearing male, comatose SKIN: Warm and dry. HEAD: Normocephalic. EYES: No scleral icterus. No injection or drainage. NECK: Supple, trachea midline. No JVD. CARDIOVASCULAR: normal rate, irregularly irregular rhythm. afib. RESPIRATORY: does breath over the vent. GASTROINTESTINAL: Abdomen soft, non-tender, nondistended. no guarding. MUSCULOSKELETAL: No cyanosis, or edema. NEURO EXAM: RASS -5. GCS 4. extensor postures in the upper extremities, triple flexion in the lowers. upgoing Babinski. pupils 3 mm bilaterally equal, sluggishly reactive. did not follow any commands with downward gaze. (Glenda Uribe) GENERAL: middle-aged appearing male, comatose SKIN: Warm and dry. HEAD: Normocephalic. EYES: No scleral icterus. No injection or drainage. NECK: Supple, trachea midline. No JVD. CARDIOVASCULAR: irregularly irregular rhythm. afib. RESPIRATORY: intubated, mechanically ventilated GASTROINTESTINAL: Abdomen soft, non-tender MUSCULOSKELETAL: No deformities. No cyanosis, or edema. NEURO EXAM: Comatose, no eye opening, not following commands. extensor postures in the extremities. pupils 3 mm bilaterally equal, sluggishly reactive. did not follow any commands with downward gaze. (Francois Alvarez MD) Medications Current Medications Current Medications Medications (Trade) Dose Ordered Sig/Abel Route PRN Reason Start Time Stop Time Status Last Admin Dose Admin Pravastatin Sodium (Pravachol) 40 mg DAILY PO 01/20/18 09:00 01/29/18 09:10 Sodium Chloride (NS Flush) 2 ml UNSCH PRN IV FLUSH FLUSH AFTER USING IV ACCESS 01/19/18 20:15 Sodium Chloride (NS Flush) 2 ml BID IV FLUSH 01/19/18 21:00 01/29/18 08:33 Acetaminophen (Tylenol) 650 mg Q6H PRN PO PAIN 1-10 AND/OR FEVER >101F 01/19/18 20:15 01/26/18 21:28 Miscellaneous Information ([facility] [place] [facility] Nursing Information) 1 Q361D XX 01/19/18 20:15 Chlorhexidine Gluconate (Chlorhexidine 2% Cloth) Taper DAILY@04 TOP 01/20/18 04:00 01/16/19 03:59 01/27/18 03:23 Chlorhexidine Gluconate (Chlorhexidine 2% Cloth) 3 pack UNSCH PRN TOP HYGIENIC CARE 01/19/18 20:15 Sennosides (Senokot) 17.2 mg Q12H PRN PO Moderate constipation 01/19/18 20:15 Chlorhexidine Gluconate (Peridex 0.12% Liq) 15 ml BID@08,20 MT 01/20/18 08:00 01/29/18 08:00 Amlodipine Besylate (Norvasc) 5 mg Q12HR PO 01/20/18 21:00 01/29/18 09:10 Hydralazine HCl (Apresoline) 100 mg Q8HR PO 01/21/18 08:00 01/29/18 14:05 Labetalol HCl (Trandate Inj) 20 mg Q15M PRN IV PUSH sbp > 150 01/21/18 08:00 01/24/18 04:15 Hydralazine HCl (Apresoline Inj) 10 mg Q30M PRN IV PUSH sbp > 150 01/21/18 08:00 Propranolol HCl (Inderal) 60 mg Q6HR PO 01/22/18 13:00 01/29/18 12:50 Bisacodyl (Dulcolax Supp) 10 mg DAILY RECTAL 01/23/18 09:00 01/25/18 09:20 Polyethylene Glycol (Miralax) 17 gm BID PO 01/22/18 21:00 01/27/18 22:40 Lactulose (Lactulose Liq) 30 ml BID PO 01/22/18 21:00 01/28/18 09:30 Senna/Docusate Sodium (Fadumo-Colace) 1 tab BID PO 01/22/18 21:00 01/29/18 09:10 Sodium Chloride 1,000 ml @ 150 mls/hr Q6H40M IV 01/25/18 07:00 01/29/18 11:08 Famotidine (Pepcid) 10 mg BID PO 01/25/18 21:00 01/29/18 09:10 Albuterol/ Ipratropium (Duoneb Neb) 1 ampule Q6HR NEB NEB 01/26/18 10:00 01/29/18 15:15 Albuterol Sulfate (Albuterol Neb) 2.5 mg Q2HR NEB PRN NEB dyspnea 01/26/18 09:45 Sodium Chloride (Sodium Chloride 3% Neb) 2 ml Q6HR NEB NEB 01/26/18 10:00 01/31/18 09:59 01/29/18 15:15 Guaifenesin (Robitussin Liq) 400 mg Q8HR NG 01/26/18 14:00 01/29/18 14:39 Artificial Tears (Lacrilube Opht Oint) 1 applic Q12HR EACH EYE 01/26/18 21:00 01/29/18 08:33 (Glenda Uribe) Current Medications Current Medications Sodium Chloride 1,000 ml @ 70 mls/hr [id number] ONCE IV Last administered on 18:02; Start 01/19/18 at 18:02; Stop 01/20/18 at 08:19; Status DC Prothrombin Complex Concent (Human) 2000 units/Syringe / Bag 0 ml @ 500 mls/hr ONCE ONCE IV Last administered on 01/19/18 19:25; Start 01/19/18 at 19:15; Stop 01/19/18 at 19:16; Status DC Nicardipine HCl 25 mg/Sodium Chloride 260 ml @ 52 mls/hr TITRATE PRN IV Blood pressure management Last administered on 01/21/18 13:33; Start 01/19/18 at 18:45 ; Stop 01/21/18 at 15:01; Status DC Etomidate (Amidate Inj) 40 mg STK-MED ONCE .ROUTE Last administered on 18:42; Start 01/19/18 at 18:42; Stop 01/19/18 at 18:43; Status DC Succinylcholine Chloride (Quelicin Inj) 200 mg STK-MED ONCE .ROUTE Last administered on 01/19/18 18:43; Start 01/19/18 at 18:43; Stop 01/19/18 at 18:44; Status DC Midazolam HCl (Versed Inj) 5 mg STK-MED ONCE .ROUTE ; Start 01/19/18 at 18:44; Stop 01/19/18 at 18:45; Status DC Phytonadione 10 mg/Dextrose 51 ml @ 102 mls/hr ONCE STAT IV Last administered on 01/19/18at 19:24; Start 01/19/18 at 18:44; Stop 01/19/18 at 19:13; Status DC Propofol 50 ml @ As Directed STK-MED ONCE .ROUTE Last administered on 01/19/18at 19:25; Start 01/19/18 at 18:55; Stop 01/19/18 at 18:56; Status DC Propofol 100 ml @ 0 mls/hr TITRATE PRN IV SEDATION; Start 01/19/18 at 18:45; Stop 01/19/18 at 20:27; Status DC Amlodipine Besylate (Norvasc) 5 mg DAILY PO Last administered on 01/20/18at 08:51 ; Start 01/20/18 at 09:00; Stop 01/20/18 at 16:45; Status DC Metoprolol Tartrate (Lopressor) 50 mg BID PO Last administered on 01/20/18at 08: 51; Start 01/19/18 at 21:00; Stop 01/20/18 at 16:45; Status DC Pravastatin Sodium (Pravachol) 40 mg DAILY PO Last administered on 01/31/18at 08 :57; Start 01/20/18 at 09:00; Stop 01/31/18 at 17:40; Status DC Sodium Chloride 1,000 ml @ 84 mls/hr [id number] IV Last administered on 01/22/18at 08:35; Start 01/19/18 at 21:00; Stop 01/22/18 at 15:54; Status DC Sodium Chloride (NS Flush) 2 ml UNSCH PRN IV FLUSH FLUSH AFTER USING IV ACCESS ; Start 01/19/18 at 20:15; Stop 01/31/18 at 17:40; Status DC Sodium Chloride (NS Flush) 2 ml BID IV FLUSH Last administered on 01/31/18at 08: 53; Start 01/19/18 at 21:00; Stop 01/31/18 at 17:40; Status DC Acetaminophen (Tylenol) 650 mg Q6H PRN PO PAIN 1-10 AND/OR FEVER >101F Last administered on 01/26/18at 21:28; Start 01/19/18 at 20:15; Stop 01/31/18 at 17:40 ; Status DC Famotidine (Pepcid Inj) 20 mg Q12HR IV PUSH Last administered on 01/21/18at 07:59 ; Start 01/19/18 at 21:00; Stop 01/21/18 at 13:58; Status DC Midazolam HCl (Versed Inj) 2 mg Q1H PRN IV PUSH SEDATION; Start 01/19/18 at 20: 15; Stop 01/21/18 at 17:11; Status DC Albuterol/ Ipratropium (Duoneb Neb) 1 ampule Q2HR NEB PRN INH WHEEZING Last administered on 01/24/18at 16:55; Start 01/19/18 at 20:15; Stop 01/26/18 at 09:35; Status DC Miscellaneous Information ([facility] [place] [facility] Nursing Information) 1 Q361D XX ; Start 01/19/18 at 20:15; Stop 01/31/18 at 17:40; Status DC Chlorhexidine Gluconate (Chlorhexidine 2% Cloth) Taper DAILY@04 TOP Last administered on 01/27/18at 03:23; Start 01/20/18 at 04:00; Stop 01/31/18 at 17:40 ; Status DC Chlorhexidine Gluconate (Chlorhexidine 2% Cloth) 3 pack UNSCH PRN TOP HYGIENIC CARE; Start 01/19/18 at 20:15; Stop 01/31/18 at 17:40; Status DC Senna/Docusate Sodium (Fadumo-Colace) 1 tab BID PO Last administered on 01/22/18at 09:28; Start 01/19/18 at 21:00; Stop 01/22/18 at 15:54; Status DC Magnesium Hydroxide (Milk Of Magnesia Liq) 30 ml Q12H PRN PO Mild constipation Last administered on 01/22/18at 09:28; Start 01/19/18 at 20:15; Stop 01/22/18 at 15: 54; Status DC Sennosides (Senokot) 17.2 mg Q12H PRN PO Moderate constipation; Start 01/19/18 at 20:15; Stop 01/31/18 at 17:40; Status DC Bisacodyl (Dulcolax Supp) 10 mg DAILY PRN RECTAL SEVERE CONSITIPATION; Start at 20:15; Stop 01/22/18 at 15:54; Status DC Lactulose (Lactulose Liq) 30 ml DAILY PRN PO SEVERE CONSITIPATION Last administered on 01/22/18at 09:28; Start 01/19/18 at 20:15; Stop 01/22/18 at 15:54; Status DC Chlorhexidine Gluconate (Peridex 0.12% Liq) 15 ml BID@08,20 MT Last administered on 01/31/18at 08:14; Start 01/20/18 at 08:00; Stop 01/31/18 at 17:40 ; Status DC Propofol 100 ml @ 2.493 mls/ hr TITRATE PRN IV SEDATION Last administered on at 03:36; Start 01/19/18 at 20:15; Stop 01/20/18 at 16:45; Status DC Gadodiamide (Omniscan Pf Inj) 16 ml STK-MED ONCE IV PUSH Last administered on at 13:55; Start 01/20/18 at 13:55; Stop 01/20/18 at 13:56; Status DC Metoprolol Tartrate (Lopressor) 50 mg Q6HR PO Last administered on 01/21/18at 10: 51; Start 01/20/18 at 18:00; Stop 01/21/18 at 17:11; Status DC Amlodipine Besylate (Norvasc) 5 mg Q12HR PO Last administered on 01/30/18at 20: 03; Start 01/20/18 at 21:00; Stop 01/31/18 at 17:40; Status DC Hydralazine HCl (Apresoline) 100 mg Q8HR PO Last administered on 01/31/18at 06: 08; Start 01/21/18 at 08:00; Stop 01/31/18 at 17:40; Status DC Labetalol HCl (Trandate Inj) 20 mg Q15M PRN IV PUSH sbp > 150 Last administered on 01/24/18at 04:15; Start 01/21/18 at 08:00; Stop 01/31/18 at 17:40; Status DC Hydralazine HCl (Apresoline Inj) 10 mg Q30M PRN IV PUSH sbp > 150; Start at 08:00; Stop 01/31/18 at 17:40; Status DC Miscellaneous Information ([facility] [place] [facility] Nursing Information) D/C ICU ELECTROLYTE ORDERS... UNSCH PRN .XX SEE DOSE INSTRUCTIONS; Start 01/21/18 at 14:00; Stop 08/04 at 14:35; Status DC Miscellaneous Information ([facility] Nursing Information) ICU - CALL ORDERING PHYSIC... UNSCH PRN .XX SEE DOSE INSTRUCTIONS; Start 01/21/18 at 14:00; Stop 08/04 at 14:35; Status DC Potassium Chloride 100 ml @ 25 mls/hr UNSCH PRN IV ELECTROLYTE REPLACEMENT; Start 01/21/18 at 14:00; Stop 01/27/18 at 14:35; Status DC Potassium Bicarb/ Potassium Chloride (K-Lyte Cl Eff) 50 meq UNSCH PRN PO ELECTROLYTE REPLACEMENT Last administered on 01/26/18at 06:15; Start 01/21/18 at 14:00; Stop 01/27/18 at 14:35; Status DC Potassium Chloride 100 ml @ 50 mls/hr UNSCH PRN IV ELECTROLYTE REPLACEMENT Last administered on 01/23/18at 09:00; Start 01/21/18 at 14:00; Stop 01/27/18 at 14 :35; Status DC Magnesium Sulfate 4 gm/Sodium Chloride 108 ml @ 54 mls/hr UNSCH PRN IV ELECTROLYTE REPLACEMENT; Start 01/21/18 at 14:00; Stop 01/27/18 at 14:35; Status DC Magnesium Sulfate 2 gm/Sodium Chloride 104 ml @ 52 mls/hr UNSCH PRN IV ELECTROLYTE REPLACEMENT; Start 01/21/18 at 14:00; Stop 01/27/18 at 14:35; Status DC Magnesium Oxide (Mag-Ox) 800 mg UNSCH PRN PO ELECTROLYTE REPLACEMENT; Start 01/21/18 at 14:00; Stop 01/27/18 at 14:35; Status DC Sodium Phosphate 30 mmol/Sodium Chloride 260 ml @ 43.333 mls/ hr UNSCH PRN IV ELECTROLYTE REPLACEMENT; Start 01/21/18 at 14:00; Stop 01/27/18 at 14:35; Status DC Potassium Phosphate (K-Phos) 2,000 mg UNSCH PRN PO ELECTROLYTE REPLACEMENT; Start 01/21/18 at 14:00; Stop 01/27/18 at 14:35; Status DC Potassium Phosphate 30 mmol/ Sodium Chloride 260 ml @ 43.333 mls/ hr UNSCH PRN IV ELECTROLYTE REPLACEMENT; Start 01/21/18 at 14:00; Stop 01/27/18 at 14:35; Status DC Famotidine (Pepcid) 20 mg BID PO Last administered on 01/24/18at 22:46; Start 01/21/18 at 21:00; Stop 01/25/18 at 09:14; Status DC Nicardipine HCl 50 mg/Sodium Chloride 500 ml @ 52 mls/hr TITRATE PRN IV Blood pressure management Last administered on 01/22/18at 11:01; Start 01/21/18 at 15:15 ; Stop 01/24/18 at 21:13; Status DC Propranolol HCl (Inderal) 40 mg Q6HR PO Last administered on 01/22/18at 05:12; Start 01/21/18 at 17:15; Stop 01/22/18 at 11:44; Status DC Propranolol HCl (Inderal) 60 mg Q6HR PO Last administered on 01/31/18at 06:08; Start 01/22/18 at 13:00; Stop 01/31/18 at 17:40; Status DC Bisacodyl (Dulcolax Supp) 10 mg DAILY RECTAL Last administered on 01/25/18at 09: 20; Start 01/23/18 at 09:00; Stop 01/31/18 at 17:40; Status DC Polyethylene Glycol (Miralax) 17 gm BID PO Last administered on 01/27/18at 22:40 ; Start 01/22/18 at 21:00; Stop 01/31/18 at 17:40; Status DC Lactulose (Lactulose Liq) 30 ml BID PO Last administered on 01/28/18at 09:30; Start 01/22/18 at 21:00; Stop 01/31/18 at 17:40; Status DC Senna/Docusate Sodium (Fadumo-Colace) 1 tab BID PO Last administered on at 09:10; Start 01/22/18 at 21:00; Stop 01/31/18 at 17:40; Status DC Magnesium Citrate (Citroma Liq) 300 ml ONCE ONCE PO Last administered on at 16:00; Start 01/22/18 at 16:00; Stop 01/22/18 at 16:21; Status DC Pharmacy Profile Note 0 ml @ 0 mls/hr UNSCH OTHER ; Start 01/24/18 at 21:15; Stop 01/27/18 at 10:29; Status DC Vancomycin HCl 1250 mg/Sodium Chloride 262.5 ml @ 250 mls/hr ONCE ONCE IV ; Start 01/24/18 at 21:15; Stop 01/24/18 at 21:40; Status DC Piperacillin Sod/ Tazobactam Sod 100 ml @ 200 mls/hr Q6H IV Last administered on 01/25/18at 03:13; Start 01/24/18 at 22:00; Stop 01/25/18 at 08:53; Status DC Furosemide (Lasix Inj) 40 mg ONCE ONCE IV PUSH Last administered on 01/24/18at 22:40; Start 01/24/18 at 21:30; Stop 01/24/18 at 21:35; Status DC Vancomycin HCl 2000 mg/Sodium Chloride 520 ml @ 250 mls/hr ONCE ONCE IV Last administered on 01/24/18at 23:53; Start 01/24/18 at 23:00; Stop 01/25/18 at 01:04; Status DC Vancomycin HCl 1000 mg/Sodium Chloride 250 ml @ 250 mls/hr Q12H IV ; Start 06/04 at 11:00; Status Cancel Miscellaneous Information ([facility] Ordered Lab Info) SPECIFIC LAB TO BE DRAWN:VANCO TROUGH DATE TO BE DR... ONCE ONCE .XX ; Start 01/26/18 at 10:45; Stop 01/26/18 at 10:46; Status Cancel Sodium Chloride 1,000 ml @ 150 mls/hr Q6H40M IV Last administered on at 08:01; Start 01/25/18 at 07:00; Stop 01/31/18 at 17:40; Status DC Piperacillin Sod/ Tazobactam Sod 50 ml @ 200 mls/hr Q6H IV Last administered on 01/26/18at 08:09; Start 01/25/18 at 09:00; Stop 01/26/18 at 09:31; Status DC Famotidine (Pepcid) 10 mg BID PO Last administered on 01/31/18at 08:57; Start at 21:00; Stop 01/31/18 at 17:40; Status DC Piperacillin Sod/ Tazobactam Sod 50 ml @ 100 mls/hr Q6H IV Last administered on 01/28/18at 08:04; Start 01/26/18 at 14:00; Stop 01/28/18 at 13:35; Status DC Potassium Chloride 100 ml @ 100 mls/hr Q1H IV ; Start 01/26/18 at 09:45; Stop 01/26/18 at 12:44; Status DC Potassium Chloride (KCl Powder) 20 meq ONCE ONCE PO ; Start 01/26/18 at 09:45; Stop 01/26/18 at 09:47; Status DC Albuterol/ Ipratropium (Duoneb Neb) 1 ampule Q6HR NEB NEB Last administered on 01/26/18at 16:00; Start 01/26/18 at 10:00; Stop 01/30/18 at 09:59; Status DC Albuterol Sulfate (Albuterol Neb) 2.5 mg Q2HR NEB PRN NEB dyspnea Last administered on 01/31/18at 03:26; Start 01/26/18 at 09:45; Stop 01/31/18 at 17:40 ; Status DC Sodium Chloride (Sodium Chloride 3% Neb) 2 ml Q6HR NEB NEB Last administered on 01/31/18at 07:49; Start 01/26/18 at 10:00; Stop 01/31/18 at 09:59; Status DC Guaifenesin (Robitussin Liq) 400 mg Q8HR NG Last administered on 01/31/18at 06: 08; Start 01/26/18 at 14:00; Stop 01/31/18 at 17:40; Status DC Vancomycin HCl 1500 mg/Sodium Chloride 515 ml @ 257.5 mls/ hr ONCE ONCE IV Last administered on 01/26/18at 12:41; Start 01/26/18 at 13:00; Stop 01/26/18 at 14:59; Status DC Artificial Tears (Lacrilube Opht Oint) 1 applic Q12HR EACH EYE Last administered on 01/31/18at 08:53; Start 01/26/18 at 21:00; Stop 01/31/18 at 17:40 ; Status DC Propofol 100 ml @ 2.529 mls/ hr TITRATE PRN IV SEDATION Last administered on at 04:25; Start 01/26/18 at 22:15; Stop 01/29/18 at 11:08; Status DC Vancomycin HCl 1000 mg/Sodium Chloride 250 ml @ 250 mls/hr Q24H IV ; Start at 13:45; Status UNV Sodium Chloride 1,000 ml @ 999 mls/hr BOLUS ONCE IV Last administered on 01/28at 14:04; Start 01/28/18 at 13:45; Stop 01/28/18 at 14:45; Status DC Pharmacy Profile Note ml @ 0 mls/hr UNSCH OTHER ; Start 01/28/18 at 16:30; Stop 01/29/18 at 11:08; Status DC Vancomycin HCl 1500 mg/Sodium Chloride 515 ml @ 257.5 mls/ hr ONCE ONCE IV ; Start 01/28/18 at 18:00; Stop 01/28/18 at 19:59; Status Cancel Vancomycin HCl 1000 mg/Sodium Chloride 250 ml @ 250 mls/hr ONCE ONCE IV Last administered on 01/28/18at 17:55; Start 01/28/18 at 18:00; Stop 01/29/18 at 11:08 ; Status DC Sodium Chloride 1,000 ml @ 999 mls/hr Q1H1M ONCE IV Last administered on at 18:15; Start 01/28/18 at 19:00; Stop 01/28/18 at 20:00; Status DC Lorazepam (Ativan Inj) 2 mg Q15M PRN IV PUSH any agitation; Start 01/31/18 at 13:00; Stop 01/31/18 at 17:40; Status DC Hydromorphone HCl (Dilaudid Pf Inj) 4 mg Q30M PRN IV PUSH any pain; Start 01/31 at 13:00; Stop 01/31/18 at 17:40; Status DC Lorazepam (Ativan Inj) 8 mg ONCE ONCE IV PUSH Last administered on 01/31/18at 14:40; Start 01/31/18 at 13:00; Stop 01/31/18 at 13:17; Status DC Hydromorphone HCl (Dilaudid Pf Inj) 6 mg ONCE ONCE IV PUSH Last administered on 01/31/18at 14:40; Start 01/31/18 at 13:00; Stop 01/31/18 at 13:17; Status DC (Francois Alvarez MD) Medical Decision Making MDM Remarks 67 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 I reviewed and agree with the findings presented. I attest that I had a [id number] encounter with the patient on the same day, and personally performed and documented my assessment and findings in the medical record. (Francois Alvarez MD) Glenda Uribe Jan 29, 2018 16:37 Francois Alvarez MD Feb 07, 2018 18:31
[2018-01-30] VITALS (18 sets, daily range): BP systolic 104–155; BP diastolic 54–72; PULSE 64–74; RESP 13–37; TEMP 98.2–100.5; O2SAT 99–100
[2018-01-30] MEDS: SODIUM CHLOR 0.9% 1000 ML INJ 1,000 ML IV SCH ×3 (02:40→19:34)
[2018-01-30] MEDS: CHLORHEXIDINE GLUCONATE 2 % 1 PACK (2 CLOTHS) TOP SCH (03:20)
[2018-01-30] MEDS: RESP: SODIUM CHLORIDE 3% 4 ML NEB NEB SCH ×3 (03:25→20:20)
[2018-01-30] MEDS: RESP: ALBUTEROL 2.5 MG/IPRATROPIUM 0.5 MG NEB (SCH) NEB (03:25)
[2018-01-30 04:07] LABS: AST (GOT) 109 U/L (15-37); BICARBONATE 13.4 MEQ/L (21.0-32.0); BLOOD UREA NITROGEN 78 MG/DL (7-18); CALCIUM 8.2 MG/DL (8.5-10.1); CHLORIDE 119 MEQ/L (98-107); CREATININE 7.67 MG/DL (0.60-1.30); GLOMERULAR FILTRATION RATE 7 ML/MIN (>89); GLUCOSE,RANDOM 146 MG/DL (74-106); SODIUM (NA) 147 MEQ/L (136-145)
[2018-01-30 04:10] LABS: ALKALINE PHOSPHATASE 225 U/L (45-117); ALT (GPT) 111 U/L (12-78); TOTAL BILIRUBIN ADULT 0.8 MG/DL (0.2-1.0); TOTAL PROTEIN 6.5 GM/DL (6.4-8.2)
[2018-01-30] MEDS: hydrALAZINE HCL 100 MG TAB PO SCH ×3 (05:35→20:03)
[2018-01-30] MEDS: PROPRANOLOL HCL 20 MG TAB PO SCH ×3 (05:35→18:38)
[2018-01-30] MEDS: guaiFENesin SOLUTION 200 MG/10 ML CUP NG SCH ×3 (05:35→20:07)
[2018-01-30] MEDS: CHLORHEXIDINE 0.12% (ORAL KIT) 15 ML CUP MT SCH ×2 (08:00→19:34)
[2018-01-30] MEDS: POLYETHYLENE GLYCOL 17 GM PKG PO SCH ×2 (09:00→20:03)
[2018-01-30] MEDS: BISACODYL 10 MG SUPP RECTAL SCH (09:00)
[2018-01-30] MEDS: LACTULOSE SYRUP 20 GM/30 ML CUP PO SCH ×2 (09:00→20:02)
[2018-01-30] MEDS: DOCUSATE SODIUM 50 MG/SENNA 8.6 MG TAB PO SCH ×2 (09:00→20:03)
[2018-01-30] MEDS: SODIUM CHLORIDE 0.9% FLUSH 10 ML FLUSH IV FLUSH SCH ×2 (09:00→20:02)
[2018-01-30] MEDS: ARTIFICIAL TEARS OPTH OINT 3.5 APPLIC/3.5 GM TUBO EACH EYE SCH ×2 (09:00→20:02)
[2018-01-30] MEDS: amLODIPine BESYLATE 5 MG TAB PO SCH ×2 (09:14→20:03)
[2018-01-30] MEDS: PRAVASTATIN SOD 40 MG TAB PO SCH (09:14)
[2018-01-30] MEDS: FAMOTIDINE 20 MG TAB PO SCH ×2 (09:14→20:03)
--- NOTE | 2018-01-30 11:20 | HHI.CCPN ---
Subjective Remarks/Hospital Course 57-year-old gentleman with a history of hypertension, atrial fibrillation on Coumadin, is admitted secondary to acute onset of headache and left extremity weakness. Patient was watching TV when he suddenly developed a headache and left arm and left leg weakness, slurred speech approximately 1 hour prior to ER arrival. The CT of the brain shows 1.1 cm acute hemorrhage in the right terrance. No acute findings in the supratentorial brain. The patient was immediately intubated in the emergency department by ED attending for an airway protection, received K Centra and vitamin K, and is now admitted to ICU. 01/20: persistently poor neurologic exam. extensor posturing in the upper extremities. triple flexion in the lowers. repeat CT brain with extension of the pontine hemorrhage into the brainstem. very grim prognosis. neurosurgery re- evaluated and agrees there is no neurosurgical intervention warranted at this point. Long and multiple discussions with the family regarding prognosis and minimal improvements over time. family is [place] from [place] of state. palliative met with family. neurology also agrees with grim prognosis. 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 01/21: no changes in mental status. postures in the extremities. per Dr. Malin, patient can follow commands with vertical gaze deviation, increasing concern for locked-in syndrome. today on my evaluation, patient is not following commands with gaze and my exam is unchanged from yesterdays. 01/22: no improvements in mental status. not following commands with vertical gaze. still vigorously posturing. more family arriving on friday. 01/23: asystolic cardiac arrest this AM. pupils still equal, conjugate reactive. ROSC after 2 rounds of epi and compressions. STAT head CT ordered. I notified his who is on her way up. very poor prognosis. 01/24: febrile to 103 despite tylenol. sputum with significant secretions. no change in poor mental status. fio2 increasing and more hypoxic today. 01/25: fever persists, although somewhat lower. wbc remains elevated. fio2 down to 40%. no changes at all in poor neurologic exam. Subjective: 01/26: T-max 100.6. Currently 99.5. Very poor neurological examination. Continues with leukocytosis. 01/27: Afebrile today. Renal function deteriorating. We will stop vancomycin. Chest x-ray remains clear. Urine is probably contaminant. Pontine hemorrhage involves wide area and significant neurologic recovery is highly unlikely. 01/28: Unable to perform sustained ventilatory effort. No change in neuro status. Pre-renal azotemia is worsening. 01/29: Patient has developed ATN and is oliguric. He now has a spontaneous tachypnea with acceptable air movement. No change in neurologic function. 01/30: Continued deterioration in renal function status post cardiac arrest. Spontaneous tachypneic respiratory effort but no other evidence of neurologic activity. Renal ultrasound reviewed, moderate bladder distention but no hydronephrosis. Objective Vital Signs Date Time Temp Pulse Resp B/P (MAP) Pulse Ox O2 Delivery O2 Flow Rate FiO2 01/30/18 10:00 74 01/30/18 08:24 30 01/30/18 08:18 100 01/30/18 08:00 98.7 37 155/70 (98) Intake and Output 01/30/18 01/30/18 01/31/18 08:00 16:00 00:00 Intake Total 2202 ml Output Total 1150 ml Balance 1052 ml Result Diagram: 01/27/18 0619 01/30/18 0321 Imaging Last Impressions Chest X-Ray 01/25/18 0000 Signed Impressions: CONCLUSION: Right lung is now clear. Head CT 01/23/18 0000 Signed Impressions: CONCLUSION: Slight interval resorption of brainstem hemorrhage. 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 Objective Remarks GENERAL: 67-year-old middle-aged appearing male, comatose, intubated. SKIN: Warm and dry. Large tattoo in left upper extremity. HEAD: Normocephalic. EYES: No scleral icterus. No injection or drainage. NECK: Supple, trachea midline. Orally intubated. CARDIOVASCULAR: Irregularly irregular. S1, S2 no S4, no JVD RESPIRATORY: Generally clear. Coarse breath sounds. Scattered rhonchi throughout. GASTROINTESTINAL: Abdomen soft, non-tender, nondistended. no guarding. Bowel sounds active. MUSCULOSKELETAL: No cyanosis, or edema. Warm well perfused. NEURO EXAM: RASS -4. To stimulation, extensor postures in the upper extremities , upgoing Babinski. Tachypnea breaths. pupils 1mm bilaterally equal, sluggishly reactive. did not follow any commands with vertical gaze. 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 Now by repeat head CT is > 5mL total volume, which by multiple studies, this volume of pontine blood with this low GCS score has very poor overall survivability or neurologic improvement. unlikely to have any meaningful neurologic improvement. now s/p cardiac arrest. From retrospective data, patients who have cardiac arrest after devastating primary neurologic insult have almost a 100% in- hospital mortality. Certainly given the patient's already grim prognosis, at this point it is unlikely he will survive this hospitalization or make any meaningful neurologic recovery. . Will again discuss overall goals with family, although they have been resistant to any long-term discussions at this time. s/p PEA cardiac arrest 01/23 - most likely secondary to ICH in the brainstem - continue in ICU Pontine intracerebral hemorrhage - s/p reversal with KCentra and vit K 01/19 - daily INR - very poor prognosis - neurology: Dr. Malin following - neurosurgery: Dr. Alvarez following - Per Dr. Malin, repeat MRI next week. 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 alpha and theta waves which could be consistent with a diagnosis of LIS. - avoid sedation - frequent neuro checks Hypertensive Emergency - propranolol 60mg po q6h -Amlodipine 5 mg twice daily - hydralazine 100mg po q8h - prn labetalol, hydralazine - goal sbp < 150 Acute hypoxic and Hypercarbic respiratory failure - wean fio2 for goal spo2 > 90% - no SBT or weaning of mechanical ventilation until neuro exam improves - would be a candidate for early tracheostomy if family wishes to be aggressive - vent bundle - hob elevated - nebs Fever, Leukocytosis Possible HCAP pneumonia - buck cultures: pending. - vancomycin - tylenol for fever - cooling blanket COPD -Albuterol/ipratropium aerosols every 6 hours with albuterol aerosols every 2 hours as needed dyspnea -No steroids indicated Atrial fibrillation -Rate control with beta blockade -No anticoagulation due to active ICH Coagulopathy/chronic warfarin use secondary to atrial fibrillation -DC warfarin -Received K Centra and vitamin K in the ED -INR reversed Microcytic anemia/thrombocytopenia Monitor CBC daily. Follow trends Dyslipidemia Currently on pravastatin 40 mg daily Acute kidney injury -Status post cardiac arrest. No evidence of postrenal obstruction. DVT GI prophylaxis -Yaw's and SCDs -No pharmacological DVT prophylaxis due to acute ICH -Famotidine tube feeds on hold Jevity 1.5 at 60 cc an hour. Check KUB. NS 84 cc/hr currently. Appreciate palliative care following. Overall impression: Patient remains critically ill with a devastating neurologic injury. Location and size of pontine bleed make significant recovery unlikely. Remains ventilator dependent and we are unable to wean. Serum levels of vancomycin will suffice for urine coverage. ATN has developed despite aggressive hydration, likely owing to inadequate perfusion during the time of his cardiac arrest. Prognosis is poor and he continues to deteriorate. No immediate indications for dialysis. Critical care time 45 mins Nick Leggett MD Jan 30, 2018 11:20
--- NOTE | 2018-01-30 14:30 | HHI.NSPN ---
(Glenda Uribe) Note Status Status: Progress Note (Glenda Uribe) Interval History Interval History This is a 67-year-old man who has a history of atrial fibrillation, anticoagulated on Coumadin. Approximately an hour before admission developed acute onset of left-sided weakness. He states he woke up with this symptom. The patient presented as a stroke-alert when he developed acute onset of headache and left extremity weakness. REPORTDLY he was watching TV when he suddenly developed a headache and left arm and left leg weakness, slurred speech approximately 1 hour prior to ER arrival. The CT of the brain shows 1.1 cm acute hemorrhage in the right terrance. The patient was immediately given KCentra and vitamin K. He was intubated in the emergency department by ED attending for an airway protection, Neurosurgical consultation was requested 01/20: patient seen this morning during rounds, patient intubated due to decline in mental status 01/22: comatose, no sedation currently, decerebrating. 01/26: no changes to exam. 01/27: mildly sedated for vent synchrony, postures, patient made a DNR 01/29: renal function worsening. no improvements neurologically. 01/30: continues to have no improvement in neuro exam, intubated, comatose. (Glenda Uribe) Labs, Micro, & Vital Signs Results Date Time Temp Pulse Resp B/P (MAP) Pulse Ox O2 Delivery O2 Flow Rate FiO2 01/30/18 12:00 98.4 72 18 104/57 (73) 99 01/30/18 12:00 72 01/30/18 12:00 30 01/30/18 11:59 99 30 01/30/18 10:00 74 01/30/18 08:24 30 01/30/18 08:18 30 01/30/18 08:18 100 30 01/30/18 08:00 30 01/30/18 08:00 98.7 74 37 155/70 (98) 99 01/30/18 08:00 74 01/30/18 06:00 67 01/30/18 04:12 100 30 01/30/18 04:00 99.0 72 18 134/63 (86) 100 01/30/18 04:00 72 01/30/18 04:00 30 01/30/18 02:00 67 01/30/18 01:12 100 30 01/30/18 00:00 30 01/30/18 00:00 99.0 64 18 120/58 (78) 100 01/30/18 00:00 67 01/29/18 22:00 68 01/29/18 20:22 100 30 01/29/18 20:00 98.8 65 18 137/65 (89) 100 01/29/18 20:00 30 01/29/18 20:00 65 01/29/18 18:00 68 01/29/18 16:00 30 01/29/18 16:00 66 01/29/18 16:00 99.1 66 18 130/65 (86) 100 01/29/18 15:17 100 30 Constitutional Vital Signs Date Time Temp Pulse Resp B/P (MAP) Pulse Ox O2 Delivery O2 Flow Rate FiO2 01/30/18 12:00 98.4 72 18 104/57 (73) 99 01/30/18 12:00 72 01/30/18 12:00 30 01/30/18 11:59 99 30 01/30/18 10:00 74 01/30/18 08:24 30 01/30/18 08:18 30 01/30/18 08:18 100 30 01/30/18 08:00 30 01/30/18 08:00 98.7 74 37 155/70 (98) 99 01/30/18 08:00 74 01/30/18 06:00 67 01/30/18 04:12 100 30 01/30/18 04:00 99.0 72 18 134/63 (86) 100 01/30/18 04:00 72 01/30/18 04:00 30 01/30/18 02:00 67 01/30/18 01:12 100 30 01/30/18 00:00 30 01/30/18 00:00 99.0 64 18 120/58 (78) 100 01/30/18 00:00 67 01/29/18 22:00 68 01/29/18 20:22 100 30 6/14/18 20:00 98.8 65 18 137/65 (89) 100 01/29/18 20:00 30 01/29/18 20:00 65 01/29/18 18:00 68 01/29/18 16:00 30 01/29/18 16:00 66 01/29/18 16:00 99.1 66 18 130/65 (86) 100 01/29/18 15:17 100 30 (Glenda Uribe) Review of Systems ROS Limitations: Clinical Condition, Intubated, Unresponsive (Glenda Uribe) Physical Exam GENERAL: middle-aged appearing male, comatose SKIN: Warm and dry. HEAD: Normocephalic. EYES: No scleral icterus. No injection or drainage. NECK: Supple, trachea midline. No JVD. CARDIOVASCULAR: irregularly irregular rhythm. afib. RESPIRATORY: intubated, mechanically ventilated GASTROINTESTINAL: Abdomen soft, non-tender MUSCULOSKELETAL: No deformities. No cyanosis, or edema. NEURO EXAM: Comatose, no eye opening, not following commands. extensor postures in the extremities. pupils 3 mm bilaterally equal, sluggishly reactive. did not follow any commands with downward gaze. (Glenda Uribe) GENERAL: middle-aged appearing male, comatose SKIN: Warm and dry. HEAD: Normocephalic. EYES: No scleral icterus. No injection or drainage. NECK: Supple, trachea midline. No JVD. CARDIOVASCULAR: irregularly irregular rhythm. afib. RESPIRATORY: intubated, mechanically ventilated GASTROINTESTINAL: Abdomen soft, non-tender MUSCULOSKELETAL: No deformities. No cyanosis, or edema. NEURO EXAM: Comatose, no eye opening, not following commands. extensor postures in the extremities. pupils 3 mm bilaterally equal, sluggishly reactive. did not follow any commands with downward gaze. (Francois Alvarez MD) Medications Current Medications Current Medications Medications (Trade) Dose Ordered Sig/Abel Route PRN Reason Start Time Stop Time Status Last Admin Dose Admin Pravastatin Sodium (Pravachol) 40 mg DAILY PO 01/20/18 09:00 01/30/18 09:14 Sodium Chloride (NS Flush) 2 ml UNSCH PRN IV FLUSH FLUSH AFTER USING IV ACCESS 01/19/18 20:15 Sodium Chloride (NS Flush) 2 ml BID IV FLUSH 01/19/18 21:00 01/30/18 09:00 Acetaminophen (Tylenol) 650 mg Q6H PRN PO PAIN 1-10 AND/OR FEVER >101F 01/19/18 20:15 01/26/18 21:28 [place]iscellaneous Information [place] 1 Q361D XX 01/19/18 20:15 Chlorhexidine Gluconate (Chlorhexidine 2% Cloth) Taper DAILY@04 TOP 01/20/18 04:00 01/16/19 03:59 01/27/18 03:23 Chlorhexidine Gluconate (Chlorhexidine 2% Cloth) 3 pack UNSCH PRN TOP HYGIENIC CARE 01/19/18 20:15 Sennosides (Senokot) 17.2 mg Q12H PRN PO Moderate constipation 01/19/18 20:15 Chlorhexidine Gluconate (Peridex 0.12% Liq) 15 ml BID@08,20 MT 01/20/18 08:00 01/30/18 08:00 Amlodipine Besylate (Norvasc) 5 mg Q12HR PO 01/20/18 21:00 01/30/18 09:14 Hydralazine HCl (Apresoline) 100 mg Q8HR PO 01/21/18 08:00 01/30/18 13:58 Labetalol HCl (Trandate Inj) 20 mg Q15M PRN IV PUSH sbp > 150 01/21/18 08:00 01/24/18 04:15 Hydralazine HCl (Apresoline Inj) 10 mg Q30M PRN IV PUSH sbp > 150 01/21/18 08:00 Propranolol HCl (Inderal) 60 mg Q6HR PO 01/22/18 13:00 01/30/18 11:58 Bisacodyl (Dulcolax Supp) 10 mg DAILY RECTAL 01/23/18 09:00 01/25/18 09:20 Polyethylene Glycol (Miralax) 17 gm BID PO 01/22/18 21:00 01/27/18 22:40 Lactulose (Lactulose Liq) 30 ml BID PO 01/22/18 21:00 01/28/18 09:30 Senna/Docusate Sodium (Fadumo-Colace) 1 tab BID PO 01/22/18 21:00 01/29/18 09:10 Sodium Chloride 1,000 ml @ 150 mls/hr Q6H40M IV 01/25/18 07:00 01/30/18 09:41 Famotidine (Pepcid) 10 mg BID PO 01/25/18 21:00 01/30/18 09:14 Albuterol Sulfate (Albuterol Neb) 2.5 mg Q2HR NEB PRN NEB dyspnea 01/26/18 09:45 Sodium Chloride (Sodium Chloride 3% Neb) 2 ml Q6HR NEB NEB 01/26/18 10:00 01/31/18 09:59 01/30/18 03:25 Guaifenesin (Robitussin Liq) 400 mg Q8HR NG 01/26/18 14:00 01/30/18 13:58 Artificial Tears (Lacrilube Opht Oint) 1 applic Q12HR EACH EYE 01/26/18 21:00 01/30/18 09:00 (Glenda Uribe) Current Medications Current Medications Sodium Chloride 1,000 ml @ 70 mls/hr [id number] ONCE IV Last administered on 18:02; Start 01/19/18 at 18:02; Stop 01/20/18 at 08:19; Status DC Prothrombin Complex Concent (Human) 2000 units/Syringe / Bag 0 ml @ 500 mls/hr ONCE ONCE IV Last administered on 01/19/18 19:25; Start 01/19/18 at 19:15; Stop 01/19/18 at 19:16; Status DC Nicardipine HCl 25 mg/Sodium Chloride 260 ml @ 52 mls/hr TITRATE PRN IV Blood pressure management Last administered on 01/21/18 13:33; Start 01/19/18 at 18:45 ; Stop 01/21/18 at 15:01; Status DC Etomidate (Amidate Inj) 40 mg STK-MED ONCE .ROUTE Last administered on 18:42; Start 01/19/18 at 18:42; Stop 01/19/18 at 18:43; Status DC Succinylcholine Chloride (Quelicin Inj) 200 mg STK-MED ONCE .ROUTE Last administered on 01/19/18 18:43; Start 01/19/18 at 18:43; Stop 01/19/18 at 18:44; Status DC Midazolam HCl (Versed Inj) 5 mg STK-MED ONCE .ROUTE ; Start 01/19/18 at 18:44; Stop 01/19/18 at 18:45; Status DC Phytonadione 10 mg/Dextrose 51 ml @ 102 mls/hr ONCE STAT IV Last administered on 01/19/18at 19:24; Start 01/19/18 at 18:44; Stop 01/19/18 at 19:13; Status DC Propofol 50 ml @ As Directed STK-MED ONCE .ROUTE Last administered on 01/19/18at 19:25; Start 01/19/18 at 18:55; Stop 01/19/18 at 18:56; Status DC Propofol 100 ml @ 0 mls/hr TITRATE PRN IV SEDATION; Start 01/19/18 at 18:45; Stop 01/19/18 at 20:27; Status DC Amlodipine Besylate (Norvasc) 5 mg DAILY PO Last administered on 01/20/18at 08:51 ; Start 01/20/18 at 09:00; Stop 01/20/18 at 16:45; Status DC Metoprolol Tartrate (Lopressor) 50 mg BID PO Last administered on 01/20/18at 08: 51; Start 01/19/18 at 21:00; Stop 01/20/18 at 16:45; Status DC Pravastatin Sodium (Pravachol) 40 mg DAILY PO Last administered on 01/31/18at 08 :57; Start 01/20/18 at 09:00; Stop 01/31/18 at 17:40; Status DC Sodium Chloride 1,000 ml @ 84 mls/hr [id number] IV Last administered on 01/22/18at 08:35; Start 01/19/18 at 21:00; Stop 01/22/18 at 15:54; Status DC Sodium Chloride (NS Flush) 2 ml UNSCH PRN IV FLUSH FLUSH AFTER USING IV ACCESS ; Start 01/19/18 at 20:15; Stop 01/31/18 at 17:40; Status DC Sodium Chloride (NS Flush) 2 ml BID IV FLUSH Last administered on 01/31/18at 08: 53; Start 01/19/18 at 21:00; Stop 01/31/18 at 17:40; Status DC Acetaminophen (Tylenol) 650 mg Q6H PRN PO PAIN 1-10 AND/OR FEVER >101F Last administered on 01/26/18at 21:28; Start 01/19/18 at 20:15; Stop 01/31/18 at 17:40 ; Status DC Famotidine (Pepcid Inj) 20 mg Q12HR IV PUSH Last administered on 01/21/18at 07:59 ; Start 01/19/18 at 21:00; Stop 01/21/18 at 13:58; Status DC Midazolam HCl (Versed Inj) 2 mg Q1H PRN IV PUSH SEDATION; Start 01/19/18 at 20: 15; Stop 01/21/18 at 17:11; Status DC Albuterol/ Ipratropium (Duoneb Neb) 1 ampule Q2HR NEB PRN INH WHEEZING Last administered on 01/24/18at 16:55; Start 01/19/18 at 20:15; Stop 01/26/18 at 09:35; Status DC Miscellaneous Information [place] 1 Q361D XX ; Start 01/19/18 at 20:15; Stop 01/31/18 at 17:40; Status DC Chlorhexidine Gluconate (Chlorhexidine 2% Cloth) Taper DAILY@04 TOP Last administered on 01/27/18at 03:23; Start 01/20/18 at 04:00; Stop 01/31/18 at 17:40 ; Status DC Chlorhexidine Gluconate (Chlorhexidine 2% Cloth) 3 pack UNSCH PRN TOP HYGIENIC CARE; Start 01/19/18 at 20:15; Stop 01/31/18 at 17:40; Status DC Senna/Docusate Sodium (Fadumo-Colace) 1 tab BID PO Last administered on 01/22/18at 09:28; Start 01/19/18 at 21:00; Stop 01/22/18 at 15:54; Status DC Magnesium Hydroxide (Milk Of Magnesia Liq) 30 ml Q12H PRN PO Mild constipation Last administered on 01/22/18at 09:28; Start 01/19/18 at 20:15; Stop 01/22/18 at 15: 54; Status DC Sennosides (Senokot) 17.2 mg Q12H PRN PO Moderate constipation; Start 01/19/18 at 20:15; Stop 01/31/18 at 17:40; Status DC Bisacodyl (Dulcolax Supp) 10 mg DAILY PRN RECTAL SEVERE CONSITIPATION; Start at 20:15; Stop 01/22/18 at 15:54; Status DC Lactulose (Lactulose Liq) 30 ml DAILY PRN PO SEVERE CONSITIPATION Last administered on 01/22/18at 09:28; Start 01/19/18 at 20:15; Stop 01/22/18 at 15:54; Status DC Chlorhexidine Gluconate (Peridex 0.12% Liq) 15 ml BID@08,20 MT Last administered on 01/31/18at 08:14; Start 01/20/18 at 08:00; Stop 01/31/18 at 17:40 ; Status DC Propofol 100 ml @ 2.493 mls/ hr TITRATE PRN IV SEDATION Last administered on at 03:36; Start 01/19/18 at 20:15; Stop 01/20/18 at 16:45; Status DC Gadodiamide (Omniscan Pf Inj) 16 ml STK-MED ONCE IV PUSH Last administered on at 13:55; Start 01/20/18 at 13:55; Stop 01/20/18 at 13:56; Status DC Metoprolol Tartrate (Lopressor) 50 mg Q6HR PO Last administered on 01/21/18at 10: 51; Start 01/20/18 at 18:00; Stop 01/21/18 at 17:11; Status DC Amlodipine Besylate (Norvasc) 5 mg Q12HR PO Last administered on 01/30/18at 20: 03; Start 01/20/18 at 21:00; Stop 01/31/18 at 17:40; Status DC Hydralazine HCl (Apresoline) 100 mg Q8HR PO Last administered on 01/31/18at 06: 08; Start 01/21/18 at 08:00; Stop 01/31/18 at 17:40; Status DC Labetalol HCl (Trandate Inj) 20 mg Q15M PRN IV PUSH sbp > 150 Last administered on 01/24/18at 04:15; Start 01/21/18 at 08:00; Stop 01/31/18 at 17:40; Status DC Hydralazine HCl (Apresoline Inj) 10 mg Q30M PRN IV PUSH sbp > 150; Start at 08:00; Stop 01/31/18 at 17:40; Status DC Miscellaneous Information [place] D[place]C ICU ELECTROLYTE ORDERS... UNSCH PRN .XX SEE DOSE INSTRUCTIONS; Start 01/21/18 at 14:00; Stop 08/04 at 14:35; Status DC Miscellaneous Information [place] ICU - CALL ORDERING PHYSIC... UNSCH PRN .XX SEE DOSE INSTRUCTIONS; Start 01/21/18 at 14:00; Stop 08/04 at 14:35; Status DC Potassium Chloride 100 ml @ 25 mls/hr UNSCH PRN IV ELECTROLYTE REPLACEMENT; Start 01/21/18 at 14:00; Stop 01/27/18 at 14:35; Status DC Potassium Bicarb/ Potassium Chloride (K-Lyte Cl Eff) 50 meq UNSCH PRN PO ELECTROLYTE REPLACEMENT Last administered on 01/26/18at 06:15; Start 01/21/18 at 14:00; Stop 01/27/18 at 14:35; Status DC Potassium Chloride 100 ml @ 50 mls/hr UNSCH PRN IV ELECTROLYTE REPLACEMENT Last administered on 01/23/18at 09:00; Start 01/21/18 at 14:00; Stop 01/27/18 at 14 :35; Status DC Magnesium Sulfate 4 gm/Sodium Chloride 108 ml @ 54 mls/hr UNSCH PRN IV ELECTROLYTE REPLACEMENT; Start 01/21/18 at 14:00; Stop 01/27/18 at 14:35; Status DC Magnesium Sulfate 2 gm/Sodium Chloride 104 ml @ 52 mls/hr UNSCH PRN IV ELECTROLYTE REPLACEMENT; Start 01/21/18 at 14:00; Stop 01/27/18 at 14:35; Status DC Magnesium Oxide (Mag-Ox) 800 mg UNSCH PRN PO ELECTROLYTE REPLACEMENT; Start 01/21/18 at 14:00; Stop 01/27/18 at 14:35; Status DC Sodium Phosphate 30 mmol/Sodium Chloride 260 ml @ 43.333 mls/ hr UNSCH PRN IV ELECTROLYTE REPLACEMENT; Start 01/21/18 at 14:00; Stop 01/27/18 at 14:35; Status DC Potassium Phosphate (K-Phos) 2,000 mg UNSCH PRN PO ELECTROLYTE REPLACEMENT; Start 01/21/18 at 14:00; Stop 01/27/18 at 14:35; Status DC Potassium Phosphate 30 mmol/ Sodium Chloride 260 ml @ 43.333 mls/ hr UNSCH PRN IV ELECTROLYTE REPLACEMENT; Start 01/21/18 at 14:00; Stop 01/27/18 at 14:35; Status DC Famotidine (Pepcid) 20 mg BID PO Last administered on 01/24/18at 22:46; Start 01/21/18 at 21:00; Stop 01/25/18 at 09:14; Status DC Nicardipine HCl 50 mg/Sodium Chloride 500 ml @ 52 mls/hr TITRATE PRN IV Blood pressure management Last administered on 01/22/18at 11:01; Start 01/21/18 at 15:15 ; Stop 01/24/18 at 21:13; Status DC Propranolol HCl (Inderal) 40 mg Q6HR PO Last administered on 01/22/18at 05:12; Start 01/21/18 at 17:15; Stop 01/22/18 at 11:44; Status DC Propranolol HCl (Inderal) 60 mg Q6HR PO Last administered on 01/31/18at 06:08; Start 01/22/18 at 13:00; Stop 01/31/18 at 17:40; Status DC Bisacodyl (Dulcolax Supp) 10 mg DAILY RECTAL Last administered on 01/25/18at 09: 20; Start 01/23/18 at 09:00; Stop 01/31/18 at 17:40; Status DC Polyethylene Glycol (Miralax) 17 gm BID PO Last administered on 01/27/18at 22:40 ; Start 01/22/18 at 21:00; Stop 01/31/18 at 17:40; Status DC Lactulose (Lactulose Liq) 30 ml BID PO Last administered on 01/28/18at 09:30; Start 01/22/18 at 21:00; Stop 01/31/18 at 17:40; Status DC Senna/Docusate Sodium (Fadumo-Colace) 1 tab BID PO Last administered on at 09:10; Start 01/22/18 at 21:00; Stop 01/31/18 at 17:40; Status DC Magnesium Citrate (Citroma Liq) 300 ml ONCE ONCE PO Last administered on at 16:00; Start 01/22/18 at 16:00; Stop 01/22/18 at 16:21; Status DC Pharmacy Profile Note 0 ml @ 0 mls/hr UNSCH OTHER ; Start 01/24/18 at 21:15; Stop 01/27/18 at 10:29; Status DC Vancomycin HCl 1250 mg/Sodium Chloride 262.5 ml @ 250 mls/hr ONCE ONCE IV ; Start 01/24/18 at 21:15; Stop 01/24/18 at 21:40; Status DC Piperacillin Sod/ Tazobactam Sod 100 ml @ 200 mls/hr Q6H IV Last administered on 01/25/18at 03:13; Start 01/24/18 at 22:00; Stop 01/25/18 at 08:53; Status DC Furosemide (Lasix Inj) 40 mg ONCE ONCE IV PUSH Last administered on 01/24/18at 22:40; Start 01/24/18 at 21:30; Stop 01/24/18 at 21:35; Status DC Vancomycin HCl 2000 mg/Sodium Chloride 520 ml @ 250 mls/hr ONCE ONCE IV Last administered on 01/24/18at 23:53; Start 01/24/18 at 23:00; Stop 01/25/18 at 01:04; Status DC Vancomycin HCl 1000 mg/Sodium Chloride 250 ml @ 250 mls/hr Q12H IV ; Start 06/04 at 11:00; Status Cancel Miscellaneous Information [place] Ordered [place] Info) SPECIFIC LAB TO BE DRAWN:VANCO TROUGH DATE TO BE DR... ONCE ONCE .XX ; Start 01/26/18 at 10:45; Stop 01/26/18 at 10:46; Status Cancel Sodium Chloride 1,000 ml @ 150 mls/hr Q6H40M IV Last administered on at 08:01; Start 01/25/18 at 07:00; Stop 01/31/18 at 17:40; Status DC Piperacillin Sod/ Tazobactam Sod 50 ml @ 200 mls/hr Q6H IV Last administered on 01/26/18at 08:09; Start 01/25/18 at 09:00; Stop 01/26/18 at 09:31; Status DC Famotidine (Pepcid) 10 mg BID PO Last administered on 01/31/18at 08:57; Start at 21:00; Stop 01/31/18 at 17:40; Status DC Piperacillin Sod/ Tazobactam Sod 50 ml @ 100 mls/hr Q6H IV Last administered on 01/28/18at 08:04; Start 01/26/18 at 14:00; Stop 01/28/18 at 13:35; Status DC Potassium Chloride 100 ml @ 100 mls/hr Q1H IV ; Start 01/26/18 at 09:45; Stop 01/26/18 at 12:44; Status DC Potassium Chloride (KCl Powder) 20 meq ONCE ONCE PO ; Start 01/26/18 at 09:45; Stop 01/26/18 at 09:47; Status DC Albuterol/ Ipratropium (Duoneb Neb) 1 ampule Q6HR NEB NEB Last administered on 01/26/18at 16:00; Start 01/26/18 at 10:00; Stop 01/30/18 at 09:59; Status DC Albuterol Sulfate (Albuterol Neb) 2.5 mg Q2HR NEB PRN NEB dyspnea Last administered on 01/31/18at 03:26; Start 01/26/18 at 09:45; Stop 01/31/18 at 17:40 ; Status DC Sodium Chloride (Sodium Chloride 3% Neb) 2 ml Q6HR NEB NEB Last administered on 01/31/18at 07:49; Start 01/26/18 at 10:00; Stop 01/31/18 at 09:59; Status DC Guaifenesin (Robitussin Liq) 400 mg Q8HR NG Last administered on 01/31/18at 06: 08; Start 01/26/18 at 14:00; Stop 01/31/18 at 17:40; Status DC Vancomycin HCl 1500 mg/Sodium Chloride 515 ml @ 257.5 mls/ hr ONCE ONCE IV Last administered on 01/26/18at 12:41; Start 01/26/18 at 13:00; Stop 01/26/18 at 14:59; Status DC Artificial Tears (Lacrilube Opht Oint) 1 applic Q12HR EACH EYE Last administered on 01/31/18at 08:53; Start 01/26/18 at 21:00; Stop 01/31/18 at 17:40 ; Status DC Propofol 100 ml @ 2.529 mls/ hr TITRATE PRN IV SEDATION Last administered on at 04:25; Start 01/26/18 at 22:15; Stop 01/29/18 at 11:08; Status DC Vancomycin HCl 1000 mg/Sodium Chloride 250 ml @ 250 mls/hr Q24H IV ; Start at 13:45; Status UNV Sodium Chloride 1,000 ml @ 999 mls/hr BOLUS ONCE IV Last administered on 01/28at 14:04; Start 01/28/18 at 13:45; Stop 01/28/18 at 14:45; Status DC Pharmacy Profile Note ml @ 0 mls/hr UNSCH OTHER ; Start 01/28/18 at 16:30; Stop 01/29/18 at 11:08; Status DC Vancomycin HCl 1500 mg/Sodium Chloride 515 ml @ 257.5 mls/ hr ONCE ONCE IV ; Start 01/28/18 at 18:00; Stop 01/28/18 at 19:59; Status Cancel Vancomycin HCl 1000 mg/Sodium Chloride 250 ml @ 250 mls/hr ONCE ONCE IV Last administered on 01/28/18at 17:55; Start 01/28/18 at 18:00; Stop 01/29/18 at 11:08 ; Status DC Sodium Chloride 1,000 ml @ 999 mls/hr Q1H1M ONCE IV Last administered on at 18:15; Start 01/28/18 at 19:00; Stop 01/28/18 at 20:00; Status DC Lorazepam (Ativan Inj) 2 mg Q15M PRN IV PUSH any agitation; Start 01/31/18 at 13:00; Stop 01/31/18 at 17:40; Status DC Hydromorphone HCl (Dilaudid Pf Inj) 4 mg Q30M PRN IV PUSH any pain; Start 01/31 at 13:00; Stop 01/31/18 at 17:40; Status DC Lorazepam (Ativan Inj) 8 mg ONCE ONCE IV PUSH Last administered on 01/31/18at 14:40; Start 01/31/18 at 13:00; Stop 01/31/18 at 13:17; Status DC Hydromorphone HCl (Dilaudid Pf Inj) 6 mg ONCE ONCE IV PUSH Last administered on 01/31/18at 14:40; Start 01/31/18 at 13:00; Stop 01/31/18 at 13:17; Status DC (Francois Alvarez MD) Medical Decision Making MDM Remarks 67 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, remains with poor neurological examination, no improvements (Glenda Uribe) Plan Plan Remarks cont nonsurgical management of pontine bleed, critical care management palliative care following no further nrs interventions planned will sign off, call prn (Glenda Uribe) Attending Statement Continue non operative treatment of pontine hemorrhage His prognosis is very poor Continue blood pressure management Discussed with critical care cutter operator asbestos shingle The exam, history, and the medical decision-making described in the above note were completed with the assistance of the mid-level provider. I reviewed and agree with the findings presented. I attest that I had a [id number] encounter with the patient on the same day, and personally performed and documented my assessment and findings in the medical record. (Frnacois Alvarez MD) Glenda Uribe Jan 30, 2018 14:30 Francois Alvarez MD Feb 07, 2018 18:29
--- NOTE | 2018-01-30 14:40 | HHI.HCPN ---
Palliative care contacted patient's to confirm meeting today. reports she is unsure when she will be coming to the hospital and is not sure she wants to meet with palliative care administrator social welfare anymore. She becomes a little apprehensive about ongoing conversation and indicates she has my contact information and will call me once she figures out what she is doing today and if she decides to meet. Offered emotional support. Informed her I would be available to stay later today should she change her mind. Palliative care will continue to follow throughout hospitalization. Naomy Riggs, FINANCIAL DIRECTOR Jan 30, 2018 14:40
--- NOTE | 2018-01-30 16:01 | HHI.HCPN ---
Reason for visit a. To assist with evaluation and management of symptoms including: Pain, dyspnea b. To assist medical decision maker(s) with: better understanding of current medical conditions; weighing benefits/burdens of medical treatment options; making medical treatment decisions. . Subjective/Interval History Discussed with Dr. Leggett. Patient seen and examined in ICU. No family at bedside. Attempted to call , phone goes to [employer], messages left to return call. Patient having periods of asystole during bath per nursing staff. Vital signs stable. Remains on mech vent, FiO2 30%. Renal function has worsened with increase creatinine from 7.13 to 7.67. Renal ultrasound without hydronephrosis. . Family/friend interactions Called to speak with , Beatriz via telephone to provide medical update regarding cardiac and renal changes. . Advance Directives Living Will: Never completed Health Care Surrogate: Never completed Durable Power of Employee Communications Intern: Never completed Advance Directive Specifics Health Care Surrogate(s): The patient lacks capacity for decision-making and will not regain that capacity. No written advanced directives per according to [place] statutes, healthcare proxy decision making would fall to his , Beatriz Troncoso. . Significant change in goals: NO CODE. Awaiting return call from to provide medical update. . Objective Vital Signs Date Time Temp Pulse Resp B/P (MAP) Pulse Ox O2 Delivery O2 Flow Rate FiO2 01/30/18 14:00 73 01/30/18 12:00 98.4 72 18 104/57 (73) 99 01/30/18 12:00 72 01/30/18 12:00 30 01/30/18 11:59 99 30 01/30/18 10:00 74 01/30/18 08:24 30 01/30/18 08:18 30 01/30/18 08:18 100 30 01/30/18 08:00 30 01/30/18 08:00 98.7 74 37 155/70 (98) 99 01/30/18 08:00 74 01/30/18 06:00 67 01/30/18 04:12 100 30 01/30/18 04:00 99.0 72 18 134/63 (86) 100 01/30/18 04:00 72 01/30/18 04:00 30 01/30/18 02:00 67 01/30/18 01:12 100 30 01/30/18 00:00 30 01/30/18 00:00 99.0 64 18 120/58 (78) 100 01/30/18 00:00 67 01/29/18 22:00 68 01/29/18 20:22 100 30 01/29/18 20:00 98.8 65 18 137/65 (89) 100 01/29/18 20:00 30 01/29/18 20:00 65 01/29/18 18:00 68 01/29/18 16:00 30 01/29/18 16:00 66 01/29/18 16:00 99.1 66 18 130/65 (86) 100 Intake & Output 01/30/18 01/30/18 07:00 19:00 Intake Total 2202 ml Output Total 1150 ml Balance 1052 ml Intake Oral 0 ml IV Total 1420 ml Tube Feeding 602 ml Tube Irrigant 180 ml Output Urine Total 1150 ml # Bowel Movements 1 Physical Exam CONSTITUTIONAL/GENERAL: This is an adequately nourished comatose patient, in no apparent distress. EYES: eyes closed. CARDIOVASCULAR: Irregularly irregular. RESPIRATORY/CHEST: Orotracheally intubated on mechanical vent, coarse breath sounds bilaterally. GASTROINTESTINAL: Abdomen soft, non-tender, nondistended. bowel sounds present. GENITOURINARY: Without palpable bladder distension. MUSCULOSKELETAL: Extremities without clubbing, cyanosis, or edema. No mottling or clubbing. NEUROLOGICAL: Unresponsive to voice. Does not follow command with eye movement. PSYCHIATRIC: Unable to evaluate due to clinical condition . Diagnostic Tests Laboratory Laboratory Tests Test 01/29/18 04:19 01/30/18 03:21 Blood Urea Nitrogen 79 MG/DL (7-18) 78 MG/DL (7-18) Creatinine 7.13 MG/DL (0.60-1.30) 7.67 MG/DL (0.60-1.30) Random Glucose 130 MG/DL (74-106) 146 MG/DL (74-106) Calcium Level 8.1 MG/DL (8.5-10.1) 8.2 MG/DL (8.5-10.1) Sodium Level 147 MEQ/L (136-145) 147 MEQ/L (136-145) Potassium Level 4.0 MEQ/L (3.5-5.1) 4.6 MEQ/L (3.5-5.1) Chloride Level 118 MEQ/L (98-107) 119 MEQ/L (98-107) Carbon Dioxide Level 13.4 MEQ/L (21.0-32.0) 13.4 MEQ/L (21.0-32.0) Anion Gap 16 MEQ/L (5-15) 15 MEQ/L (5-15) Estimat Glomerular Filtration Rate 8 ML/MIN (>89) 7 ML/MIN (>89) Random Vancomycin Level 31.8 COMMENT Total Protein 6.5 GM/DL (6.4-8.2) Albumin 2.0 GM/DL (3.4-5.0) Alkaline Phosphatase 225 U/L (45-117) Aspartate Amino Transf (AST/SGOT) 109 U/L (15-37) Alanine Aminotransferase (ALT/SGPT) 111 U/L (12-78) Total Bilirubin 0.8 MG/DL (0.2-1.0) Result Diagram: 01/27/18 0619 01/30/18 0321 Microbiology Microbiology Date/Time Source Procedure Growth Status 01/24/18 22:10 Blood Peripheral Aerobic Blood Culture - Final NO GROWTH IN 5 DAYS Complete 01/24/18 22:10 Blood Peripheral Anaerobic Blood Culture - Final NO GROWTH IN 5 DAYS Complete 01/24/18 23:59 Sputum Endotracheal Gram Stain - Final Complete 01/24/18 23:59 Sputum Culture - Final Haemophilus Influenzae Complete 01/24/18 23:59 Urine Catheterized Urine Urine Culture - Final Staphylococcus Epidermidis Complete Imaging Last Impressions Renal Ultrasound 01/29/18 0000 Signed Impressions: CONCLUSION: 1. No hydronephrosis identified. 2. Distended bladder. Abdomen X-Ray 01/26/18 0000 Signed Impressions: CONCLUSION: Unremarkable study. Chest X-Ray 01/25/18 0000 Signed Impressions: CONCLUSION: Right lung is now clear. Head CT 01/23/18 0000 Signed Impressions: CONCLUSION: Slight interval resorption of brainstem hemorrhage. 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 Procedures INTUBATION 01/19/18 Resuscitation /cardiac arrest 01/23/18 . 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 (2) Asystolic cardiac arrest 01/23/18 (3) Respiratory failure, mechanical ventilation (4) Anticoagulation Via Coumadin for atrial fibrillation (5) Chronic atrial fib (6) Hypertension, not controlled at the time of admission (7) COPD, 50 pack years cigarettes (8) History of CAD (9) Chronic back pain (10) Hyperlipidemia (11) GERD (12) History of thalassemia and old records (13) Degenerative arthritis, history of chronic back pain (14) Acute renal failure Symptom Scale: (1) Dyspnea 0-10 Scale: Unable to quantify (2) Pain 0-10 Scale: Unable to quantify (He had chronic back pain and now the pontine hemorrhage that was first noted as a headache) Pertinent Non-Medical Issues Psychosocial: Originally from [place], in [place] for 10 years. now for 20 years, retired. Spiritual: Rastafarian background, not spiritual or christianity. Legal: The patient lacks capacity for decision-making and will not regain that capacity. No written advanced directives per according to [place] statutes, healthcare proxy decision making would fall to his , Beatriz Troncoso. Ethical issues impacting care: Patient is unable to speak for himself. . Important Contacts : Beatriz Troncoso [phone] . Prognosis Mr. Troncoso was admitted with devastating pontine hemorrhage now with worsening renal failure and periods of asystole. He is terminal. . Code Status: No Code Plan * DECISION-MAKING: The patient lacks capacity for decision-making and will not regain that capacity. No written advanced directives per according to [place] statutes, healthcare proxy decision making would fall to his , Beatriz Troncoso. * NO CODE. * GOALS: Called to speak with , Beatriz via telephone to provide medical update. Upon her arrival to unit, update provided. Notified of worsening renal function and breif period of asystole this afternoon. She DOES NOT want dialysis. NO FURTHER ESCALATION OF CARE. She indicates she came from making arrangements. She tells me she plans to proceed with transition to comfort with withdrawal of life support on 01/31/18, time to be determined. Dr. Leggett notified. * Exhibits B and C placed on chart, signed. * Discussed with Dr. Leggett and nursing staff. * SYMPTOMS: The patient has had chronic back pain, and now has had head pain with hemorrhage. He currently shows no obvious signs of pain. I have no further medication recommendations at this time for pain. The patient's dyspnea is being managed by mechanical ventilation. . Attestation To help prompt me to consider important information that might be impacting today's encounter and assessment, information from prior notes written by myself or my colleagues may have been "brought forward" into today's note. My signature on this note, however, is an attestation that I personally performed the exam, history, and/or decision-making noted today, and, unless otherwise indicated, the interactions with patient, family, and staff as well as the review of records all occurred today. I also attest that the listed assessment and stated plan reflect my best clinical judgment today based on the combination of historical information, prior notes, and today's exam/ interactions. When time spent is documented, it refers only to time spent today by the signer, or if indicated, combined time spent today by collaborating physician/nurse practitioner. Marimar Meza Jan 30, 2018 16:01
[2018-01-30] MEDS: RESP: ALBUTEROL 2.5 MG/3 ML NEB (PRN) NEB (20:20)
[2018-01-31] VITALS (11 sets, daily range): BP systolic 105–126; BP diastolic 52–58; PULSE 70–89; RESP 13–27; TEMP 99–100.9; O2SAT 0–100
[2018-01-31] MEDS: SODIUM CHLOR 0.9% 1000 ML INJ 1,000 ML IV SCH ×2 (01:17→08:01)
[2018-01-31] MEDS: RESP: SODIUM CHLORIDE 3% 4 ML NEB NEB SCH ×2 (03:26→07:49)
[2018-01-31] MEDS: RESP: ALBUTEROL 2.5 MG/3 ML NEB (PRN) NEB (03:26)
[2018-01-31] MEDS: CHLORHEXIDINE GLUCONATE 2 % 1 PACK (2 CLOTHS) TOP SCH (03:48)
[2018-01-31] MEDS: guaiFENesin SOLUTION 200 MG/10 ML CUP NG SCH (06:08)
[2018-01-31] MEDS: PROPRANOLOL HCL 20 MG TAB PO SCH ×2 (06:08)
[2018-01-31] MEDS: hydrALAZINE HCL 100 MG TAB PO SCH (06:08)
[2018-01-31] MEDS: LACTULOSE SYRUP 20 GM/30 ML CUP PO SCH (07:52)
[2018-01-31] MEDS: DOCUSATE SODIUM 50 MG/SENNA 8.6 MG TAB PO SCH (07:53)
[2018-01-31] MEDS: BISACODYL 10 MG SUPP RECTAL SCH (07:53)
[2018-01-31] MEDS: POLYETHYLENE GLYCOL 17 GM PKG PO SCH (07:53)
[2018-01-31] MEDS: CHLORHEXIDINE 0.12% (ORAL KIT) 15 ML CUP MT SCH (08:14)
[2018-01-31] MEDS: ARTIFICIAL TEARS OPTH OINT 3.5 APPLIC/3.5 GM TUBO EACH EYE SCH (08:53)
[2018-01-31] MEDS: SODIUM CHLORIDE 0.9% FLUSH 10 ML FLUSH IV FLUSH SCH (08:53)
[2018-01-31] MEDS: PRAVASTATIN SOD 40 MG TAB PO SCH (08:57)
[2018-01-31] MEDS: FAMOTIDINE 20 MG TAB PO SCH (08:57)
[2018-01-31] MEDS ORDERED: HYDROmorphone HCL PF 4 MG/ML VIAL IV PUSH ONE (13:00)
[2018-01-31] MEDS ORDERED: LORazepam 2 MG/ML VIAL IV PUSH ONE (13:00)
[2018-01-31] MEDS ORDERED: LORazepam 2 MG/ML VIAL IV PUSH PRN (13:00)
[2018-01-31] MEDS ORDERED: HYDROmorphone HCL PF 4 MG/ML VIAL IV PUSH PRN (13:00)
--- NOTE | 2018-01-31 13:07 | HHI.CCPN ---
Subjective Remarks/Hospital Course 57-year-old gentleman with a history of hypertension, atrial fibrillation on Coumadin, is admitted secondary to acute onset of headache and left extremity weakness. Patient was watching TV when he suddenly developed a headache and left arm and left leg weakness, slurred speech approximately 1 hour prior to ER arrival. The CT of the brain shows 1.1 cm acute hemorrhage in the right terrance. No acute findings in the supratentorial brain. The patient was immediately intubated in the emergency department by ED attending for an airway protection, received K Centra and vitamin K, and is now admitted to ICU. 01/20: persistently poor neurologic exam. extensor posturing in the upper extremities. triple flexion in the lowers. repeat CT brain with extension of the pontine hemorrhage into the brainstem. very grim prognosis. neurosurgery re- evaluated and agrees there is no neurosurgical intervention warranted at this point. Long and multiple discussions with the family regarding prognosis and minimal improvements over time. family is flying in from out of state. palliative met with family. neurology also agrees with grim prognosis. 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 01/21: no changes in mental status. postures in the extremities. per Dr. Malin, patient can follow commands with vertical gaze deviation, increasing concern for locked-in syndrome. today on my evaluation, patient is not following commands with gaze and my exam is unchanged from yesterdays. 01/22: no improvements in mental status. not following commands with vertical gaze. still vigorously posturing. more family arriving on friday. 01/23: asystolic cardiac arrest this AM. pupils still equal, conjugate reactive. ROSC after 2 rounds of epi and compressions. STAT head CT ordered. I notified his who is on her way up. very poor prognosis. 01/24: febrile to 103 despite tylenol. sputum with significant secretions. no change in poor mental status. fio2 increasing and more hypoxic today. 01/25: fever persists, although somewhat lower. wbc remains elevated. fio2 down to 40%. no changes at all in poor neurologic exam. Subjective: 01/26: T-max 100.6. Currently 99.5. Very poor neurological examination. Continues with leukocytosis. 01/27: Afebrile today. Renal function deteriorating. We will stop vancomycin. Chest x-ray remains clear. Urine is probably contaminant. Pontine hemorrhage involves wide area and significant neurologic recovery is highly unlikely. 01/28: Unable to perform sustained ventilatory effort. No change in neuro status. Pre-renal azotemia is worsening. 01/29: Patient has developed ATN and is oliguric. He now has a spontaneous tachypnea with acceptable air movement. No change in neurologic function. 01/30: Continued deterioration in renal function status post cardiac arrest. Spontaneous tachypneic respiratory effort but no other evidence of neurologic activity. Renal ultrasound reviewed, moderate bladder distention but no hydronephrosis. 01/31: Patient remains unresponsive. And erratic respiratory effort exists but not enough to sustain gas exchange. Objective Vital Signs Date Time Temp Pulse Resp B/P (MAP) Pulse Ox O2 Delivery O2 Flow Rate FiO2 01/31/18 10:00 89 01/31/18 08:00 99.2 27 105/52 (69) 100 01/31/18 08:00 40 Intake and Output 01/31/18 01/31/18 02/01/18 08:00 16:00 00:00 Intake Total 3346 ml Output Total 4325 ml Balance -979 ml Result Diagram: 01/27/18 0619 01/30/18 0321 Imaging Last Impressions Chest X-Ray 01/25/18 0000 Signed Impressions: CONCLUSION: Right lung is now clear. Head CT 01/23/18 0000 Signed Impressions: CONCLUSION: Slight interval resorption of brainstem hemorrhage. 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 Objective Remarks GENERAL: 67-year-old middle-aged appearing male, comatose, intubated. SKIN: Warm and dry. Large tattoo in left upper extremity. HEAD: Normocephalic. EYES: No scleral icterus. No injection or drainage. NECK: Supple, trachea midline. Orally intubated. CARDIOVASCULAR: Irregularly irregular. S1, S2 no S4, no JVD RESPIRATORY: Generally clear. Coarse breath sounds. Scattered rhonchi throughout. GASTROINTESTINAL: Abdomen soft, non-tender, nondistended. no guarding. Bowel sounds active. MUSCULOSKELETAL: No cyanosis, or edema. Warm well perfused. NEURO EXAM: RASS -4. Tachypnea breaths. pupils 1mm bilaterally equal, sluggishly reactive. did not follow any commands with vertical gaze. Does not sustain spontaneous respiratory effort. 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 Now by repeat head CT is > 5mL total volume, which by multiple studies, this volume of pontine blood with this low GCS score has very poor overall survivability or neurologic improvement. unlikely to have any meaningful neurologic improvement. now s/p cardiac arrest. From retrospective data, patients who have cardiac arrest after devastating primary neurologic insult have almost a 100% in- hospital mortality. Certainly given the patient's already grim prognosis, at this point it is unlikely he will survive this hospitalization or make any meaningful neurologic recovery. . Will again discuss overall goals with family, although they have been resistant to any long-term discussions at this time. s/p PEA cardiac arrest 01/23 - most likely secondary to ICH in the brainstem - continue in ICU Pontine intracerebral hemorrhage - s/p reversal with KCentra and vit K 01/19 - daily INR - very poor prognosis - neurology: Dr. Malin following - neurosurgery: Dr. Alvarez following - Per Dr. Malin, repeat MRI next week. 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 alpha and theta waves which could be consistent with a diagnosis of LIS. - avoid sedation - frequent neuro checks Hypertensive Emergency - propranolol 60mg po q6h -Amlodipine 5 mg twice daily - hydralazine 100mg po q8h - prn labetalol, hydralazine - goal sbp < 150 Acute hypoxic and Hypercarbic respiratory failure - wean fio2 for goal spo2 > 90% - no SBT or weaning of mechanical ventilation until neuro exam improves - would be a candidate for early tracheostomy if family wishes to be aggressive - vent bundle - hob elevated - nebs Fever, Leukocytosis Possible HCAP pneumonia - buck cultures: pending. - vancomycin - tylenol for fever - cooling blanket COPD -Albuterol/ipratropium aerosols every 6 hours with albuterol aerosols every 2 hours as needed dyspnea -No steroids indicated Atrial fibrillation -Rate control with beta blockade -No anticoagulation due to active ICH Coagulopathy/chronic warfarin use secondary to atrial fibrillation -DC warfarin -Received K Centra and vitamin K in the ED -INR reversed Microcytic anemia/thrombocytopenia Monitor CBC daily. Follow trends Dyslipidemia Currently on pravastatin 40 mg daily Acute kidney injury -Status post cardiac arrest. No evidence of postrenal obstruction. DVT GI prophylaxis -Yaw's and SCDs -No pharmacological DVT prophylaxis due to acute ICH -Famotidine tube feeds on hold Jevity 1.5 at 60 cc an hour. Check KUB. NS 84 cc/hr currently. Appreciate palliative care following. Overall impression: Patient remains critically ill with a devastating neurologic injury. Location and size of pontine bleed make significant recovery unlikely. Remains ventilator dependent and we are unable to wean. Serum levels of vancomycin will suffice for urine coverage. ATN has developed despite aggressive hydration, likely owing to inadequate perfusion during the time of his cardiac arrest. Prognosis is poor and he continues to deteriorate. No immediate indications for dialysis. Family is considering withdrawal of artificial support. Critical care time 38 mins Nick Leggett MD Jan 31, 2018 13:07
--- NOTE | 2018-02-01 10:55 | DEATH SUM ---
Summary Demographics Date Pronounced : Jan 31, 2018 Time Of : 1538 Pronounced By: Beth Obando RN Preliminary Cause of : Other (Pontine hemorrhagic stroke) Nick Leggett MD Feb 01, 2018 10:55
--- NOTE | 2018-02-01 11:01 | HHI.DS ---
Discharge Summary Admission Date Jan 19, 2018 at 19:12 Discharge Date: Jan 31, 2018 Admitting Diagnosis intracerebral bleed-R terrance (1) Pontine hemorrhage ICD Code: I61.3 - Nontraumatic intracerebral hemorrhage in brain stem Diagnosis: Principal Status: Acute (2) Acute respiratory failure ICD Code: J96.00 - Acute respiratory failure, unspecified whether with hypoxia or hypercapnia Diagnosis: Principal Status: Acute (3) Hypertensive crisis ICD Code: I16.9 - Hypertensive crisis, unspecified Diagnosis: Principal Status: Acute (4) Coma ICD Code: R40.20 - Unspecified coma Diagnosis: Secondary Status: Acute Procedures Intubation and mechanical ventilation Brief History 57-year-old gentleman with a history of hypertension, atrial fibrillation on Coumadin, is admitted secondary to acute onset of headache and left extremity weakness. Patient was watching TV when he suddenly developed a headache and left arm and left leg weakness, slurred speech approximately 1 hour prior to ER arrival. The CT of the brain shows 1.1 cm acute hemorrhage in the right terrance. No acute findings in the supratentorial brain. The patient was immediately intubated in the emergency department by ED attending for an airway protection, received K Centra and vitamin K, and is now admitted to ICU. CBC/BMP: 01/30/18 0321 Significant Findings Laboratory Tests Test 01/30/18 03:21 Blood Urea Nitrogen 78 MG/DL (7-18) Creatinine 7.67 MG/DL (0.60-1.30) Random Glucose 146 MG/DL (74-106) Albumin 2.0 GM/DL (3.4-5.0) Calcium Level 8.2 MG/DL (8.5-10.1) Alkaline Phosphatase 225 U/L (45-117) Aspartate Amino Transf (AST/SGOT) 109 U/L (15-37) Alanine Aminotransferase (ALT/SGPT) 111 U/L (12-78) Sodium Level 147 MEQ/L (136-145) Chloride Level 119 MEQ/L (98-107) Carbon Dioxide Level 13.4 MEQ/L (21.0-32.0) Estimat Glomerular Filtration Rate 7 ML/MIN (>89) Imaging Brain MRI -acute pontine hemorrhage PE at Discharge . Transfer Summary Patient sustained a devastating pontine hemorrhage with coma and ventilator dependent respiratory failure. Family elected to withdraw artificial support and allow for natural . The patient was pronounced at 1538 hours on January 31 following compassionate extubation. The family was present at the bedside. Hospital Course 57-year-old gentleman with a history of hypertension, atrial fibrillation on Coumadin, is admitted secondary to acute onset of headache and left extremity weakness. Patient was watching TV when he suddenly developed a headache and left arm and left leg weakness, slurred speech approximately 1 hour prior to ER arrival. The CT of the brain shows 1.1 cm acute hemorrhage in the right terrance. No acute findings in the supratentorial brain. The patient was immediately intubated in the emergency department by ED attending for an airway protection, received K Centra and vitamin K, and is now admitted to ICU. 01/20: persistently poor neurologic exam. extensor posturing in the upper extremities. triple flexion in the lowers. repeat CT brain with extension of the pontine hemorrhage into the brainstem. very grim prognosis. neurosurgery re- evaluated and agrees there is no neurosurgical intervention warranted at this point. Long and multiple discussions with the family regarding prognosis and minimal improvements over time. family is flying in from out of state. palliative met with family. neurology also agrees with grim prognosis. 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 01/21: no changes in mental status. postures in the extremities. per Dr. Malin, patient can follow commands with vertical gaze deviation, increasing concern for locked-in syndrome. today on my evaluation, patient is not following commands with gaze and my exam is unchanged from yesterdays. 01/22: no improvements in mental status. not following commands with vertical gaze. still vigorously posturing. more family arriving on friday. 01/23: asystolic cardiac arrest this AM. pupils still equal, conjugate reactive. ROSC after 2 rounds of epi and compressions. STAT head CT ordered. I notified his who is on her way up. very poor prognosis. 01/24: febrile to 103 despite tylenol. sputum with significant secretions. no change in poor mental status. fio2 increasing and more hypoxic today. 01/25: fever persists, although somewhat lower. wbc remains elevated. fio2 down to 40%. no changes at all in poor neurologic exam. Subjective: 01/26: T-max 100.6. Currently 99.5. Very poor neurological examination. Continues with leukocytosis. 01/27: Afebrile today. Renal function deteriorating. We will stop vancomycin. Chest x-ray remains clear. Urine is probably contaminant. Pontine hemorrhage involves wide area and significant neurologic recovery is highly unlikely. 01/28: Unable to perform sustained ventilatory effort. No change in neuro status. Pre-renal azotemia is worsening. 01/29: Patient has developed ATN and is oliguric. He now has a spontaneous tachypnea with acceptable air movement. No change in neurologic function. 01/30: Continued deterioration in renal function status post cardiac arrest. Spontaneous tachypneic respiratory effort but no other evidence of neurologic activity. Renal ultrasound reviewed, moderate bladder distention but no hydronephrosis. 01/31: Patient remains unresponsive. And erratic respiratory effort exists but not enough to sustain gas exchange. Pt Condition on Discharge: Deteriorating Nick Leggett MD Feb 01, 2018 11:01
== END 2018-01-31 17:40 | disposition expired | DRG 64 ==
LOC: NEPC 17:48 → NEDA 19:12 → N03A 21:11
PROVIDERS: ADMIT Internal Medicine Critical Care Medicine; ATTEND Internal Medicine Critical Care Medicine
PROC: 0BH17EZ Insertion of Endotracheal Airway into Trachea, Via Natural or Artificial Opening (ICD-10-PCS; principal; 2018-01-19)
PROC: 5A1955Z Respiratory Ventilation, Greater than 96 Consecutive Hours (ICD-10-PCS; 2018-01-19)
PROC: 30283B1 Transfusion of Nonautologous 4-Factor Prothrombin Complex Concentrate into Vein, Percutaneous Approach (ICD-10-PCS; 2018-01-19)
PROC: 5A12012 Performance of Cardiac Output, Single, Manual (ICD-10-PCS; 2018-01-23)
DX: I61.3 Nontraumatic intracerebral hemorrhage in brain stem (principal); J96.01 Acute respiratory failure with hypoxia; N17.0 Acute kidney failure with tubular necrosis; Z99.11 Dependence on respirator [ventilator] status; G93.49 Other encephalopathy; J18.9 Pneumonia, unspecified organism; Y95 Nosocomial condition; J96.02 Acute respiratory failure with hypercapnia; J44.9 Chronic obstructive pulmonary disease, unspecified; D68.9 Coagulation defect, unspecified; I16.1 Hypertensive emergency; E11.9 Type 2 diabetes mellitus without complications; D50.9 Iron deficiency anemia, unspecified; I10 Essential (primary) hypertension; E78.5 Hyperlipidemia, unspecified; I25.10 Atherosclerotic heart disease of native coronary artery without angina pectoris; K21.9 Gastro-esophageal reflux disease without esophagitis; I46.9 Cardiac arrest, cause unspecified; I48.91 Unspecified atrial fibrillation; Z79.01 Long term (current) use of anticoagulants; D69.6 Thrombocytopenia, unspecified; Z66 Do not resuscitate; Z87.891 Personal history of nicotine dependence
CPT/HCPCS: 31500; 36600; 70450; 70553; 71045; 74018; 76775; 80048; 80053; 80202; 80307; 81001; 82550; 82805; 83735; 84100; 84132; 84484; 85007; 85025; 85027; 85384; 85610; 85730; 86403; 86850; 86900; 86901; 87040; 87070; 87077; 87086; 87184; 87185; 87186; 87205; 93005; 94002; 94003; 94640; 94664; 95819; 96361; 96374; A9579; C9132; J0330; J1170; J1940; J2060; J2250; J2543; J3370; J3430; J3480; J7030; J7040; J7050; J7613